=== PATIENT | male | born 1980 | race Two or more races ===

== ENCOUNTER → 2020-08-18 10:33 | Outpatient (BNVA) | payer MEDICARE, MEDICAID, SELFPAY | PROVIDERS: PCP Family Medicine; Visit Provider Internal Medicine Gastroenterology | DX: K58.0 Irritable bowel syndrome with diarrhea (principal); Z85.038 Personal history of other malignant neoplasm of large intestine | CPT/HCPCS: 99215 ==

== ENCOUNTER → 2020-09-29 09:00 | Outpatient (BNVA) | payer MEDICARE, MEDICAID, SELFPAY | PROVIDERS: Visit Provider Urology | DX: N31.9 Neuromuscular dysfunction of bladder, unspecified (principal); R97.20 Elevated prostate specific antigen [PSA] | CPT/HCPCS: 81002; 99212 ==

== ENCOUNTER 2020-10-04 11:28 | Outpatient (REF) | payer MEDICARE, MEDICAID, SELFPAY ==
[2020-10-04 11:56] LABS: MANUAL DIFF FLAG NO
[2020-10-04 12:03] LABS: Basophils Percent Auto 0.5 % (0-2); Eosinophils Absolute Auto 0.2 X10*3/uL (0.0-0.4); Eosinophils Percent Auto 2.8 % (0-4); Hematocrit 40.5 % (42-52); Hemoglobin 13.6 g/dl (14.0-18.0); Imm Gran Abs Auto 0.03 X10*3/uL (0.00-0.03); Imm Gran Pct Auto 0.5 % (0.0-0.4); Lymphocytes Percent Auto 15.5 % (20-40); Mean Corpuscular HGB Conc 33.6 g/dl (31.0-36.0); Mean Corpuscular Hemoglobin 31.8 pg (27.0-33.0); Mean Corpuscular Volume 94.6 fL (80-98); Mean Platelet Volume 10.4 fL (9.4-12.4); Monocytes Percent Auto 15.3 % (2-11); Neutrophils Absolute Auto 4.1 X10*3/uL (2.0-8.3); Neutrophils Percent Auto 65.4 % (45-73); Platelet Count 191 X10*3/uL (160-400); Red Blood Count 4.28 X10*6/uL (4.60-5.80); Red Cell Distribution Width 12.9 % (11.0-16.0); White Blood Count 6.3 X10*3/uL (4.8-10.8)
[2020-10-04 12:28] LABS: Alanine Aminotransferase 9 U/L (0-40); Albumin Level 4.4 g/dL (3.5-5.0); Alkaline Phosphatase 87 U/L (39-117); Anion Gap 11 (12-20); Aspartate Amino Transferase 18 U/L (5-37); Bilirubin Total 0.7 mg/dL (0.0-1.0); Blood Urea Nitrogen 10 mg/dL (9-16); C Reactive Protein 0.36 mg/dL (< or = 0.50); Calcium 10.3 mg/dL (8.4-10.2); Carbon Dioxide 29 mmol/L (22-29); Chloride 101 mmol/L (96-108); Estimated Glomerular Filt Rate > 60; Glucose Random 78 mg/dL (60-115); Sodium 137 mmol/L (135-145); Total Protein 7.6 g/dL (6.5-8.0)
== END 2020-10-04 11:29 | disposition home or self-care (01) ==
LOC: HO.LAB 11:28
PROVIDERS: PCP Family Medicine; Visit Provider Internal Medicine Gastroenterology
DX: R19.7 Diarrhea, unspecified (principal)
CPT/HCPCS: 36415; 80053; 85025; 86140

== ENCOUNTER 2020-10-05 11:13 | Outpatient (REF) | payer MEDICARE, MEDICAID, SELFPAY ==
[2020-10-05 13:10] LABS: Leukocytes Stool Qualitative NEGATIVE (NEGATIVE)
== END 2020-10-05 11:14 | disposition home or self-care (01) ==
LOC: HO.LNP 11:13
PROVIDERS: Visit Provider Internal Medicine Gastroenterology
DX: R19.7 Diarrhea, unspecified (principal)
CPT/HCPCS: 87338; 89055

== ENCOUNTER → 2020-10-26 13:53 | Outpatient (BNVA) | payer MEDICARE, MEDICAID, SELFPAY | PROVIDERS: PCP Family Medicine; Visit Provider Surgery Vascular Surgery | DX: I83.11 Varicose veins of right lower extremity with inflammation (principal) | CPT/HCPCS: 99202 ==

== ENCOUNTER 2020-10-28 13:31 | Outpatient (REF) | payer MEDICARE, MEDICAID, SELFPAY ==
--- NOTE | 2020-10-28 | US_ITS ---
EXAMINATION: ULTRASOUND EXTREMITY NONVASCULAR CLINICAL INFORMATION: Localized enlarged lymph nodes right inguinal region. COMPARISON: None TECHNIQUE: Routine reid-scale imaging through the right groin was performed. FINDINGS: There are 3 lymph nodes seen in the right groin. They measure as follows. 1. Normal echogenic medulla with lymph node measuring 2.0 x 0.8 x 1.6 cm. 2. Normal echogenic medulla with lymph node measuring 2.1 x 0.9 x 2.6 cm. 3. Normal echogenic medulla with lymph node measuring 2.0 x 0.7 x 1.6 cm. US/US extremity nonvascular IMPRESSION: At least 3 lymph nodes seen on ultrasound with normal echotexture.
== END 2020-10-28 13:32 | disposition home or self-care (01) ==
LOC: HO.US 13:31
PROVIDERS: PCP Family Medicine; Visit Provider Family Medicine
DX: R59.0 Localized enlarged lymph nodes (principal)
CPT/HCPCS: 76882

== ENCOUNTER 2020-11-09 10:20 | Outpatient (REF) | payer MEDICARE, MEDICAID, SELFPAY ==
--- NOTE | 2020-11-09 10:24 | US_ITS ---
EXAMINATION: US LOWER EXTREMITY VENOUS ULTRASOUND (REFLUX EXAM), BILATERAL CLINICAL INDICATION: Varicose veins right lower extremity with inflammation. COMPARISON: 07/09/2020 TECHNIQUE: Color flow triplex imaging and compression Doppler was performed to evaluate both the deep and the superficial systems bilaterally. To evaluate the superficial system, the examination was performed in the upright position. Color-flow Doppler ultrasound and compression ultrasound were utilized. In addition, maneuvers were utilized to demonstrate reflux. FINDINGS: 1. DEEP VENOUS ULTRASOUND OF THE RIGHT LOWER EXTREMITY: Respiratory variation, normal compression and augmented flow are noted in the right common femoral vein as well as the right popliteal vein, and there is no evidence of deep venous thrombosis at these locations. There is no evidence of reflux in the deep system in either the common femoral vein or the popliteal vein. There is no evidence of a Myers's cyst. 2. SUPERFICIAL ULTRASOUND WITH DOPPLER OF RIGHT LOWER EXTREMITY: The right great saphenous vein at the saphenofemoral junction measures 7 mm, at the mid thigh 11 mm, iwuux-jhq-ptjs 7 mm, qxewp-fsb-afbw 11 mm, at mid calf 4 mm, and at the ankle measures 4 mm. Reflux is noted in the mid thigh up to 1.8 seconds, pojpc-jyj-rxaq at 1.2 seconds, at the knee at 1.6 seconds, and flqaw-ojw-pyus at 1.1 seconds. There is no reflux at the saphenofemoral junction or proximal thigh. The right small saphenous vein measures 5 mm and shows no reflux. There is a 2 mm billing checker seen within the proximal calf without reflux. 3. DEEP VENOUS ULTRASOUND OF THE LEFT LOWER EXTREMITY: Respiratory variation, normal compression and augmented flow are noted in the left common femoral vein as well as the left popliteal vein, and there is no evidence of deep venous thrombosis at these locations. There is no evidence of reflux in the deep system in either the common femoral vein or the popliteal vein. There is no evidence of a Myers's cyst. 4. SUPERFICIAL ULTRASOUND WITH DOPPLER OF LEFT LOWER EXTREMITY: Left great saphenous vein at the saphenofemoral junction measures 11 mm, at the mid thigh 4 mm, aeuxk-gxj-pasw 4 mm, poubk-agd-reif 3 mm, at mid calf 3 mm, and at the ankle measures 3 mm. The only reflux identified is at the knee at approximately 2 seconds. No reflux is seen at the saphenofemoral junction. The left small saphenous vein measures 3 mm and shows no reflux. Varicosities with reflux are seen about the gaolt-zxx-qyfh and calf region. US/US venous duplex LE BI IMPRESSION: 1. No evidence of reflux or thrombus in the common femoral veins or popliteal veins bilaterally. 2. No reflux identified within the greater saphenous system at the saphenofemoral junctions bilaterally. There is reflux seen within the right greater saphenous vein from mid thigh through the whipj-jzs-voab region and in the left greater saphenous vein at the knee level.
== END 2020-11-09 10:21 | disposition home or self-care (01) ==
LOC: HO.US 10:20
PROVIDERS: Visit Provider Surgery Vascular Surgery
DX: I83.893 Varicose veins of bilateral lower extremities with other complications (principal)
CPT/HCPCS: 93970

== ENCOUNTER → 2020-11-23 08:41 | Outpatient (BNVA) | payer MEDICARE, MEDICAID, SELFPAY | PROVIDERS: PCP Family Medicine; Visit Provider Surgery Vascular Surgery | DX: I83.11 Varicose veins of right lower extremity with inflammation (principal) | CPT/HCPCS: 99212 ==

== ENCOUNTER 2020-11-24 12:43 | Outpatient (REF) | payer MEDICARE, MEDICAID, SELFPAY | END 2020-11-24 12:44 | disposition home or self-care (01) | LOC: HO.LAB 12:43 | PROVIDERS: PCP Family Medicine; Visit Provider Internal Medicine | DX: Z20.822 Contact with and (suspected) exposure to COVID-19 (principal) | CPT/HCPCS: 36415; C9803; U0003 ==

== ENCOUNTER → 2020-12-03 07:40 | Outpatient (BNVA) | payer MEDICARE, MEDICAID, SELFPAY | PROVIDERS: PCP Family Medicine; Visit Provider Surgery Vascular Surgery | DX: I83.11 Varicose veins of right lower extremity with inflammation (principal); Z98.890 Other specified postprocedural states | CPT/HCPCS: 36482 ==

== ENCOUNTER 2020-12-06 14:18 | Outpatient (REF) | payer MEDICARE, MEDICAID, SELFPAY ==
--- NOTE | ~2020-12-06 | US_ITS ---
EXAMINATION: US VENOUS ULTRASOUND WITH DOPPLER LOWER EXTREMITY, RIGHT CLINICAL INFORMATION: Post venous seal procedure. COMPARISON: Previous preoperative exam 11/09/2020 TECHNIQUE: Ultrasound of the deep veins is performed from the hip to the calf with compression sonography and color and pulse Doppler assessment. Spectral analysis with color-flow imaging is performed. FINDINGS: There is normal venous compression and respiratory variation and augmented flow. The visualized common femoral vein, superficial femoral vein, profunda femoral vein, popliteal vein, and the trifurcation region shows no evidence of deep venous thrombosis. There is echogenic material in the right greater saphenous vein 4.2 cm from the saphenofemoral junction post venaseal procedure. There is focal dilatation of the right greater saphenous vein at the superior aspect of the echogenic material likely representing venaseal thrombus. There also appears to be a prominent valve leaflet seen in this region as well. This measures 2.2 cm in diameter and is increased in size from 1.2 cm on preoperative exam 11/09/2020. This area measures 3.8 cm in length. There is no significant popliteal fossa cyst. US/US venous duplex LE RT IMPRESSION: No DVT demonstrated in the right lower extremity. Echogenic material in the right greater saphenous vein 4.2 cm from the saphenofemoral junction post vena seal procedure. There is a focal area of marked dilatation of the right greater saphenous vein in the proximal thigh with echogenic material and probable valve leaflet at the superior end of the vena seal thrombosis. This measures 2.2 cm in diameter and is increased in size from 1.2 cm on preprocedure exam 11/09/2020. This measures 3.8 cm in length.
== END 2020-12-06 14:19 | disposition home or self-care (01) ==
LOC: HO.US 14:18
PROVIDERS: Visit Provider Surgery Vascular Surgery
DX: M79.604 Pain in right leg (principal); Z98.890 Other specified postprocedural states
CPT/HCPCS: 93971

== ENCOUNTER → 2020-12-16 09:05 | Outpatient (BNVA) | payer MEDICARE, MEDICAID, SELFPAY | PROVIDERS: PCP Family Medicine; Visit Provider Surgery Vascular Surgery | DX: I83.11 Varicose veins of right lower extremity with inflammation (principal) | CPT/HCPCS: 99212 ==

== ENCOUNTER 2021-02-07 10:07 | Outpatient (REF) | payer MEDICARE, MEDICAID, SELFPAY ==
[2021-02-07 12:16] LABS: MANUAL DIFF FLAG NO
[2021-02-07 12:20] LABS: Basophils Percent Auto 0.5 % (0-2); Eosinophils Absolute Auto 0.1 X10*3/uL (0.0-0.4); Hematocrit 40.2 % (42-52); Hemoglobin 13.1 g/dl (14.0-18.0); Imm Gran Abs Auto 0.02 X10*3/uL (0.00-0.03); Imm Gran Pct Auto 0.3 % (0.0-0.4); Lymphocytes Percent Auto 16.1 % (20-40); Mean Corpuscular HGB Conc 32.6 g/dl (31.0-36.0); Mean Corpuscular Hemoglobin 30.8 pg (27.0-33.0); Mean Corpuscular Volume 94.6 fL (80-98); Monocytes Absolute Auto 0.7 X10*3/uL (0.1-1.2); Neutrophils Absolute Auto 4.2 X10*3/uL (2.0-8.3); Neutrophils Percent Auto 69.1 % (45-73); Platelet Count 190 X10*3/uL (160-400); Red Blood Count 4.25 X10*6/uL (4.60-5.80); White Blood Count 6.1 X10*3/uL (4.8-10.8)
[2021-02-07 13:10] LABS: Alanine Aminotransferase 10 U/L (0-40); Albumin Level 4.4 g/dL (3.5-5.0); Alkaline Phosphatase 83 U/L (39-117); Anion Gap 11 (12-20); Aspartate Amino Transferase 17 U/L (5-37); Bilirubin Total 0.6 mg/dL (0.0-1.0); Blood Urea Nitrogen 14 mg/dL (9-16); C Reactive Protein 0.11 mg/dL (< or = 0.50); Calcium 10.3 mg/dL (8.4-10.2); Carbon Dioxide 29 mmol/L (22-29); Chloride 102 mmol/L (96-108); Estimated Glomerular Filt Rate > 60; Gamma Glutamyl Transpeptidase 19 U/L (11-51); Glucose Random 83 mg/dL (60-115); Sodium 138 mmol/L (135-145); Total Protein 7.4 g/dL (6.5-8.0)
[2021-02-07 13:22] LABS: Ferritin 61 ng/mL (20-250); TSH reflex Free T4 1.75 uIU/mL (0.32-4.0); Vitamin D 25-OH Total 19.2 ng/mL (>30)
== END 2021-02-07 10:08 | disposition home or self-care (01) ==
LOC: HO.LAB 10:07
PROVIDERS: PCP Family Medicine; Visit Provider Internal Medicine Gastroenterology
DX: R19.7 Diarrhea, unspecified (principal); K29.50 Unspecified chronic gastritis without bleeding; B96.81 Helicobacter pylori [H. pylori] as the cause of diseases classified elsewhere; F81.9 Developmental disorder of scholastic skills, unspecified
CPT/HCPCS: 36415; 80053; 82306; 82728; 82977; 84443; 85025; 86140; 99212

== ENCOUNTER 2021-02-09 13:27 | Outpatient (REF) | payer MEDICARE, MEDICAID, SELFPAY ==
[2021-02-09 14:20] LABS: Leukocytes Stool Qualitative NEGATIVE (NEGATIVE)
[2021-02-16 22:57] LABS: Chymotrypsin, Stool 5.1 U/g (2.3-51.4)
== END 2021-02-09 13:28 | disposition home or self-care (01) ==
LOC: HO.LNP 13:27
PROVIDERS: Visit Provider Internal Medicine Gastroenterology
DX: R19.7 Diarrhea, unspecified (principal); Z85.038 Personal history of other malignant neoplasm of large intestine
CPT/HCPCS: 87324; 87449; 89055

== ENCOUNTER 2021-02-18 10:46 | Outpatient (REF) | payer MEDICARE, MEDICAID, SELFPAY ==
[2021-02-18 13:12] LABS: Prostate Specific Antigen 2.49 ng/mL (<0.05-4.0)
== END 2021-02-18 10:47 | disposition home or self-care (01) ==
LOC: HO.LAB 10:46
PROVIDERS: PCP Family Medicine; Visit Provider Urology
DX: R97.20 Elevated prostate specific antigen [PSA] (principal); Z12.5 Encounter for screening for malignant neoplasm of prostate
CPT/HCPCS: 36415; 84153

== ENCOUNTER 2021-03-23 11:26 | Outpatient (REF) | payer MEDICARE, MEDICAID, SELFPAY ==
[2021-03-23 12:21] LABS: CDIFF Ag Negative (Negative); CDIFF Internal ctrl Dots and bkg OK (V); CDiff Toxin Negative (Negative)
== END 2021-03-23 11:27 | disposition home or self-care (01) ==
LOC: HO.LNP 11:26
PROVIDERS: Visit Provider Internal Medicine Gastroenterology
DX: R19.7 Diarrhea, unspecified (principal)
CPT/HCPCS: 87324; 87449

== ENCOUNTER 2021-03-29 08:18 | Outpatient (REF) | payer MEDICARE, MEDICAID, SELFPAY ==
--- NOTE | ~2021-03-29 | CT_ITS ---
EXAMINATION: CT ABDOMEN AND PELVIS WITH CONTRAST CLINICAL INFORMATION: Chronic diarrhea. COMPARISON: None TECHNIQUE: Multidetector volumetric images were obtained from the superior aspect of the liver through the pubic symphysis following administration 85 mL of Omnipaque 350 intravenous contrast. Sagittal and coronal reformatted images were obtained on the technologist's workstation. Oral contrast: No This CT examination was performed using dose optimization techniques as appropriate, variously including the following: *Automated exposure control *Adjustment of mA and/or kV according to patient size (this includes techniques or standardized protocols for targeted exams where dose is matched to indication/reason for exam; i.e. extremities or head) *Use of iterative reconstruction technique DLP: 576 mGy-cm FINDINGS: LUNG BASES: The heart size is normal. The lung bases are clear. LIVER, GALLBLADDER, AND BILIARY TREE: The liver is normal in size, shape, and attenuation. No focal hepatic lesion or biliary ductal dilatation is present. The gallbladder is unremarkable with no evidence of radiopaque gallstones, gallbladder wall thickening, or obvious pericholecystic inflammatory changes. PANCREAS: Unremarkable. SPLEEN: There is a punctate hypodensity inferior to splenic hilum likely suspicious for a small cyst. ADRENAL GLANDS: Unremarkable. KIDNEYS AND URETERS: The kidneys are normal in size, shape, and attenuation. No hydronephrosis, hydroureter, or calculi seen. No perinephric stranding. There are bilateral nonenhancing renal cysts largest in midpole right kidney measuring 1.3 cm and midpole left kidney measuring 7 mm. BLADDER: Unremarkable. GASTROINTESTINAL TRACT: There is a large amount of stool and oral contrast seen throughout the colon without significant distention. The small bowel loops are normal caliber. The appendix is normal caliber. No free air or inflammatory process seen. ABDOMINAL WALL: No significant hernia is appreciated. LYMPH NODES: Small shotty lymph nodes are seen in the left para-aortic space. VASCULAR: Unremarkable. PELVIC VISCERA: There is no free air or free fluid. OSSEOUS STRUCTURES: There is right L4-L5 facet joint arthropathy. No lytic or sclerotic process seen. CT/CT abdomen pelvis w con IMPRESSION: Mild constipation. No obstruction. No radiopaque urolith or hydroureteronephrosis. Bilateral small renal cysts are seen. No acute intra-abdominal process seen.
[2021-03-29] MEDS: Barium Sulfate Oral (Vanilla) 450 ML ORAL.SUSP 900 ML PO (11:13)
[2021-03-29] MEDS: iohexoL 350 MG/ML 100 ML INFUS..BTL IV (11:13)
== END 2021-03-29 08:19 | disposition home or self-care (01) ==
LOC: HO.CT 08:18
PROVIDERS: Visit Provider Internal Medicine Gastroenterology
DX: R10.9 Unspecified abdominal pain (principal)
CPT/HCPCS: 74177; Q9967

== ENCOUNTER → 2021-03-31 09:13 | Outpatient (BNVA) | payer MEDICARE, MEDICAID, SELFPAY | PROVIDERS: PCP Family Medicine; Visit Provider Urology | DX: N31.9 Neuromuscular dysfunction of bladder, unspecified (principal); R97.20 Elevated prostate specific antigen [PSA] | CPT/HCPCS: 99212 ==

== ENCOUNTER 2021-04-22 09:08 | Day surgery (SDC) | payer MEDICARE, MEDICAID, SELFPAY ==
[2021-04-18 09:06] VITALS: BMI 24.1
--- NOTE | 2021-04-22 09:54 | P.CONAN_ITS ---
[facility] Active Problems Active Problems: All Active Problems (Updated 02/07/21 @ 10:36 by Taylor Retana MD) Chronic Helicobacter pylori gastritis (Acute) Varicose veins of right lower extremity with inflammation (Acute) Neurogenic urinary bladder disorder (Acute) Elevated PSA (Acute) Cognitive developmental delay (Acute) Personal history of colon cancer (Acute) IBS (irritable colon syndrome) (Acute) Diarrhea (Acute) Past Medical History Medical History Asthma Chronic Helicobacter pylori gastritis Cognitive developmental delay Diarrhea IBS (irritable colon syndrome) Personal history of colon cancer Family History Family History Father No problems noted. Mother Family history of cancer of vagina Colon polyps Maternal Grandmother Family history of cancer of vagina Cancer Paternal Uncle Bone cancer Paternal Aunt Cancer Maternal Uncle Stomach cancer Brother No problems noted. Surgical History Surgical History History of esophagogastroduodenoscopy (EGD) (07/01/15) History of incision and drainage (01/29/14) Hx of colonoscopy (02/10/15) Hx of laparoscopy (03/11/15) Social History Social History Household Members Other:: Patient with cognitive, verbal and behavioral challenges lives w/ mother Alcohol intake: current Alcohol intake frequency: does not drink Advance Directives: No Advance Directives Information Provided: No Meds Allergies Allergy/AdvReac Type Severity Reaction Status Date / Time No Known Allergies Allergy Verified 03/31/21 09:17 [No Known Allergies*] Home Medications Medication Instructions Recorded Confirmed Last Taken Type clonidine HCl 0.3 mg tablet 0.3 mg PO BEDTIME 08/18/20 04/18/21 Unknown History omeprazole 20 mg capsule,delayed 20 mg PO BID 08/18/20 04/18/21 Unknown History release quetiapine 200 mg tablet 200 mg PO BEDTIME 08/18/20 04/18/21 Unknown History quetiapine 300 mg tablet 300 mg PO DAILY 08/18/20 04/18/21 Unknown History loperamide 2 mg capsule 2 mg PO QID PRN 08/21/20 04/18/21 Unknown History cholecalciferol (vitamin D3) 50 50 mcg PO DAILY 12/29/20 06/21/21 Unknown History mcg (2,000 unit) tablet clonidine HCl 0.1 mg tablet 0.1 mg PO BID 10/26/20 04/18/21 Unknown History flu vacc [id number] 6mos up(PF) ml IM 10/26/20 02/07/21 Unknown History fluticasone propionate 50 2 spray INTRANASAL Q OTHER DAY 10/26/20 04/18/21 Unknown History mcg/actuation nasal spray,suspension lithium carbonate 150 mg capsule 150 mg PO BID 10/26/20 04/18/21 Unknown History lithium carbonate 300 mg capsule 600 mg PO BID 10/26/20 04/18/21 Unknown History lorazepam 0.5 mg tablet 0.5 mg PO TID PRN 10/26/20 04/18/21 Unknown History olanzapine 10 mg tablet 10 mg PO BEDTIME 10/26/20 04/18/21 Unknown History olanzapine 5 mg tablet 5 mg PO QAM 10/26/20 04/18/21 Unknown History oxcarbazepine 150 mg tablet 150 mg PO BID 10/26/20 04/18/21 Unknown History oxcarbazepine 300 mg tablet 300 mg PO BID 10/26/20 04/18/21 Unknown History sertraline 50 mg tablet 50 mg PO DAILY 10/26/20 04/18/21 Unknown History sulfamethoxazole 800 1 tab PO Q12H 10/26/20 02/07/21 Unknown History mg-trimethoprim 160 mg tablet trazodone 100 mg tablet 100 mg PO BEDTIME 10/26/20 04/18/21 Unknown History zolpidem 10 mg tablet 10 mg PO BEDTIME 10/26/20 04/18/21 Unknown History zolpidem 5 mg tablet 5 mg PO BEDTIME 10/26/20 02/07/21 Unknown History quetiapine 100 mg tablet 100 mg PO QAM 03/31/21 04/18/21 Unknown History Exam Exam Date and Time: April 22, 2021 0954 Height,Weight and Vital Signs: Height 6 ft 1 in Weight 83.007 kg Airway Mallampati Class: III TM Dist: >3cm Neck ROM: Full
[2021-04-22 10:07] VITALS: BP 111/75; PULSE 69; RESP 18; TEMP 37.1; O2SAT 98
[2021-04-22] MEDS: Lactated Ringers 1,000 ML 100 ML IVCONT (10:21)
--- NOTE | 2021-04-22 10:26 | W.PM.OPN ---
Operative Note Operative Note Date of Service: 04/22/21 Narrative: Pre-op diagnosis: Postprandial diarrhea, persistent Helicobacter pylori infection Post-op diagnosis: other (Gastritis, colon polyp, hemorrhoids) Procedure: FLEXIBLE TRANSORAL UPPER GASTROINTESTINAL ENDOSCOPY WITH BIOPSIES AND COLONOSCOPY TILL CECUM WITH BIOPSIES, SNARE POLYPECTOMY AND SUBMUCOSAL INJECTION UPPER ENDOSCOPY Consent: Indications for the procedure and potential complications of bleeding, perforation, reaction to medications and missed diagnosis were discussed with the patient's Mom (HCP) with the help of a insurance sales representative and informed consent was obtained. Instrument: Olympus GIF H 190 mid size upper endoscope Monitoring: Vital signs and clinical assessment, continuous EKG monitoring, Pulse oximetry, Carbon Dioxide monitoring and blood pressure monitoring were done throughout the procedure. Procedure: The patient was placed in the left lateral decubitis position and pre-procedure medications were administered and a bite block was placed. The endoscope was inserted into the mouth and advanced under direct vision to the third part of duodenum. A careful inspection was made as the upper endoscope was withdrawn including a retroflexed examination of the proximal stomach; Findings and interventions are described below. Findings: Larynx: Normal Esophagus: GE junction at 40 cms. No esophagitis or Morin's. Stomach: Moderate diffuse gastric erythema with submucosal hemorrhages in the gastric body. Biopsies were obtained from the antrum body of the stomach. Antral biopsies were sent to an outside lab for culture and sensitivities for Helicobacter pylori. Grade 2 flap valve on retroflexed examination of the cardia. Duodenum: Normal bulb and descending duodenum. Biopsies were obtained from 3rd part of the duodenum to check for celiac sprue Intervention: Biopsies as noted above COLONOSCOPY PROCEDURE NOTE Consent: Indications for the procedure and potential complications of bleeding, perforation, reaction to medications and missed diagnosis were discussed with the patient and informed consent was obtained. Instrument: Olympus PCF H 190 L variable stiffness pediatric colonoscope Monitoring: Vital signs and clinical assessment, intermittent blood pressure monitoring, continuous EKG monitoring, Pulse oximetry and Carbon Dioxide monitoring were done throughout the procedure. Colon withdrawl time was 24 minutes. Procedure: The patient was placed in the left lateral decubitis position and pre-procedure medications were administered. After a digital rectal examination of the ano-rectum, the video colonoscope was inserted into the rectum and advanced through the colon to the cecum. The colonoscope was slowly withdrawn in a retrograde panoramic fashion and the colon mucosa was carefully examined including a retroflexed view of the rectum. Findings and interventions are described below. Procedure Difficulty: : Without difficulty Findings: Terminal Ileum: Not evaluated Cecum: A 2 cm flat polyp raised with 3 cc of Orise solution and removed with a hot snare Ascending Colon: Normal Transverse Colon: Normal Descending Colon: Normal Sigmoid Colon: Normal Rectum: Normal Ano-rectum: Moderate internal hemorrhoids Colon preparation: Fair despite copious irrigation Impression and Post Procedure Diagnosis: Endoscopy Findings: STOMACH: Moderate diffuse gastric erythema with submucosal hemorrhages in the gastric body. Biopsies were obtained from the antrum body of the stomach. Antral biopsies were sent to an outside lab for culture and sensitivities for Helicobacter pylori. DUODENUM: Normal - biopsied to check for celiac sprue due to symptoms of postprandial diarrhea. Colonoscopy Findings: One large sized polyp removed Random biopsies were obtained from the colon to check for microscopic colitis. Normal appearing end-to-end anastomosis at 20 cm Moderate hemorrhoids on retroflexed exam. Plan: Await pathology results Patient has an appointment on []in the GI Clinic with [NAKITA Smith] [Janette Yoon NP] [Juju Solorzano, [facility]] [Leonor Salgado M.D.]. Repeat Colonoscopy interval based on path results - in 1 year if polyps are adenomatous and due to fair prep. Above findings were reviewed with the patient and colon polyps and Helicobacter pylori handouts were given in the discharge area Surgeon: Leonor Salgado MD Anesthesia: MAC (Talya Vazquez CRNA & Dr Arboleda) Was an Slurry Tank Operator used for this Procedure?: Yes Slurry Tank Operator: Mariah Jones Estimated blood loss (mL): 0 Pathology: other (A. CULTURE SEND OUT SENT TO MICROBIOLOGY B. GASTRIC ANTRUM BX'S R/O H. PYLORI C. DUODENAL BX'S R/O CELIACS DX D. GASTRIC BODY BX'S E. CECAL POLYP ORISE USED ON THIS SPECIMEN ) Condition: stable Disposition: PACU
--- NOTE | 2021-04-22 10:27 | MHC.SHP ---
Pre-Procedural Eval Section A Date of Service: 04/22/21 The patient is an INPATIENT: No The History & Physical has been completed within 30 days and I have reviewed it.: No Section B Chief Complaint: chronic gastritis without bleed Details of Present Illness: Chronic diarrhea, follow-up of H.pylori infection Relevant Family History (Specify if Yes): Yes Relevant Social History: None Present Medications: see Short Stay Collaborative assessment Medical History: Significant History (Asthma Chronic Helicobacter pylori gastritis Cognitive developmental delay Diarrhea IBS (irritable colon syndrome) Personal history of colon cancer) History of Previous Operations: Relevant previous surgery/procedure and date(s) (History of esophagogastroduodenoscopy (EGD) (07/01/15) History of incision and drainage (01/29/14) Hx of colonoscopy (02/10/15) Hx of laparoscopy (03/11/15)) Allergies: Allergies Allergy/AdvReac Type Severity Reaction Status Date / Time No Known Allergies Allergy Verified 04/22/21 10:21 [No Known Allergies*] Review of Systems Sugical H&P ROS: Negative: Constitution and Cardiovascular and Yes, Specify: Respiratory (asthma) and Gastrointestinal (Chronic diarrhea) Exam Surgical H&P Exam: Normal: Heart and Normal: Abdomen and Significant Findings: Lungs (bilateral wheezing) Plan Diagnosis/Plan: Change (Colonoscopy for evaluation of chronic diarrhea) I have reviewed the history and physical and performed a pertinent physical examination on my patient. No changes have occurred unless specified.
[2021-04-22 11:36] VITALS: BP 114/71; PULSE 62; RESP 15; TEMP 36.2; O2SAT 95
[2021-04-22 12:04] VITALS: BP 113/77; PULSE 62; RESP 18; TEMP 36.2; O2SAT 98
== END 2021-04-22 12:50 | disposition home or self-care (01) ==
PROVIDERS: PCP Family Medicine; Visit Provider Internal Medicine Gastroenterology
PROC: (CPT 45385; principal; 2021-04-22 11:10)
DX: Z12.11 Encounter for screening for malignant neoplasm of colon (principal); Z85.038 Personal history of other malignant neoplasm of large intestine; D12.0 Benign neoplasm of cecum; K64.8 Other hemorrhoids; K58.0 Irritable bowel syndrome with diarrhea; K29.51 Unspecified chronic gastritis with bleeding; B96.81 Helicobacter pylori [H. pylori] as the cause of diseases classified elsewhere; J45.909 Unspecified asthma, uncomplicated; F81.9 Developmental disorder of scholastic skills, unspecified; Z90.49 Acquired absence of other specified parts of digestive tract; Z79.51 Long term (current) use of inhaled steroids; Z79.899 Other long term (current) drug therapy
CPT/HCPCS: 45385; 45380; 45381; 43239; 36415; 88305; 88342; J3010

== ENCOUNTER 2021-04-24 11:54 | Observation (INO) | payer MEDICARE, MEDICAID, SELFPAY ==
--- NOTE | ~2021-04-24 | CT_ITS ---
EXAMINATION: CT ABDOMEN AND PELVIS WITH CONTRAST CLINICAL INFORMATION: Status post colonoscopy with bloody stools. COMPARISON: 03/29/2020 TECHNIQUE: Multidetector volumetric images were obtained from the superior aspect of the liver through the pubic symphysis following administration 85 mL of Omnipaque 350 intravenous contrast. Sagittal and coronal reformatted images were obtained on the technologist's workstation. Oral contrast: No This CT examination was performed using dose optimization techniques as appropriate, variously including the following: *Automated exposure control *Adjustment of mA and/or kV according to patient size (this includes techniques or standardized protocols for targeted exams where dose is matched to indication/reason for exam; i.e. extremities or head) *Use of iterative reconstruction technique DLP: 620 mGy-cm FINDINGS: LUNG BASES: Patchy opacities at left base LIVER, GALLBLADDER, AND BILIARY TREE: Findings suggest mild periportal edema significance The gallbladder is unremarkable with no evidence of radiopaque gallstones, gallbladder wall thickening, or obvious pericholecystic inflammatory changes. PANCREAS: Head of the pancreas but this is also felt to be the case previously. SPLEEN: Unremarkable. ADRENAL GLANDS: Unremarkable. KIDNEYS AND URETERS: The kidneys are normal in size, shape, and attenuation. No hydronephrosis, hydroureter, or calculi seen. No perinephric stranding. BLADDER: Unremarkable. GASTROINTESTINAL TRACT: The small and large bowel are unremarkable. The appendix is unremarkable. ABDOMINAL WALL: No significant hernia is appreciated. LYMPH NODES: Normal. VASCULAR: Unremarkable. PELVIC VISCERA: Prominent prostate OSSEOUS STRUCTURES: Unremarkable. CT/CT abdomen pelvis w con IMPRESSION: The bowel pattern is within normal limits. There is no free fluid. There is no free air. Mild periportal edema in the liver of uncertain etiology. Prominent prostate. Mild patchy left basilar opacities new from previous
--- NOTE | ~2021-04-24 | XR_ITS ---
EXAMINATION: XR CHEST CLINICAL INFORMATION: Left basilar opacity on CAT scan. COMPARISON: CT chest 04/24/2021 TECHNIQUE: Frontal view of the chest was obtained. FINDINGS: The lungs are fairly well-expanded with patchy atelectasis left lung base. Rest lungs are clear. The heart size and pulmonary vascularity is normal. There is moderate spondylosis dorsal spine. No lytic process. XR/XR chest 1V IMPRESSION: Patchy atelectasis left lung base.
[2021-04-24 12:04] VITALS: BP 113/65; PULSE 75; RESP 18; TEMP 36.7; O2SAT 97; BMI 25.4
[2021-04-24] MEDS: 0.9 % Sodium Chloride 1,000 ML 999 ML IVCONT (14:01)
[2021-04-24 14:07] LABS: MANUAL DIFF FLAG NO
[2021-04-24 14:08] LABS: Basophils Percent Auto 0.4 % (0-2); Eosinophils Absolute Auto 0.2 X10*3/uL (0.0-0.4); Eosinophils Percent Auto 2.8 % (0-4); Hematocrit 32.9 % (42-52); Hemoglobin 10.9 g/dl (14.0-18.0); Imm Gran Abs Auto 0.01 X10*3/uL (0.00-0.03); Imm Gran Pct Auto 0.2 % (0.0-0.4); Lymphocytes Percent Auto 17.9 % (20-40); Mean Corpuscular HGB Conc 33.1 g/dl (31.0-36.0); Mean Corpuscular Hemoglobin 30.7 pg (27.0-33.0); Mean Corpuscular Volume 92.7 fL (80-98); Mean Platelet Volume 10.3 fL (9.4-12.4); Monocytes Absolute Auto 0.7 X10*3/uL (0.1-1.2); Monocytes Percent Auto 13.8 % (2-11); Neutrophils Absolute Auto 3.5 X10*3/uL (2.0-8.3); Neutrophils Percent Auto 64.9 % (45-73); Platelet Count 153 X10*3/uL (160-400); Red Blood Count 3.55 X10*6/uL (4.60-5.80); Red Cell Distribution Width 12.8 % (11.0-16.0); White Blood Count 5.4 X10*3/uL (4.8-10.8)
[2021-04-24 14:13] LABS: INTERNATIONAL NORM RATIO 1.1 (0.9-1.1); Prothrombin Time 13.4 SEC (10.8-13.0)
[2021-04-24 14:27] LABS: COVID-19 Test Negative (Negative)
--- NOTE | 2021-04-24 14:40 | ED.GIBLEED ---
HPI - GI Bleed General Chief complaint: General Medical Stated complaint: Blood in stool Time Seen by Provider: 04/24/21 13:02 Source: family ( mother and sister at bedside) Mode of arrival: ambulatory Limitations: other (Patient is nonverbal and cognitive developmental delay) History of Present Illness HPI Narrative: 40-year-old male who is Nonverbal and Cognitive developmental delay, prior colon cancer, IBS, chronic H pylori, neurogenic urinary bladder disorder, asthma, varicose vein of right lower extremity with inflammation who recently had a colonoscopy on 04/22/2021 where they found a polyp by Dr. Salgado presenting with his mother and sister at bedside with complaints of black colored stools that started since last night last episode was this morning no clots noted. They report that the patient appears to be in pain. Patient has not had any fevers. They deny any other symptoms complaints or concerns at this time. MD complaint: melena Onset (ago): day(s) ( Since last night) Pain Consistency: constant Severity: moderate Relieving factors: none Exacerbating factors: bowel movement Context: other ( recent colonoscopy on 04/22/2021) Treatments Prior to Arrival: none Related Data Home Medications Medication Instructions Recorded Confirmed clonidine HCl 0.3 mg tablet 0.3 mg PO BEDTIME 08/18/20 04/24/21 omeprazole 20 mg capsule,delayed 20 mg PO BID 08/18/20 04/24/21 release quetiapine 200 mg tablet 200 mg PO BEDTIME 08/18/20 04/24/21 quetiapine 300 mg tablet 300 mg PO DAILY 08/18/20 04/24/21 loperamide 2 mg capsule 2 mg PO QID PRN 08/21/20 04/24/21 cholecalciferol (vitamin D3) 50 50 mcg PO DAILY 10/26/20 04/24/21 mcg (2,000 unit) tablet clonidine HCl 0.1 mg tablet 0.1 mg PO BID 10/26/20 04/24/21 flu vacc [id number] 6mos up(PF) 1 ml IM NEEDED 10/26/20 04/24/21 fluticasone propionate 50 2 spray INTRANASAL Q OTHER DAY 10/26/20 04/24/21 mcg/actuation nasal spray,suspension lithium carbonate 150 mg capsule 150 mg PO BID 10/26/20 04/24/21 lithium carbonate 300 mg capsule 600 mg PO BID 10/26/20 04/24/21 lorazepam 0.5 mg tablet 0.5 mg PO TID PRN 10/26/20 04/24/21 olanzapine 10 mg tablet 10 mg PO BEDTIME 10/26/20 04/24/21 olanzapine 5 mg tablet 5 mg PO QAM 10/26/20 04/24/21 oxcarbazepine 150 mg tablet 150 mg PO BID 10/26/20 04/24/21 oxcarbazepine 300 mg tablet 300 mg PO BID 10/26/20 04/24/21 sertraline 50 mg tablet 50 mg PO DAILY 10/26/20 04/24/21 sulfamethoxazole 800 1 tab PO Q12H 10/26/20 04/24/21 mg-trimethoprim 160 mg tablet trazodone 100 mg tablet 100 mg PO BEDTIME 10/26/20 04/24/21 zolpidem 10 mg tablet 10 mg PO BEDTIME 10/26/20 04/24/21 zolpidem 5 mg tablet 5 mg PO BEDTIME 10/26/20 04/24/21 quetiapine 100 mg tablet 100 mg PO QAM 03/31/21 04/24/21 Previous Rx's Medication Instructions Recorded mirabegron 50 mg tablet,extended 50 mg PO DAILY 90 Days #90 tab 09/29/20 release 24 hr [id number]-[id number] 1 cap PO TID 30 Days #90 cap 03/29/21 10,000-32,000-42,000 unit capsule,delayed rel Allergies Allergy/AdvReac Type Severity Reaction Status Date / Time No Known Allergies Allergy Verified 04/22/21 10:21 [No Known Allergies*] Review of Systems Review of Systems: Constitutional : No Weight loss, No Fever, No Chills, No Night Sweats, No Fatigue, No Malaise ENT/Mouth: No Difficulty swallowing Cardiovascular : No Chest Pain, No SOB, No Dyspnea on Exertion, No Orthopnea, No Edema, No Palpitations Respiratory : No Cough, No Sputum, No Wheezing, No Dyspnea Gastrointestinal : Positive Melena, No Nausea, No Vomiting, No Diarrhea, No blood streaked emesis, No coffee-ground emesis, No gross hematemesis, No blood streak stool, No gross hematochezia Genitourinary : No irregular bleeding, No Dysuria, No Urinary Frequency, No Hematuria,No Urinary Incontinence, No Urgency, No Flank Pain Musculoskeletal : No Joint Swelling Skin : No Skin Lesions, No rash Neuro : No Weakness Yes Other ( limited due to medical condition) [facility] Past Medical History Attestation statement: The following information was validated with the patient. Medical History Asthma Chronic Helicobacter pylori gastritis Cognitive developmental delay Diarrhea IBS (irritable colon syndrome) Personal history of colon cancer Surgical History History of esophagogastroduodenoscopy (EGD) (07/01/15) History of incision and drainage (01/29/14) Hx of colonoscopy (02/10/15) Hx of laparoscopy (03/11/15) Family History Family History Father No problems noted. Mother Family history of cancer of vagina Colon polyps Maternal Grandmother Family history of cancer of vagina Cancer Paternal Uncle Bone cancer Paternal Aunt Cancer Maternal Uncle Stomach cancer Brother No problems noted. Social History Social History Household Members Other:: Patient with cognitive, verbal and behavioral challenges lives w/ mother Alcohol intake: current Alcohol intake frequency: does not drink Advance Directives: No Advance Directives Information Provided: Yes Physical Exam Vital Signs: Vital Signs: Last Vital Signs Temp 97.6 F 04/24/21 16:12 Pulse 58 04/24/21 16:12 Resp 20 04/24/21 16:12 BP 126/76 04/24/21 16:12 Pulse Ox 98 04/24/21 16:12 Body Mass Index 25.4 vital signs have been reviewed as normal and appeared to be correct. Blood pressure normal. Heart rate normal. Respiration rate normal. Temperature normal. Oxygen saturation normal. Appearance: Alert. No acute distress. Head: Normal external exam. Normocephalic. Eyes: PERRLA. EOMI. Conjunctiva and sclera normal. Eyelids normal. ENT: Pharynx normal. Uvula midline. Moist mucous membranes. Neck: Normal inspection. Neck supple. FROM. No adenopathy. No meningeal signs. CVS: Normal heart rate and rhythm. Heart sound normal. No murmurs noted. Pulses normal throughout. Respiratory: No respiratory distress. Painless inspiration. Breath sounds normal. No wheezes/rales/rhonchi noted. Chest nontender. No accessory muscle usage noted or decreased air movement noted. Abdomen: Soft and nontender. Nondistended. No guarding. No rigidity. Bowel sounds normal in all 4 quadrants. No distention noted. No organomegaly noted. No visible injury noted. No rebound tenderness. Negative Rovsing sign. Negative obturator's sign. Negative psoas sign. Negative Karimi sign. Rectal: Chaperoned by ARSENIO Clayton. no external/ internal hemorrhoids noted. Patient has a normal sphincter tone. Patient has maroon-colored stool. Positive stool occult. Back: No CVA tenderness. Full range of motion noted. Skin: Skin warm and dry. Normal skin color. Normal skin turgor. No rashes/lesions/lacerations noted. Extremities: Extremities exhibit normal range of motion. Neuro: Alert at baseline. Course Course Course Narrative: 13:05pm - 40-year-old male who is Nonverbal and Cognitive developmental delay, prior colon cancer, IBS, chronic H pylori, neurogenic urinary bladder disorder, asthma, varicose vein of right lower extremity with inflammation who recently had a colonoscopy on 04/22/2021 where they found a polyp by Dr. Salgado presenting with his mother and sister at bedside with complaints of black colored stools that started since last night last episode was this morning no clots noted. They report that the patient appears to be in pain. Plan: Labs, stool occult,. Provide a L of IV fluids, CT scan abdomen pelvis with IV contrast then re-evaluate. Reevaluation(s) Reevaluation #1: - Labs return patient with increased anemia with an H&H of 10.9/32.9 today on 02/07/2021 patient had an H&H of 13.1/40.2 and that is his baseline. - Patient's platelet count was 153 today which is decreased when compared to prior. - All other labs are within normal limits. - Stool occult positive. - CT scan of abd/pelvis c IV contrast Revealed mild periportal edema in the liver of unknown etiology and mild patchy left bibasilar opacities new from previous otherwise patient has a prominent prostate in the bowel pattern is within normal limits and there is no free fluid or free air noted. - will obtain chest x-ray. - Will consult with Dr. Salgado At this time. Time: 16:35 Reevaluation #2: - I consulted with Dr. Winters and he reported that the patient could be admitted and due to the patient being stable that no further imaging is indicated at this time Although that patient will need possibly a repeat endoscope/colonoscopy or bleeding study therefore consulted with Dr. Appiah the hospitalist to admit at this time. Family updated at this time and they understand agree with this plan. Time: 17:32 MDM - GI Bleed Medical Records Attestation: I reviewed the patient's medical records. Lab Data Attestation: I reviewed the patient's lab results. Result diagrams: 04/24/21 13:57 04/24/21 13:57 Labs: Lab Results 04/24/21 04/24/21 04/24/21 Range/Units 13:57 13:57 13:57 WBC 5.4 (4.8-10.8) X10*3/uL RBC 3.55 L (4.60-5.80) X10*6/uL Hgb 10.9 L (14.0-18.0) g/dl Hct 32.9 L (42-52) % MCV 92.7 (80-98) fL MCH 30.7 (27.0-33.0) pg MCHC 33.1 (31.0-36.0) g/dl RDW 12.8 (11.0-16.0) % Plt Count 153 L (160-400) X10*3/uL MPV 10.3 (9.4-12.4) fL Immature Gran % (Auto) 0.2 (0.0-0.4) % Neut % (Auto) 64.9 (45-73) % Lymph % (Auto) 17.9 L (20-40) % [place] % (Auto) 13.8 H (2-11) % Eos % (Auto) 2.8 (0-4) % Baso % (Auto) 0.4 (0-2) % Lymph # (Auto) 1.0 L (1.2-4.9) X10*3/uL [place] # (Auto) 0.7 (0.1-1.2) X10*3/uL Eos # (Auto) 0.2 (0.0-0.4) X10*3/uL Baso # (Auto) 0.0 (0.0-0.2) X10*3/uL Abs Immat Gran (auto) 0.01 (0.00-0.03) X10*3/uL Absolute Neuts (auto) 3.5 (2.0-8.3) X10*3/uL Absolute Nucleated RBC 0.000 (0.0-0.012) X10*3/uL Nucleated RBC % (auto) 0.0 (0.0-0.2) /100WBC Hold Purple Top SEE NOTE PT 13.4 H (10.8-13.0) SEC INR 1.1 (0.9-1.1) Sodium (135-145) mmol/L Potassium (3.3-5.1) mmol/L Chloride (96-108) mmol/L Carbon Dioxide (22-29) mmol/L Anion Gap (12-20) BUN (9-16) mg/dL Creatinine (0.5-1.4) mg/dL Estim Creat Clear Calc Estimated GFR Random Glucose (60-115) mg/dL Calcium (8.4-10.2) mg/dL Magnesium (1.6-2.6) mg/dL Total Bilirubin (0.0-1.0) mg/dL AST (5-37) U/L ALT (0-40) U/L Alkaline Phosphatase (39-117) U/L Total Protein (6.5-8.0) g/dL Albumin (3.5-5.0) g/dL Stool Occult Blood (NEGATIVE) COVID-19 (SANDRA) (Negative) COVID-19 Clin Com Blood Type Antibody Screen 04/24/21 04/24/21 04/24/21 Range/Units 13:57 13:57 15:37 WBC (4.8-10.8) X10*3/uL RBC (4.60-5.80) X10*6/uL Hgb (14.0-18.0) g/dl Hct (42-52) % MCV (80-98) fL MCH (27.0-33.0) pg MCHC (31.0-36.0) g/dl RDW (11.0-16.0) % Plt Count (160-400) X10*3/uL MPV (9.4-12.4) fL Immature Gran % (Auto) (0.0-0.4) % Neut % (Auto) (45-73) % Lymph % (Auto) (20-40) % [place] % (Auto) (2-11) % Eos % (Auto) (0-4) % Baso % (Auto) (0-2) % Lymph # (Auto) (1.2-4.9) X10*3/uL [place] # (Auto) (0.1-1.2) X10*3/uL Eos # (Auto) (0.0-0.4) X10*3/uL Baso # (Auto) (0.0-0.2) X10*3/uL Abs Immat Gran (auto) (0.00-0.03) X10*3/uL Absolute Neuts (auto) (2.0-8.3) X10*3/uL Absolute Nucleated RBC (0.0-0.012) X10*3/uL Nucleated RBC % (auto) (0.0-0.2) /100WBC Hold Purple Top PT (10.8-13.0) SEC INR (0.9-1.1) Sodium 140 (135-145) mmol/L Potassium 4.0 (3.3-5.1) mmol/L Chloride 106 (96-108) mmol/L Carbon Dioxide 29 (22-29) mmol/L Anion Gap 9 L (12-20) BUN 13 (9-16) mg/dL Creatinine 0.63 (0.5-1.4) mg/dL Estim Creat Clear Calc 164.3 Estimated GFR > 60 Random Glucose 93 (60-115) mg/dL Calcium 9.5 D (8.4-10.2) mg/dL Magnesium 1.9 (1.6-2.6) mg/dL Total Bilirubin 0.3 (0.0-1.0) mg/dL AST 19 (5-37) U/L ALT 6 (0-40) U/L Alkaline Phosphatase 76 (39-117) U/L Total Protein 6.5 (6.5-8.0) g/dL Albumin 3.8 (3.5-5.0) g/dL Stool Occult Blood POSITIVE (NEGATIVE) COVID-19 (SANDRA) Negative (Negative) COVID-19 Clin Com See Note Blood Type Antibody Screen 04/24/21 Range/Units 16:10 WBC (4.8-10.8) X10*3/uL RBC (4.60-5.80) X10*6/uL Hgb (14.0-18.0) g/dl Hct (42-52) % MCV (80-98) fL MCH (27.0-33.0) pg MCHC (31.0-36.0) g/dl RDW (11.0-16.0) % Plt Count (160-400) X10*3/uL MPV (9.4-12.4) fL Immature Gran % (Auto) (0.0-0.4) % Neut % (Auto) (45-73) % Lymph % (Auto) (20-40) % [place] % (Auto) (2-11) % Eos % (Auto) (0-4) % Baso % (Auto) (0-2) % Lymph # (Auto) (1.2-4.9) X10*3/uL [place] # (Auto) (0.1-1.2) X10*3/uL Eos # (Auto) (0.0-0.4) X10*3/uL Baso # (Auto) (0.0-0.2) X10*3/uL Abs Immat Gran (auto) (0.00-0.03) X10*3/uL Absolute Neuts (auto) (2.0-8.3) X10*3/uL Absolute Nucleated RBC (0.0-0.012) X10*3/uL Nucleated RBC % (auto) (0.0-0.2) /100WBC Hold Purple Top PT (10.8-13.0) SEC INR (0.9-1.1) Sodium (135-145) mmol/L Potassium (3.3-5.1) mmol/L Chloride (96-108) mmol/L Carbon Dioxide (22-29) mmol/L Anion Gap (12-20) BUN (9-16) mg/dL Creatinine (0.5-1.4) mg/dL Estim Creat Clear Calc Estimated GFR Random Glucose (60-115) mg/dL Calcium (8.4-10.2) mg/dL Magnesium (1.6-2.6) mg/dL Total Bilirubin (0.0-1.0) mg/dL AST (5-37) U/L ALT (0-40) U/L Alkaline Phosphatase (39-117) U/L Total Protein (6.5-8.0) g/dL Albumin (3.5-5.0) g/dL Stool Occult Blood (NEGATIVE) COVID-19 (SANDRA) (Negative) COVID-19 Clin Com Blood Type A Positive Antibody Screen NEGATIVE Imaging Data CT scan abdomen pelvis with IV contrast: Attestation: I personally reviewed and interpreted this imaging study as follows: Radiologist's impression: FINDINGS: LUNG BASES: Patchy opacities at left base LIVER, GALLBLADDER, AND BILIARY TREE: Findings suggest mild periportal edema significance The gallbladder is unremarkable with no evidence of radiopaque gallstones, gallbladder wall thickening, or obvious pericholecystic inflammatory changes. PANCREAS: Head of the pancreas but this is also felt to be the case previously. SPLEEN: Unremarkable. ADRENAL GLANDS: Unremarkable. KIDNEYS AND URETERS: The kidneys are normal in size, shape, and attenuation. No hydronephrosis, hydroureter, or calculi seen. No perinephric stranding. BLADDER: Unremarkable. GASTROINTESTINAL TRACT: The small and large bowel are unremarkable. The appendix is unremarkable. ABDOMINAL WALL: No significant hernia is appreciated. LYMPH NODES: Normal. VASCULAR: Unremarkable. PELVIC VISCERA: Prominent prostate OSSEOUS STRUCTURES: Unremarkable. CT/CT abdomen pelvis w con IMPRESSION: The bowel pattern is within normal limits. There is no free fluid. There is no free air. Mild periportal edema in the liver of uncertain etiology. Prominent prostate. Mild patchy left basilar opacities new from previous Critical Care Time Critical Care Time Critical Care Time: Yes Total Critical Care Time: 60 Attestation: I personally attest to this time spent taking care of the patient Discharge Plan Discharge Clinical Impression: Fecal occult blood test positive, Anemia with low platelet count, Post-polypectomy bleeding Patient Disposition: Admitted As Inpatient
[2021-04-24 14:43] LABS: Alanine Aminotransferase 6 U/L (0-40); Albumin Level 3.8 g/dL (3.5-5.0); Alkaline Phosphatase 76 U/L (39-117); Anion Gap 9 (12-20); Aspartate Amino Transferase 19 U/L (5-37); Bilirubin Total 0.3 mg/dL (0.0-1.0); Blood Urea Nitrogen 13 mg/dL (9-16); Calcium 9.5 mg/dL (8.4-10.2); Carbon Dioxide 29 mmol/L (22-29); Chloride 106 mmol/L (96-108); Creatinine Clr Calc Pharmacy 164.3; Estimated Glomerular Filt Rate > 60; Glucose Random 93 mg/dL (60-115); Magnesium 1.9 mg/dL (1.6-2.6); Sodium 140 mmol/L (135-145); Total Protein 6.5 g/dL (6.5-8.0)
[2021-04-24] MEDS: iohexoL 350 MG/ML 100 ML INFUS..BTL IV (15:23)
[2021-04-24 15:50] LABS: OBS Int Ctl Valid YES; OBS1 POSITIVE (NEGATIVE)
[2021-04-24 16:12] VITALS: BP 126/76; PULSE 58; RESP 20; TEMP 36.4; O2SAT 98
--- NOTE | 2021-04-24 18:16 | PM.IMHP ---
History of Present Illness Date of Service: 04/24/21 Chief Complaint: blood in stool 40M presented with blood in stool. patient had EGD and colonoscopy done 2 days ptp. it showed inflamed gastric mucosa, and polyp that was excised. next day family noted patient had some dark stools that then turned into bright red blood per rectum. patient has developmental delays and cannot give history himself. in ED noted have anemia of 10.4. positive occult stool. Review of Systems Review of Systems: Constitutional: Denies fever, denies Chills Eyes: denies blurry vision ENT: denies sore throat CVS: denies chest pain Respiratory: Denies dyspnea GI: no abdominal pain : denies dysuria MSK: denies neck pain Skin: denies rash Neuro: denies specific motor weakness Psych: denies suicidal ideation Endocrine: denies heat/cold intoleratnce Hematologic: denies easy bleeding Allergy: denies hives [facility] Medical History Asthma Chronic Helicobacter pylori gastritis Cognitive developmental delay Diarrhea IBS (irritable colon syndrome) Personal history of colon cancer Family History Father No problems noted. Mother Family history of cancer of vagina Colon polyps Maternal Grandmother Family history of cancer of vagina Cancer Paternal Uncle Bone cancer Paternal Aunt Cancer Maternal Uncle Stomach cancer Brother No problems noted. Surgical History History of esophagogastroduodenoscopy (EGD) (07/01/15) History of incision and drainage (01/29/14) Hx of colonoscopy (02/10/15) Hx of laparoscopy (03/11/15) Social History Household Members Other:: Patient with cognitive, verbal and behavioral challenges lives w/ mother Alcohol intake: current Alcohol intake frequency: does not drink Advance Directives: No Advance Directives Information Provided: Yes Meds Allergies Allergy/AdvReac Type Severity Reaction Status Date / Time No Known Allergies Allergy Verified 04/22/21 10:21 [No Known Allergies*] Home Medications Medication Instructions Recorded Confirmed Last Taken Type clonidine HCl 0.3 mg tablet 0.3 mg PO BEDTIME 08/18/20 04/24/21 Unknown History omeprazole 20 mg capsule,delayed 20 mg PO BID 08/18/20 04/24/21 Unknown History release quetiapine 300 mg tablet 600 mg PO BEDTIME 08/18/20 04/24/21 Unknown History loperamide 2 mg capsule 2 mg PO QID PRN 08/21/20 04/24/21 Unknown History cholecalciferol (vitamin D3) 50 50 mcg PO DAILY 10/26/20 04/24/21 Unknown History mcg (2,000 unit) tablet clonidine HCl 0.1 mg tablet 0.1 mg PO BID@0800,1600 10/26/20 04/24/21 04/22/21 07:00 History fluticasone propionate 50 2 spray INTRANASAL Q OTHER DAY 10/26/20 04/24/21 Unknown History mcg/actuation nasal spray,suspension lithium carbonate 150 mg capsule 150 mg PO BID 10/26/20 04/24/21 Unknown History lithium carbonate 300 mg capsule 600 mg PO BID 10/26/20 04/24/21 Unknown History lorazepam 0.5 mg tablet 0.5 mg PO TID PRN 10/26/20 04/24/21 Unknown History olanzapine 10 mg tablet 10 mg PO BEDTIME 10/26/20 04/24/21 Unknown History oxcarbazepine 150 mg tablet 150 mg PO BID@0800,1600 10/26/20 04/24/21 Unknown History oxcarbazepine 300 mg tablet 300 mg PO BID@0800,1600 10/26/20 04/24/21 04/22/21 07:00 History sertraline 50 mg tablet 50 mg PO DAILY 10/26/20 04/24/21 04/22/21 07:00 History trazodone 100 mg tablet 200 mg PO BEDTIME 10/26/20 04/24/21 Unknown History zolpidem 10 mg tablet 10 mg PO BEDTIME 10/26/20 04/24/21 Unknown History quetiapine 100 mg tablet 100 mg PO QAM 03/31/21 04/24/21 Unknown History Physical Exam Vital Signs and Narrative: Vital Signs: Last Vital Signs Temp 97.6 F 04/24/21 16:12 Pulse 58 04/24/21 16:12 Resp 20 04/24/21 16:12 BP 126/76 04/24/21 16:12 Pulse Ox 98 04/24/21 16:12 Body Mass Index 25.4 General: no acute distress HEENT: atraumatic Neck: normal to visual inspection CVS: S1, S2, RRR Resp: CTA bilateral Chest: non tender GI: soft, non tender, non distended : no CVA tenderness Skin: no rashes Extremities: no edema Neuro: grossly intact Psych: cooperative Results Labs CBC and Chem 7: 04/24/21 13:57 04/24/21 13:57 Labs: Laboratory Results - last 24 hr 04/24/21 04/24/21 04/24/21 13:57 13:57 13:57 MCV 92.7 MCH 30.7 MCHC 33.1 RDW 12.8 Plt Count 153 L MPV 10.3 Immature Gran % (Auto) 0.2 Neut % (Auto) 64.9 Lymph % (Auto) 17.9 L [place] % (Auto) 13.8 H Eos % (Auto) 2.8 Baso % (Auto) 0.4 Lymph # (Auto) 1.0 L [place] # (Auto) 0.7 Eos # (Auto) 0.2 Baso # (Auto) 0.0 Abs Immat Gran (auto) 0.01 Absolute Neuts (auto) 3.5 Absolute Nucleated RBC 0.000 Nucleated RBC % (auto) 0.0 Hold Purple Top SEE NOTE PT 13.4 H INR 1.1 Anion Gap Estim Creat Clear Calc Estimated GFR Random Glucose Calcium Magnesium Total Bilirubin AST ALT Alkaline Phosphatase Total Protein Albumin Stool Occult Blood COVID-19 (SANDRA) COVID-19 Clin [facility] Blood Type Antibody Screen 04/24/21 04/24/21 04/24/21 13:57 13:57 15:37 MCV MCH MCHC RDW Plt Count MPV Immature Gran % (Auto) Neut % (Auto) Lymph % (Auto) [place] % (Auto) Eos % (Auto) Baso % (Auto) Lymph # (Auto) [place] # (Auto) Eos # (Auto) Baso # (Auto) Abs Immat Gran (auto) Absolute Neuts (auto) Absolute Nucleated RBC Nucleated RBC % (auto) Hold Purple Top PT INR Anion Gap 9 L Estim Creat Clear Calc 164.3 Estimated GFR > 60 Random Glucose 93 Calcium 9.5 D Magnesium 1.9 Total Bilirubin 0.3 AST 19 ALT 6 Alkaline Phosphatase 76 Total Protein 6.5 Albumin 3.8 Stool Occult Blood POSITIVE COVID-19 (SANDRA) Negative COVID-19 Clin Com See Note Blood Type Antibody Screen 04/24/21 16:10 MCV MCH MCHC RDW Plt Count MPV Immature Gran % (Auto) Neut % (Auto) Lymph % (Auto) [place] % (Auto) Eos % (Auto) Baso % (Auto) Lymph # (Auto) [place] # (Auto) Eos # (Auto) Baso # (Auto) Abs Immat Gran (auto) Absolute Neuts (auto) Absolute Nucleated RBC Nucleated RBC % (auto) Hold Purple Top PT INR Anion Gap Estim Creat Clear Calc Estimated GFR Random Glucose Calcium Magnesium Total Bilirubin AST ALT Alkaline Phosphatase Total Protein Albumin Stool Occult Blood COVID-19 (SANDRA) COVID-19 Clin Com Blood Type A Positive Antibody Screen NEGATIVE Imaging Radiologist's Impressions: Impressions Abdomen/Pelvis CT 04/24/21 13:07 IMPRESSION: The bowel pattern is within normal limits. There is no free fluid. There is no free air. Mild periportal edema in the liver of uncertain etiology. Prominent prostate. Mild patchy left basilar opacities new from previous Chest X-Ray 04/24/21 16:37 IMPRESSION: Patchy atelectasis left lung base. Assessment and Plan (1) Fecal occult blood test positive: Status: Acute 40M presented with BRBPR acute blood loss anemia due to lower gi bleed likely post polypectomy monitor cbc GI eval intellectual delay with behaviour issues continue mood stabilizers Quality Stroke Does the patient have a stroke diagnosis?: No VTE Prior VTE?: No VTE Risk Level:: Medical - moderate - high VTE Device Contraindication: Treatment Not Tolerated VTE Drug Contraindication: Treatment Not Tolerated
--- NOTE | 2021-04-24 18:22 | PC.NURSE ---
HOSPITALIST REQUESTING THIS RN COMPLETE MED REC FOR PT FOR ADMISSION, REFUSING TO PLACE ADMISSION ORDERS UNTIL COMPLETED. MEDICATION LIST OBTAINED PER PT FAMILY MEMBER AT BEDSIDE WHO IS TELEPHONE DIAPHRAGM ASSEMBLER. PT HAS MEDICINE LIST FROM [place] PAPERWORK FROM THIS FACILITY FROM 2 DAYS AGO. MEDICATIONS UPDATED PER LIST, PT FAMILY MEMBER EXPLICITLY STS ALL MEDICINES ON LIST PT HAS BEEN TAKING. HOSPITALIST CALLING THIS RN, QUESTIONING ACCURACY OF MED LIST. HOSPITALIST EXPLAINED THAT PT FAMILY MEMBER WHO CARES FOR PT HAD GIVEN THIS RN PT MED LIST WITH INSTRUCTION THAT IT WAS ACCURATE, CONSIDERING IT WAS INSTRUCTION TO CONTINUE MEDICATIONS FROM [place] 2 DAYS AGO FROM THIS FACILITY. MEDICATION LIST REASSESSED D/T PHYSICIAN REQUEST, WAS COMPLETED PER LIST THAT WAS GIVEN TO THIS RN.
[2021-04-24 21:29] VITALS: BP 120/68; PULSE 60; RESP 20; TEMP 36.7; O2SAT 96
[2021-04-25] VITALS: BP 136/66; PULSE 53; RESP 18; TEMP 36.3; O2SAT 99
[2021-04-25] MEDS: cloNIDine HCL 0.1 MG TABLET 0.3 MG PO (01:11)
[2021-04-25] MEDS: QUEtiapine Fumarate 300 MG TABLET 600 MG PO (01:11)
[2021-04-25] MEDS: traZODone HCL 100 MG TABLET 200 MG PO (01:12)
[2021-04-25] MEDS: Omeprazole 20 MG CAPSULE.DR PO ×2 (01:12→08:51)
[2021-04-25] MEDS: OLANZapine 10 MG TABLET PO (01:13)
--- NOTE | 2021-04-25 01:23 | PC.NURSE ---
medication verified with patients mother/caregiver. RN verified medications with rx bottles that were brought in, and edited in patient home medication list. will pass medication list to oncoming rn in am
[2021-04-25 04:00] VITALS: BP 117/64; PULSE 57; RESP 18; TEMP 36.2; O2SAT 95
[2021-04-25 04:46] LABS: Hematocrit 32.8 % (42-52); Mean Corpuscular HGB Conc 33.5 g/dl (31.0-36.0); Mean Corpuscular Volume 92.4 fL (80-98); Mean Platelet Volume 10.5 fL (9.4-12.4); Platelet Count 164 X10*3/uL (160-400); Red Blood Count 3.55 X10*6/uL (4.60-5.80); Red Cell Distribution Width 12.5 % (11.0-16.0)
[2021-04-25 05:10] LABS: Anion Gap 7 (12-20); Blood Urea Nitrogen 10 mg/dL (9-16); Calcium 9.6 mg/dL (8.4-10.2); Carbon Dioxide 30 mmol/L (22-29); Chloride 106 mmol/L (96-108); Creatinine Clr Calc Pharmacy 166.9; Estimated Glomerular Filt Rate > 60; Glucose Fasting 93 mg/dL (60-99); Potassium 3.7 mmol/L (3.3-5.1); Sodium 139 mmol/L (135-145)
--- NOTE | 2021-04-25 07:23 | P.CNGI_ITS ---
History of Present Illness Data of Consult Service Date: 04/25/21 Requesting physician: Eber Appiah Primary Care Provider: Rachelle Gaytan MD HPI Reason for consult: Black stools 40 YM [place] [facility] [place] with abdominal pain and rectal bleeding: HPI Narrative: 40-year-old male who is Nonverbal and Cognitive developmental delay, prior colon cancer, IBS, chronic H pylori, neurogenic urinary bladder disorder, asthma, varicose vein of right lower extremity with inflammation who recently had a colonoscopy on 04/22/2021 where they found a polyp by Dr. Salgado presenting with his mother and sister at bedside with complaints of black colored stools that started since last night last episode was this morning no clots noted. They report that the patient appears to be in pain. Patient has not had any fevers. They deny any other symptoms complaints or concerns at this time. Labs showed increased anemia with an H&H of 10.9/32.9 (02/07/2021 patient had an H&H of 13.1/40.2 and that is his baseline). - Patient's platelet count was 153 (decreased when compared to prior). Unable to obtain hx from the patient due to Developmental delay. Patient denies symptoms of heartburn, dysphagia, nausea, vomiting, change in appetite or weight. Denies recent change in bowel habits, constipation, diarrhea, black stools or rectal bleeding. Patient denies major cardiac or pulmonary problems, loud snoring or sleep apnea Denies problems with anesthesia in the past. Denies being on chronic anticoagulation. Patient denies known family history of colon polyps, colon cancer or other GI m alignancies. IMAGING STUDIES: 04/24/[address] SCAN SHOWED: The bowel pattern is within normal limits. There is no free fluid. There is no free air. Mild periportal edema in the liver of uncertain etiology. Prominent prostate. Mild patchy left basilar opacities new from previous ENDOSCOPIC STUDIES: 04/22/21 PATIENT HAD AN UPPER ENDOSCOPY AND COLONOSCOPY: Endoscopy Findings: STOMACH: Moderate diffuse gastric erythema with submucosal hemorrhages in the gastric body. Biopsies were obtained from the antrum body of the stomach. Antral biopsies were sent to an outside lab for culture and sensitivities for Helicobacter pylori. DUODENUM: Normal - biopsied to check for celiac sprue due to symptoms of postprandial diarrhea. Colonoscopy Findings: One large sized polyp removed Random biopsies were obtained from the colon to check for microscopic colitis. Normal appearing end-to-end anastomosis at 20 cm Moderate hemorrhoids on retroflexed exam. Plan: Patient has an appointment on []in the GI Clinic with [NAKITA Smith] [Janette Yoon NP] [Juju Solorzano, [facility]] [Leonor Salgado M.D.]. Repeat Colonoscopy interval based on path results - in 1 year if polyps are adenomatous and due to fair prep. Above findings were reviewed with the patient and colon polyps and Helicobacter pylori handouts were given in the discharge area Review of Systems Review of Systems: Unable to obtain from the patient due to Developmental delay. Constitutional: Constitutional: Denies difficulty sleeping PMFSH Past Medical History Medical History Asthma Chronic Helicobacter pylori gastritis Cognitive developmental delay Diarrhea IBS (irritable colon syndrome) Personal history of colon cancer UTI (urinary tract infection) Family History Family History Father No problems noted. Mother Family history of cancer of vagina Colon polyps Maternal Grandmother Family history of cancer of vagina Cancer Paternal Uncle Bone cancer Paternal Aunt Cancer Maternal Uncle Stomach cancer Brother No problems noted. Surgical History Surgical History History of esophagogastroduodenoscopy (EGD) (07/01/15) History of incision and drainage (01/29/14) Hx of colonoscopy (02/10/15) Hx of laparoscopy (03/11/15) Social History Social History Household Members: Family Household Members Other:: mother Both parents involved: No Housing: House Do you presently have visiting nurse or other home services: Yes (sister is interactive digital media specialist) Unable to assess alcohol history related to: Unable to respond Alcohol intake: current Alcohol intake frequency: does not drink Patient Tobacco Use Status: Never used Tobacco service: No Current occupational status: disabled Meds Allergies Allergy/AdvReac Type Severity Reaction Status Date / Time No Known Allergies Allergy Verified 09/14/21 14:21 [No Known Allergies*] Active Medications: Current Medications Generic Name Dose Route Start Last Admin Trade Name Freq PRN Reason Stop Dose Admin Clonidine HCl 0.1 mg 04/25/21 08:00 Clonidine Hcl 0.1 Mg Tablet PO BID@0800,1600 [facility] Protocol Clonidine HCl 0.3 mg 04/24/21 23:35 04/25/21 01:11 Clonidine Hcl 0.1 Mg Tablet PO 0.3 mg BEDTIME PARAS Administration Protocol Fluticasone Propionate 2 spray 04/25/21 09:00 Fluticasone Propionate Nasal 16 Gm [place] NOSTRIL-B Q48H [facility] [place] Carbonate 600 mg 04/24/21 23:35 04/25/21 01:18 [place] Carbonate 300 Mg Capsule PO Not Given BID PARAS Loperamide HCl 2 mg 04/24/21 23:35 Loperamide Hcl 2 Mg Capsule PO QID PRN Diarrhea Lorazepam 0.5 mg 04/24/21 23:35 Lorazepam 0.5 Mg Tablet PO TID PRN Anxiety Non-Formulary Medication 150 mg 04/24/21 23:35 [place] Carbonate PO BID PARAS Non-Formulary Medication 1 cap 04/24/21 23:35 Obouzl-Dabbljte-Nbdmqae [Zenpep] PO TID PARAS Olanzapine 10 mg 04/24/21 23:35 04/25/21 01:13 Olanzapine 10 Mg Tablet PO 10 mg BEDTIME PARAS Administration Omeprazole 20 mg 04/24/21 23:35 04/25/21 01:12 Omeprazole 20 Mg Capsule.Dr PO 20 mg BID PARAS Administration Oxcarbazepine 300 mg 04/25/21 08:00 Oxcarbazepine 300 Mg Tablet PO BID@0800,1600 [facility] Oxcarbazepine 150 mg 04/25/21 08:00 Oxcarbazepine 150 Mg Tablet PO BID@0800,1600 [facility] Quetiapine Fumarate 600 mg 04/24/21 23:35 04/25/21 01:11 Quetiapine Fumarate 300 Mg Tablet PO 300 mg BEDTIME PARAS Administration Sertraline HCl 50 mg 04/25/21 09:00 Sertraline Hcl 50 Mg Tablet PO DAILY [facility] Trazodone HCl 200 mg 04/24/21 23:35 04/25/21 01:12 Trazodone Hcl 100 Mg Tablet PO 200 mg BEDTIME PARAS Administration Vitamin D 50 mcg 04/25/21 09:00 Cholecalciferol (Vitamin D3) 25 Mcg Tablet PO DAILY [facility] Zolpidem Tartrate 5 mg 04/24/21 23:35 04/25/21 01:38 Zolpidem Tartrate 5 Mg Tablet PO Not Given BEDTIME PARAS Home Medications Medication Instructions Recorded Confirmed Last Taken Type clonidine HCl 0.3 mg tablet 0.3 mg PO BEDTIME 08/18/20 07/07/21 Unknown History quetiapine 300 mg tablet (Seroquel) 300 mg PO BEDTIME 08/18/20 07/07/21 Unknown History loperamide 2 mg capsule (Imodium 2 mg PO QID PRN 08/21/20 07/07/21 Unknown History A-D) cholecalciferol (vitamin D3) 50 50 mcg PO DAILY 10/26/20 07/07/21 Unknown History mcg (2,000 unit) tablet clonidine HCl 0.1 mg tablet 0.1 mg PO BID@0800,1600 10/26/20 07/07/21 04/22/21 07:00 History fluticasone propionate 50 2 spray INTRANASAL Q OTHER DAY 10/26/20 07/07/21 Unknown History mcg/actuation nasal spray,suspension lithium carbonate 150 mg capsule 150 mg PO BID 10/26/20 07/07/21 Unknown History lithium carbonate 300 mg capsule 300 mg PO BID 10/26/20 07/07/21 Unknown History lorazepam 0.5 mg tablet 0.5 mg PO TID PRN 10/26/20 07/07/21 Unknown History olanzapine 10 mg tablet 10 mg PO BEDTIME 10/26/20 07/07/21 Unknown History oxcarbazepine 150 mg tablet 150 mg PO BID@0800,1600 10/26/20 07/07/21 Unknown History oxcarbazepine 300 mg tablet 300 mg PO BID@0800,1600 10/26/20 07/07/21 04/22/21 07:00 History sertraline 50 mg tablet 50 mg PO DAILY 10/26/20 07/07/21 04/22/21 07:00 History trazodone 100 mg tablet 200 mg PO BEDTIME 10/26/20 07/07/21 Unknown History zolpidem 10 mg tablet 10 mg PO BEDTIME 10/26/20 07/07/21 Unknown History quetiapine 100 mg tablet 100 mg PO QAM 03/31/21 07/07/21 Unknown History cyclobenzaprine 5 mg tablet 5 mg PO TID PRN 08/17/21 Unknown History ferrous gluconate 324 mg (38 mg 324 mg PO Q OTHER DAY 08/17/21 Unknown History iron) tablet ipratropium bromide 42 mcg (0.06 INTRANASAL 08/17/21 Unknown History %) nasal spray olanzapine 15 mg tablet 15 mg PO BEDTIME 08/17/21 Unknown History olanzapine 20 mg tablet 20 mg PO BEDTIME 08/17/21 Unknown History olanzapine 5 mg tablet 5 mg PO QAM 08/17/21 Unknown History Physical Exam Vital Signs: Vital Signs: Last Vital Signs Temp 97.2 F 04/25/21 04:00 Pulse 57 04/25/21 04:00 Resp 18 04/25/21 04:00 BP 117/64 04/25/21 04:00 Pulse Ox 95 04/25/21 04:00 Body Mass Index 25.4 Const: General: healthy appearing and no acute distress Nutritional Appearance: average body habitus Orientation/consciousness: patient oriented x3 Limitations: other limitations (non verbal due to developmental delay) HENMT: Head: Yes normal to inspection Ears: hearing grossly normal bilaterally Mouth: Normal oral and palatal mucosa present Eyes: Sclerae: sclerae normal Pupils: Equal, round and reactive pupils present Neck: Neck: Yes normal visual inspection Chest: Chest palpation & inspection: normal inspection of the chest Resp: Effort & Inspection: normal respiratory effort Auscultation: clear to auscultation bilaterally Cardio: Palpation: normal PMI Rate: regular rate Rhythm: regular rhythm Heart sounds: S1 normal heart sound present, S2 normal heart sound present and no murmurs GI: Palpation (GI): Soft to palpation, nontender and No hepatosplenomegaly present Auscultation: normal bowel sounds Rectal Exam - Male: Yes deferred Skin: General skin exam: no rashes or lesions noted Neuro: General: patient oriented x3, gait normal and moves all extremities Cranial nerves: Yes Equal, round and reactive pupils present Psych: Appearance: grossly normal Mental Status: mental status grossly normal Results Labs CBC & Chem 7: 04/25/21 12:26 04/25/21 04:20 Labs: Short CBC 04/24/21 04/25/21 Range/Units 13:57 04:20 WBC 5.4 5.0 (4.8-10.8) X10*3/uL Hgb 10.9 L 11.0 L (14.0-18.0) g/dl Hct 32.9 L 32.8 L (42-52) % Plt Count 153 L 164 (160-400) X10*3/uL BMP 04/24/21 04/25/21 13:57 04:20 Sodium 140 139 Potassium 4.0 3.7 Chloride 106 106 Carbon Dioxide 29 30 H BUN 13 10 Creatinine 0.63 0.62 Calcium 9.5 D 9.6 Liver Function 04/24/21 Range/Units 13:57 Total Bilirubin 0.3 (0.0-1.0) mg/dL AST 19 (5-37) U/L ALT 6 (0-40) U/L Alkaline Phosphatase 76 (39-117) U/L Albumin 3.8 (3.5-5.0) g/dL Assessment and Plan (1) GERD (gastroesophageal reflux disease): Status: Acute (2) Personal history of colon cancer: Status: Acute (3) IBS (irritable colon syndrome): Status: Acute (4) History of colon polyps: Status: Acute 40 YM non-verbal due to developmental delay 04/22/21 EGD showed gastritis due to H Pylori. Same day colonoscopy showed normal appearing end to end anastomosis at 20 cms. A large adenomatous polyp was removed Random biopsies were obtained from the colon to check for microscopic colitis which were normal. Repeat Colonoscopy advised in 1 year due to fair prep. Episode of bleeding is likely from polypectomy site and appears to have subsided RECOMMENDATIONS: Monitor H & H and if it remains stable without further bleeding, pt can be discharged home later today. Procedures Date of Service Date of Service: 04/25/21
[2021-04-25 07:28] VITALS: BP 126/57; PULSE 60; RESP 20; TEMP 36.3; O2SAT 95
--- NOTE | 2021-04-25 08:49 | MHC.CM.PN ---
Patient has a diagnosis of Cognitive Developmental Delay and is unable to respond appropriately to questions; CM spoke with Sister/Guardian/Oumou @ [phone]. Patient lives with his 2 Legal Guardians- Mother/Deena and Sister/Oumou, in a house and he is functionally independent. 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 MANUELITO has initiated and will follow for dc planning. MANNY addressed with Oumou and the original will be mailed to Patient's Mother at Oumou's request and a copy has been placed on the chart.
[2021-04-25] MEDS: Sertraline HCL 50 MG TABLET PO (08:51)
[2021-04-25] MEDS: OXcarbazepine 150 MG TABLET PO (08:52)
[2021-04-25] MEDS: OXcarbazepine 300 MG TABLET PO (08:52)
[2021-04-25] MEDS: cloNIDine HCL 0.1 MG TABLET PO (08:52)
[2021-04-25] MEDS: Lithium Carbonate 300 MG CAPSULE 600 MG PO (08:52)
[2021-04-25] MEDS: Cholecalciferol (Vitamin D3) 25 MCG TABLET 50 MCG PO (08:52)
[2021-04-25] MEDS: Lithium Carbonate 300 MG TABLET 150 MG PO (10:45)
[2021-04-25 11:31] VITALS: BP 107/57; PULSE 71; RESP 20; TEMP 36.3; O2SAT 99
--- NOTE | 2021-04-25 12:21 | PM.DS ---
DS: Providers Provider Date of Service: 04/25/21 Date of admission: 04/24/21 18:11 Primary care physician: Rachelle Gaytan MD Consults: 04/24/21 23:35 Consult to Gastroenterology Routine Consulting Provider: Leonor Salgado Reason for consultation: blood per rectum DS: Diagnosis Discharge Diagnosis (1) Fecal occult blood test positive: Status: Acute (2) Post-polypectomy bleeding: Status: Acute DS: Medications Discharge Medications Home Medications: Home Medications Medication Instructions Recorded Confirmed clonidine HCl 0.3 mg tablet 0.3 mg PO BEDTIME 08/18/20 04/24/21 omeprazole 20 mg capsule,delayed 20 mg PO BID 08/18/20 04/24/21 release quetiapine 300 mg tablet 300 mg PO BEDTIME 08/18/20 04/25/21 loperamide 2 mg capsule 2 mg PO QID PRN 08/21/20 04/24/21 cholecalciferol (vitamin D3) 50 50 mcg PO DAILY 10/26/20 04/24/21 mcg (2,000 unit) tablet clonidine HCl 0.1 mg tablet 0.1 mg PO BID@0800,1600 10/26/20 04/24/21 fluticasone propionate 50 2 spray INTRANASAL Q OTHER DAY 10/26/20 04/24/21 mcg/actuation nasal spray,suspension lithium carbonate 150 mg capsule 150 mg PO BID 10/26/20 04/24/21 lithium carbonate 300 mg capsule 300 mg PO BID 10/26/20 04/25/21 lorazepam 0.5 mg tablet 0.5 mg PO TID PRN 10/26/20 04/24/21 olanzapine 10 mg tablet 10 mg PO BEDTIME 10/26/20 04/24/21 oxcarbazepine 150 mg tablet 150 mg PO BID@0800,1600 10/26/20 04/24/21 oxcarbazepine 300 mg tablet 300 mg PO BID@0800,1600 10/26/20 04/24/21 sertraline 50 mg tablet 50 mg PO DAILY 10/26/20 04/24/21 trazodone 100 mg tablet 200 mg PO BEDTIME 10/26/20 04/24/21 zolpidem 10 mg tablet 10 mg PO BEDTIME 10/26/20 04/24/21 quetiapine 100 mg tablet 100 mg PO QAM 03/31/21 04/24/21 Previous Rx's Medication Instructions Recorded fkvudk-phapjglp-membhfl 1 cap PO TID 30 Days #90 cap 03/29/21 10,000-32,000-42,000 unit capsule,delayed rel DS: Summary Hospital Course Hospital Course: Patient was observed for acute blood loss anemia secondary to post polypectomy bleeding. His hemoglobin was monitored and remained stable. He had no further episodes of bleeding. he did not require blood transfusion. He will be discharged home and will follow up with Gastroenterology as outpatient. Time Spent with Patient Time attestation: Total time spent providing and/or coordinating discharge services: Discharge coordination time: Greater than 30 minutes Quality: Stroke Does the patient have a stroke diagnosis?: No Physical Exam Vital Signs: Vital Signs: Last Vital Signs Temp 97.3 F 04/25/21 11:31 Pulse 71 04/25/21 11:31 Resp 20 04/25/21 11:31 BP 107/57 L 04/25/21 11:31 Pulse Ox 99 04/25/21 11:31 Body Mass Index 25.4 General: no acute distress Resp: CTA bilateral CVS: S1,S2,RRR GI: soft, non tender, non distended Neuro: motor grossly intact Psych: impaired insight DS: Data Data Completed and Pending Labs on day of discharge: Laboratory Results - last 24 hr 04/24/21 04/24/21 04/24/21 13:57 13:57 13:57 WBC 5.4 RBC 3.55 L Hgb 10.9 L Hct 32.9 L MCV 92.7 MCH 30.7 MCHC 33.1 RDW 12.8 Plt Count 153 L MPV 10.3 Immature Gran % (Auto) 0.2 Neut % (Auto) 64.9 Lymph % (Auto) 17.9 L [place] % (Auto) 13.8 H Eos % (Auto) 2.8 Baso % (Auto) 0.4 Lymph # (Auto) 1.0 L [place] # (Auto) 0.7 Eos # (Auto) 0.2 Baso # (Auto) 0.0 Abs Immat Gran (auto) 0.01 Absolute Neuts (auto) 3.5 Absolute Nucleated RBC 0.000 Nucleated RBC % (auto) 0.0 Hold Purple Top SEE NOTE PT 13.4 H INR 1.1 Sodium Potassium Chloride Carbon Dioxide Anion Gap BUN Creatinine Estim Creat Clear Calc Estimated GFR Random Glucose Fasting Glucose Calcium Magnesium Total Bilirubin AST ALT Alkaline Phosphatase Total Protein Albumin Stool Occult Blood COVID-19 (SANDRA) COVID-EasySize Com Blood Type Antibody Screen 04/24/21 04/24/21 04/24/21 13:57 13:57 15:37 WBC RBC Hgb Hct MCV MCH MCHC RDW Plt Count MPV Immature Gran % (Auto) Neut % (Auto) Lymph % (Auto) [place] % (Auto) Eos % (Auto) Baso % (Auto) Lymph # (Auto) [place] # (Auto) Eos # (Auto) Baso # (Auto) Abs Immat Gran (auto) Absolute Neuts (auto) Absolute Nucleated RBC Nucleated RBC % (auto) Hold Purple Top PT INR Sodium 140 Potassium 4.0 Chloride 106 Carbon Dioxide 29 Anion Gap 9 L BUN 13 Creatinine 0.63 Estim Creat Clear Calc 164.3 Estimated GFR > 60 Random Glucose 93 Fasting Glucose Calcium 9.5 D Magnesium 1.9 Total Bilirubin 0.3 AST 19 ALT 6 Alkaline Phosphatase 76 Total Protein 6.5 Albumin 3.8 Stool Occult Blood POSITIVE COVID-19 (SANDRA) Negative COVID-EasySize Com See Note Blood Type Antibody Screen 04/24/21 04/25/21 04/25/21 16:10 04:20 04:20 WBC 5.0 RBC 3.55 L Hgb 11.0 L Hct 32.8 L MCV 92.4 MCH 31.0 MCHC 33.5 RDW 12.5 Plt Count 164 MPV 10.5 Immature Gran % (Auto) Neut % (Auto) Lymph % (Auto) [place] % (Auto) Eos % (Auto) Baso % (Auto) Lymph # (Auto) [place] # (Auto) Eos # (Auto) Baso # (Auto) Abs Immat Gran (auto) Absolute Neuts (auto) Absolute Nucleated RBC 0.000 Nucleated RBC % (auto) 0.0 Hold Purple Top PT INR Sodium 139 Potassium 3.7 Chloride 106 Carbon Dioxide 30 H Anion Gap 7 L BUN 10 Creatinine 0.62 Estim Creat Clear Calc 166.9 Estimated GFR > 60 Random Glucose Fasting Glucose 93 Calcium 9.6 Magnesium Total Bilirubin AST ALT Alkaline Phosphatase Total Protein Albumin Stool Occult Blood COVID-19 (SANDRA) COVID-EasySize Com Blood Type A Positive Antibody Screen NEGATIVE Discharge Plan Discharge Patient Disposition: Home, Self-Care Discharge Diagnosis: brbpr Referrals: Rachelle Gaytan MD [Primary Care Provider] - 1 Week Discharge Medications: Continued Zenpep 10,000-32,000 -42,000 unit capsule,delayed release(DR/EC) 1 cap PO TID 30 Days Qty: 90 RF: 1 zolpidem 10 mg tablet 10 mg PO BEDTIME RF: 0 lithium carbonate 300 mg capsule 300 mg PO BID RF: 0 clonidine HCl 0.1 mg tablet 0.1 mg PO BID@0800,1600 RF: 0 cholecalciferol (vitamin D3) 50 mcg (2,000 unit) tablet 50 mcg PO DAILY RF: 0 lithium carbonate 150 mg capsule 150 mg PO BID RF: 0 fluticasone propionate 50 mcg/actuation spray,suspension 2 spray intranasal Q OTHER DAY RF: 0 lorazepam 0.5 mg tablet 0.5 mg PO TID PRN (Reason: Anxiety) RF: 0 sertraline 50 mg tablet 50 mg PO DAILY RF: 0 trazodone 100 mg tablet 200 mg PO BEDTIME RF: 0 oxcarbazepine 300 mg tablet 300 mg PO BID@0800,1600 RF: 0 olanzapine 10 mg tablet 10 mg PO BEDTIME RF: 0 oxcarbazepine 150 mg tablet 150 mg PO BID@0800,1600 RF: 0 omeprazole 20 mg capsule,delayed release(DR/EC) 20 mg PO BID RF: 0 clonidine HCl 0.3 mg tablet 0.3 mg PO BEDTIME RF: 0 quetiapine [Seroquel] 300 mg tablet 300 mg PO BEDTIME RF: 0 loperamide [Imodium A-D] 2 mg capsule 2 mg PO QID PRN (Reason: Diarrhea) RF: 0 Diet: advance to usual diet Activity on Discharge: As tolerated Stand Alone Forms: Patient Portal Discharge page Care Plan Goals: recovery Health Concerns: gi bleed Plan of Treatment: follow up with gi Assessment: see above
[2021-04-25 12:33] LABS: Hematocrit 34.9 % (42-52); Hemoglobin 11.7 g/dl (14.0-18.0)
--- NOTE | 2021-04-25 13:12 | MHC.CM.PN ---
Male 40Is discharged today to home with family assistance and transportation. Prabhakar to resume services @ [place].
== END 2021-04-25 14:45 | disposition home or self-care (01) ==
LOC: HO.ED 17:36 → HO.EDOVER 18:16 → HO.IMC 23:01
PROVIDERS: Physician Assistant Medical; Admitting Provider Internal Medicine; Emergency Provider Emergency Medicine; PCP Family Medicine; Visit Provider Internal Medicine
DX: R19.5 Other fecal abnormalities (principal); K91.840 Postprocedural hemorrhage of a digestive system organ or structure following a digestive system procedure; K58.0 Irritable bowel syndrome with diarrhea; D69.6 Thrombocytopenia, unspecified; D63.8 Anemia in other chronic diseases classified elsewhere; R62.59 Other lack of expected normal physiological development in childhood; Z20.822 Contact with and (suspected) exposure to COVID-19; Z85.038 Personal history of other malignant neoplasm of large intestine; Z79.899 Other long term (current) drug therapy
CPT/HCPCS: 36415; 71045; 74177; 80048; 80053; 82272; 83735; 85014; 85018; 85025; 85027; 85610; 86850; 86900; 86901; 87635; 96360; 99219; 99285; Q9967

== ENCOUNTER → 2021-05-05 08:51 | Outpatient (BNVA) | payer MEDICARE, MEDICAID, SELFPAY | PROVIDERS: PCP Family Medicine; Referring Provider Family Medicine; Visit Provider Internal Medicine Gastroenterology | DX: K29.50 Unspecified chronic gastritis without bleeding (principal); B96.81 Helicobacter pylori [H. pylori] as the cause of diseases classified elsewhere; R19.7 Diarrhea, unspecified; Z86.010 Personal history of colon polyps | CPT/HCPCS: 99212 ==

== ENCOUNTER 2021-06-28 14:12 | Outpatient (REF) | payer MEDICARE, MEDICAID, SELFPAY ==
[2021-06-28 14:52] LABS: MANUAL DIFF FLAG NO
[2021-06-28 15:05] LABS: Basophils Percent Auto 0.4 % (0-2); Eosinophils Absolute Auto 0.1 X10*3/uL (0.0-0.4); Eosinophils Percent Auto 1.8 % (0-4); Hematocrit 38.2 % (42-52); Hemoglobin 12.5 g/dl (14.0-18.0); Imm Gran Abs Auto 0.01 X10*3/uL (0.00-0.03); Imm Gran Pct Auto 0.2 % (0.0-0.4); Lymphocytes Absolute Auto 1.1 X10*3/uL (1.2-4.9); Lymphocytes Percent Auto 25.2 % (20-40); Mean Corpuscular HGB Conc 32.7 g/dl (31.0-36.0); Mean Corpuscular Hemoglobin 30.3 pg (27.0-33.0); Mean Corpuscular Volume 92.5 fL (80-98); Mean Platelet Volume 10.8 fL (9.4-12.4); Monocytes Absolute Auto 0.6 X10*3/uL (0.1-1.2); Monocytes Percent Auto 12.5 % (2-11); Neutrophils Absolute Auto 2.7 X10*3/uL (2.0-8.3); Neutrophils Percent Auto 59.9 % (45-73); Platelet Count 184 X10*3/uL (160-400); Red Blood Count 4.13 X10*6/uL (4.60-5.80); Red Cell Distribution Width 13.2 % (11.0-16.0); White Blood Count 4.5 X10*3/uL (4.8-10.8)
[2021-06-28 15:17] LABS: Iron 57 mcg/dL (45-160); Percent Iron Saturation 19 % (15-50); Total Iron Binding Capacity 294 mcg/dL (228-428); Unsaturated Iron Binding 237 ug/dL
[2021-06-28 15:39] LABS: Ferritin 29 ng/mL (20-250)
== END 2021-06-28 14:13 | disposition home or self-care (01) ==
LOC: HO.LAB 14:12
PROVIDERS: PCP Family Medicine; Visit Provider Family Medicine
DX: D64.9 Anemia, unspecified (principal)
CPT/HCPCS: 36415; 82728; 83540; 85025

== ENCOUNTER → 2021-07-07 08:45 | Outpatient (BNVA) | payer MEDICARE, MEDICAID, SELFPAY | PROVIDERS: PCP Family Medicine; Referring Provider Family Medicine; Visit Provider Internal Medicine Gastroenterology | DX: D69.6 Thrombocytopenia, unspecified (principal); K29.50 Unspecified chronic gastritis without bleeding; B96.81 Helicobacter pylori [H. pylori] as the cause of diseases classified elsewhere; K58.9 Irritable bowel syndrome, unspecified; R19.7 Diarrhea, unspecified; F81.9 Developmental disorder of scholastic skills, unspecified; Z85.038 Personal history of other malignant neoplasm of large intestine | CPT/HCPCS: 99212 ==

== ENCOUNTER 2021-07-08 12:53 | Outpatient (REF) | payer MEDICARE, MEDICAID, SELFPAY ==
[2021-07-13 08:27] LABS: Fecal Fat Qualitative Normal (Normal)
[2021-07-13 20:42] LABS: Pancreatic Elastase-1 >500 mcg/g
== END 2021-07-08 12:54 | disposition home or self-care (01) ==
LOC: HO.LNP 12:53
PROVIDERS: Visit Provider Internal Medicine Gastroenterology
DX: R19.7 Diarrhea, unspecified (principal); K29.50 Unspecified chronic gastritis without bleeding; B96.81 Helicobacter pylori [H. pylori] as the cause of diseases classified elsewhere
CPT/HCPCS: 82656; 82705; 87338

== ENCOUNTER 2021-08-02 12:39 | Outpatient (REF) | payer MEDICARE, MEDICAID, SELFPAY ==
[2021-08-02 14:42] LABS: PSA,Total (Free>4and<10) 2.82 ng/mL (0.00-4.00)
== END 2021-08-02 12:40 | disposition home or self-care (01) ==
LOC: HO.LAB 12:39
PROVIDERS: PCP Family Medicine; Visit Provider Urology
DX: Z12.5 Encounter for screening for malignant neoplasm of prostate (principal); R97.20 Elevated prostate specific antigen [PSA]
CPT/HCPCS: 36415; 84153

== ENCOUNTER 2021-08-04 09:45 | Emergency (ER) | payer MEDICARE, MEDICAID, SELFPAY ==
[2021-08-04 09:59] VITALS: BP 97/68; PULSE 77; RESP 18; TEMP 36.9; O2SAT 97; BMI 22.9
[2021-08-04 11:23] LABS: Appearance Urine CLOUDY; Color Urine YELLOW; Glucose Urine UA NEG (NEG); Leukocyte Esterase Urine 3+ (NEG); Nitrite Urine POS (NEG); PH 6.5 (5.0-8.0); UACC Culture Trigger YES; Urine Blood 3+ (NEG); Urine Ketones NEG (NEG); Urine Protein 1+ MG/DL (NEG-TRACE)
[2021-08-04 11:34] LABS: Bacteria Urine 2+ /LPF; WBC Urine TNTC /HPF (0-4)
[2021-08-04 11:35] LABS: Mucus Urine TRACE /LPF; Renal Epithelial Cells Urine TRACE /LPF; Squamous Epithelial Cell Urine TRACE /LPF
--- NOTE | 2021-08-04 11:58 | ED.MALEGU ---
HPI - Male Genitourinary General Chief complaint: Urogenital-Male Stated complaint: BLEEDING FROM [facility] Time Seen by Provider: 08/04/21 11:58 Source: family Mode of arrival: ambulatory Limitations: no limitations and altered mental status History of Present Illness HPI Narrative: 40-year-old male with past medical history of GERD, colon polyps, colon CA, elevated PSA, GERD, H pylori, neurogenic urinary bladder disorder, cognitive developmental delay is here today for blood in his urine. Patient's mom and sister accompanied him as patient has severe cognitive developmental delay. He has been followed by Urology for elevated PSA and enlarged prostate. Family denies any fever or chills. Patient denies any pain. Onset (ago): day(s) Related Data Home Medications Medication Instructions Recorded Confirmed clonidine HCl 0.3 mg tablet 0.3 mg PO BEDTIME 08/18/20 07/07/21 quetiapine 300 mg tablet (Seroquel) 300 mg PO BEDTIME 08/18/20 07/07/21 loperamide 2 mg capsule (Imodium 2 mg PO QID PRN 08/21/20 07/07/21 A-D) cholecalciferol (vitamin D3) 50 50 mcg PO DAILY 10/26/20 07/07/21 mcg (2,000 unit) tablet clonidine HCl 0.1 mg tablet 0.1 mg PO BID@0800,1600 10/26/20 07/07/21 fluticasone propionate 50 2 spray INTRANASAL Q OTHER DAY 10/26/20 07/07/21 mcg/actuation nasal spray,suspension lithium carbonate 150 mg capsule 150 mg PO BID 10/26/20 07/07/21 lithium carbonate 300 mg capsule 300 mg PO BID 10/26/20 07/07/21 lorazepam 0.5 mg tablet 0.5 mg PO TID PRN 10/26/20 07/07/21 olanzapine 10 mg tablet 10 mg PO BEDTIME 10/26/20 07/07/21 oxcarbazepine 150 mg tablet 150 mg PO BID@0800,1600 10/26/20 07/07/21 oxcarbazepine 300 mg tablet 300 mg PO BID@0800,1600 10/26/20 07/07/21 sertraline 50 mg tablet 50 mg PO DAILY 10/26/20 07/07/21 trazodone 100 mg tablet 200 mg PO BEDTIME 10/26/20 07/07/21 zolpidem 10 mg tablet 10 mg PO BEDTIME 10/26/20 07/07/21 quetiapine 100 mg tablet 100 mg PO QAM 03/31/21 07/07/21 Previous Rx's Medication Instructions Recorded bismuth subcit K 140 3 cap PO QID 14 Days #168 cap 05/05/21 mg-metronidazole 125 mg-tetracycline 125 mg cap (Pylera) [id number] 1 cap PO TID 30 Days #90 cap 06/14/21 10,000-32,000-42,000 unit capsule,delayed rel (Zenpep) omeprazole 20 mg capsule,delayed 20 mg PO DAILY 60 Days #60 cap 07/07/21 release levofloxacin 500 mg tablet 500 mg PO DAILY #10 tab 08/04/21 Allergies Allergy/AdvReac Type Severity Reaction Status Date / Time No Known Allergies Allergy Verified 08/04/21 09:59 [No Known Allergies*] Review of Systems Review of Systems: Constitutional : No Weight loss, No Fever, No Chills, No Night Sweats, No Fatigue, No Malaise ENT/Mouth : No Hearing loss, No Ear Pain, No Nasal Congestion, No Sinus Pain, No Hoarseness, No sore throat, No Rhinorrhea, No Swallowing Difficulty Eyes: No Eye Pain, No Swelling, No Redness, No Foreign Body, No Discharge, No Vision Changes Cardiovascular : No Chest Pain, No SOB, No Dyspnea on Exertion, No Orthopnea, No Edema, No Palpitations Respiratory : No Cough, No Sputum, No Wheezing, No Smoke Exposure, No Dyspnea Gastrointestinal : No Nausea, No Vomiting, No Diarrhea, No Constipation, No abdominal Pain, No Hematochezia, No Melena Genitourinary : no irregular bleeding, No Dysuria, No Urinary Frequency, Hematuria, No Urinary Incontinence, No Urgency, Flank Pain, No Urinary Flow Changes, No Hesitancy Musculoskeletal : No joint pain, No Myalgias, No Joint Swelling Skin : No Skin Lesions, No rash Neuro : No Weakness, No Numbness, No Paresthesias, No Loss of Consciousness, No Dizziness, No Headache Yes all other systems are reviewed and are negative PMFSH Past Medical History Medical History Asthma Chronic Helicobacter pylori gastritis Cognitive developmental delay Diarrhea IBS (irritable colon syndrome) Personal history of colon cancer Surgical History History of esophagogastroduodenoscopy (EGD) (07/01/15) History of incision and drainage (01/29/14) Hx of colonoscopy (02/10/15) Hx of laparoscopy (03/11/15) Family History Family History Father No problems noted. Mother Family history of cancer of vagina Colon polyps Maternal Grandmother Family history of cancer of vagina Cancer Paternal Uncle Bone cancer Paternal Aunt Cancer Maternal Uncle Stomach cancer Brother No problems noted. Social History Social History Household Members: Family Household Members Other:: mother Housing: House Do you presently have visiting nurse or other home services: Yes (sister is flexible shaft winder) Unable to assess alcohol history related to: Unable to respond Alcohol intake: current Alcohol intake frequency: does not drink Patient Tobacco Use Status: Never used Tobacco Advance Directives: Yes Advance Directives Information Provided: Yes Advance Directives on File: No service: No Current occupational status: disabled Physical Exam Vital Signs: Vital Signs: Last Vital Signs Temp 97.7 F 08/04/21 12:33 Pulse 80 08/04/21 12:33 Resp 18 08/04/21 12:33 BP 131/68 08/04/21 12:33 Pulse Ox 95 08/04/21 12:33 Body Mass Index 22.9 Const: General: healthy appearing, no acute distress and well developed Nutritional Appearance: well nourished Orientation/consciousness: patient oriented x3 HENMT: Head: Yes normal to inspection and Yes atraumatic Neck: Neck: Yes normal visual inspection, Yes full ROM and Yes trachea midline Thyroid: Thyroid normal Resp: Auscultation: clear to auscultation bilaterally Cardio: Rate: regular rate Rhythm: regular rhythm GI: Inspection: Yes normal to inspection and No distended Palpation (GI): No hepatosplenomegaly present Auscultation: normal bowel sounds : General: Yes Bimanual renal exam normal bilaterally and Yes no CVA tenderness Male General Exam: Yes normal external exam Penis: normal penis Scrotum: scrotum normal Back/Spine/Pelvis: Back: no CVA tenderness Skin: General skin exam: elasticity normal, turgor normal and dry skin Neuro: General: patient oriented x3 Course Course Course Narrative: 40-year-old male with past medical history of GERD, H pylori gastritis, asthma, cognitive developmental delay, colorectal cancer, IBS, is here today for hematuria. Patient had blood in his urine for the past couple days. Family denies patient having any fever or chills. Patient denies any pain. No CVA tenderness. Exam shows no trauma. Will send urine for testing. Patient usually see Dr. Cochran. If positive will treat for UTI. Patient has no symptoms of prostatitis Reevaluation(s) Reevaluation #1: Patient has UTI. Positive for nitrate, 3+ urine blood, leukocyte 3+, WBC. Patient will be sent home on antibiotics. First dose will be given here. Message to patient's urologist, updated about his treatment. Patient will be sent home on levofloxacin for for 10 days. MDM - Male Genitourinary Lab Data Labs: Lab Results 08/04/21 Range/Units 11:13 Urine Color YELLOW Urine Appearance CLOUDY Urine pH 6.5 (5.0-8.0) Ur Specific [place] 1.020 (1.005-1.025) Urine Protein 1+ H (NEG-TRACE) MG/DL Urine Glucose (UA) NEG (NEG) MG/DL Urine Ketones NEG (NEG) MG/DL Urine Blood 3+ H (NEG) Urine Nitrite POS H (NEG) Ur Leukocyte Esterase 3+ H (NEG) Urine RBC 76-150 H (0) /HPF Urine WBC TNTC H (0-4) /HPF Ur Squamous Epith Cells TRACE /LPF Ur Renal Epithelial Cell TRACE /LPF Urine Bacteria 2+ /LPF Urine Mucus TRACE /LPF Discharge Plan Discharge Clinical Impression: Urinary tract infection Qualifiers: Urinary tract infection type: site unspecified Hematuria presence: with hematuria Qualified Code(s): N39.0 - Urinary tract infection, site not specified Patient Disposition: Home, Self-Care Instructions: Urinary Tract Infection in Men (ED) Additional Instructions: You were seen here today for blood in your urine. You do have a urinary tract infection. Please make sure you finish all your antibiotics. You will be referred to your urologist. Please follow-up with your primary care provider as well. You may return to emergency department if your symptoms will get worse or if you will experience any other concerning symptoms. Make sure that you watch for fever or chills Prescriptions: New levofloxacin 500 mg tablet 500 mg PO DAILY Qty: 10 RF: 0 No Action Zenpep 10,000-32,000 -42,000 unit capsule,delayed release(DR/EC) 1 cap PO TID 30 Days Qty: 90 RF: 3 zolpidem 10 mg tablet 10 mg PO BEDTIME RF: 0 lithium carbonate 300 mg capsule 300 mg PO BID RF: 0 clonidine HCl 0.1 mg tablet 0.1 mg PO BID@0800,1600 RF: 0 cholecalciferol (vitamin D3) 50 mcg (2,000 unit) tablet 50 mcg PO DAILY RF: 0 lithium carbonate 150 mg capsule 150 mg PO BID RF: 0 fluticasone propionate 50 mcg/actuation spray,suspension 2 spray intranasal Q OTHER DAY RF: 0 lorazepam 0.5 mg tablet 0.5 mg PO TID PRN (Reason: Anxiety) RF: 0 sertraline 50 mg tablet 50 mg PO DAILY RF: 0 trazodone 100 mg tablet 200 mg PO BEDTIME RF: 0 oxcarbazepine 300 mg tablet 300 mg PO BID@0800,1600 RF: 0 olanzapine 10 mg tablet 10 mg PO BEDTIME RF: 0 oxcarbazepine 150 mg tablet 150 mg PO BID@0800,1600 RF: 0 clonidine HCl 0.3 mg tablet 0.3 mg PO BEDTIME RF: 0 quetiapine [Seroquel] 300 mg tablet 300 mg PO BEDTIME RF: 0 loperamide [Imodium A-D] 2 mg capsule 2 mg PO QID PRN (Reason: Diarrhea) RF: 0 quetiapine 100 mg tablet 100 mg PO QAM RF: 0 Pylera 140-125-125 mg capsule 3 cap PO QID 14 Days Qty: 168 RF: 0 omeprazole 20 mg capsule,delayed release(DR/EC) 20 mg PO DAILY 60 Days Qty: 60 RF: 3 Referrals: Mario Cochran MD [Physician] - 2 days (UTI) Rachelle Gaytan MD [Primary Care Provider] - 2 days Interventions: ED Discharge Assessment Last Done: 08/04/21 12:34 Discharge Date/Time: 08/04/21 12:35
[2021-08-04] MEDS: levoFLOXacin 500 MG TABLET PO (12:23)
[2021-08-04 12:33] VITALS: BP 131/68; PULSE 80; RESP 18; TEMP 36.5; O2SAT 95
== END 2021-08-04 12:35 | disposition home or self-care (01) ==
PROVIDERS: Emergency Provider Emergency Medicine; PCP Family Medicine
DX: N39.0 Urinary tract infection, site not specified (principal); N40.0 Benign prostatic hyperplasia without lower urinary tract symptoms; R62.50 Unspecified lack of expected normal physiological development in childhood; J45.909 Unspecified asthma, uncomplicated
CPT/HCPCS: 81001; 87086; 87088; 87186; 99283

== ENCOUNTER → 2021-08-17 08:10 | Outpatient (BNVA) | payer MEDICARE, MEDICAID, SELFPAY | PROVIDERS: PCP Family Medicine | DX: Z13.89 Encounter for screening for other disorder (principal) | CPT/HCPCS: 51798; 99212 ==

== ENCOUNTER 2021-08-17 09:02 | Outpatient (REF) | payer MEDICARE, MEDICAID, SELFPAY ==
[2021-08-17 09:24] LABS: MANUAL DIFF FLAG NO
[2021-08-17 10:09] LABS: Basophils Percent Auto 0.5 % (0-2); Eosinophils Absolute Auto 0.2 X10*3/uL (0.0-0.4); Hematocrit 39.1 % (42-52); Hemoglobin 12.8 g/dl (14.0-18.0); Imm Gran Abs Auto 0.19 X10*3/uL (0.00-0.03); Imm Gran Pct Auto 2.4 % (0.0-0.4); Lymphocytes Absolute Auto 1.2 X10*3/uL (1.2-4.9); Lymphocytes Percent Auto 15.2 % (20-40); Mean Corpuscular HGB Conc 32.7 g/dl (31.0-36.0); Mean Corpuscular Hemoglobin 29.9 pg (27.0-33.0); Mean Corpuscular Volume 91.4 fL (80-98); Mean Platelet Volume 9.9 fL (9.4-12.4); Monocytes Absolute Auto 0.7 X10*3/uL (0.1-1.2); Monocytes Percent Auto 8.3 % (2-11); Neutrophils Absolute Auto 5.6 X10*3/uL (2.0-8.3); Neutrophils Percent Auto 71.6 % (45-73); Platelet Count 339 X10*3/uL (160-400); Red Blood Count 4.28 X10*6/uL (4.60-5.80); Red Cell Distribution Width 13.5 % (11.0-16.0); White Blood Count 7.9 X10*3/uL (4.8-10.8)
[2021-08-17 10:44] LABS: Estimated Average Glucose 103 mg/dL; Hemoglobin A1c % 5.2 %
[2021-08-17 10:45] LABS: Creatinine Urine 75.49 mg/dL; Microalbum/Creatinine Ratio Ur 9.2 ug/mg cr
[2021-08-17 10:49] LABS: Alanine Aminotransferase 23 U/L (0-40); Albumin Level 4.2 g/dL (3.5-5.0); Alkaline Phosphatase 73 U/L (39-117); Anion Gap 12 (12-20); Aspartate Amino Transferase 26 U/L (5-37); Bilirubin Total 0.3 mg/dL (0.0-1.0); Blood Urea Nitrogen 9 mg/dL (9-16); Carbon Dioxide 28 mmol/L (22-29); Chloride 104 mmol/L (96-108); Cholesterol 160 mg/dL; Estimated Glomerular Filt Rate > 60; Glucose Random 94 mg/dL (60-115); HDL Cholesterol 38 mg/dL; LDL Cholesterol Calculated 98 mg/dl; Potassium 4.6 mmol/L (3.3-5.1); Sodium 139 mmol/L (135-145); Total Protein 7.2 g/dL (6.5-8.0); Triglycerides 123 mg/dL
[2021-08-17 11:03] LABS: Calcium 10.5 mg/dL (8.4-10.2)
[2021-08-17 11:08] LABS: Thyroid Stimulating Hormone 1.19 uIU/mL (0.32-4.0); Vitamin D 25-OH Total 25.3 ng/mL (>30)
[2021-08-17 11:09] LABS: T4 Thyroxine 4.4 ug/dL (4.5-12.0)
[2021-08-19 02:36] LABS: Triiodothyronine T3 Total 73 ng/dL (76-181)
== END 2021-08-17 09:03 | disposition home or self-care (01) ==
LOC: HO.LAB 09:02
PROVIDERS: PCP Family Medicine; Visit Provider Family Medicine
DX: N39.0 Urinary tract infection, site not specified (principal); Z68.25 Body mass index [BMI] 25.0-25.9, adult
CPT/HCPCS: 36415; 51798; 80053; 80061; 82043; 82306; 83036; 84436; 84443; 84480; 85025; 99212

== ENCOUNTER → 2021-09-14 14:15 | Outpatient (BNVA) | payer MEDICARE, MEDICAID, SELFPAY | PROVIDERS: PCP Family Medicine; Visit Provider Urology | DX: N31.9 Neuromuscular dysfunction of bladder, unspecified (principal); R97.20 Elevated prostate specific antigen [PSA]; N32.0 Bladder-neck obstruction | CPT/HCPCS: 99212 ==

== ENCOUNTER → 2021-11-24 09:41 | Outpatient (BNVA) | payer MEDICARE, MEDICAID, SELFPAY | PROVIDERS: PCP Family Medicine; Referring Provider Family Medicine; Visit Provider Internal Medicine Gastroenterology | DX: K21.9 Gastro-esophageal reflux disease without esophagitis (principal); K58.9 Irritable bowel syndrome, unspecified; K29.50 Unspecified chronic gastritis without bleeding; B96.81 Helicobacter pylori [H. pylori] as the cause of diseases classified elsewhere; R19.7 Diarrhea, unspecified; D69.6 Thrombocytopenia, unspecified; Z86.010 Personal history of colon polyps | CPT/HCPCS: 99212 ==

== ENCOUNTER 2022-01-27 07:17 | Outpatient (REF) | payer MEDICARE, MEDICAID, SELFPAY ==
[2022-01-27 08:31] LABS: MANUAL DIFF FLAG NO
[2022-01-27 09:16] LABS: Basophils Percent Auto 0.4 % (0-2); Eosinophils Absolute Auto 0.1 X10*3/uL (0.0-0.4); Eosinophils Percent Auto 1.5 % (0-4); Hematocrit 39.5 % (42.0-52.0); Hemoglobin 13.3 g/dl (14.0-18.0); Imm Gran Abs Auto 0.02 X10*3/uL (0.00-0.03); Imm Gran Pct Auto 0.4 % (0.0-0.4); Lymphocytes Absolute Auto 0.9 X10*3/uL (1.2-4.9); Lymphocytes Percent Auto 17.1 % (20-40); Mean Corpuscular HGB Conc 33.7 g/dl (31.0-36.0); Mean Corpuscular Volume 95.2 fL (80.0-98.0); Mean Platelet Volume 10.7 fL (9.4-12.4); Monocytes Absolute Auto 0.8 X10*3/uL (0.1-1.2); Monocytes Percent Auto 13.6 % (2-11); Neutrophils Absolute Auto 3.7 x10*3/uL (2.0-8.3); Platelet Count 172 X10*3/uL (160-400); Red Blood Count 4.15 X10*6/uL (4.60-5.80); Red Cell Distribution Width 13.5 % (11.0-16.0); White Blood Count 5.5 X10*3/uL (4.8-10.8)
[2022-01-27 09:27] LABS: Lithium 0.36 mmol/L (0.60-1.20)
[2022-01-27 09:47] LABS: Anion Gap 11 (12-20); Blood Urea Nitrogen 10 mg/dL (9-16); C Reactive Protein 0.12 mg/dL (< or = 0.50); Calcium 10.6 mg/dL (8.4-10.2); Carbon Dioxide 30 mmol/L (22-29); Chloride 103 mmol/L (96-108); Estimated Glomerular Filt Rate > 60; Glucose Random 91 mg/dL (60-115); Potassium 4.1 mmol/L (3.3-5.1); Sodium 140 mmol/L (135-145)
[2022-01-27 10:02] LABS: Prostate Specific Antigen 7.67 ng/mL (<0.05-4.0)
== END 2022-01-27 07:18 | disposition home or self-care (01) ==
LOC: HO.LAB 07:17
PROVIDERS: Urology; PCP Internal Medicine; Visit Provider Internal Medicine Gastroenterology
DX: Z12.5 Encounter for screening for malignant neoplasm of prostate (principal); R97.20 Elevated prostate specific antigen [PSA]; K21.9 Gastro-esophageal reflux disease without esophagitis; D69.6 Thrombocytopenia, unspecified; K29.50 Unspecified chronic gastritis without bleeding; B96.81 Helicobacter pylori [H. pylori] as the cause of diseases classified elsewhere; K58.9 Irritable bowel syndrome, unspecified; R19.7 Diarrhea, unspecified; Z85.038 Personal history of other malignant neoplasm of large intestine; Z86.010 Personal history of colon polyps
CPT/HCPCS: 36415; 80048; 80178; 84153; 85025; 86140; 99212

== ENCOUNTER 2022-01-31 15:35 | Outpatient (REF) | payer MEDICARE, MEDICAID, SELFPAY ==
[2022-01-31 16:40] LABS: CDiff Gene PCR NEGATIVE (Negative)
[2022-02-04 18:32] LABS: Calprotectin, Fecal 91 mcg/g
== END 2022-01-31 15:36 | disposition home or self-care (01) ==
LOC: HO.LNP 15:35
PROVIDERS: Visit Provider Internal Medicine Gastroenterology
DX: R19.7 Diarrhea, unspecified (principal)
CPT/HCPCS: 83993; 87493

== ENCOUNTER → 2022-03-14 08:47 | Outpatient (BNVA) | payer MEDICARE, MEDICAID, SELFPAY | PROVIDERS: PCP Internal Medicine; Visit Provider Urology | DX: N39.0 Urinary tract infection, site not specified (principal); R63.1 Polydipsia; F54 Psychological and behavioral factors associated with disorders or diseases classified elsewhere | CPT/HCPCS: 52000; 99212 ==

== ENCOUNTER 2022-05-26 10:14 | Day surgery (SDC) | payer MEDICARE, MEDICAID, SELFPAY ==
[2022-05-22 10:38] VITALS: BMI 25.3
--- NOTE | 2022-05-25 10:04 | P.CONAN_ITS ---
Documented by User: Amparo Villa NP 05/25/22 10:05 HPI - Anesthesia Eval Consult details Narrative: 41yo M for Colonoscopy s/p EGD and [employer] 03/2021 with TIVA Cognitive delay, mother is guardian PMFSH Active Problems Active Problems: All Active Problems (Updated 05/22/22 @ 10:29 by Radha Campos, ARSENIO) Elevated PSA (Acute) Neurogenic urinary bladder disorder (Acute) Varicose veins of right lower extremity with inflammation (Acute) Fecal occult blood test positive (Acute) Anemia with low platelet count (Acute) Post-polypectomy bleeding (Acute) History of colon polyps (Acute) GERD (gastroesophageal reflux disease) (Acute) Bladder outlet obstruction (Acute) Psychogenic polydipsia (Acute) UTI (urinary tract infection) (Acute) Asthma (Acute) Chronic Helicobacter pylori gastritis (Acute) Cognitive developmental delay (Acute) Personal history of colon cancer (Acute) IBS (irritable colon syndrome) (Acute) Diarrhea (Acute) Past Medical History Medical History Asthma Chronic Helicobacter pylori gastritis Cognitive developmental delay Diarrhea IBS (irritable colon syndrome) Personal history of colon cancer UTI (urinary tract infection) Family History Family History Father No problems noted. Mother Family history of cancer of vagina Colon polyps Maternal Grandmother Family history of cancer of vagina Cancer Paternal Uncle Bone cancer Paternal Aunt Cancer Maternal Uncle Stomach cancer Brother No problems noted. Surgical History Surgical History History of esophagogastroduodenoscopy (EGD) (07/01/15) History of incision and drainage (01/29/14) Hx of colonoscopy (02/10/15) Hx of excision of mass Hx of laparoscopy (03/11/15) Social History Social History Household Members: Family Household Members Other:: mother Housing: House Do you presently have visiting nurse or other home services: Yes (sister is residential aide) Unable to assess alcohol history related to: Unable to respond Alcohol intake: current Alcohol intake frequency: does not drink Patient Tobacco Use Status: Never used Tobacco Are you DNR?: No Advance Directives: No Advance Directives Information Provided: Yes Recently lost weight without trying: No Nutrition Risks: No Nutritional Risk service: No Current occupational status: disabled Meds Allergies Allergy/AdvReac Type Severity Reaction Status Date / Time No Known Allergies Allergy Verified 03/14/22 08:56 [No Known Allergies*] Home Medications Medication Instructions Recorded Confirmed Last Taken Type clonidine HCl 0.3 mg tablet 0.3 mg PO BEDTIME 08/18/20 05/22/22 Unknown History quetiapine 300 mg tablet (Seroquel) 300 mg PO BEDTIME 08/18/20 03/14/22 Unknown History loperamide 2 mg capsule (Imodium 2 mg PO QID PRN Diarrhea 08/21/20 03/14/22 Unknown History A-D) cholecalciferol (vitamin D3) 50 50 mcg PO DAILY 10/26/20 05/22/22 Unknown History mcg (2,000 unit) tablet clonidine HCl 0.1 mg tablet 0.1 mg PO BID@0800,1600 10/26/20 05/26/22 05/26/22 07:30 History 0.1 mg fluticasone propionate 50 2 spray intranasal Q OTHER DAY 10/26/20 05/22/22 Unknown History mcg/actuation nasal spray,suspension lithium carbonate 150 mg capsule 150 mg PO BID 10/26/20 05/22/22 Unknown History lithium carbonate 300 mg capsule 300 mg PO BID 10/26/20 05/22/22 Unknown History lorazepam 0.5 mg tablet 0.5 mg PO TID PRN Anxiety 10/26/20 03/14/22 05/26/22 History 0.5 mg olanzapine 10 mg tablet 10 mg PO BEDTIME 10/26/20 03/14/22 Unknown History oxcarbazepine 150 mg tablet 150 mg PO BID@0800,1600 10/26/20 05/22/22 05/26/22 07:30 History 150 mg oxcarbazepine 300 mg tablet 300 mg PO BID@0800,1600 10/26/20 05/22/22 05/26/22 07:30 History 300 mg sertraline 50 mg tablet 50 mg PO DAILY 10/26/20 03/14/22 04/22/21 07:00 History trazodone 100 mg tablet 200 mg PO BEDTIME 10/26/20 03/14/22 Unknown History zolpidem 10 mg tablet 10 mg PO BEDTIME 10/26/20 03/14/22 Unknown History quetiapine 100 mg tablet 100 mg PO QAM 03/31/21 05/22/22 Unknown History cyclobenzaprine 5 mg tablet 5 mg PO TID PRN low back pain 08/17/21 05/22/22 Unknown History ferrous gluconate 324 mg (38 mg 324 mg PO Q OTHER DAY 08/17/21 05/22/22 Unknown History iron) tablet ipratropium bromide 42 mcg (0.06 intranasal 08/17/21 03/14/22 Unknown History %) nasal spray olanzapine 15 mg tablet 15 mg PO BEDTIME 08/17/21 03/14/22 Unknown History olanzapine 20 mg tablet 20 mg PO BEDTIME 08/17/21 03/14/22 Unknown History olanzapine 5 mg tablet 5 mg PO QAM 08/17/21 03/14/22 Unknown History loperamide 2 mg capsule (Imodium 2 mg PO Q6H PRN 01/27/22 03/14/22 Unknown History A-D) albuterol sulfate 90 mcg/actuation 0 mcg inhalation 03/14/22 03/14/22 Unknown History aerosol inhaler budesonide 0.5 mg/2 mL suspension 0.5 mg inhalation DAILY 03/14/22 03/14/22 Unknown History for nebulization difluprednate 0.05 % eye drops 0 drp ophthalmic (eye) 03/14/22 03/14/22 Unknown History haloperidol 1 mg tablet 1 mg PO BEDTIME 03/14/22 03/14/22 Unknown History haloperidol 2 mg tablet 2 mg PO BEDTIME 03/14/22 03/14/22 Unknown History lorazepam 1 mg tablet 1 mg PO BEDTIME 03/14/22 05/22/22 Unknown History moxifloxacin 0.5 % eye drops 0 drp ophthalmic (eye) 03/14/22 03/14/22 Unknown History risperidone 1 mg tablet 0 mg PO 03/14/22 03/14/22 Unknown History risperidone 2 mg tablet 0 mg PO 03/14/22 03/14/22 Unknown History Exam Exam Date and Time: May 25, 2022 1004 Height,Weight and Vital Signs: Height 6 ft Weight 84.822 kg Pertinent Lab Results Pertinent Lab Results: Laboratory Tests 01/27/22 01/27/22 08:30 08:30 WBC 5.5 Hgb 13.3 L Hct 39.5 L Plt Count 172 Sodium 140 Potassium 4.1 Chloride 103 Carbon Dioxide 30 H BUN 10 Creatinine 0.76 Assessment and Plan Assessment Anesthesia Assessment: Chart Reviewed Documented by User: Makayla Caal MD 05/26/22 11:55 [facility] Past Medical History Medical History Asthma Chronic Helicobacter pylori gastritis Cognitive developmental delay Diarrhea IBS (irritable colon syndrome) Personal history of colon cancer UTI (urinary tract infection) Family History Family History Father No problems noted. Mother Family history of cancer of vagina Colon polyps Maternal Grandmother Family history of cancer of vagina Cancer Paternal Uncle Bone cancer Paternal Aunt Cancer Maternal Uncle Stomach cancer Brother No problems noted. Surgical History Surgical History History of esophagogastroduodenoscopy (EGD) (07/01/15) History of incision and drainage (01/29/14) Hx of colonoscopy (02/10/15) Hx of excision of mass Hx of laparoscopy (03/11/15) History of Problems with Anesthesia: No Social History Social History Household Members: Family Household Members Other:: mother Housing: House Do you presently have visiting nurse or other home services: Yes (sister is residential aide) Unable to assess alcohol history related to: Unable to respond Alcohol intake: current Alcohol intake frequency: does not drink Patient Tobacco Use Status: Never used Tobacco Are you DNR?: No Advance Directives: No Advance Directives Information Provided: Yes Recently lost weight without trying: No Nutrition Risks: No Nutritional Risk service: No Current occupational status: disabled Meds Allergies Allergy/AdvReac Type Severity Reaction Status Date / Time No Known Allergies Allergy Verified 03/14/22 08:56 [No Known Allergies*] Home Medications Medication Instructions Recorded Confirmed Last Taken Type clonidine HCl 0.3 mg tablet 0.3 mg PO BEDTIME 08/18/20 05/22/22 Unknown History quetiapine 300 mg tablet (Seroquel) 300 mg PO BEDTIME 08/18/20 03/14/22 Unknown History loperamide 2 mg capsule (Imodium 2 mg PO QID PRN Diarrhea 08/21/20 03/14/22 Unknown History A-D) cholecalciferol (vitamin D3) 50 50 mcg PO DAILY 10/26/20 05/22/22 Unknown History mcg (2,000 unit) tablet clonidine HCl 0.1 mg tablet 0.1 mg PO BID@0800,1600 10/26/20 05/26/22 05/26/22 07:30 History 0.1 mg fluticasone propionate 50 2 spray intranasal Q OTHER DAY 10/26/20 05/22/22 Unknown History mcg/actuation nasal spray,suspension lithium carbonate 150 mg capsule 150 mg PO BID 10/26/20 05/22/22 Unknown History lithium carbonate 300 mg capsule 300 mg PO BID 10/26/20 05/22/22 Unknown History lorazepam 0.5 mg tablet 0.5 mg PO TID PRN Anxiety 10/26/20 03/14/22 05/26/22 History 0.5 mg olanzapine 10 mg tablet 10 mg PO BEDTIME 10/26/20 03/14/22 Unknown History oxcarbazepine 150 mg tablet 150 mg PO BID@0800,1600 10/26/20 05/22/22 05/26/22 07:30 History 150 mg oxcarbazepine 300 mg tablet 300 mg PO BID@0800,1600 10/26/20 05/22/22 05/26/22 07:30 History 300 mg sertraline 50 mg tablet 50 mg PO DAILY 10/26/20 03/14/22 04/22/21 07:00 History trazodone 100 mg tablet 200 mg PO BEDTIME 10/26/20 03/14/22 Unknown History zolpidem 10 mg tablet 10 mg PO BEDTIME 10/26/20 03/14/22 Unknown History quetiapine 100 mg tablet 100 mg PO QAM 03/31/21 05/22/22 Unknown History cyclobenzaprine 5 mg tablet 5 mg PO TID PRN low back pain 08/17/21 05/22/22 Unknown History ferrous gluconate 324 mg (38 mg 324 mg PO Q OTHER DAY 08/17/21 05/22/22 Unknown History iron) tablet ipratropium bromide 42 mcg (0.06 intranasal 08/17/21 03/14/22 Unknown History %) nasal spray olanzapine 15 mg tablet 15 mg PO BEDTIME 08/17/21 03/14/22 Unknown History olanzapine 20 mg tablet 20 mg PO BEDTIME 08/17/21 03/14/22 Unknown History olanzapine 5 mg tablet 5 mg PO QAM 08/17/21 03/14/22 Unknown History loperamide 2 mg capsule (Imodium 2 mg PO Q6H PRN 01/27/22 03/14/22 Unknown History A-D) albuterol sulfate 90 mcg/actuation 0 mcg inhalation 03/14/22 03/14/22 Unknown History aerosol inhaler budesonide 0.5 mg/2 mL suspension 0.5 mg inhalation DAILY 03/14/22 03/14/22 Unknown History for nebulization difluprednate 0.05 % eye drops 0 drp ophthalmic (eye) 03/14/22 03/14/22 Unknown History haloperidol 1 mg tablet 1 mg PO BEDTIME 03/14/22 03/14/22 Unknown History haloperidol 2 mg tablet 2 mg PO BEDTIME 03/14/22 03/14/22 Unknown History lorazepam 1 mg tablet 1 mg PO BEDTIME 03/14/22 05/22/22 Unknown History moxifloxacin 0.5 % eye drops 0 drp ophthalmic (eye) 03/14/22 03/14/22 Unknown History risperidone 1 mg tablet 0 mg PO 03/14/22 03/14/22 Unknown History risperidone 2 mg tablet 0 mg PO 03/14/22 03/14/22 Unknown History Exam Airway Mallampati Class: III (Globally poor dentition) TM Dist: >3cm Neck ROM: Limited Loose/Missing/Broken Teeth: Yes and Upper Heart: RRR Lungs: CTA Assessment and Plan Assessment Anesthesia Assessment: Anesthesia Plan Discussed Final Anesthetic Review History of Problems with Anesthesia: No NPO: Yes ASA Class: III Final Preanesthetic Review: Meds/Allgs Chart Reviewed, Consent Obtained/Reviewed and Anes Risks/Benef Reviewed Patient Risk: Intermediate Procedure Risk: Low Anesthetic Plan Anesthetic Plan: MAC: Disposition: Standard PACU
[2022-05-26 10:37] VITALS: BMI 24.3
[2022-05-26 11:03] VITALS: BP 123/78; PULSE 61; RESP 18; TEMP 37.3; O2SAT 98
[2022-05-26] MEDS: Lactated Ringers 1,000 ML 100 ML IVCONT (11:06)
--- NOTE | 2022-05-26 11:37 | MHC.SHP ---
Pre-Procedural Eval Section A Date of Service: 05/26/22 The patient is an INPATIENT: No The History & Physical has been completed within 30 days and I have reviewed it.: No Section B Chief Complaint: Personal history of colonic polyps Details of Present Illness: Colon cancer screening, history of colon polyps Relevant Family History (Specify if Yes): Yes Relevant Social History: None Present Medications: see Short Stay Collaborative assessment Medical History: Significant History (Asthma Chronic Helicobacter pylori gastritis Cognitive developmental delay Diarrhea IBS (irritable colon syndrome) Personal history of colon cancer UTI (urinary tract infection)) History of Previous Operations: Relevant previous surgery/procedure and date(s) (History of esophagogastroduodenoscopy (EGD) (07/01/15) History of incision and drainage (01/29/14) Hx of colonoscopy (02/10/15) Hx of laparoscopy (03/11/15)) Allergies: Allergies Allergy/AdvReac Type Severity Reaction Status Date / Time No Known Allergies Allergy Verified 03/14/22 08:56 [No Known Allergies*] Review of Systems Sugical H&P ROS: Negative: Constitution, Cardiovascular and Respiratory and Yes, Specify: Gastrointestinal (Chronic diarrhea) Exam Surgical H&P Exam: Normal: Heart, Normal: Lungs, Normal: Extremities and Normal: Abdomen Plan Diagnosis/Plan: Unchanged I have reviewed the history and physical and performed a pertinent physical examination on my patient. No changes have occurred unless specified.
--- NOTE | 2022-05-26 11:50 | P.OP_ITS ---
Operative Note Operative Note Date of Service: 05/26/22 Narrative: Pre-op diagnosis: Colon cancer screening, history of colon polyps, chronic diarrhea Post-op diagnosis:?other (Colon polyps, diverticulosis, hemorrhoids) Procedure: COLONOSCOPY TILL CECUM WITH BIOPSIES, SNARE POLYPECTOMY AND SUBMUCOSAL INJECTION Consent: Indications for the procedure and potential complications of bleeding, perforation, reaction to medications and missed diagnosis were discussed with the patient's Mom and HCP and informed consent was obtained. Instrument: Olympus PCF H 190 L variable stiffness pediatric colonoscope Monitoring: Vital signs and clinical assessment, intermittent blood pressure monitoring, continuous EKG monitoring, Pulse oximetry and Carbon Dioxide monitoring were done throughout the procedure. Colon withdrawl time was 31 minutes. Procedure: The patient was placed in the left lateral decubitis position and pre-procedure medications were administered. After a digital rectal examination of the ano-rectum, the video colonoscope was inserted into the rectum and advanced through the colon to the cecum. The colonoscope was slowly withdrawn in a retrograde panoramic fashion and the colon mucosa was carefully examined including a retroflexed view of the rectum. Findings and interventions are described below. Procedure Difficulty: Without difficulty Findings: Terminal Ileum: Distal 5 cms was examined and appeared normal Cecum:? A 9-10 mm sessile polyp at site of previous polypectomy - raised with 4 cc of Orise solution and unable to snare the polyp.? Polyp was removed with a cold biopsy and remaining polyp was ablated with cautery using the snare tip. Ascending Colon:? Normal Transverse Colon:? Normal Descending Colon:? Moderate diverticulosis Sigmoid Colon:? Normal anastomosis noted at 20 cms. Moderate diverticulosis Rectum:? Normal Ano-rectum:? Moderate internal hemorrhoids Colon preparation:? Good after copious irrigation Impression and Post Procedure Diagnosis: Colonoscopy Findings: One medium sized polyp removed. Random biopsies were obtained from the right and left colon to check for microscopic colitis Moderate diverticulosis seen in the left colon Moderate hemorrhoids on retroflexed exam. Plan: Await pathology results Patient has an appointment on 06/15/22 in the GI Clinic with Leonor Salgado M.D.. Repeat Colonoscopy interval based on path results - in 3 years if polyps are adenomatous and 10 years if polyps are hyperplastic. Colon polyps handout was given in the discharge area Surgeon: Leonor Salgado MD Anesthesia:?MAC Was an [employer] Supervisor used for this Procedure?:?Yes [employer] Farming Supervisor:?Kayla Singh Estimated blood loss (mL):?0 Pathology:?other (A. cecal polyp at previous polypectomy site with Orise? B. random right colon bxs, R/O microscopic colitis? C. random left colon bxs, R/O microscopic colitis) Condition:?stable Disposition:?PACU
[2022-05-26 12:48] VITALS: BP 86/48; PULSE 57; RESP 12; TEMP 36.2; O2SAT 96
[2022-05-26 13:03] VITALS: BP 96/57; PULSE 45; RESP 14; TEMP 36.1; O2SAT 96
[2022-05-26 13:18] VITALS: BP 112/66; PULSE 63; RESP 16; TEMP 36.1; O2SAT 98
[2022-05-26 13:33] VITALS: BP 112/49; PULSE 50; RESP 16; TEMP 36.2; O2SAT 98
== END 2022-05-26 13:52 | disposition home or self-care (01) ==
PROVIDERS: PCP Internal Medicine; Visit Provider Internal Medicine Gastroenterology
PROC: 0DJD8ZZ Inspection of Lower Intestinal Tract, Via Natural or Artificial Opening Endoscopic (ICD-10-PCS; CPT 45378; principal; 2022-05-26 11:50)
DX: Z12.11 Encounter for screening for malignant neoplasm of colon (principal); Z85.038 Personal history of other malignant neoplasm of large intestine; Z86.010 Personal history of colon polyps; D12.0 Benign neoplasm of cecum; K57.30 Diverticulosis of large intestine without perforation or abscess without bleeding; K64.8 Other hemorrhoids; K52.9 Noninfective gastroenteritis and colitis, unspecified; Z98.0 Intestinal bypass and anastomosis status; K21.9 Gastro-esophageal reflux disease without esophagitis; K29.50 Unspecified chronic gastritis without bleeding; B96.81 Helicobacter pylori [H. pylori] as the cause of diseases classified elsewhere; K58.9 Irritable bowel syndrome, unspecified; D69.6 Thrombocytopenia, unspecified; R62.59 Other lack of expected normal physiological development in childhood; Z79.899 Other long term (current) drug therapy
CPT/HCPCS: 45385; 45380; 45381; 88305; J2250

== ENCOUNTER → 2022-06-15 10:10 | Outpatient (BNVA) | payer MEDICARE, MEDICAID, SELFPAY | PROVIDERS: PCP Internal Medicine; Referring Provider Family Medicine; Visit Provider Internal Medicine Gastroenterology | DX: K21.9 Gastro-esophageal reflux disease without esophagitis (principal); D64.9 Anemia, unspecified; D69.6 Thrombocytopenia, unspecified; K29.50 Unspecified chronic gastritis without bleeding; B96.81 Helicobacter pylori [H. pylori] as the cause of diseases classified elsewhere; K58.0 Irritable bowel syndrome with diarrhea; Z85.038 Personal history of other malignant neoplasm of large intestine; Z86.010 Personal history of colon polyps | CPT/HCPCS: 99212 ==

== ENCOUNTER → 2022-07-27 13:04 | Outpatient (BNVA) | payer MEDICARE, MEDICAID, SELFPAY | PROVIDERS: PCP Internal Medicine; Visit Provider Urology | DX: R97.20 Elevated prostate specific antigen [PSA] (principal); N31.9 Neuromuscular dysfunction of bladder, unspecified | CPT/HCPCS: Q3014 ==

== ENCOUNTER 2022-07-28 08:12 | Outpatient (REF) | payer MEDICARE, MEDICAID, SELFPAY ==
[2022-07-28 08:28] LABS: MANUAL DIFF FLAG NO
[2022-07-28 09:14] LABS: Basophils Percent Auto 0.5 % (0-2); Eosinophils Absolute Auto 0.1 X10*3/uL (0.0-0.4); Eosinophils Percent Auto 1.3 % (0-4); Hematocrit 39.8 % (42.0-52.0); Hemoglobin 13.4 g/dl (14.0-18.0); Imm Gran Abs Auto 0.02 X10*3/uL (0.00-0.03); Imm Gran Pct Auto 0.4 % (0.0-0.4); Lymphocytes Percent Auto 18.2 % (20-40); Mean Corpuscular HGB Conc 33.7 g/dl (31.0-36.0); Mean Corpuscular Hemoglobin 30.7 pg (27.0-33.0); Mean Corpuscular Volume 91.1 fL (80.0-98.0); Mean Platelet Volume 10.8 fL (9.4-12.4); Monocytes Absolute Auto 0.8 X10*3/uL (0.1-1.2); Monocytes Percent Auto 14.6 % (2-11); Neutrophils Absolute Auto 3.6 x10*3/uL (2.0-8.3); Platelet Count 205 X10*3/uL (160-400); Red Blood Count 4.37 X10*6/uL (4.60-5.80); White Blood Count 5.5 X10*3/uL (4.8-10.8)
[2022-07-28 09:29] LABS: INTERNATIONAL NORM RATIO 1.1 (0.9-1.1); Prothrombin Time 12.2 SEC (10.0-13.1)
[2022-07-28 09:37] LABS: Alanine Aminotransferase 20 U/L (0-40); Albumin Level 4.6 g/dL (3.5-5.0); Alkaline Phosphatase 81 U/L (39-117); Anion Gap 14 (12-20); Aspartate Amino Transferase 22 U/L (5-37); Bilirubin Total 0.6 mg/dL (0.0-1.0); Blood Urea Nitrogen 13 mg/dL (9-16); C Reactive Protein 0.07 mg/dL (< or = 0.50); Calcium 10.4 mg/dL (8.4-10.2); Carbon Dioxide 27 mmol/L (22-29); Chloride 102 mmol/L (96-108); Estimated Glomerular Filt Rate > 60; Glucose Random 88 mg/dL (60-115); Lipase 80 U/L (8-78); Potassium 4.1 mmol/L (3.3-5.1); Sodium 139 mmol/L (135-145); Total Protein 7.7 g/dL (6.5-8.0)
[2022-07-28 09:47] LABS: Ferritin 47 ng/mL (20-250); Vitamin D 25-OH Total 31.3 ng/mL (>30)
== END 2022-07-28 08:13 | disposition home or self-care (01) ==
LOC: HO.LAB 08:12
PROVIDERS: PCP Family Medicine; Visit Provider Internal Medicine Gastroenterology
DX: K52.9 Noninfective gastroenteritis and colitis, unspecified (principal); D69.6 Thrombocytopenia, unspecified; K21.9 Gastro-esophageal reflux disease without esophagitis; R10.84 Generalized abdominal pain; Z85.038 Personal history of other malignant neoplasm of large intestine; Z86.010 Personal history of colon polyps
CPT/HCPCS: 36415; 80053; 82306; 82728; 83690; 85025; 85610; 86140; 99212

== ENCOUNTER → 2022-08-24 13:16 | Outpatient (BNVA) | payer MEDICARE, MEDICAID, SELFPAY | PROVIDERS: PCP Family Medicine; Visit Provider Internal Medicine Gastroenterology | DX: K58.0 Irritable bowel syndrome with diarrhea (principal); K52.9 Noninfective gastroenteritis and colitis, unspecified; R10.84 Generalized abdominal pain; K21.9 Gastro-esophageal reflux disease without esophagitis; K29.50 Unspecified chronic gastritis without bleeding; B96.81 Helicobacter pylori [H. pylori] as the cause of diseases classified elsewhere; Z85.038 Personal history of other malignant neoplasm of large intestine; Z86.010 Personal history of colon polyps | CPT/HCPCS: 99212 ==

== ENCOUNTER 2022-08-28 12:02 | Outpatient (REF) | payer MEDICARE, MEDICAID, SELFPAY | END 2022-08-28 12:03 | disposition home or self-care (01) | LOC: HO.LNP 12:02 | PROVIDERS: Visit Provider Internal Medicine Gastroenterology | DX: K52.9 Noninfective gastroenteritis and colitis, unspecified (principal) | CPT/HCPCS: 87177; 87209 ==

== ENCOUNTER 2022-08-30 13:48 | Outpatient (REF) | payer MEDICARE, MEDICAID, SELFPAY | END 2022-08-30 13:49 | disposition home or self-care (01) | LOC: HO.LNP 13:48 | PROVIDERS: Visit Provider Internal Medicine Gastroenterology | DX: K52.9 Noninfective gastroenteritis and colitis, unspecified (principal) | CPT/HCPCS: 87177; 87209; 87507 ==

== ENCOUNTER 2022-09-12 08:05 | Outpatient (REF) | payer MEDICARE, MEDICAID, SELFPAY ==
--- NOTE | ~2022-09-12 | US_ITS ---
EXAMINATION: US ABDOMEN COMPLETE CLINICAL INFORMATION: Postprandial abdominal pain. Rule out gallstones. COMPARISON: CT abdomen and pelvis 04/24/2021. Ultrasound kidneys and bladder 09/21/2015. TECHNIQUE: Real-time imaging of the abdominal viscera. FINDINGS: PANCREAS: Punctate echogenic foci within the pancreas could potentially reflect pancreatic calcifications which could be seen in the setting of chronic pancreatitis and could be confirmed with a CT of abdomen if warranted. ABDOMINAL AORTA: The proximal, mid, and distal segments are normal in caliber. INFERIOR VENA CAVA: Visualized portions are normal. LIVER: The liver is normal in size. The liver contour is normal. Parenchymal echogenicity is normal. No focal hepatic lesion. There is no intrahepatic biliary duct dilatation seen. GALLBLADDER: Normal. The gallbladder is physiologically distended without evidence of stones, sludge, polyps, wall thickening or pericholecystic fluid. COMMON BILE DUCT: Normal in caliber measuring 0.3 cm in diameter. RIGHT KIDNEY: Benign-appearing 1.4 cm renal cyst, no imaging follow-up recommended. No hydronephrosis or renal calculi. The kidney measures 11.7 cm in maximum dimension. LEFT KIDNEY: Benign-appearing renal cysts measuring up to 1.8 cm, no imaging follow-up recommended. No hydronephrosis or renal calculi. The kidney measures 12.7 cm in maximum dimension. SPLEEN: Normal. The spleen measures 10.6 cm in maximum dimension. FREE FLUID: None. US/US abdomen complete IMPRESSION: 1. No cholelithiasis or evidence of acute cholecystitis. 2. Punctate echogenic foci within the pancreas could potentially reflect pancreatic calcifications which could be seen in the setting of chronic pancreatitis and could be confirmed with a CT abdomen if warranted.
== END 2022-09-12 08:06 | disposition home or self-care (01) ==
LOC: HO.US 08:05
PROVIDERS: Visit Provider Internal Medicine Gastroenterology
DX: R10.84 Generalized abdominal pain (principal)
CPT/HCPCS: 76700

== ENCOUNTER → 2022-10-05 09:04 | Outpatient (BNVA) | payer MEDICARE, MEDICAID, SELFPAY | PROVIDERS: PCP Family Medicine; Visit Provider Internal Medicine Gastroenterology | DX: K58.0 Irritable bowel syndrome with diarrhea (principal); K86.1 Other chronic pancreatitis; K21.9 Gastro-esophageal reflux disease without esophagitis; K29.50 Unspecified chronic gastritis without bleeding; B96.81 Helicobacter pylori [H. pylori] as the cause of diseases classified elsewhere; E55.9 Vitamin D deficiency, unspecified; Z86.010 Personal history of colon polyps | CPT/HCPCS: 99212 ==

== ENCOUNTER 2022-11-01 07:59 | Outpatient (REF) | payer MEDICARE, MEDICAID, SELFPAY ==
--- NOTE | ~2022-11-01 | CT_ITS ---
EXAMINATION: CT ABDOMEN WITHOUT AND WITH CONTRAST CLINICAL INFORMATION: Chronic pancreatitis. COMPARISON: Ultrasound abdomen 09/12/2022 TECHNIQUE: Contiguous axial thin section helical images of the abdomen were performed before and after the administration of oral contrast and 85 mL of Omnipaque 350 intravenous contrast. The data set was reformatted in the coronal and sagittal planes and reviewed on an independent workstation. This CT examination was performed using dose optimization techniques as appropriate, variously including the following: *Automated exposure control *Adjustment of mA and/or kV according to patient size (this includes techniques or standardized protocols for targeted exams where dose is matched to indication/reason for exam; i.e. extremities or head) *Use of iterative reconstruction technique DLP: 653 mGy-cm FINDINGS: LUNG BASES: The heart size is normal. The lung bases are clear. LIVER, GALLBLADDER, AND BILIARY TREE: The liver is normal size, contour with mild hypoattenuation. No focal enhancing lesion or intrahepatic ductal dilatation seen. The gallbladder is nondistended and appears unremarkable. PANCREAS: The pancreas is homogeneous in density with peripancreatic fat borders preserved. No focal calcifications are seen. SPLEEN: There are at least 2 hypodense lesions in the spleen, the largest measuring 1.0 cm around the hilum. The spleen is normal size. There are prominent perisplenic and peripancreatic collateral vessels questioning portal hypertension. There is mild hypodensity seen at the confluence of portal, splenic and inferior mesenteric vein. Unopacified blood versus thrombus. ADRENAL GLANDS AND KIDNEYS: The adrenal glands are symmetric and normal. Both kidney nephrograms are symmetrical and normal size. No perinephric stranding is seen. No radiopaque renal calculi or hydronephrosis. There are bilateral nonenhancing renal cysts with the largest midpole renal cyst measuring 2.0 cm. BOWEL LOOPS: There is scattered stool and gas seen throughout the colon without any significant distention. The small bowel loops are normal caliber. The appendix is not in the yvpth-sy-icxh. LYMPH NODES: Small shotty lymph nodes seen in the retroperitoneum. VASCULAR: Abdomen is normal caliber. BONES: No aggressive lytic or sclerotic process seen. CT/CT abdomen wo/w IV con IMPRESSION: 1. No acute intra-abdominal process seen. 2. Bilateral renal cysts. No radiopaque renal calculi or hydronephrosis. 3. Mild hepatic steatosis without focal lesion. 4. Prominent perisplenic and peripancreatic collateral vessels suggestive of portal hypertension. Fleischner guidelines were followed.
[2022-11-01 09:25] LABS: Prostate Specific Antigen 2.81 ng/mL (<0.05-4.0)
[2022-11-01] MEDS: iohexoL 350 MG/ML 100 ML INFUS..BTL IV (10:20)
[2022-11-01 12:43] LABS: Creatinine POC 0.7 mg/dL (0.5-1.4); GFR POC > 60
== END 2022-11-01 08:00 | disposition home or self-care (01) ==
LOC: HO.CT 07:59
PROVIDERS: Absent Provider Urology; PCP Family Medicine; Visit Provider Internal Medicine Gastroenterology
DX: N40.1 Benign prostatic hyperplasia with lower urinary tract symptoms (principal); N13.8 Other obstructive and reflux uropathy; R97.20 Elevated prostate specific antigen [PSA]; K52.9 Noninfective gastroenteritis and colitis, unspecified; K86.1 Other chronic pancreatitis; Z12.5 Encounter for screening for malignant neoplasm of prostate
CPT/HCPCS: 36415; 74170; 82565; 84153; Q9967

== ENCOUNTER 2022-11-09 12:17 | Outpatient (REF) | payer MEDICARE, MEDICAID, SELFPAY ==
[2022-11-09 14:30] LABS: Campylobacter Not Detected (Not Detect.); Plesiomonas shigelloides Not Detected (Not Detect.)
[2022-11-09 14:31] LABS: Adenovirus F 40/41 Not Detected (Not Detect.); Astrovirus Not Detected (Not Detect.); Cryptosporidium Not Detected (Not Detect.); Cyclospora cayetanensis Not Detected (Not Detect.); E. coli EAEC Not Detected (Not Detect.); E. coli EPEC Not Detected (Not Detect.); E. coli ETEC Not Detected (Not Detect.); E. coli STEC Not Detected (Not Detect.); Entamoeba histolytica Not Detected (Not Detect.); Giardia lamblia Not Detected (Not Detect.); Norovirus GI/GII Not Detected (Not Detect.); Rotavirus A Not Detected (Not Detect.); Salmonella Not Detected (Not Detect.); Sapovirus Not Detected (Not Detect.); Shigella sp./EIEC Not Detected (Not Detect.); Vibrio Not Detected (Not Detect.); Vibrio Cholerae Not Detected (Not Detect.); Yersinia enterocolitica Not Detected (Not Detect.)
== END 2022-11-09 12:18 | disposition home or self-care (01) ==
LOC: HO.LNP 12:17
PROVIDERS: Visit Provider Internal Medicine Gastroenterology
DX: K52.9 Noninfective gastroenteritis and colitis, unspecified (principal)
CPT/HCPCS: 87507

== ENCOUNTER 2022-11-20 09:23 | Outpatient (REF) | payer MEDICARE, MEDICAID, SELFPAY ==
[2022-11-20 16:49] LABS: Urine Cytology See Pathology rpt
== END 2022-11-20 09:24 | disposition home or self-care (01) ==
LOC: HO.LAB 09:23
PROVIDERS: PCP Family Medicine; Visit Provider Nurse Practitioner Family
DX: N40.1 Benign prostatic hyperplasia with lower urinary tract symptoms (principal); N13.8 Other obstructive and reflux uropathy; N31.9 Neuromuscular dysfunction of bladder, unspecified; R31.29 Other microscopic hematuria; R97.20 Elevated prostate specific antigen [PSA]; Z79.899 Other long term (current) drug therapy
CPT/HCPCS: 88112; 99212

== ENCOUNTER 2022-12-15 07:55 | Outpatient (REF) | payer MEDICARE, MEDICAID, SELFPAY | END 2022-12-15 07:56 | disposition home or self-care (01) | LOC: HO.LAB 07:55 | PROVIDERS: PCP Family Medicine; Referring Provider Family Medicine; Visit Provider Internal Medicine Gastroenterology | DX: K52.9 Noninfective gastroenteritis and colitis, unspecified (principal); E55.9 Vitamin D deficiency, unspecified; R10.84 Generalized abdominal pain | CPT/HCPCS: 99212 ==

== ENCOUNTER 2023-01-04 08:51 | Outpatient (REF) | payer MEDICARE, MEDICAID, SELFPAY ==
--- NOTE | ~2023-01-04 | US_ITS ---
EXAMINATION: US ABDOMEN LIMITED WITH LIVER ELASTOGRAPHY CLINICAL INFORMATION: Portal hypertension. COMPARISON: None. TECHNIQUE: Real-time imaging of the abdominal viscera. Noninvasive ultrasound liver fibrosis assessment is performed using Ashlyn ElastPQ point quantification shear wave elastography (2D-SWE) with a C5-2 MHz transducer. Multiple elastography samples are obtained. FINDINGS: PANCREAS: Unremarkable. The visualized pancreatic head and body are normal in appearance. The remainder of the pancreas is obscured from visualization by the overlying bowel gas. LIVER: The liver demonstrates normal size, contour and echogenicity. No focal lesion or intrahepatic biliary duct dilatation. The right lobe measures 21.3 cm in length. The left lobe measures 14.3 cm in length. Portal flow is towards the liver (hepatopetal). Shear wave liver elastography median stiffness is 2.09 m/s (reference: normal median stiffness is 1.3 m/s or less). IQR/median stiffness to assess sampling precision is 0.05 (reference: good quality data set is IQR/median stiffness of 0.15 or less). GALLBLADDER: Normal. The gallbladder is physiologically distended without evidence of stones, sludge, polyps, wall thickening or pericholecystic fluid. COMMON BILE DUCT: Normal in caliber measuring 0.4 cm in diameter. RIGHT KIDNEY: At the upper pole, a 1.7 cm anechoic, simple cyst is seen. No hydronephrosis. No renal calculi or focal parenchymal lesions. The kidney measures 12.3 cm in maximum dimension. FREE FLUID: None. US/US abdomen smith w elastography IMPRESSION: 1. There is hepatomegaly. 2. Liver elastography: Measurements are suggestive of compensated advanced chronic liver disease but need further test for confirmation. 3. A 1.7 cm benign, simple right renal cyst is seen, for which no imaging follow-up is recommended. REFERENCE: Society of Radiologists in Ultrasound Liver Stiffness Thresholds (2020): LIVER STIFFNESS THRESHOLDS: *Liver Stiffness equal or less than 1.3 m/s: High probability of being normal. *Liver Stiffness less than 1.7 m/s: In the absence of other known clinical signs, rules out compensated advanced chronic liver disease. *Liver Stiffness 1.7-2.1 m/s: Suggestive of compensated advanced chronic liver disease but need further test for confirmation. *Liver Stiffness over 2.1 m/s: Rules in compensated advanced chronic liver disease. *Liver Stiffness over 2.4 m/s: Suggestive of clinically significant portal hypertension. QUALITY OF DATA SET: *IQR/Median value equal or less than 0.15 implies a quality data set. *IQR/Median value over 0.15 implies a poor quality data set. SIGNIFICANT CHANGE FROM PRIOR EXAM: Significant change if liver stiffness measurement is 10% or greater from prior exam. OTHER CONSIDERATIONS: The stage of liver fibrosis may be overestimated in the setting of acute hepatitis, liver inflammation, elevated liver function tests, hepatic vascular congestion, obstructive cholestasis, non-fasting state, and infiltrative diseases such as amyloidosis and lymphoma. In some patients with NAFLD, the liver stiffness thresholds for compensated advanced chronic liver disease may be lower. In causes other than viral hepatitis and NAFLD, liver stiffness thresholds are not well established.
== END 2023-01-04 08:52 | disposition home or self-care (01) ==
LOC: HO.US 08:51
PROVIDERS: Visit Provider Internal Medicine Gastroenterology
DX: K76.6 Portal hypertension (principal)
CPT/HCPCS: 76705; 76981

== ENCOUNTER 2023-02-19 09:23 | Outpatient (REF) | payer MEDICARE, MEDICAID, SELFPAY ==
[2023-02-19 17:00] LABS: Urine Cytology See Pathology rpt
== END 2023-02-19 09:24 | disposition home or self-care (01) ==
LOC: HO.LNP 09:23
PROVIDERS: PCP Family Medicine; Visit Provider Nurse Practitioner Family
DX: R31.29 Other microscopic hematuria (principal); N31.9 Neuromuscular dysfunction of bladder, unspecified; N32.0 Bladder-neck obstruction
CPT/HCPCS: 51798; 88112; 99212

== ENCOUNTER 2023-04-19 08:14 | Outpatient (AMB) | payer MEDICARE, MEDICAID, SELFPAY ==
--- NOTE | 2023-04-19 08:21 | MHC.OFFVIS ---
Intake Vital Signs 04/19/23 08:35 Height 5 ft 11 in Weight 197 lb BMI 27.5 BP 94/60 Blood Pressure Location Lt brachial Position Sitting Pulse 73 Intake Visit Reasons: 3 month fu Intake Note: Patient lab and US results. Patient denies any GI issues. Incoming Inspector Required: No Accompanied by: Family/Other Allergies No Known Allergies [No Known Allergies*] Allergy (Verified 08/22/23 18:04) Medication List - Last Reconciled 04/19/23 by Leonor Salgado MD albuterol sulfate 90 mcg/actuation 0 mcg inhalation benztropine 0.5 mg PO BID budesonide 0.5 mg inhalation DAILY cholecalciferol (vitamin D3) 50 mcg PO DAILY clonidine HCl 0.3 mg PO BEDTIME clonidine HCl 0.1 mg PO BID@0800,1600 cyclobenzaprine 5 mg PO TID PRN difluprednate 0.05% 0 drps ophthalmic (eye) ferrous gluconate 324 mg PO Q OTHER DAY fesoterodine ER 8 mg PO DAILY 30 days finasteride 5 mg PO DAILY 90 days fluticasone propionate 50 mcg/actuation 2 sprays intranasal Q OTHER DAY haloperidol 2 mg PO BEDTIME haloperidol 1 mg PO BEDTIME ipratropium bromide intranasal tpnorc-lrxqfmvc-rrzzqrg 10,000-32,000 -42,000 unit (Zenpep) 1 cap PO TID 30 days lithium carbonate 150 mg PO BID lithium carbonate 300 mg PO BID loperamide (Imodium A-D) 2 mg PO Q8H PRN 3 weeks lorazepam 0.5 mg PO TID PRN lorazepam 1 mg PO BEDTIME mesalamine (Lialda) 2.4 grams (2 x 1.2 gram) PO DAILY 4 weeks moxifloxacin 0.5% 0 drps ophthalmic (eye) olanzapine 20 mg PO BEDTIME olanzapine 5 mg PO QAM omeprazole 20 mg PO DAILY oxcarbazepine 300 mg PO BID@0800,1600 oxcarbazepine 150 mg PO BID@0800,1600 quetiapine 100 mg PO QAM quetiapine (Seroquel) 300 mg PO BEDTIME risperidone 0 mg PO risperidone 0 mg PO risperidone 3 mg PO BEDTIME sertraline 50 mg PO DAILY trazodone 200 mg PO BEDTIME zolpidem 5 mg PO BEDTIME HPI 3 month fu HPI Details GI clinic visit for this 42-year-old male with developmental delay seen for worsening diarrhea. Pt had a colonoscopy in 05/2021 which was complicated by self limited postpolypectomy bleeding. IMAGING STUDIES:?01/04/23 ABD US WITH ELASTOGRAPHY SHOWED: 1. There is hepatomegaly. ? 2. Liver elastography:? Measurements are suggestive of compensated advanced chronic liver disease but need further test for confirmation. ? 3. A 1.7 cm benign, simple right renal cyst is seen, for which no imaging follow-up is recommended. 11/01/[address] SCAN SHOWED: 1.? No acute intra-abdominal process seen. 2.? Bilateral renal cysts. No radiopaque renal calculi or hydronephrosis. 3.? Mild hepatic steatosis without focal lesion. 4.? Prominent perisplenic and peripancreatic collateral vessels suggestive of portal hypertension. 04/24/[address] SCAN SHOWED: The bowel pattern is within normal limits. There is no free fluid.? There is no free air. Mild periportal edema in the liver of uncertain etiology. Prominent prostate. Mild patchy left basilar opacities new from previous ENDOSCOPIC STUDIES: 05/26/22 COLONOSCOPY SHOWED: One medium sized polyp removed. Random biopsies were obtained from the right and left colon to check for microscopic colitis Moderate diverticulosis seen in the left colon Moderate hemorrhoids on retroflexed exam. Plan:? Repeat Colonoscopy interval based on path results - in 3 years if polyps are adenomatous and 5 years if polyps are hyperplastic. BIOPSIES SHOWED: A.? Cecum, previous polypectomy site, polypectomy:? Colonic mucosa with focal low-grade adenomatous dysplasia; no high-grade dysplasia or carcinoma identified. B.? Colon, random right, biopsy:? Focally active colitis; negative for microscopic colitis. C.? Colon, random left, biopsy:? Colonic mucosa within normal limits; negative for microscopic colitis. 04/22/21 ? PATIENT HAD AN UPPER ENDOSCOPY AND COLONOSCOPY: Endoscopy Findings: STOMACH: Moderate diffuse gastric erythema with submucosal hemorrhages in the gastric body. Biopsies were obtained from the antrum body of the stomach. Antral biopsies were sent to an outside lab for culture and sensitivities for Helicobacter pylori. DUODENUM:? Normal - biopsied to check for celiac sprue due to symptoms of postprandial diarrhea. Colonoscopy Findings:? One large sized polyp removed Random biopsies were obtained from the colon to check for microscopic colitis. Normal appearing end-to-end anastomosis at 20 cm Moderate hemorrhoids on retroflexed exam. Plan: Repeat Colonoscopy interval based on path results - in 1 year if polyps are adenomatous and due to fair prep. Above findings were reviewed with the patient and colon polyps and Helicobacter pylori handouts were given in the discharge area BIOPSY SHOWED: A.? Stomach, antrum, biopsy: - Antral-type mucosa with severe chronic, focally active, inflammation. - Positive for H pylori. B.? Duodenum, biopsy:? Small intestinal mucosa within normal limits. C.? Stomach, body, biopsy: - Oxyntic mucosa with moderate chronic, focally active, inflammation. ? - Positive for H pylori. D.? Cecum, polypectomy:? Tubular adenoma; no high grade dysplasia or carcinoma seen. E.? Colon, random, biopsy:? Colonic mucosa within normal limits. COMMENT: Diagnostic features of celiac disease or microscopic colitis are not seen. TODAY'S VISIT: Pt is accompanied by his Mom and sister. Sister interpreted for the patient. Can have a BM daily or every other day without diarrhea. Abd US results reviewed. PAST VISIT: Pt is acompanied by his Mom and brother in law (who interpreted for the patient) Diarrhea has improved - BMs vary between 1-2 times a day with solid stools CT scan results reviewed. Pt is accompanied by his Mom and sister (sister interpreted for his Mom) Diarrhea is better - having 3-4 BMs a day. When he finishes eating - 1st BM is solid. 2nd and 3rd BMs can be loose. Has diarrhea 3 days a week - every 1-2 days. Mom is giving the imodium every day. Gives more imodium on the days that he has diarrhea. Last week he had 2 episodes of diarrhea that lasted all day. Has diarrhea one day and gets imodium and then no BM the following day. Does not want to eat when he has diarrhea. Diet is limited - no baked or greasy food. Using Lactaid milk. Diarrhea is a little better Expresses abdominal pain after he has breakfast. Has to run to the bathroom after eating No nausea or vomiting. He and his family had COVID 2 weeks ago with fever and cough - now resolved. Colonoscopy results reviewed with pt's Mom and advised FU in 6 months. No change in diarrhea. Pt has lactaid milk with oatmeal - runs to the bathroom as soon as he finishes eating. No problems with liquids. Has diarrhea after he takes solids. Has 4-5 BMs during the day. Noted diarrhea for the past week 5-6 loose BMs a day without blood or mucous. No recent antibiotics. ? Mild fever and sweating. No nausea or vomiting - able to eat and drink. Imodium 1/2 tablet as needed for diarrhea - once a day. Notes diarrhea 15 min after eating. Denies nocturnal diarrhea. Gets up to pee a lot. Not having diarrhea any more - only sometimes related to diet. Notes persistent heartburn Passing gas. Has 3 meals a day - eats a lot of rice. Finished antibiotics and taking Lactaid milk Intermittent loss of appetite. Sometimes he touches his abdomen after eating indicating that he has pain. Has home cooked food - no oily or geasy food. Has been taking wheat bread. Does not take OJ due to GERD. Continues to have diarrhea with 3-4 watery to soft stools in a day. Mom gives imodium when he has a 2nd BM. Had some minor bleeding (maroon) after he went home and denies further bleeding. Continues to have post prandial diarrhea - advised to try Lactaid milk. Denies nocturnal?diarrhea [facility] Medical History Anemia GERD (gastroesophageal reflux disease) Vitamin D deficiency UTI (urinary tract infection) Chronic Helicobacter pylori gastritis Cognitive developmental delay Asthma Personal history of colon cancer IBS (irritable colon syndrome) Diarrhea Surgical History (Updated 08/31/23 @ 11:50 by Nika Linn) Hx of excision of mass History of esophagogastroduodenoscopy (EGD) (07/01/15) Hx of laparoscopy (03/11/15) Hx of colonoscopy (02/10/15) History of incision and drainage (01/29/14) Family History Father No problems noted. Mother Family history of cancer of vagina Colon polyps Maternal Grandmother Family history of cancer of vagina Cancer Paternal Uncle Bone cancer Paternal Aunt Cancer Maternal Uncle Stomach cancer Brother No problems noted. Social History Household Members: Family Household Members Other:: mother Housing: House Do you presently have visiting nurse or other home services: Yes (sister is dialysis chief equipment technician) Unable to assess alcohol history related to: Unable to respond Alcohol intake: current Alcohol intake frequency: does not drink Patient Tobacco Use Status: Never used Tobacco Are you DNR?: No Advance Directives: No Advance Directives Information Provided: Yes Nutrition Risks: No Nutritional Risk service: No Current occupational status: disabled Review of Systems Const All systems reviewed & are unremarkable except as noted in HPI and below Physical Exam Vital Signs: Last Vital Signs Pulse 73 04/19/23 08:35 BP 94/60 04/19/23 08:35 BMI result Body Mass Index 27.5 Const General: no acute distress Nutritional Appearance: overweight Limitations: language barrier and other limitations (developmental delay) HEENT Head: Yes normal to inspection Ears: hearing grossly normal bilaterally Eyes Sclerae: sclerae normal Pupils: Equal, round and reactive pupils present Neck Neck: Yes normal visual inspection Chest Chest palpation & inspection: normal inspection of the chest Resp Effort & Inspection: normal respiratory effort Auscultation: clear to auscultation bilaterally Cardio Palpation: normal PMI Rate: regular rate Rhythm: regular rhythm Heart sounds: S1 normal heart sound present, S2 normal heart sound present and no murmurs GI Palpation (GI): Soft to palpation, nontender and No hepatosplenomegaly present Auscultation: normal bowel sounds Rectal Exam - Male: Yes deferred Skin General skin exam: no rashes or lesions noted Neuro General: gait normal and moves all extremities Cranial nerves: Yes Equal, round and reactive pupils present Psych Appearance: grossly normal Mental Status: mental status grossly normal Assessment & Plan Assessment & Plan (1) Portal hypertension: Code(s): K76.6 - Portal hypertension (2) Chronic pancreatitis: Code(s): K86.1 - Other chronic pancreatitis (3) Chronic diarrhea: Code(s): K52.9 - Noninfective gastroenteritis and colitis, unspecified (4) Generalized postprandial abdominal pain: Code(s): R10.84 - Generalized abdominal pain (5) Colitis: Code(s): K52.9 - Noninfective gastroenteritis and colitis, unspecified (6) History of colon polyps: Code(s): Z86.010 - Personal history of colonic polyps (7) GERD (gastroesophageal reflux disease): Code(s): K21.9 - Gastro-esophageal reflux disease without esophagitis (8) Chronic Helicobacter pylori gastritis: Code(s): K29.50 - Unspecified chronic gastritis without bleeding; B96.81 - Helicobacter pylori [H. pylori] as the cause of diseases classified elsewhere Plan 42 YM non-verbal due to developmental delay with GERD and hx of colon cancer status post resection with chronic diarrhea. Stool studies were negative. 04/22/21 EGD showed gastritis due to H Pylori.? Same day colonoscopy showed normal appearing end to end anastomosis at 20 cms.? A large adenomatous polyp was removed Random biopsies were obtained from the colon to check for microscopic colitis which were normal. Repeat Colonoscopy advised in 1 year due to fair prep. Pt was hospitalized with self limited post polypectomy bleeding? His hemoglobin was monitored and remained stable.? He had no further episodes of bleeding and did not require blood transfusion. 04/2022 FU colonoscopy was performed and findings as noted above Labs and stool studies were ordered. [place] level was checked and (since elevated lithium level can be associated with diarrhea) and was not elevated. To take imodium 2 mg PO Q8H prn for diarrhea 06/15/22 Pt was started on Mesalamine 2.4 grams daily and pt's Mom reports partial improvement in diarrhea. 10/05/22 Dose of mesalamine was increased to 3.6 grams daily Mom was advised to stop giving iron for 2 weeks to see if abdominal pain and diarrhea gets better. 12/15/[address] scan showed portal hypertension - Hepatitis serologies and for chronic liver disease initiated 04/19/23 Pt will be scheduled for repeat colonoscopy with hybrid APC. Follow-up in 4 months - FU of colon polyps and cirrhosis. Coding Level of Care Code Est Pt Level 4 (11754) Diagnoses Portal hypertension K76.6 Chronic pancreatitis K86.1 Chronic diarrhea K52.9 Generalized postprandial abdominal pain R10.84 Colitis K52.9 History of colon polyps Z86.010 GERD (gastroesophageal reflux disease) K21.9 Chronic Helicobacter pylori gastritis K29.50; B96.81 Time Spent (min) 25
[2023-04-19 08:35] VITALS: BP 94/60; PULSE 73; BMI 27.5
== END 2023-04-19 09:14 | disposition home or self-care (01) ==
PROVIDERS: PCP Family Medicine; Visit Provider Internal Medicine Gastroenterology
DX: K76.6 Portal hypertension (principal); K86.1 Other chronic pancreatitis; K52.9 Noninfective gastroenteritis and colitis, unspecified; R10.84 Generalized abdominal pain; Z86.010 Personal history of colon polyps; K21.9 Gastro-esophageal reflux disease without esophagitis; K29.50 Unspecified chronic gastritis without bleeding; B96.81 Helicobacter pylori [H. pylori] as the cause of diseases classified elsewhere
CPT/HCPCS: 99214

== ENCOUNTER → 2023-04-19 08:14 | Outpatient (BNVA) | payer MEDICARE, MEDICAID, SELFPAY | PROVIDERS: PCP Family Medicine; Visit Provider Internal Medicine Gastroenterology | DX: K29.50 Unspecified chronic gastritis without bleeding (principal); B96.81 Helicobacter pylori [H. pylori] as the cause of diseases classified elsewhere; K52.9 Noninfective gastroenteritis and colitis, unspecified; K21.9 Gastro-esophageal reflux disease without esophagitis; K86.1 Other chronic pancreatitis; K76.6 Portal hypertension; R10.84 Generalized abdominal pain; Z86.010 Personal history of colon polyps | CPT/HCPCS: 99212 ==

== ENCOUNTER 2023-04-20 08:37 | Outpatient (REF) | payer MEDICARE, MEDICAID, SELFPAY ==
[2023-04-20 08:59] LABS: MANUAL DIFF FLAG NO
[2023-04-20 10:01] LABS: Basophils Percent Auto 0.7 % (0-2); Eosinophils Absolute Auto 0.1 X10*3/uL (0.0-0.4); Eosinophils Percent Auto 2.3 % (0-4); Hematocrit 38.3 % (42.0-52.0); Hemoglobin 13.1 g/dl (14.0-18.0); Imm Gran Abs Auto 0.02 X10*3/uL (0.00-0.03); Imm Gran Pct Auto 0.5 % (0.0-0.4); Lymphocytes Absolute Auto 0.9 X10*3/uL (1.2-4.9); Lymphocytes Percent Auto 21.2 % (20-40); Mean Corpuscular HGB Conc 34.2 g/dl (31.0-36.0); Mean Corpuscular Volume 90.8 fL (80.0-98.0); Monocytes Absolute Auto 0.6 X10*3/uL (0.1-1.2); Neutrophils Absolute Auto 2.7 x10*3/uL (2.0-8.3); Neutrophils Percent Auto 62.3 % (45-73); Platelet Count 170 X10*3/uL (160-400); Red Blood Count 4.22 X10*6/uL (4.60-5.80); Red Cell Distribution Width 12.8 % (11.0-16.0); White Blood Count 4.3 X10*3/uL (4.8-10.8)
[2023-04-20 10:17] LABS: Prothrombin Time 11.3 SEC (10.0-13.1)
[2023-04-20 11:03] LABS: Alanine Aminotransferase 13 U/L (0-40); Alkaline Phosphatase 78 U/L (39-117); Anion Gap 9 (12-20); Aspartate Amino Transferase 23 U/L (5-37); Bilirubin Total 0.6 mg/dL (0.0-1.0); Blood Urea Nitrogen 12 mg/dL (9-16); C Reactive Protein 0.13 mg/dL (< or = 0.50); Calcium 10.3 mg/dL (8.4-10.2); Carbon Dioxide 31 mmol/L (22-29); Chloride 104 mmol/L (96-108); Cholesterol 203 mg/dL; Estimated Glomerular Filt Rate > 60; Glucose Fasting 94 mg/dL (60-99); HDL Cholesterol 44 mg/dL; Iron 85 mcg/dL (45-160); LDL Cholesterol Calculated 129 mg/dl; Percent Iron Saturation 33 % (15-50); Sodium 140 mmol/L (135-145); Total Iron Binding Capacity 259 mcg/dL (228-428); Total Protein 7.4 g/dL (6.5-8.0); Triglycerides 154 mg/dL; Unsaturated Iron Binding 174 ug/dL
[2023-04-20 11:15] LABS: Hepatitis A Antibody IgG REACTIVE (Nonreactive); ~Hepatitis A Antibody IgG 2.15 S/CO (0.00-0.99)
[2023-04-20 11:16] LABS: HBS Num1 36.76 mIU/mL (0-7.99); HBc Num1 0.08 S/CO (0.00-0.79); HBsAGNum1 0.46 S/CO (0.00-0.99); Hepatitis A Antibody IgM 0.23 Index (0-0.79); Hepatitis B Core Antibody Nonreactive (Nonreactive); Hepatitis B Surface Antigen Negative (Negative); ~HepC Num1 0.09 S/CO (0.00-0.79); ~Hepatitis A Antibody IgM Nonreactive (Nonreactive); ~Hepatitis B Surface Antibody REACTIVE (Nonreactive); ~Hepatitis C Antibody Nonreactive (Nonreactive)
[2023-04-20 11:27] LABS: Ferritin 60 ng/mL (20-250)
[2023-04-20 13:15] LABS: Reflex LDLD? No
[2023-04-23 15:32] LABS: Ceruloplasmin 27 mg/dL (18-36)
[2023-04-23 17:44] LABS: Anti Nuclear Antibody Screen NEGATIVE (NEGATIVE)
[2023-04-26 14:28] LABS: FIB-ALT 15 U/L (9-46); FIB-Alpha-2-Macroglobulin 131 mg/dL (106-279); FIB-Apolipoprotein A1 157 mg/dL (94-176); FIB-GGT 15 U/L (3-95); FIB-Haptoglobin 58 mg/dL (43-212); FIB-Total Bilirubin 0.5 mg/dL (0.2-1.2); Liver Fibrosis Stage F0; Nec Inflam Act Grade A0; Nec Inflam Act Score 0.04
== END 2023-04-20 08:38 | disposition home or self-care (01) ==
LOC: HO.LAB 08:37
PROVIDERS: PCP Family Medicine; Visit Provider Internal Medicine Gastroenterology
DX: K76.6 Portal hypertension (principal)
CPT/HCPCS: 36415; 80053; 80061; 81596; 82390; 82728; 83540; 85025; 85610; 86038; 86140; 86704; 86706; 86708; 86709; 86803; 87340

== ENCOUNTER 2023-04-23 11:31 | Outpatient (REF) | payer MEDICARE, MEDICAID, SELFPAY ==
[2023-05-02 11:18] LABS: A1A Clinical Indication NG; A1A Referring Physician NG
== END 2023-04-23 11:32 | disposition home or self-care (01) ==
LOC: HO.LAB 11:31
PROVIDERS: PCP Family Medicine; Visit Provider Internal Medicine Gastroenterology
DX: K76.6 Portal hypertension (principal)
CPT/HCPCS: 36415; 82104

== ENCOUNTER 2023-07-31 09:44 | Outpatient (REF) | payer MEDICARE, MEDICAID, SELFPAY | END 2023-07-31 09:45 | disposition home or self-care (01) | LOC: HO.US 09:44 | PROVIDERS: PCP Family Medicine; Visit Provider Nurse Practitioner Family | DX: R31.29 Other microscopic hematuria (principal); R31.9 Hematuria, unspecified; N32.0 Bladder-neck obstruction | CPT/HCPCS: 76770 ==

== ENCOUNTER 2023-08-22 09:23 | Outpatient (AMB) | payer MEDICARE, MEDICAID, SELFPAY ==
--- NOTE | 2023-08-22 09:26 | MHC.OFFVIS ---
Intake Intake Visit Reasons: 6m/US(set) Intake Note: Patient is present for follow up ultrasound/microhematuria/neurogenic bladder (imaging 07/31/23) Urology Medications: toviaz, finasteride Blood Thinner: none PVR: 3ml's [employer] Required: Yes Accompanied by: Mother Allergies No Known Allergies [No Known Allergies*] Allergy (Verified 08/22/23 18:04) Medication List - Last Reconciled 08/22/23 by MONTY Dexter- albuterol sulfate 90 mcg/actuation 0 mcg inhalation benztropine 0.5 mg PO BID bisacodyl (Dulcolax (bisacodyl)) 10 mg (2 x 5 mg) PO ONCE 1 day budesonide 0.5 mg inhalation DAILY cholecalciferol (vitamin D3) 50 mcg PO DAILY clonidine HCl 0.3 mg PO BEDTIME clonidine HCl 0.1 mg PO BID@0800,1600 cyclobenzaprine 5 mg PO TID PRN difluprednate 0.05% 0 drps ophthalmic (eye) ferrous gluconate 324 mg PO Q OTHER DAY fesoterodine ER 8 mg PO DAILY 30 days finasteride 5 mg PO DAILY 90 days fluticasone propionate 50 mcg/actuation 2 sprays intranasal Q OTHER DAY haloperidol 2 mg PO BEDTIME haloperidol 1 mg PO BEDTIME ipratropium bromide intranasal prvxax-aweilczy-ywkdbpm 10,000-32,000 -42,000 unit (Zenpep) 1 cap PO TID lithium carbonate 150 mg PO BID lithium carbonate 300 mg PO BID loperamide (Imodium A-D) 2 mg PO Q8H PRN 3 weeks lorazepam 0.5 mg PO TID PRN lorazepam 1 mg PO BEDTIME mesalamine (Lialda) 2.4 grams (2 x 1.2 gram) PO DAILY 4 weeks moxifloxacin 0.5% 0 drps ophthalmic (eye) olanzapine 20 mg PO BEDTIME olanzapine 5 mg PO QAM omeprazole 20 mg PO DAILY oxcarbazepine 300 mg PO BID@0800,1600 oxcarbazepine 150 mg PO BID@0800,1600 polyethylene glycol 3350 (Miralax) 238 grams PO ONCE 1 day quetiapine 100 mg PO QAM quetiapine (Seroquel) 300 mg PO BEDTIME risperidone 3 mg PO BEDTIME sertraline 50 mg PO DAILY trazodone 200 mg PO BEDTIME zolpidem 5 mg PO BEDTIME HPI HPI Comments History of Present Illness Details Marck is a pleasant 42 year old male patient of Dr. Gaytan who is accompanied by his mom and [id number] at todays visit. He has a past medical history of chronic H pylori gastritis, cognitive delay, asthma, and IBS. He is being followed up on today for his history of elevated PSA, neurogenic bladder, bladder outlet obstruction, renal cysts and urinary tract infections. Given patient's developmental delay much of today's history is provided by the patient's mother Deena. Recent retroperitoneal ultrasound results reviewed with the patient and his family today. Bilateral kidneys with no calculi and or hydronephrosis. Right kidney with a benign 1.7 cm Bosniak class 1 renal cyst in the upper pole which no additional imaging or follow-up is recommended per radiology report. Left kidney with multiple benign Bosniak class I renal cysts are noted, the largest measuring 1.9 cm in the upper pole laterally which require no additional imaging or followup is recommended per radiology report. The bladder is partially distended. There is mildly enlarged prostate with a volume of 36 mL. Patient mom reports current voiding parameters to be within normal limits on testosterone being 8 mg daily she reports compliance with finasteride 5 mg daily as prescribed. Patient and family otherwise deny incontinence, nocturia, hematuria, dysuria, foul smelling urine, flank pain, fever, and or chills. In office urinalysis results reviewed with the patient and his family today. PVR 3 mLs. Patient has previously been on and trialled Myrbetriq, Detrol and oxybutynin for urinary symptoms with no improvement. Patient with a history of elevated PSA. PSA's are as follows. PSA 02/15? PSA 3.1, 08/17 2.5, 02/16 2.5, 08/18 2.8, 02/17 7.7, 11/20 2.8. Cystoscopy 03/19 small prostate open bladder neck and relatively empty bladder - good stream in office. [facility] Medical History UTI (urinary tract infection) Chronic Helicobacter pylori gastritis Cognitive developmental delay Asthma Personal history of colon cancer IBS (irritable colon syndrome) Diarrhea Surgical History Hx of excision of mass History of esophagogastroduodenoscopy (EGD) (07/01/15) Hx of laparoscopy (03/11/15) Hx of colonoscopy (02/10/15) History of incision and drainage (01/29/14) Family History Father No problems noted. Mother Family history of cancer of vagina Colon polyps Maternal Grandmother Family history of cancer of vagina Cancer Paternal Uncle Bone cancer Paternal Aunt Cancer Maternal Uncle Stomach cancer Brother No problems noted. Social History Household Members: Family Household Members Other:: mother Both parents involved: No Housing: House Do you presently have visiting nurse or other home services: Yes (sister is film flat inspector) Unable to assess alcohol history related to: Unable to respond Alcohol intake: current Alcohol intake frequency: does not drink Patient Tobacco Use Status: Never used Tobacco service: No Current occupational status: disabled Review of Systems Const Details: Patient is non-verbal. Patients family provides all of patients history today. All systems reviewed & are unremarkable except as noted in HPI and below and Unobtainable due to mental status Physical Exam Const General: cooperative, comfortable, no acute distress, well developed, alert and awake Orientation/consciousness: Other orientation findings (patient is non verbal ) Limitations: no limitations HEENT Head: Yes normal to inspection, Yes normocephalic and Yes atraumatic Neck Neck: Yes normal visual inspection and Yes trachea midline Chest Chest palpation & inspection: normal inspection of the chest Resp Effort & Inspection: normal respiratory effort and able to speak in complete sentences Cardio Rate: regular rate General: Yes no CVA tenderness Back/Spine/Pelvis Back: no CVA tenderness Psych Appearance: well kempt Speech and movement: Other speech and movement exam findings present (Psych) (non verbal ) Attitude: cooperative Insight: Limited insight present (Psych) Judgement: Limited judgement present (Psych) Office Procedures Post Void Residual Post Residual Void Post Void Residual (PVR): 3 [id number] Void Residual by ultrasound Results AMB Urinalysis, Automated UA Leukoctes 0 Maria M/uL Last Edit by Carolynn Cruz on 08/22/23 09:48 UA Nitrite Negative Last Edit by Carolynn Cruz on 08/22/23 09:48 UA Urobilinogen 0.2 mg/dL Last Edit by Carolynn Cruz on 08/22/23 09:48 UA Protein 0 mg/dL Last Edit by Carolynn Cruz on 08/22/23 09:48 UA pH 6.0 Last Edit by Carolynn Cruz on 08/22/23 09:48 UA Blood 10 Sheldon/uL Last Edit by Carolynn Cruz on 08/22/23 09:48 UA Specific [place] 1.020 Last Edit by Carolynn Cruz on 08/22/23 09:48 UA Ketone Negative Last Edit by Carolynn Cruz on 08/22/23 09:48 UA Bilirubin 0 mg/dL Last Edit by Carolynn Cruz on 08/22/23 09:48 UA Glucose 0 mg/dL Last Edit by Carolynn Cruz on 08/22/23 09:48 Results Reviewed Results Reviewed: Laboratory Last Values Urine pH (Auto) 6.0 08/22/23 09:33 Specific [place] (Auto) 1.020 08/22/23 09:33 Urine Protein (Auto) 0 mg/dL 08/22/23 09:33 Glucose (UA)(Auto) 0 mg/dL 08/22/23 09:33 Urine Ketones (Auto) Negative 08/22/23 09:33 Urine Blood (Auto) 10 Sheldon/uL 08/22/23 09:33 Urine Nitrite (Auto) Negative 08/22/23 09:33 Urine Bilirubin (Auto) 0 mg/dL 08/22/23 09:33 Urine Urobilinogen (Auto) 0.2 mg/dL 08/22/23 09:33 Leukocyte Esterase (Auto) 0 Maria M/uL 08/22/23 09:33 Date of Service: 07/31/23 EXAMINATION: US RETROPERITONEAL COMPLETE (RENAL) COMPARISON: Ultrasound abdomen limited 01/04/2023. CT abdomen 11/01/2022. Ultrasound abdomen complete 09/12/2022. TECHNIQUE: Real-time imaging of the kidneys and bladder. FINDINGS: RIGHT KIDNEY: 12.3 x 4.9 x 6.9 cm (SAG x AP x TRV). The kidney is normal in size, contour, and echogenicity. Renal cortical thickness is normal. No renal calculi or hydronephrosis. A benign 1.7 cm Bosniak class I renal cyst is noted in the upper pole laterally which requires no additional imaging or followup. No solid renal masses are seen. LEFT KIDNEY: 11.3 x 6.3 x 5.7 cm (SAG x AP x TRV). The kidney is normal in size, contour, and echogenicity. Renal cortical thickness is normal. No renal calculi or hydronephrosis. Multiple benign Bosniak class I renal cysts are noted, the largest measuring 1.9 cm in the upper pole laterally which require no additional imaging or followup. No solid renal masses are seen. BLADDER: Partially distended. Bilateral ureteral jets are not demonstrated. Prevoid bladder volume is 89.9 mL. Postvoid bladder volume is 6.6 mL. ADDITIONAL FINDINGS: There is a mildly enlarged prostate with volume of 36 mL. IMPRESSION: 1. Bilateral benign Bosniak class I renal cysts which require no additional imaging or followup. 2. Mildly enlarged prostate. Assessment & Plan Assessment & Plan (1) Microhematuria: Code(s): R31.29 - Other microscopic hematuria (2) Enlarged prostate: Code(s): N40.0 - Benign prostatic hyperplasia without lower urinary tract symptoms (3) Renal cyst: Code(s): N28.1 - Cyst of kidney, acquired (4) Neurogenic urinary bladder disorder: Code(s): N31.9 - Neuromuscular dysfunction of bladder, unspecified (5) Elevated PSA: Code(s): R97.20 - Elevated prostate specific antigen [PSA] (6) Bladder outlet obstruction: Code(s): N32.0 - Bladder-neck obstruction Plan In office urinalysis results reviewed with the patient and his family today; as noted above; no microscopic hematuria noted PVR 3 mL. Recent retroperitoneal ultrasound results reviewed; as noted above Patient's family report Toviaz 8mg to be working well; will continue Continue Finasteride as discussed and prescribed Refills provided as requested. Follow up in one year with imaging and labs to be completed prior; or sooner with any issues, concerns, or questions. Orders: Orders AMB Urinalysis Automated Today Z13.9 - Encounter for screening, unspecified AMB Post Void Residual by ultrasound Today N31.9 - Neuromuscular dysfunction of bladder, unspecified US renal BI 364 Days N28.1 - Cyst of kidney, acquired, N40.0 - Benign prostatic hyperplasia without lower urinary tract symptoms, R31.29 - Other microscopic hematuria PSA,Total (Free>4and<10) Today N40.0 - Benign prostatic hyperplasia without lower urinary tract symptoms, R97.20 - Elevated prostate specific antigen [PSA] Medications: Refilled fesoterodine ER 8 mg PO DAILY 30 days 30 tabs 3RF N31.9 - Neuromuscular dysfunction of bladder, unspecified, N40.0 - Benign prostatic hyperplasia without lower urinary tract symptoms finasteride 5 mg PO DAILY 90 days 90 tabs 3RF N13.8 - Other obstructive and reflux uropathy, N32.0 - Bladder-neck obstruction, N40.1 - Benign prostatic hyperplasia with lower urinary tract symptoms, R33.9 - Retention of urine, unspecified Patient Instructions: The patient had an opportunity to ask questions regarding the treatment plan. All questions were answered. Physical exam, labs, and imaging were discussed and reviewed in detail. As well as risks, benefits, and discussion of treatment choices. No major barriers to understanding were identified. The patient expressed understanding and agreement with the above treatment plan. The patient was made aware they should contact our office by phone for worsening of their current condition, the appearance of new symptoms, or with any questions or concerns. Compliance is encouraged with any medications and follow up testing that is ordered. It is a privilege to be allowed the opportunity to participate in? your urological care.? Again, if you have any questions or concerns If you have any questions or concerns please do not hesitate to contact me. The office is [phone]. This note is constructed using voice recognition software. While every effort has been made to ensure accuracy graining operator errors may have been included. Yours sincerely, HARINDER Dexter Coding Level of Care Code Est Pt Level 3 (72737) Diagnoses Microhematuria R31.29 Enlarged prostate N40.0 Renal cyst N28.1 Neurogenic urinary bladder disorder N31.9 Elevated PSA R97.20 Bladder outlet obstruction N32.0 CPT Codes Post Residual Void - PVR CPT Code: 51746-[id number] Void Residual by ultrasound ([id number])
== END 2023-08-22 10:25 | disposition home or self-care (01) ==
PROVIDERS: Visit Provider Nurse Practitioner Family
DX: R31.29 Other microscopic hematuria (principal); N40.0 Benign prostatic hyperplasia without lower urinary tract symptoms; N28.1 Cyst of kidney, acquired; N31.9 Neuromuscular dysfunction of bladder, unspecified; R97.20 Elevated prostate specific antigen [PSA]; N32.0 Bladder-neck obstruction; Z13.9 Encounter for screening, unspecified
CPT/HCPCS: 99213

== ENCOUNTER → 2023-08-22 09:23 | Outpatient (BNVA) | payer MEDICARE, MEDICAID, SELFPAY | PROVIDERS: Visit Provider Nurse Practitioner Family | DX: N40.0 Benign prostatic hyperplasia without lower urinary tract symptoms (principal); N28.1 Cyst of kidney, acquired; N31.9 Neuromuscular dysfunction of bladder, unspecified; N32.0 Bladder-neck obstruction; R31.29 Other microscopic hematuria; R97.20 Elevated prostate specific antigen [PSA] | CPT/HCPCS: 51798; 81003; 99212 ==

== ENCOUNTER 2023-08-27 09:28 | Day surgery (SDC) | payer MEDICARE, MEDICAID, SELFPAY ==
[2023-08-23 13:36] VITALS: BMI 27.5
--- NOTE | 2023-08-27 11:22 | MHC.SHP ---
Pre-Procedural Eval Section A Date of Service: 08/27/23 The patient is an INPATIENT: No The History & Physical has been completed within 30 days and I have reviewed it.: No Section B Chief Complaint: surveillance of colon polyps Relevant Family History (Specify if Yes): Yes Relevant Social History: None Present Medications: see Short Stay Collaborative assessment Medical History: Significant History (Asthma Chronic Helicobacter pylori gastritis Cognitive developmental delay Diarrhea IBS (irritable colon syndrome) Personal history of colon cancer UTI (urinary tract infection)) History of Previous Operations: Relevant previous surgery/procedure and date(s) (History of esophagogastroduodenoscopy (EGD) (07/01/15) History of incision and drainage (01/29/14) Hx of colonoscopy (02/10/15) Hx of excision of mass Hx of laparoscopy (03/11/15)) Allergies: Allergies Allergy/AdvReac Type Severity Reaction Status Date / Time No Known Allergies Allergy Verified 08/22/23 18:04 [No Known Allergies*] Review of Systems Sugical H&P ROS: Negative: Cardiovascular, Respiratory and Gastrointestinal and Yes, Specify: Constitution (developmental delay) Exam Surgical H&P Exam: Normal: Heart, Normal: Lungs, Normal: Extremities and Normal: Abdomen Plan Diagnosis/Plan: Unchanged I have reviewed the history and physical and performed a pertinent physical examination on my patient. No changes have occurred unless specified. Time Spent With Patient Time: Total time managing care of this patient today ____ minutes.
[2023-08-27 11:49] VITALS: BP 124/74; PULSE 70; RESP 18; TEMP 36.8; O2SAT 95
[2023-08-27] MEDS: Lactated Ringers 1,000 ML 100 ML IVCONT (11:56)
--- NOTE | 2023-08-27 12:28 | P.CONAN_ITS ---
[facility] Active Problems Active Problems: All Active Problems (Updated 08/24/23 @ 07:32 by Adrienne Hodges RN) Renal cyst (Acute) Enlarged prostate (Acute) Microhematuria (Acute) Portal hypertension (Acute) Chronic pancreatitis (Acute) Chronic diarrhea (Acute) Vitamin D deficiency (Acute) Generalized postprandial abdominal pain (Acute) Colitis (Acute) Psychogenic polydipsia (Acute) Bladder outlet obstruction (Acute) GERD (gastroesophageal reflux disease) (Acute) History of colon polyps (Acute) Post-polypectomy bleeding (Acute) Anemia with low platelet count (Acute) Fecal occult blood test positive (Acute) Varicose veins of right lower extremity with inflammation (Acute) Neurogenic urinary bladder disorder (Acute) Elevated PSA (Acute) UTI (urinary tract infection) (Acute) Asthma (Acute) Chronic Helicobacter pylori gastritis (Acute) Cognitive developmental delay (Acute) Personal history of colon cancer (Acute) IBS (irritable colon syndrome) (Acute) Diarrhea (Acute) Past Medical History Medical History Anemia GERD (gastroesophageal reflux disease) Vitamin D deficiency UTI (urinary tract infection) Chronic Helicobacter pylori gastritis Cognitive developmental delay Asthma Personal history of colon cancer IBS (irritable colon syndrome) Diarrhea Family History Family History Father No problems noted. Mother Family history of cancer of vagina Colon polyps Maternal Grandmother Family history of cancer of vagina Cancer Paternal Uncle Bone cancer Paternal Aunt Cancer Maternal Uncle Stomach cancer Brother No problems noted. Family history of problems with anesthesia: No Surgical History Surgical History Hx of excision of mass History of esophagogastroduodenoscopy (EGD) (07/01/15) Hx of laparoscopy (03/11/15) Hx of colonoscopy (02/10/15) History of incision and drainage (01/29/14) History of Problems with Anesthesia: No Social History Social History Household Members: Family Household Members Other:: mother Housing: House Do you presently have visiting nurse or other home services: Yes (sister is customer facilities supervisor) Unable to assess alcohol history related to: Unable to respond Alcohol intake: current Alcohol intake frequency: does not drink Patient Tobacco Use Status: Never used Tobacco Are you DNR?: No Advance Directives: No Advance Directives Information Provided: Yes Nutrition Risks: No Nutritional Risk service: No Current occupational status: disabled Meds Allergies Allergy/AdvReac Type Severity Reaction Status Date / Time No Known Allergies Allergy Verified 08/22/23 18:04 [No Known Allergies*] Active Medications: Current Medications Lactated Ringer's (Lr) 1,000 mls @ 100 mls/hr IVCONT .Q10H PARAS Last Admin: 08/27/23 11:56 Dose: 100 mls/hr Home Medications Medication Instructions Recorded Confirmed Last Taken Type clonidine HCl 0.3 mg tablet 0.3 mg PO BEDTIME 08/18/20 08/23/23 Unknown History quetiapine 300 mg tablet (Seroquel) 300 mg PO BEDTIME 08/18/20 08/23/23 Unknown History cholecalciferol (vitamin D3) 50 50 mcg PO DAILY 10/26/20 08/23/23 Unknown History mcg (2,000 unit) tablet clonidine HCl 0.1 mg tablet 0.1 mg PO BID@0800,1600 10/26/20 08/23/23 05/26/22 07:30 History 0.1 mg fluticasone propionate 50 2 spray intranasal Q OTHER DAY 10/26/20 08/23/23 Unknown History mcg/actuation nasal spray,suspension lithium carbonate 150 mg capsule 150 mg PO BID 10/26/20 04/19/23 Unknown History lithium carbonate 300 mg capsule 300 mg PO BID 10/26/20 08/23/23 Unknown History lorazepam 0.5 mg tablet 0.5 mg PO TID PRN Anxiety 10/26/20 08/23/23 05/26/22 History 0.5 mg oxcarbazepine 150 mg tablet 150 mg PO BID@0800,1600 10/26/20 08/23/23 05/26/22 07:30 History 150 mg oxcarbazepine 300 mg tablet 300 mg PO BID@0800,1600 10/26/20 08/23/23 05/26/22 07:30 History 300 mg sertraline 50 mg tablet 50 mg PO DAILY 10/26/20 08/23/23 04/22/21 07:00 History trazodone 100 mg tablet 200 mg PO BEDTIME 10/26/20 08/23/23 Unknown History quetiapine 100 mg tablet 100 mg PO QAM 03/31/21 08/23/23 Unknown History cyclobenzaprine 5 mg tablet 5 mg PO TID PRN low back pain 08/17/21 08/23/23 Unknown History ferrous gluconate 324 mg (38 mg 324 mg PO Q OTHER DAY 08/17/21 08/23/23 Unknown History iron) tablet ipratropium bromide 42 mcg (0.06 1 spray intranasal DAILY 08/17/21 08/23/23 Unknown History %) nasal spray olanzapine 20 mg tablet 20 mg PO BEDTIME 08/17/21 08/23/23 Unknown History olanzapine 5 mg tablet 5 mg PO QAM 08/17/21 08/23/23 Unknown History albuterol sulfate 90 mcg/actuation 1 inh inhalation Q4H PRN Wheezing 03/14/22 08/23/23 Unknown History aerosol inhaler budesonide 0.5 mg/2 mL suspension 0.5 mg inhalation DAILY 03/14/22 08/23/23 Unknown History for nebulization difluprednate 0.05 % eye drops 1 drp ophthalmic (eye) DAILY 03/14/22 08/23/23 Unknown History haloperidol 1 mg tablet 1 mg PO BEDTIME 03/14/22 08/23/23 Unknown History haloperidol 2 mg tablet 2 mg PO BEDTIME 03/14/22 08/23/23 Unknown History lorazepam 1 mg tablet 1 mg PO BEDTIME 03/14/22 08/23/23 Unknown History moxifloxacin 0.5 % eye drops 1 drp ophthalmic (eye) DAILY 03/14/22 08/23/23 Unknown History zolpidem 5 mg tablet 5 mg PO BEDTIME 11/20/22 08/23/23 Unknown History benztropine 0.5 mg tablet 0.5 mg PO BID 02/19/23 08/23/23 Unknown History risperidone 3 mg tablet 3 mg PO BEDTIME 02/19/23 08/23/23 Unknown History Exam Exam Date and Time: August 27, 2023 1228 Height,Weight and Vital Signs: Height 5 ft 11 in Weight 89.358 kg Last Vital Signs Temp 98.3 F 08/27/23 11:49 Pulse 70 08/27/23 11:49 Resp 18 08/27/23 11:49 BP 124/74 08/27/23 11:49 Pulse Ox 95 08/27/23 11:49 O2 Del Method Room Air 08/27/23 11:49 Airway Mallampati Class: III (missing multiple teeth, narrow palate) TM Dist: >3cm Neck ROM: Full Heart: rrr Lungs: cta Assessment and Plan Assessment Anesthesia Assessment: Anesthesia Plan Discussed and Chart Reviewed Final Anesthetic Review Family History of Problems with Anesthesia: No History of Problems with Anesthesia: No NPO: Yes ASA Class: III Final Preanesthetic Review: No Changes in Pt Med Stat, Meds/Allgs Chart Reviewed and Consent Obtained/Reviewed Patient Risk: Intermediate Procedure Risk: Intermediate Anesthetic Plan Anesthetic Plan: MAC: Disposition: Standard PACU
--- NOTE | 2023-08-27 12:59 | W.PM.OPN ---
Operative Note Operative Note Date of Service: 08/27/23 Narrative: COLONOSCOPY TILL CECUM WITH BIOPSIES AND HYBRID APC OF CECAL POLYP Pre-op diagnosis: surveillance for colon polyps Post-op diagnosis:?colon polyp, diverticulosis, hemorrhoids Endoscopist:? Leonor Salgado MD Anesthesia:?MAC Consent: Indications for the procedure and potential complications of bleeding, perforation, reaction to medications and missed diagnosis were discussed with the patient and informed consent was obtained. Instrument: Olympus PCF H 190 L variable stiffness pediatric colonoscope Monitoring: Vital signs and clinical assessment, intermittent blood pressure monitoring, continuous EKG monitoring, Pulse oximetry and Carbon Dioxide monitoring were done throughout the procedure. Please see anesthesia flowsheet. Colon withdrawl time was 20 minutes. Procedure: The patient was placed in the left lateral decubitis position and pre-procedure medications were administered. After a digital rectal examination of the ano-rectum, the video colonoscope was inserted into the rectum and advanced through the colon to the cecum. The colonoscope was slowly withdrawn in a retrograde panoramic fashion and the colon mucosa was carefully examined including a retroflexed view of the rectum. Findings and interventions are described below. Procedure Difficulty: Without difficulty Findings: Terminal Ileum: Not evaluated Cecum: A 9-10 mm sessile polyp at site of previous polypectomy - biopsies were obtained. Polyp was ablated using hybrid APC at a setting of 30 alatorre. Ascending Colon:? Normal Transverse Colon:? Normal Descending Colon:? Moderate diverticulosis Sigmoid Colon:? Normal anastomosis noted at 20 cms. Moderate diverticulosis Rectum:? Normal Ano-rectum:? Moderate internal hemorrhoids Colon preparation:? Good after some irrigation Impression and Post Procedure Diagnosis: Colonoscopy Findings: Recurrent cecal polyp ablated with hybrid APC treatment Moderate diverticulosis seen in the left colon Moderate hemorrhoids on retroflexed exam. Plan: Await pathology results Patient has an appointment on 09/13/23 in the GI Clinic with Leonor Salgado M.D. Repeat Colonoscopy interval based on path results - in 12 months if polyps are adenomatous. Above findings were reviewed with the patient
[2023-08-27 13:54] VITALS: BP 108/69; PULSE 50; RESP 16; TEMP 36.3; O2SAT 98
[2023-08-27 14:09] VITALS: BP 125/68; PULSE 54; RESP 16; TEMP 36.3; O2SAT 98
== END 2023-08-27 14:34 | disposition home or self-care (01) ==
PROVIDERS: PCP Family Medicine; Visit Provider Internal Medicine Gastroenterology
PROC: (CPT 45388; principal; 2023-08-27 11:50)
DX: Z12.11 Encounter for screening for malignant neoplasm of colon (principal); Z85.038 Personal history of other malignant neoplasm of large intestine; Z86.010 Personal history of colon polyps; Z98.0 Intestinal bypass and anastomosis status; K63.5 Polyp of colon; K57.30 Diverticulosis of large intestine without perforation or abscess without bleeding; K64.8 Other hemorrhoids; K21.9 Gastro-esophageal reflux disease without esophagitis; K76.6 Portal hypertension; K86.1 Other chronic pancreatitis; K52.9 Noninfective gastroenteritis and colitis, unspecified; K29.50 Unspecified chronic gastritis without bleeding; B96.81 Helicobacter pylori [H. pylori] as the cause of diseases classified elsewhere; R62.59 Other lack of expected normal physiological development in childhood; J45.909 Unspecified asthma, uncomplicated; Z79.899 Other long term (current) drug therapy
CPT/HCPCS: 45388; 88305; C2618; J2250; Q9968

== ENCOUNTER 2023-09-13 08:27 | Outpatient (REF) | payer MEDICARE, MEDICAID, SELFPAY ==
[2023-09-13 10:31] LABS: Hematocrit 36.7 % (42.0-52.0); Hemoglobin 12.4 g/dl (14.0-18.0); Mean Corpuscular HGB Conc 33.8 g/dl (31.0-36.0); Mean Corpuscular Hemoglobin 30.9 pg (27.0-33.0); Mean Corpuscular Volume 91.5 fL (80.0-98.0); Mean Platelet Volume 11.1 fL (9.4-12.4); Platelet Count 196 X10*3/uL (160-400); Red Blood Count 4.01 X10*6/uL (4.60-5.80); Red Cell Distribution Width 12.5 % (11.0-16.0); White Blood Count 4.8 X10*3/uL (4.8-10.8)
[2023-09-13 11:01] LABS: Alanine Aminotransferase 10 U/L (0-40); Albumin Level 4.2 g/dL (3.5-5.0); Alkaline Phosphatase 81 U/L (39-117); Anion Gap 8 (12-20); Aspartate Amino Transferase 15 U/L (5-37); Bilirubin Total 0.4 mg/dL (0.0-1.0); Blood Urea Nitrogen 11 mg/dL (9-16); C Reactive Protein 1.92 mg/dL (< or = 0.50); Calcium 10.6 mg/dL (8.4-10.2); Carbon Dioxide 35 mmol/L (22-29); Chloride 102 mmol/L (96-108); Estimated Glomerular Filt Rate > 60; Glucose Random 95 mg/dL (60-115); Potassium 3.9 mmol/L (3.3-5.1); Sodium 141 mmol/L (135-145)
== END 2023-09-13 08:28 | disposition home or self-care (01) ==
LOC: HO.LAB 08:27
PROVIDERS: PCP Family Medicine; Visit Provider Internal Medicine Gastroenterology
DX: K52.9 Noninfective gastroenteritis and colitis, unspecified (principal); R14.0 Abdominal distension (gaseous); K21.9 Gastro-esophageal reflux disease without esophagitis; K76.6 Portal hypertension; K86.1 Other chronic pancreatitis; E55.9 Vitamin D deficiency, unspecified; Z85.038 Personal history of other malignant neoplasm of large intestine; Z86.010 Personal history of colon polyps
CPT/HCPCS: 36415; 80053; 85027; 86140; 99212

== ENCOUNTER 2023-09-13 08:27 | Outpatient (AMB) | payer MEDICARE, MEDICAID, SELFPAY ==
--- NOTE | 2023-09-13 08:31 | A.OFFVIS_ITS ---
Intake Vital Signs 09/13/23 08:43 Height 5 ft 11 in BP 143/74 H Blood Pressure Location Lt brachial Position Sitting Pulse 66 Intake Visit Reasons: S/P Carriere; Damian Recio Intake Note: Patient follow up for Colonoscopy results. Patient denies any GI issues. He is with depression and crying at the visit. Family is with him in case that he get aggressive. 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: No Accompanied by: Family/Other Allergies No Known Allergies [No Known Allergies*] Allergy (Verified 09/13/23 08:31) Medication List - Last Reconciled 09/13/23 by Leonor Salgado MD albuterol sulfate 90 mcg/actuation 1 inh inhalation Q4H PRN benztropine 0.5 mg PO BID budesonide 0.5 mg inhalation DAILY cholecalciferol (vitamin D3) 50 mcg PO DAILY clonidine HCl 0.3 mg PO BEDTIME clonidine HCl 0.1 mg PO BID@0800,1600 cyclobenzaprine 5 mg PO TID PRN difluprednate 0.05% 1 drp ophthalmic (eye) DAILY ferrous gluconate 324 mg PO Q OTHER DAY fesoterodine ER 8 mg PO DAILY 30 days finasteride 5 mg PO DAILY 90 days fluticasone propionate 50 mcg/actuation 2 sprays intranasal Q OTHER DAY haloperidol 2 mg PO BEDTIME haloperidol 1 mg PO BEDTIME ipratropium bromide 1 spray intranasal DAILY [id number]-[id number]-[id number] 10,000-32,000 -42,000 unit (Zenpep) 1 cap PO TID lithium carbonate 150 mg PO BID lithium carbonate 300 mg PO BID loperamide (Imodium A-D) 2 mg PO Q8H PRN 3 weeks lorazepam 0.5 mg PO TID PRN lorazepam 1 mg PO BEDTIME mesalamine (Lialda) 2.4 grams (2 x 1.2 gram) PO DAILY 4 weeks moxifloxacin 0.5% 1 drp ophthalmic (eye) DAILY olanzapine 20 mg PO BEDTIME olanzapine 5 mg PO QAM omeprazole 20 mg PO DAILY oxcarbazepine 300 mg PO BID@0800,1600 oxcarbazepine 150 mg PO BID@0800,1600 quetiapine 100 mg PO QAM quetiapine (Seroquel) 300 mg PO BEDTIME risperidone 3 mg PO BEDTIME sertraline 50 mg PO DAILY trazodone 200 mg PO BEDTIME zolpidem 5 mg PO BEDTIME HPI S/P Carriere; Damian Recio HPI Details GI clinic visit for this 42-year-old male with developmental delay seen for worsening diarrhea. Pt had a colonoscopy in 05/2021 which was complicated by self limited postpolypectomy bleeding. IMAGING STUDIES:?01/04/23 ABD US WITH ELASTOGRAPHY SHOWED: 1. There is hepatomegaly.? 2. Liver elastography:? Measurements are suggestive of compensated advanced chronic liver disease but need further test for confirmation. ?3. A 1.7 cm benign, simple right renal cyst is seen, for which no imaging follow-up is recommended. 11/01/[address] SCAN SHOWED: 1.? No acute intra-abdominal process see n. 2.? Bilateral renal cysts. No radiopaque renal calculi orhydronephrosis. 3.? Mild hepatic steatosis without focal lesion. 4.? Prominent perisplenic and peripancre atic collateral vesselssuggestive of portal hypertension. 04/24/[address] SCAN SHOWED:The bowel pat tern is within normal limits. There is no free fluid.? There is no free air. Mild periportal edema in the liver of uncertain etiology. Prominent prostate. Mild patchy left basilar opacities new from previous ENDOSCOPIC STUDIES: 08/27/23 COLONOSCOPY SHOWED: Recurrent cecal polyp ablated with hybrid APC treatment Moderate diverticulosis seen in the left colon Moderate hemorrhoids on retroflexed exam. Plan: Repeat Colonoscopy interval based on path results - in 12 months if polyps are adenomatous. BIOPSIES SHOWED: Cecum, polypectomy: Colonic mucosa with mild surface hyperplastic changes and small lymphoid aggregate; multiple additional levels examined 05/26/22 COLONOSCOPY SHOWED: One medium sized polyp removed. Random biopsies were obtained from the right and left colon to check for microscopic colitis Moderate diverticulosis seen in the left colon Moderate hemorrhoids on retroflexed exam. Plan:? Repeat Colonoscopy interval based on path results - in 3 years if polyps are adenomatous and 5 years if polyps are hyperplastic. BIOPSIES SHOWED: A.? Cecum, previous polypectomy site, polypectomy:? Colonic mucosa with focal low-grade adenomatous dysplasia; no high-grade dysplasia or carcinoma identified. B.? Colon, random right, biopsy:? Focally active colitis; negative for microscopic colitis. C.? Colon, random left, biopsy:? Colonic mucosa within normal limits; negative for microscopic colitis. 04/22/21 ? PATIENT HAD AN UPPER ENDOSCOPY AND COLONOSCOPY: Endoscopy Findings: STOMACH: Moderate diffuse gastric erythema with submucosal hemorrhages in the gastric body. Biopsies were obtained from the antrum body of the stomach. Antral biopsies were sent to an outside lab for culture and sensitivities for Helicobacter pylori. DUODENUM:? Normal - biopsied to check for celiac sprue due to symptoms of postprandial diarrhea. Colonoscopy Findings:? One large sized polyp removed Random biopsies were obtained from the colon to check for microscopic colitis. Normal appearing end-to-end anastomosis at 20 cm Moderate hemorrhoids on retroflexed exam. Plan: Repeat Colonoscopy interval based on path results - in 1 year if polyps are adenomatous and due to fair prep. Above findings were reviewed with the patient and colon polyps and Helicobacter pylori handouts were given in the discharge area BIOPSY SHOWED: A.? Stomach, antrum, biopsy: - Antral-type mucosa with severe chronic , focally active, inflammation. - Positive for H pylori.B.? Duodenum, bi opsy:? Small intestinal mucosa within normal limits. C.? Stomach, body, biopsy: - Oxyntic mucosa with moderate chronic, focally active, inflammation.? - Positive for H pylori. D.? Cecum, polypectomy:? Tubular adenoma; no high grade dysplasia or carcinoma seen. E.? Colon, random, biopsy:? Colonic mucosa within normal limits. COMMENT: Diagnostic features of celiac disease or microscopic colitis are not seen. TODAY'S VISIT: Pt is accompanied by his Mom, sister and brother in law. Sister and brother in law interpreted for the patient. Colonoscopy results reviewed Can have a BM daily or every other day without diarrhea. Appetite is good PAST VISIT: Abd US results reviewed. Pt is acompanied by his Mom and brother in law (who interpreted for the patient) Diarrhea has improved - BMs vary between 1-2 times a day with solid stools CT scan results reviewed. Pt is accompanied by his Mom and sister (sister interpreted for his Mom) Diarrhea is better - having 3-4 BMs a day. When he finishes eating - 1st BM is solid. 2nd and 3rd BMs can be loose.Has diarrhe a 3 days a week - every 1-2 days. Mom is giving the imodium every day. Gives more imodium on the days that he has diarrhea. Last week he had 2 episodes of diarrhea that lasted all day. Has diarrhea one day and gets imodium and then no BM the following day. Does not want to eat when he has diarrhea. Diet is limited - no baked or greasy food. Using Lactaid milk. Diarrhea is a little better Expresses abdominal pain after he has breakfast. Has to run to the bathroom after eating No nausea or vomiting. He and his family had COVID 2 weeks ago with fever and cough - now resolved. Colonoscopy results reviewed with pt's Mom and advised FU in 6 months. No change in diarrhea. Pt has lactaid milk with oatmeal - runs to the bathroom as soon as he finishes eating. No problems with liquids. Has diarrhea after he takes solids. Has 4-5 BMs during the day. Noted diarrhea for the past week 5-6 loose BMs a day without blood or muc ous.No recent antibiotics. ? Mild fever and sweating. No nausea or vomiting - able to eat and drink. Imodium 1/2 tablet as needed for diarrhea - once a day. Notes diarrhea 15 min after eating. Denies nocturnal diarrhea. Gets up to pee a lot. Not having diarrhea any more - only sometimes related to diet. Notes persistent heartburn Passing gas. Has 3 meals a day - eats a lot of rice. Finished antibiotics and taking Lactaid milk Intermittent loss of appetite. Sometimes he touches his abdomen after eating indicating that he has pain. Has home cooked food - no oily or geasy food. Has been taking wheat bread. Does not take OJ due to GERD. Continues to have diarrhea with 3-4 watery to soft stools in a day. Mom gives imodium when he has a 2nd BM. Had some minor bleeding (maroon) after he went home and denies further bleeding. Continues to have post prandial diarrhea - advised to try Lactaid milk. Denies nocturnal?diarrhea [facility] Medical History (Updated 09/13/23 @ 08:42 by Leonor Salgado MD) Post-polypectomy bleeding Anemia GERD (gastroesophageal reflux disease) Vitamin D deficiency UTI (urinary tract infection) Chronic Helicobacter pylori gastritis Cognitive developmental delay Asthma Personal history of colon cancer IBS (irritable colon syndrome) Diarrhea Surgical History Hx of excision of mass History of esophagogastroduodenoscopy (EGD) (07/01/15) Hx of laparoscopy (03/11/15) Hx of colonoscopy (02/10/15) History of incision and drainage (01/29/14) Family History Father No problems noted. Mother Family history of cancer of vagina Colon polyps Maternal Grandmother Family history of cancer of vagina Cancer Paternal Uncle Bone cancer Paternal Aunt Cancer Maternal Uncle Stomach cancer Brother No problems noted. Social History Household Members: Family Household Members Other:: mother Housing: House Do you presently have visiting nurse or other home services: Yes (sister is contact lens curve grinder) Unable to assess alcohol history related to: Unable to respond Alcohol intake: current Alcohol intake frequency: does not drink Comment: HURT LEFT KNEE SUNDAY Patient Tobacco Use Status: Never used Tobacco service: No Current occupational status: disabled Review of Systems Const All systems reviewed & are unremarkable except as noted in HPI and below Physical Exam Vital Signs: Last Vital Signs Pulse 66 09/13/23 08:43 BP 143/74 H 09/13/23 08:43 Const General: no acute distress Nutritional Appearance: obese Limitations: other limitations (Developmental delay) HEENT Head: Yes normal to inspection Ears: hearing grossly normal bilaterally Eyes Sclerae: sclerae normal Pupils: Equal, round and reactive pupils present Neck Neck: Yes normal visual inspection Chest Chest palpation & inspection: normal inspection of the chest Resp Effort & Inspection: normal respiratory effort Auscultation: clear to auscultation bilaterally Cardio Palpation: normal PMI Rate: regular rate Rhythm: regular rhythm Heart sounds: S1 normal heart sound present, S2 normal heart sound present and no murmurs GI Palpation (GI): Soft to palpation, nontender and No hepatosplenomegaly present Auscultation: normal bowel sounds Rectal Exam - Male: Yes deferred Skin General skin exam: no rashes or lesions noted Neuro General: gait normal and moves all extremities Cranial nerves: Yes Equal, round and reactive pupils present Psych Appearance: grossly normal Mental Status: other (Developmental delay) Assessment & Plan Assessment & Plan (1) Portal hypertension: Code(s): K76.6 - Portal hypertension (2) Chronic pancreatitis: Code(s): K86.1 - Other chronic pancreatitis (3) Chronic diarrhea: Code(s): K52.9 - Noninfective gastroenteritis and colitis, unspecified (4) Vitamin D deficiency: Code(s): E55.9 - Vitamin D deficiency, unspecified (5) Colitis: Code(s): K52.9 - Noninfective gastroenteritis and colitis, unspecified (6) GERD (gastroesophageal reflux disease): Code(s): K21.9 - Gastro-esophageal reflux disease without esophagitis (7) History of colon polyps: Code(s): Z86.010 - Personal history of colonic polyps (8) IBS (irritable colon syndrome): Code(s): K58.9 - Irritable bowel syndrome without diarrhea (9) Personal history of colon cancer: Code(s): Z85.038 - Personal history of other malignant neoplasm of large intestine (10) Chronic Helicobacter pylori gastritis: Code(s): K29.50 - Unspecified chronic gastritis without bleeding; B96.81 - Helicobacter pylori [H. pylori] as the cause of diseases classified elsewhere Plan 42 YM non-verbal due to developmental delay with GERD and hx of colon cancer status post resection with chronic diarrhea. Stool studies were negative. 04/22/21 EGD showed gastritis due to H Pylori.? Same day colonoscopy showed normal appearing end to end anastomosis at 20 cms.? A large adenomatous polyp was removed Random biopsies were obtained from the colon to check for microscopic colitis which were normal. Repeat Colonoscopy advised in 1 year due to fair prep. Pt was hospitalized with self limited post polypectomy bleeding? His hemoglobin was monitored and remained stable.? He had no further episodes of bleeding and did not require blood transfusion. 04/2022 FU colonoscopy was performed and findings as noted above Labs and stool studies were ordered. [place] level was checked and (since elevated lithium level can be associated with diarrhea) and was not elevated. To take imodium 2 mg PO Q8H prn for diarrhea 06/15/22 Pt was started on Mesalamine 2.4 grams daily and pt's Mom reports partial improvement in diarrhea. 10/05/22 Dose of mesalamine was increased to 3.6 grams daily Mom was advised to stop giving iron for 2 weeks to see if abdominal pain and diarrhea gets better. 12/15/[address] scan showed portal hypertension - Hepatitis serologies and for chronic liver disease initiated 08/20 Colonoscopy showed recurrent cecal polyp which was ablated with hybrid APC treatmen. Follow-up colonoscopy was advised in 18 months 09/13/23 Can have a BM daily or every other day without diarrhea. Appetite is good Follow-up in 5 months - FU of colon polyps and cirrhosis. Orders: Orders C Reactive Protein 09/13/23 K52.9 - Noninfective gastroenteritis and colitis, unspecified Complete Blood Count no Diff 09/13/23 K52.9 - Noninfective gastroenteritis and colitis, unspecified Comprehensive Met. Panel 09/13/23 K52.9 - Noninfective gastroenteritis and c olitis, unspecified Coding Level of Care Code Est Pt Level 4 (56607) Diagnoses Portal hypertension K76.6 Chronic pancreatitis K86.1 Chronic diarrhea K52.9 Vitamin D deficiency E55.9 Colitis K52.9 GERD (gastroesophageal reflux disease) K21.9 History of colon polyps Z86.010 IBS (irritable colon syndrome) K58.9 Personal history of colon cancer Z85.038 Chronic Helicobacter pylori gastritis K29.50; B96.81 Time Spent (min) 20
[2023-09-13 08:43] VITALS: BP 143/74; PULSE 66
== END 2023-09-13 09:05 | disposition home or self-care (01) ==
PROVIDERS: PCP Family Medicine; Visit Provider Internal Medicine Gastroenterology
DX: K76.6 Portal hypertension (principal); K86.1 Other chronic pancreatitis; K52.9 Noninfective gastroenteritis and colitis, unspecified; E55.9 Vitamin D deficiency, unspecified; K21.9 Gastro-esophageal reflux disease without esophagitis; Z86.010 Personal history of colon polyps; K58.9 Irritable bowel syndrome, unspecified; Z85.038 Personal history of other malignant neoplasm of large intestine; K29.50 Unspecified chronic gastritis without bleeding; B96.81 Helicobacter pylori [H. pylori] as the cause of diseases classified elsewhere
CPT/HCPCS: 99214

== ENCOUNTER 2023-10-26 10:02 | Outpatient (REF) | payer MEDICARE, MEDICAID, SELFPAY ==
[2023-10-26 14:29] LABS: MANUAL DIFF FLAG NO
[2023-10-26 14:34] LABS: Basophils Percent Auto 0.5 % (0-2); Eosinophils Absolute Auto 0.1 X10*3/uL (0.0-0.4); Eosinophils Percent Auto 1.4 % (0-4); Hematocrit 38.5 % (42.0-52.0); Imm Gran Abs Auto 0.01 X10*3/uL (0.00-0.03); Imm Gran Pct Auto 0.2 % (0.0-0.4); Lymphocytes Absolute Auto 0.9 X10*3/uL (1.2-4.9); Lymphocytes Percent Auto 20.9 % (20-40); Mean Corpuscular HGB Conc 33.8 g/dl (31.0-36.0); Mean Corpuscular Hemoglobin 31.3 pg (27.0-33.0); Mean Corpuscular Volume 92.8 fL (80.0-98.0); Mean Platelet Volume 11.6 fL (9.4-12.4); Monocytes Absolute Auto 0.6 X10*3/uL (0.1-1.2); Monocytes Percent Auto 13.5 % (2-11); Neutrophils Absolute Auto 2.7 x10*3/uL (2.0-8.3); Neutrophils Percent Auto 63.5 % (45-73); Platelet Count 178 X10*3/uL (160-400); Red Blood Count 4.15 X10*6/uL (4.60-5.80); White Blood Count 4.2 X10*3/uL (4.8-10.8)
[2023-10-26 14:57] LABS: Alanine Aminotransferase 12 U/L (0-40); Albumin Level 4.3 g/dL (3.5-5.0); Alkaline Phosphatase 86 U/L (39-117); Anion Gap 13 (12-20); Aspartate Amino Transferase 21 U/L (5-37); Bilirubin Total 0.5 mg/dL (0.0-1.0); Blood Urea Nitrogen 17 mg/dL (9-16); Calcium 10.3 mg/dL (8.4-10.2); Carbon Dioxide 27 mmol/L (22-29); Chloride 103 mmol/L (96-108); Cholesterol 201 mg/dL (<200); Estimated Glomerular Filt Rate > 60; Glucose Random 86 mg/dL (60-115); HDL Cholesterol 48 mg/dL (>40); Iron 76 mcg/dL (45-160); LDL Cholesterol Calculated 132 mg/dL (<100); Percent Iron Saturation 30 % (15-50); Potassium 3.9 mmol/L (3.3-5.1); Sodium 139 mmol/L (135-145); Total Iron Binding Capacity 257 mcg/dL (228-428); Total Protein 7.7 g/dL (6.5-8.0); Triglycerides 109 mg/dL (<150); Unsaturated Iron Binding 181 ug/dL
[2023-10-26 15:15] LABS: Ferritin 50 ng/mL (20-250); Vitamin D 25-OH Total 44.4 ng/mL (>30)
== END 2023-10-26 10:03 | disposition home or self-care (01) ==
LOC: HO.CHCLDS 10:02
PROVIDERS: Visit Provider Family Medicine
DX: D64.9 Anemia, unspecified (principal); E78.5 Hyperlipidemia, unspecified; E55.9 Vitamin D deficiency, unspecified; Z51.81 Encounter for therapeutic drug level monitoring
CPT/HCPCS: 36415; 80053; 80061; 82306; 82728; 83540; 85025

== ENCOUNTER 2024-01-31 08:54 | Outpatient (AMB) | payer MEDICARE, MEDICAID, SELFPAY ==
--- NOTE | 2024-01-31 08:55 | A.OFFVIS_ITS ---
Intake Vital Signs 01/31/24 09:02 Height 5 ft 11 in Weight 203 lb BMI 28.3 BP 112/58 L Blood Pressure Location Lt brachial Position Sitting Pulse 66 Intake Visit Reasons: 5 month follow up Intake Note: Patient follow up for diarrhea. Patient cc: Gassy, abdominal pain and constipation. Denies any other GI issues. Patient Registration Manager Required: No Accompanied by: Family/Other Allergies No Known Allergies [No Known Allergies*] Allergy (Verified 01/31/24 09:04) HPI 5 month follow up HPI Details GI clinic visit for this 42-year-old male with developmental delay seen for worsening diarrhea. Pt had a colonoscopy in 05/2021 which was complicated by self limited postpolypectomy bleeding. IMAGING STUDIES:?01/04/23 ABD US WITH ELASTOGRAPHY SHOWED: 1. There is hepatomegaly.? 2. Liver elastography:? Measurements are suggestive of compensated advanced chronic liver disease but need further test for confirmation.?3. A 1.7 cm benign, simple right renal cyst is seen, for which no imaging follow-up is recommended. 11/01/[address] SCAN SHOWED: 1.? No acute intra-abdominal process see n. 2.? Bilateral renal cysts. No radiopaque renal calculi orhydronephrosis. 3.? Mild hepatic steatosis without focal lesion. 4.? Prominent perisplenic and peripancre atic collateral vesselssuggestive of portal hypertension. 04/24/[address] SCAN SHOWED:The bowel pat tern is within normal limits. There is no free fluid.? There is no free air.Mild periportal edema in the liver of uncertain etiology. Prominent prostate. Mild patchy left basilar opacities new from previous ENDOSCOPIC STUDIES: 08/27/23 COLONOSCOPY SHOWED: Recurrent cecal polyp ablated with hybrid APC treatment Moderate diverticulosis seen in the left colon Moderate hemorrhoids on retroflexed exam. Plan: Repeat Colonoscopy interval based on path results - in 12 months if polyps are adenomatous. BIOPSIES SHOWED: Cecum, polypectomy: Colonic mucosa with mild surface hyperplastic changes and small lymphoid aggregate; multiple additional levels examined 05/26/22 COLONOSCOPY SHOWED:One medium si zed polyp removed. Random biopsies were obtained from the right and left colon to check for microscopic colitis Moderate diverticulosis seen in the left colon Moderate hemorrhoids on retroflexed exam. Plan:? Repeat Colonoscopy interval based on path results - in 3 years if polyps are adenomatous and 5 years if polyps are hyperplastic. BIOPSIES SHOWED: A.? Cecum, previous polypectomy site, polypectomy:? Colonic mucosa with focal low-grade adenomatous dysplasia; no high-grade dysplasia or carcinoma identified. B.? Colon, random right, biopsy:? Focally active colitis; negative for microscopic colitis. C.? Colon, random left, biopsy:? Colonic mucosa within normal limits; negative for microscopic colitis. 04/22/21 ? PATIENT HAD AN UPPER ENDOSCOPY AND COLONOSCOPY:Endoscopy Findings: STOMACH: Moderate diffuse gastric erythema with submucosal hemorrhages in the gastric body. Biopsies were obtained from the antrum body of the stomach. Antral biopsies were sent to an outside lab for culture and sensitivities for Helicobacter pylori. DUODENUM:? Normal - biopsied to check for celiac sprue due to symptoms of postprandial diarrhea. Colonoscopy Findings:? One large sized polyp removed Random biopsies were obtained from the colon to check for microscopic colitis. Normal appearing end-to-end anastomosis at 20 cm Moderate hemorrhoids on retroflexed exam. Plan: Repeat Colonoscopy interval based on path results - in 1 year if polyps are adenomatous and due to fair prep. Above findings were reviewed with the patient and colon polyps and Helicobacter pylori handouts were given in the discharge area BIOPSY SHOWED: A.? Stomach, antrum, biopsy: - Antral-type mucosa with severe chronic , focally active, inflammation. - Positive for H pylori.B.? Duodenum, bi opsy:? Small intestinal mucosa within normal limits.C.? Stomach, body, biopsy: - Oxyntic mucosa with moderate chronic, focally active, inflammation.? - Positive for H pylori.D.? Cecum, polypectomy:? Tubular adenoma; no high grade dysplasia or carcinoma seen. E.? Colon, random, biopsy:? Colonic mucosa within normal limits. COMMENT: Diagnostic features of celiac disease or microscopic colitis are not seen. TODAY'S VISIT: Patient cc: Gassy, abdominal pain and constipation. Denies any other GI issues. Pt is accompanied by his Mom, sister, brother in law and niece. Sister and brother in law interpreted for the patient. Pt has been eating. Mom notes constipation - has a small BM every 2-3 days with straining and pushing Loperamide has been held PAST VISIT: Colonoscopy results reviewed Can have a BM daily or every other day without diarrhea. Appetite is good Abd US results reviewed. Pt is acompanied by his Mom and brother in law (who interpreted for the patient) Diarrhea has improved - BMs vary between 1-2 times a day with solid stools CT scan results reviewed. Pt is accompanied by his Mom and sister (sister interpreted for his Mom) Diarrhea is better - having 3-4 BMs a day. When he finishes eating - 1st BM is solid. 2nd and 3rd BMs can be loose.Has diarrhe a 3 days a week - every 1-2 days.Mom is giving the imodium every day. Gives more imodium on the days that he has diarrhea. Last week he had 2 episodes of diarrhea that lasted all day. Has diarrhea one day and gets imodium and then no BM the following day. Does not want to eat when he has diarrhea. Diet is limited - no baked or greasy food. Using Lactaid milk. Diarrhea is a little better Expresses abdominal pain after he has breakfast. Has to run to the bathroom after eating No nausea or vomiting. He and his family had COVID 2 weeks ago with fever and cough - now resolved. Colonoscopy results reviewed with pt's Mom and advised FU in 6 months. No change in diarrhea. Pt has lactaid milk with oatmeal - runs to the bathroom as soon as he finishes eating. No problems with liquids. Has diarrhea after he takes solids. Has 4-5 BMs during the day. Noted diarrhea for the past week 5-6 loose BMs a day without blood or muc ous.No recent antibiotics.? Mild fever and sweating. No nausea or vomiting - able to eat and drink. Imodium 1/2 tablet as needed for diarrhea - once a day. Notes diarrhea 15 min after eating. Denies nocturnal diarrhea. Gets up to pee a lot. Not having diarrhea any more - only sometimes related to diet. Notes persistent heartburn Passing gas. Has 3 meals a day - eats a lot of rice. Finished antibiotics and taking Lactaid milk Intermittent loss of appetite. Sometimes he touches his abdomen after eating indicating that he has pain. Has home cooked food - no oily or geasy food. Has been taking wheat bread. Does not take OJ due to GERD. Continues to have diarrhea with 3-4 watery to soft stools in a day. Mom gives imodium when he has a 2nd BM. Had some minor bleeding (maroon) after he went home and denies further bleeding. Continues to have post prandial diarrhea - advised to try Lactaid milk. Denies nocturnal?diarrhea [facility] Medical History (Updated 01/31/24 @ 09:26 by Leonor Salgado MD) Post-polypectomy bleeding Anemia GERD (gastroesophageal reflux disease) Vitamin D deficiency UTI (urinary tract infection) Chronic Helicobacter pylori gastritis Cognitive developmental delay Asthma Personal history of colon cancer IBS (irritable colon syndrome) Diarrhea Surgical History Hx of excision of mass History of esophagogastroduodenoscopy (EGD) (07/01/15) Hx of laparoscopy (03/11/15) Hx of colonoscopy (02/10/15) History of incision and drainage (01/29/14) Family History Father No problems noted. Mother Family history of cancer of vagina Colon polyps Maternal Grandmother Family history of cancer of vagina Cancer Paternal Uncle Bone cancer Paternal Aunt Cancer Maternal Uncle Stomach cancer Brother No problems noted. Social History Household Members: Family Household Members Other:: mother Both parents involved: No Housing: House Do you presently have visiting nurse or other home services: Yes (sister is transactional attorney) Unable to assess alcohol history related to: Unable to respond Alcohol intake: current Alcohol intake frequency: does not drink Comment: HURT LEFT KNEE SUNDAY Patient Tobacco Use Status: Never used Tobacco service: No Current occupational status: disabled Review of Systems Const All systems reviewed & are unremarkable except as noted in HPI and below Physical Exam Vital Signs: Last Vital Signs Pulse 66 01/31/24 09:02 BP 112/58 L 01/31/24 09:02 BMI result Body Mass Index 28.3 Const General: no acute distress Nutritional Appearance: obese Limitations: other limitations (Developmental delay) HEENT Head: Yes normal to inspection Ears: hearing grossly normal bilaterally Eyes Sclerae: sclerae normal Pupils: Equal, round and reactive pupils present Neck Neck: Yes normal visual inspection Chest Chest palpation & inspection: normal inspection of the chest Resp Effort & Inspection: normal respiratory effort Auscultation: clear to auscultation bilaterally Cardio Palpation: normal PMI Rate: regular rate Rhythm: regular rhythm Heart sounds: S1 normal heart sound present, S2 normal heart sound present and no murmurs GI Palpation (GI): Soft to palpation, nontender and No hepatosplenomegaly present Auscultation: normal bowel sounds Rectal Exam - Male: Yes deferred Skin General skin exam: no rashes or lesions noted Neuro General: gait normal and moves all extremities Cranial nerves: Yes Equal, round and reactive pupils present Psych Appearance: grossly normal Mental Status: other (Developmental delay) Assessment & Plan Assessment & Plan (1) Diarrhea: Code(s): R19.7 - Diarrhea, unspecified (2) Personal history of colon cancer: Code(s): Z85.038 - Personal history of other malignant neoplasm of large intestine (3) History of colon polyps: Code(s): Z86.010 - Personal history of colonic polyps (4) GERD (gastroesophageal reflux disease): Code(s): K21.9 - Gastro-esophageal reflux disease without esophagitis (5) Colitis: Code(s): K52.9 - Noninfective gastroenteritis and colitis, unspecified (6) Vitamin D deficiency: Code(s): E55.9 - Vitamin D deficiency, unspecified (7) Chronic diarrhea: Code(s): K52.9 - Noninfective gastroenteritis and colitis, unspecified (8) Chronic pancreatitis: Code(s): K86.1 - Other chronic pancreatitis (9) Portal hypertension: Code(s): K76.6 - Portal hypertension (10) Cirrhosis of liver without ascites: Code(s): K74.60 - Unspecified cirrhosis of liver (11) Chronic constipation: Code(s): K59.09 - Other constipation Plan 43 YM non-verbal due to developmental delay with GERD and hx of colon cancer status post resection with chronic diarrhea. Stool studies were negative. 04/22/21 EGD showed gastritis due to H Pylori.? Same day colonoscopy showed normal appearing end to end anastomosis at 20 cms.? A large adenomatous polyp was removed Random biopsies were obtained from the colon to check for microscopic colitis which were normal. Repeat Colonoscopy advised in 1 year due to fair prep. Pt was hospitalized with self limited post polypectomy bleeding? His hemoglobin was monitored and remained stable.? He had no further episodes of bleeding and did not require blood transfusion. 04/2022 FU colonoscopy was performed and findings as noted above Labs and stool studies were ordered. [place] level was checked and (since elevated lithium level can be associated with diarrhea) and was not elevated. To take imodium 2 mg PO Q8H prn for diarrhea 06/15/22 Pt was started on Mesalamine 2.4 grams daily and pt's Mom reports partial improvement in diarrhea. 10/05/22 Dose of mesalamine was increased to 3.6 grams daily Mom was advised to stop giving iron for 2 weeks to see if abdominal pain and diarrhea gets better. 12/15/[address] scan showed portal hypertension - Hepatitis serologies and for chronic liver disease initiated 08/20 Colonoscopy showed recurrent cecal polyp which was ablated with hybrid APC treatmen. Follow-up colonoscopy was advised in 18 months 09/13/23 Can have a BM daily or every other day without diarrhea. Appetite is good 01/31/24 Pt has been eating. Mom notes constipation - has a small BM every 2-3 days with straining and pushing Pt's Mom was advised to: 1. Discontinue Zenpep 2. Decrease Mesalamine (Lialda) to 2 pills every day instead of 3 3. Senna 2 capsules at bedtime for constipation Follow-up in 4 weeks - FU of constipation Orders: Orders US abdomen limited Today K74.60 - Unspecified cirrhosis of liver Medications: New sennosides-docusate sodium 8.6-50 mg (Senna with Docusate Sodium) Please take every other day at bedtime 2 tab-caps (2 x 8.6-50 mg) PO BEDTIME 120 tabs 2RF 60 days K59.09 - Other constipation Patient Instructions: 1. Please stop taking Zenpep 2. Decrease Mesalamine (Lialda) to 2 pills every day. 3. You can give Senna 2 capsules at bedtime for constipation Coding Level of Care Code Est Pt Level 4 (72197) Diagnoses Diarrhea R19.7 Personal history of colon cancer Z85.038 History of colon polyps Z86.010 GERD (gastroesophageal reflux disease) K21.9 Colitis K52.9 Vitamin D deficiency E55.9 Chronic diarrhea K52.9 Chronic pancreatitis K86.1 Portal hypertension K76.6 Cirrhosis of liver without ascites K74.60 Chronic constipation K59.09 Time Spent (min) 21
[2024-01-31 09:02] VITALS: BP 112/58; PULSE 66; BMI 28.3
== END 2024-01-31 09:41 | disposition home or self-care (01) ==
PROVIDERS: PCP Family Medicine; Visit Provider Internal Medicine Gastroenterology
DX: K52.9 Noninfective gastroenteritis and colitis, unspecified (principal); Z85.038 Personal history of other malignant neoplasm of large intestine; Z86.010 Personal history of colon polyps; K21.9 Gastro-esophageal reflux disease without esophagitis; E55.9 Vitamin D deficiency, unspecified; K86.1 Other chronic pancreatitis; K76.6 Portal hypertension; K74.60 Unspecified cirrhosis of liver; K59.09 Other constipation
CPT/HCPCS: 99214

== ENCOUNTER → 2024-01-31 08:54 | Outpatient (BNVA) | payer MEDICARE, MEDICAID, SELFPAY | PROVIDERS: PCP Family Medicine; Visit Provider Internal Medicine Gastroenterology | DX: K74.60 Unspecified cirrhosis of liver (principal); R19.7 Diarrhea, unspecified; K59.09 Other constipation; K21.9 Gastro-esophageal reflux disease without esophagitis; K86.1 Other chronic pancreatitis; K76.6 Portal hypertension; E55.9 Vitamin D deficiency, unspecified; Z85.038 Personal history of other malignant neoplasm of large intestine; Z86.010 Personal history of colon polyps | CPT/HCPCS: 99212 ==

== ENCOUNTER 2024-02-18 09:13 | Outpatient (REF) | payer MEDICARE, MEDICAID, SELFPAY ==
--- NOTE | ~2024-02-18 | US_ITS ---
EXAMINATION: US ABDOMEN LIMITED CLINICAL INFORMATION: Unspecified cirrhosis of liver. Screen for HCC. COMPARISON: Ultrasound kidneys and bladder 07/31/2023. Ultrasound abdomen limited 01/04/2023. CT abdomen without and with contrast 11/01/2022. TECHNIQUE: Real-time imaging of the right upper quadrant abdominal viscera. FINDINGS: PANCREAS: Normal. LIVER: There is borderline hepatomegaly, with a longitudinal span of 18.0 cm. The liver contour is normal. Parenchymal echogenicity is normal. No focal hepatic lesion. There is no intrahepatic biliary duct dilatation seen. GALLBLADDER: Normal. The gallbladder is physiologically distended without evidence of stones, sludge, polyps, wall thickening or pericholecystic fluid. COMMON BILE DUCT: Normal in caliber measuring 0.4 cm in diameter. RIGHT KIDNEY: Normal. No hydronephrosis. No renal calculi or focal parenchymal lesions. The kidney measures 11.5 cm in maximum dimension. FREE FLUID: None. US/US abdomen limited IMPRESSION: There is borderline hepatomegaly. The examination is otherwise unremarkable. No alteration in hepatic echotexture is seen. There is no focal hepatic mass or biliary ductal dilatation.
== END 2024-02-18 09:14 | disposition home or self-care (01) ==
LOC: HO.US 09:13
PROVIDERS: PCP Family Medicine; Visit Provider Internal Medicine Gastroenterology
DX: K74.60 Unspecified cirrhosis of liver (principal); R31.29 Other microscopic hematuria; N40.0 Benign prostatic hyperplasia without lower urinary tract symptoms; N28.1 Cyst of kidney, acquired
CPT/HCPCS: 76705

== ENCOUNTER 2024-03-06 09:51 | Outpatient (AMB) | payer MEDICARE, MEDICAID, SELFPAY ==
--- NOTE | 2024-03-06 10:00 | MHC.OFFVIS ---
Vital Signs 03/06/24 10:05 Height 5 ft 11 in Weight 200 lb BMI 27.9 BP 95/60 Blood Pressure Location Lt brachial Position Sitting Pulse 56 Intake Visit Reasons: Constipation Intake Note: Patient follow up for Constipation and US results Patient cc: gassy, constipation on and off, denies any other GI issues. Air Traffic Control Operator Required: No Accompanied by: Family/Other Allergies No Known Allergies [No Known Allergies*] Allergy (Verified 03/06/24 09:58) Medication List - Last Reconciled 03/06/24 by Leonor Salgado MD albuterol sulfate 90 mcg/actuation 1 inh inhalation Q4H PRN benztropine 0.5 mg PO BID budesonide 0.5 mg inhalation DAILY cholecalciferol (vitamin D3) 50 mcg PO DAILY clonidine HCl 0.3 mg PO BEDTIME clonidine HCl 0.1 mg PO BID@0800,1600 cyclobenzaprine 5 mg PO TID PRN difluprednate 0.05% 1 drp ophthalmic (eye) DAILY ferrous gluconate 324 mg PO Q OTHER DAY fesoterodine ER 8 mg PO DAILY 30 days finasteride 5 mg PO DAILY 90 days fluticasone propionate 50 mcg/actuation 2 sprays intranasal Q OTHER DAY haloperidol 2 mg PO BEDTIME haloperidol 1 mg PO BEDTIME ipratropium bromide 1 spray intranasal DAILY lithium carbonate 150 mg PO BID lithium carbonate 300 mg PO BID loperamide (Imodium A-D) 2 mg PO Q8H PRN 3 weeks lorazepam 0.5 mg PO TID PRN lorazepam 1 mg PO BEDTIME mesalamine (Lialda) 2.4 grams (2 x 1.2 gram) PO DAILY 4 weeks moxifloxacin 0.5% 1 drp ophthalmic (eye) DAILY olanzapine 20 mg PO BEDTIME olanzapine 5 mg PO QAM omeprazole 20 mg PO DAILY oxcarbazepine 300 mg PO BID@0800,1600 oxcarbazepine 150 mg PO BID@0800,1600 quetiapine 100 mg PO QAM quetiapine (Seroquel) 300 mg PO BEDTIME risperidone 3 mg PO BEDTIME sennosides-docusate sodium 8.6-50 mg (Senna with Docusate Sodium) 2 tab-caps (2 x 8.6-50 mg) PO BEDTIME 60 days sertraline 50 mg PO DAILY trazodone 200 mg PO BEDTIME zolpidem 5 mg PO BEDTIME HPI HPI Constipation: Details: GI clinic visit for this 43-year-old male with developmental delay seen for worsening diarrhea. Pt had a colonoscopy in 05/2021 which was complicated by self limited postpolypectomy bleeding. IMAGING STUDIES:?01/04/23 ABD US WITH ELASTOGRAPHY SHOWED: 1. There is hepatomegaly.? 2. Liver elastography:? Measurements are suggestive of compensated advanced chronic liver disease but need further test for confirmation.?3. A 1.7 cm benign, simple right renal cyst is seen, for which no imaging follow-up is recommended. 11/01/[address] SCAN SHOWED: 1.? No acute intra-abdominal process seen. 2.? Bilateral renal cysts. No radiopaque renal calculi orhydronephrosis. 3.? Mild hepatic steatosis without focal lesion. 4.? Prominent perisplenic and peripancreatic collateral vesselssuggestive of portal hypertension. 04/24/[address] SCAN SHOWED:The bowel pattern is within normal limits. There is no free fluid.? There is no free air.Mild periportal edema in the liver of uncertain etiology.Prominent prostate. Mild patchy left basilar opacities new from previous ENDOSCOPIC STUDIES: 08/27/23 COLONOSCOPY SHOWED: Recurrent cecal polyp ablated with hybrid APC treatment Moderate diverticulosis seen in the left colon Moderate hemorrhoids on retroflexed exam. Plan: Repeat Colonoscopy interval based on path results - in 12 months if polyps are adenomatous. BIOPSIES SHOWED: Cecum, polypectomy: Colonic mucosa with mild surface hyperplastic changes and small lymphoid aggregate; multiple additional levels examined 05/26/22 COLONOSCOPY SHOWED:One medium sized polyp removed.Random biopsies were obtained from the right and left colon to check for microscopic colitis Moderate diverticulosis seen in the left colon Moderate hemorrhoids on retroflexed exam. Plan:? Repeat Colonoscopy interval based on path results - in 3 years if polyps are adenomatous and 5 years if polyps are hyperplastic. BIOPSIES SHOWED: A.? Cecum, previous polypectomy site, polypectomy:? Colonic mucosa with focal low-grade adenomatous dysplasia; no high-grade dysplasia or carcinoma identified. B.? Colon, random right, biopsy:? Focally active colitis; negative for microscopic colitis. C.? Colon, random left, biopsy:? Colonic mucosa within normal limits; negative for microscopic colitis. 04/22/21 ? PATIENT HAD AN UPPER ENDOSCOPY AND COLONOSCOPY:Endoscopy Findings:STOMACH: Moderate diffuse gastric erythema with submucosal hemorrhages in the gastric body. Biopsies were obtained from the antrum body of the stomach. Antral biopsies were sent to an outside lab for culture and sensitivities for Helicobacter pylori. DUODENUM:? Normal - biopsied to check for celiac sprue due to symptoms of postprandial diarrhea. Colonoscopy Findings:? One large sized polyp removed Random biopsies were obtained from the colon to check for microscopic colitis. Normal appearing end-to-end anastomosis at 20 cm Moderate hemorrhoids on retroflexed exam. Plan: Repeat Colonoscopy interval based on path results - in 1 year if polyps are adenomatous and due to fair prep. Above findings were reviewed with the patient and colon polyps and Helicobacter pylori handouts were given in the discharge area BIOPSY SHOWED: A.? Stomach, antrum, biopsy: - Antral-type mucosa with severe chronic, focally active, inflammation. - Positive for H pylori.B.? Duodenum, biopsy:? Small intestinal mucosa within normal limits.C.? Stomach, body, biopsy: - Oxyntic mucosa with moderate chronic, focally active, inflammation.? - Positive for H pylori.D.? Cecum, polypectomy:? Tubular adenoma; no high grade dysplasia or carcinoma seen.E.? Colon, random, biopsy:? Colonic mucosa within normal limits. COMMENT: Diagnostic features of celiac disease or microscopic colitis are not seen. TODAY'S VISIT: Patient cc: gassy, constipation on and off, denies any other GI issues. Pt is accompanied by his Mom, and niece. Niece interpreted for the patient. Abd US results were reviewed Had an episode of diarrhea lasting all day last Sunday Senna does not seem to work. PAST VISITS: Pt has been eating. Mom notes constipation - has a small BM every 2-3 days with straining and pushing Loperamide has been held Colonoscopy results reviewed Can have a BM daily or every other day without diarrhea. Appetite is good Abd US results reviewed. Pt is acompanied by his Mom and brother in law (who interpreted for the patient) Diarrhea has improved - BMs vary between 1-2 times a day with solid stools CT scan results reviewed. Pt is accompanied by his Mom and sister (sister interpreted for his Mom) Diarrhea is better - having 3-4 BMs a day. When he finishes eating - 1st BM is solid. 2nd and 3rd BMs can be loose.Has diarrhea 3 days a week - every 1-2 days.Mom is giving the imodium every day.Gives more imodium on the days that he has diarrhea. Last week he had 2 episodes of diarrhea that lasted all day. Has diarrhea one day and gets imodium and then no BM the following day. Does not want to eat when he has diarrhea. Diet is limited - no baked or greasy food. Using Lactaid milk. Diarrhea is a little better Expresses abdominal pain after he has breakfast. Has to run to the bathroom after eating No nausea or vomiting. He and his family had COVID 2 weeks ago with fever and cough - now resolved. Colonoscopy results reviewed with pt's Mom and advised FU in 6 months. No change in diarrhea. Pt has lactaid milk with oatmeal - runs to the bathroom as soon as he finishes eating. No problems with liquids. Has diarrhea after he takes solids. Has 4-5 BMs during the day. Noted diarrhea for the past week 5-6 loose BMs a day without blood or mucous.No recent antibiotics.? Mild fever and sweating.No nausea or vomiting - able to eat and drink. Imodium 1/2 tablet as needed for diarrhea - once a day. Notes diarrhea 15 min after eating. Denies nocturnal diarrhea. Gets up to pee a lot. Not having diarrhea any more - only sometimes related to diet. Notes persistent heartburn Passing gas. Has 3 meals a day - eats a lot of rice. Finished antibiotics and taking Lactaid milk Intermittent loss of appetite. Sometimes he touches his abdomen after eating indicating that he has pain. Has home cooked food - no oily or geasy food. Has been taking wheat bread. Does not take OJ due to GERD. Continues to have diarrhea with 3-4 watery to soft stools in a day. Mom gives imodium when he has a 2nd BM. Had some minor bleeding (maroon) after he went home and denies further bleeding. Continues to have post prandial diarrhea - advised to try Lactaid milk. Denies nocturnal?diarrhea [facility] Medical History (Updated 01/31/24 @ 09:26 by Leonor Salgado MD) Post-polypectomy bleeding Anemia GERD (gastroesophageal reflux disease) Vitamin D deficiency UTI (urinary tract infection) Chronic Helicobacter pylori gastritis Cognitive developmental delay Asthma Personal history of colon cancer IBS (irritable colon syndrome) Diarrhea Surgical History Hx of excision of mass History of esophagogastroduodenoscopy (EGD) (07/01/15) Hx of laparoscopy (03/11/15) Hx of colonoscopy (02/10/15) History of incision and drainage (01/29/14) Family History Father No problems noted. Mother Family history of cancer of vagina Colon polyps Maternal Grandmother Family history of cancer of vagina Cancer Paternal Uncle Bone cancer Paternal Aunt Cancer Maternal Uncle Stomach cancer Brother No problems noted. Social History Household Members: Family Household Members Other:: mother Both parents involved: No Housing: House Do you presently have visiting nurse or other home services: Yes (sister is infantry operations specialist) Unable to assess alcohol history related to: Unable to respond Alcohol intake: current Alcohol intake frequency: does not drink Comment: HURT LEFT KNEE SUNDAY Patient Tobacco Use Status: Never used Tobacco service: No Current occupational status: disabled Review of Systems Const All systems reviewed & are unremarkable except as noted in HPI and below Physical Exam Vital Signs: Last Vital Signs Pulse 56 03/06/24 10:05 BP 95/60 03/06/24 10:05 BMI result Body Mass Index 27.9 Const General: no acute distress Nutritional Appearance: obese Limitations: other limitations (Developmental delay) HEENT Head: Yes normal to inspection Ears: hearing grossly normal bilaterally Eyes Sclerae: sclerae normal Pupils: Equal, round and reactive pupils present Neck Neck: Yes normal visual inspection Chest Chest palpation & inspection: normal inspection of the chest Resp Effort & Inspection: normal respiratory effort Auscultation: clear to auscultation bilaterally Cardio Palpation: normal PMI Rate: regular rate Rhythm: regular rhythm Heart sounds: S1 normal heart sound present, S2 normal heart sound present and no murmurs GI Palpation (GI): Soft to palpation, nontender and No hepatosplenomegaly present Auscultation: normal bowel sounds Rectal Exam - Male: Yes deferred Skin General skin exam: no rashes or lesions noted Neuro General: gait normal and moves all extremities Cranial nerves: Yes Equal, round and reactive pupils present Psych Appearance: grossly normal Mental Status: other (Developmental delay) Assessment & Plan Assessment & Plan (1) IBS (irritable colon syndrome): Code(s): K58.9 - Irritable bowel syndrome without diarrhea Category: Medical (2) Personal history of colon cancer: Code(s): Z85.038 - Personal history of other malignant neoplasm of large intestine Category: Medical (3) Chronic Helicobacter pylori gastritis: Code(s): K29.50 - Unspecified chronic gastritis without bleeding; B96.81 - Helicobacter pylori [H. pylori] as the cause of diseases classified elsewhere Category: Medical (4) History of colon polyps: Code(s): Z86.010 - Personal history of colonic polyps Category: Medical (5) GERD (gastroesophageal reflux disease): Code(s): K21.9 - Gastro-esophageal reflux disease without esophagitis Category: Medical (6) Colitis: Code(s): K52.9 - Noninfective gastroenteritis and colitis, unspecified Category: Medical (7) Chronic diarrhea: Code(s): K52.9 - Noninfective gastroenteritis and colitis, unspecified Category: Medical (8) Chronic pancreatitis: Code(s): K86.1 - Other chronic pancreatitis Category: Medical (9) Portal hypertension: Code(s): K76.6 - Portal hypertension Category: Medical (10) Cirrhosis of liver without ascites: Code(s): K74.60 - Unspecified cirrhosis of liver Category: Medical (11) Chronic constipation: Code(s): K59.09 - Other constipation Category: Medical Plan 43 YM non-verbal due to developmental delay with GERD and hx of colon cancer status post resection with chronic diarrhea. Stool studies were negative. 04/22/21 EGD showed gastritis due to H Pylori.? Same day colonoscopy showed normal appearing end to end anastomosis at 20 cms.? A large adenomatous polyp was removed Random biopsies were obtained from the colon to check for microscopic colitis which were normal. Repeat Colonoscopy advised in 1 year due to fair prep. Pt was hospitalized with self limited post polypectomy bleeding? His hemoglobin was monitored and remained stable.? He had no further episodes of bleeding and did not require blood transfusion. 04/2022 FU colonoscopy was performed and findings as noted above Labs and stool studies were ordered. [place] level was checked and (since elevated lithium level can be associated with diarrhea) and was not elevated. To take imodium 2 mg PO Q8H prn for diarrhea 06/15/22 Pt was started on Mesalamine 2.4 grams daily and pt's Mom reports partial improvement in diarrhea. 10/05/22 Dose of mesalamine was increased to 3.6 grams daily Mom was advised to stop giving iron for 2 weeks to see if abdominal pain and diarrhea gets better. 12/15/[address] scan showed portal hypertension - Hepatitis serologies and for chronic liver disease initiated 08/20 Colonoscopy showed recurrent cecal polyp which was ablated with hybrid APC treatmen. Follow-up colonoscopy was advised in 18 months 09/13/23 Can have a BM daily or every other day without diarrhea. Appetite is good 01/31/24 Pt has been eating. Mom notes constipation - has a small BM every 2-3 days with straining and pushing Pt's Mom was advised to: 1. Discontinue Zenpep 2. Decrease Mesalamine (Lialda) to 2 pills every day instead of 3 3. Senna 2 capsules at bedtime for constipation 03/06/24 Had an episode of diarrhea lasting all day last Sunday Senna does not seem to work. Pt's Mom was advised to start Miralax once a day (decrease to every other day if he has diarrhea) Follow-up in 4 months - FU of constipation Medications: New polyethylene glycol 3350 (Miralax) 17 grams PO DAILY 60 days 1,020 grams 3RF K59.09 - Other constipation Changed From mesalamine (Lialda) 2.4 grams (2 x 1.2 gram) PO DAILY 4 weeks 56 tabs 2RF K52.9 - Noninfective gastroenteritis and colitis, unspecified To mesalamine (Lialda) 2.4 grams (2 x 1.2 gram) PO DAILY 8 weeks 112 tabs 3RF K52.9 - Noninfective gastroenteritis and colitis, unspecified Coding Level of Care Code Est Pt Level 4 (74903) Diagnoses IBS (irritable colon syndrome) K58.9 Personal history of colon cancer Z85.038 Chronic Helicobacter pylori gastritis K29.50; B96.81 History of colon polyps Z86.010 GERD (gastroesophageal reflux disease) K21.9 Colitis K52.9 Chronic diarrhea K52.9 Chronic pancreatitis K86.1 Portal hypertension K76.6 Cirrhosis of liver without ascites K74.60 Chronic constipation K59.09 Time Spent (min) 23
[2024-03-06 10:05] VITALS: BP 95/60; PULSE 56; BMI 27.9
== END 2024-03-06 11:16 | disposition home or self-care (01) ==
PROVIDERS: PCP Family Medicine; Visit Provider Internal Medicine Gastroenterology
DX: K58.2 Mixed irritable bowel syndrome (principal); Z85.038 Personal history of other malignant neoplasm of large intestine; K29.50 Unspecified chronic gastritis without bleeding; B96.81 Helicobacter pylori [H. pylori] as the cause of diseases classified elsewhere; Z86.010 Personal history of colon polyps; K21.9 Gastro-esophageal reflux disease without esophagitis; K86.1 Other chronic pancreatitis; K76.6 Portal hypertension; K74.60 Unspecified cirrhosis of liver
CPT/HCPCS: 99214

== ENCOUNTER → 2024-03-06 09:51 | Outpatient (BNVA) | payer MEDICARE, MEDICAID, SELFPAY | PROVIDERS: PCP Family Medicine; Visit Provider Internal Medicine Gastroenterology | DX: K59.09 Other constipation (principal); K74.60 Unspecified cirrhosis of liver; K76.6 Portal hypertension; K86.1 Other chronic pancreatitis; K52.9 Noninfective gastroenteritis and colitis, unspecified; K21.9 Gastro-esophageal reflux disease without esophagitis; K29.50 Unspecified chronic gastritis without bleeding; B96.81 Helicobacter pylori [H. pylori] as the cause of diseases classified elsewhere; Z86.010 Personal history of colon polyps; Z85.038 Personal history of other malignant neoplasm of large intestine | CPT/HCPCS: 99212 ==

== ENCOUNTER 2024-06-19 16:25 | Outpatient (REF) | payer MEDICARE, MEDICAID, SELFPAY ==
[2024-06-19 19:26] LABS: Influenza A PCR NEGATIVE (Negative); Influenza B PCR NEGATIVE (Negative); Resp Syncy Virus RNA Qual PCR NEGATIVE (Negative); SARS COV2 PCR INHOUSE NEGATIVE (Negative)
== END 2024-06-19 16:26 | disposition home or self-care (01) ==
LOC: HO.CHCLNP 16:25
PROVIDERS: Visit Provider Family Medicine
DX: J06.9 Acute upper respiratory infection, unspecified (principal)
CPT/HCPCS: 0241U

== ENCOUNTER 2024-07-17 10:09 | Outpatient (AMB) | payer MEDICARE, MEDICAID, SELFPAY ==
--- NOTE | 2024-07-17 10:11 | A.OFFVIS_ITS ---
Vital Signs 07/17/24 10:13 Height 5 ft 11 in Weight 207 lb BMI 28.9 BP 101/57 L Blood Pressure Location Lt brachial Position Sitting Pulse 62 Intake Visit Reasons: 4 month follow up Intake Note: Patient follow up for chronic helicobacter pylori gastritis Patient denies any GI issues. 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 Required: No Accompanied by: Family/Other Allergies No Known Allergies [No Known Allergies*] Allergy (Verified 07/17/24 10:11) Medication List - Last Reconciled 07/17/24 by Leonor Salgado MD albuterol sulfate 90 mcg/actuation 1 inh inhalation Q4H PRN benztropine 0.5 mg PO BID budesonide 0.5 mg inhalation DAILY cholecalciferol (vitamin D3) 50 mcg PO DAILY clonidine HCl 0.3 mg PO BEDTIME clonidine HCl 0.1 mg PO BID@0800,1600 cyclobenzaprine 5 mg PO TID PRN difluprednate 0.05% 1 drp ophthalmic (eye) DAILY ferrous gluconate 324 mg PO Q OTHER DAY fesoterodine ER 8 mg PO DAILY 30 days finasteride 5 mg PO DAILY 90 days fluticasone propionate 50 mcg/actuation 2 sprays intranasal Q OTHER DAY haloperidol 2 mg PO BEDTIME haloperidol 1 mg PO BEDTIME ipratropium bromide 1 spray intranasal DAILY lithium carbonate 150 mg PO BID lithium carbonate 300 mg PO BID loperamide (Imodium A-D) 2 mg PO Q8H PRN 3 weeks lorazepam 0.5 mg PO TID PRN lorazepam 1 mg PO BEDTIME mesalamine (Lialda) 2.4 grams (2 x 1.2 gram) PO DAILY 8 weeks moxifloxacin 0.5% 1 drp ophthalmic (eye) DAILY olanzapine 20 mg PO BEDTIME olanzapine 5 mg PO QAM omeprazole 20 mg PO DAILY oxcarbazepine 300 mg PO BID@0800,1600 oxcarbazepine 150 mg PO BID@0800,1600 polyethylene glycol 3350 (Miralax) 17 grams PO DAILY 60 days quetiapine 100 mg PO QAM quetiapine (Seroquel) 300 mg PO BEDTIME risperidone 3 mg PO BEDTIME sennosides-docusate sodium 8.6-50 mg (Senna with Docusate Sodium) 2 tab-caps (2 x 8.6-50 mg) PO BEDTIME 60 days sertraline 50 mg PO DAILY trazodone 200 mg PO BEDTIME zolpidem 5 mg PO BEDTIME HPI HPI 4 month follow up: Details: GI clinic visit for this 43-year-old male with developmental delay seen for worsening diarrhea. Pt had a colonoscopy in 05/2021 which was complicated by self limited postpolypectomy bleeding. TODAY'S VISIT: Pt is accompanied by his Mom, and niece. Niece interpreted for the patient. Has been eating well Having normal BMs daily, Sometimes he can have 3 BMs in a day without diarrhea Can have the urge to go and pass some gas. Has 3 meals a day - eats a lot of rice. Taking Lactaid milk PAST VISITS: Abd US results were reviewed Had an episode of diarrhea lasting all day last Sunday Senna does not seem to work. Patient cc: gassy, constipation on and off, denies any other GI issues. Pt has been eating. Mom notes constipation - has a small BM every 2-3 days with straining and pushing Loperamide has been held Colonoscopy results reviewed Can have a BM daily or every other day without diarrhea. Appetite is good Abd US results reviewed. Pt is acompanied by his Mom and brother in law (who interpreted for the patient) Diarrhea has improved - BMs vary between 1-2 times a day with solid stools CT scan results reviewed. Pt is accompanied by his Mom and sister (sister interpreted for his Mom) Diarrhea is better - having 3-4 BMs a day. When he finishes eating - 1st BM is solid. 2nd and 3rd BMs can be loose.Has diarrhea 3 days a week - every 1-2 days.Mom is giving the imodium every day.Gives more imodium on the days that he has diarrhea. Last week he had 2 episodes of diarrhea that lasted all day. Has diarrhea one day and gets imodium and then no BM the following day. Does not want to eat when he has diarrhea. Diet is limited - no baked or greasy food. Using Lactaid milk. Diarrhea is a little better Expresses abdominal pain after he has breakfast. Has to run to the bathroom after eating No nausea or vomiting. IMAGING STUDIES:?01/04/23 ABD US WITH ELASTOGRAPHY SHOWED: 1. There is hepatomegaly.? 2. Liver elastography:? Measurements are suggestive of compensated advanced ch ronic liver disease but need further test for confirmation.?3. A 1.7 cm benign, simple right renal cyst is seen, for which no imaging follow-up is recommended. 11/01/[address] SCAN SHOWED: 1.? No acute intra-abdominal process seen. 2.? Bilateral renal cysts. No radiopaque renal calculi orhydronephrosis. 3.? Mild hepatic steatosis without focal lesion. 4.? Prominent perisplenic and peripancreatic collateral vesselssuggestive of portal hypertension. 04/24/[address] SCAN SHOWED:The bowel pattern is within normal limits. There is no free fluid.? There is no free air.Mild periportal edema in the liver of uncertain etiology.Prominent prostate. Mild patchy left basilar opacities new from previous ENDOSCOPIC STUDIES: 08/27/23 COLONOSCOPY SHOWED: Recurrent cecal polyp ablated with hybrid APC treatment Moderate diverticulosis seen in the left colon Moderate hemorrhoids on retroflexed exam. Plan: Repeat Colonoscopy interval based on path results - in 12 months if polyps are adenomatous. BIOPSIES SHOWED: Cecum, polypectomy: Colonic mucosa with mild surface hyperplastic changes and small lymphoid aggregate; multiple additional levels examined 05/26/22 COLONOSCOPY SHOWED:One medium sized polyp removed.Random biopsies were obtained from the right and left colon to check for microscopic colitis Moderate diverticulosis seen in the left colon Moderate hemorrhoids on retroflexed exam. Plan:? Repeat Colonoscopy interval based on path results - in 3 years if polyps are adenomatous and 5 years if polyps are hyperplastic. BIOPSIES SHOWED: A.? Cecum, previous polypectomy site, polypectomy:? Colonic mucosa with focal low-grade adenomatous dysplasia; no high-grade dysplasia or carcinoma identified. B.? Colon, random right, biopsy:? Focally active colitis; negative for microscopic colitis. C.? Colon, random left, biopsy:? Colonic mucosa within normal limits; negative for microscopic colitis. 04/22/21 ? PATIENT HAD AN UPPER ENDOSCOPY AND COLONOSCOPY:Endoscopy Findings:STOMACH: Moderate diffuse gastric erythema with submucosal hemorrhages in the gastric body. Biopsies were obtained from the antrum body of the stomach. Antral biopsies were sent to an outside lab for culture and sensitivities for Helicobacter pylori. DUODENUM:? Normal - biopsied to check for celiac sprue due to symptoms of postprandial diarrhea. Colonoscopy Findings:? One large sized polyp removed Random biopsies were obtained from the colon to check for microscopic colitis. Normal appearing end-to-end anastomosis at 20 cm Moderate hemorrhoids on retroflexed exam. Plan: Repeat Colonoscopy interval based on path results - in 1 year if polyps are adenomatous and due to fair prep. Above findings were reviewed with the patient and colon polyps and Helicobacter pylori handouts were given in the discharge area BIOPSY SHOWED: A.? Stomach, antrum, biopsy: - Antral-type mucosa with severe chronic, focally active, inflammation. - Positive for H pylori.B.? Duodenum, biopsy:? Small intestinal mucosa within normal limits.C.? Stomach, body, biopsy: - Oxyntic mucosa with moderate chronic, focally active, inflammation.? - Positive for H pylori.D.? Cecum, polypectomy:? Tubular adenoma; no high grade dysplasia or carcinoma seen.E.? Colon, random, biopsy:? Colonic mucosa within normal limits. COMMENT: Diagnostic features of celiac disease or microscopic colitis are not seen. [facility] Medical History (Updated 01/31/24 @ 09:26 by Leonor Salgado MD) Post-polypectomy bleeding Anemia GERD (gastroesophageal reflux disease) Vitamin D deficiency UTI (urinary tract infection) Chronic Helicobacter pylori gastritis Cognitive developmental delay Asthma Personal history of colon cancer IBS (irritable colon syndrome) Diarrhea Surgical History Hx of excision of mass History of esophagogastroduodenoscopy (EGD) (07/01/15) Hx of laparoscopy (03/11/15) Hx of colonoscopy (02/10/15) History of incision and drainage (01/29/14) Family History Father No problems noted. Mother Family history of cancer of vagina Colon polyps Maternal Grandmother Family history of cancer of vagina Cancer Paternal Uncle Bone cancer Paternal Aunt Cancer Maternal Uncle Stomach cancer Brother No problems noted. Social History Household Members: Family Household Members Other:: mother Both parents involved: No Housing: House Do you presently have visiting nurse or other home services: Yes (sister is technical specialist) Unable to assess alcohol history related to: Unable to respond Alcohol intake: current Alcohol intake frequency: does not drink Comment: HURT LEFT KNEE SUNDAY Patient Tobacco Use Status: Never used Tobacco service: No Current occupational status: disabled Review of Systems Const All systems reviewed & are unremarkable except as noted in HPI and below Physical Exam Vital Signs: Last Vital Signs Pulse 62 07/17/24 10:13 BP 101/57 L 07/17/24 10:13 BMI result Body Mass Index 28.9 Const General: no acute distress Nutritional Appearance: obese Limitations: other limitations (Developmental delay) HEENT Head: Yes normal to inspection Ears: hearing grossly normal bilaterally Eyes Sclerae: sclerae normal Pupils: Equal, round and reactive pupils present Neck Neck: Yes normal visual inspection Chest Chest palpation & inspection: normal inspection of the chest Resp Effort & Inspection: normal respiratory effort Auscultation: clear to auscultation bilaterally Cardio Palpation: normal PMI Rate: regular rate Rhythm: regular rhythm Heart sounds: S1 normal heart sound present, S2 normal heart sound present and no murmurs GI Palpation (GI): Soft to palpation, nontender and No hepatosplenomegaly present Auscultation: normal bowel sounds Rectal Exam - Male: Yes deferred Skin General skin exam: no rashes or lesions noted Neuro General: gait normal and moves all extremities Cranial nerves: Yes Equal, round and reactive pupils present Psych Appearance: grossly normal Mental Status: other (Developmental delay) Assessment & Plan Assessment & Plan (1) Personal history of colon cancer: Code(s): Z85.038 - Personal history of other malignant neoplasm of large intestine Category: Medical (2) Chronic Helicobacter pylori gastritis: Code(s): K29.50 - Unspecified chronic gastritis without bleeding; B96.81 - Helicobacter pylori [H. pylori] as the cause of diseases classified elsewhere Category: Medical (3) Anemia with low platelet count: Code(s): D69.6 - Thrombocytopenia, unspecified Category: Medical (4) History of colon polyps: Code(s): Z86.010 - Personal history of colonic polyps Category: Medical (5) GERD (gastroesophageal reflux disease): Code(s): K21.9 - Gastro-esophageal reflux disease without esophagitis Category: Medical (6) Colitis: Code(s): K52.9 - Noninfective gastroenteritis and colitis, unspecified Category: Medical (7) Vitamin D deficiency: Code(s): E55.9 - Vitamin D deficiency, unspecified Category: Medical (8) Chronic diarrhea: Code(s): K52.9 - Noninfective gastroenteritis and colitis, unspecified Category: Medical (9) Chronic pancreatitis: Code(s): K86.1 - Other chronic pancreatitis Category: Medical (10) Portal hypertension: Code(s): K76.6 - Portal hypertension Category: Medical (11) Cirrhosis of liver without ascites: Code(s): K74.60 - Unspecified cirrhosis of liver Category: Medical (12) Chronic constipation: Code(s): K59.09 - Other constipation Category: Medical Plan 43 YM non-verbal due to developmental delay with GERD and hx of colon cancer status post resection with chronic diarrhea. Stool studies were negative. 04/22/21 EGD showed gastritis due to H Pylori.? Same day colonoscopy showed normal appearing end to end anastomosis at 20 cms.? A large adenomatous polyp was removed Random biopsies were obtained from the colon to check for microscopic colitis which were normal. Repeat Colonoscopy advised in 1 year due to fair prep. Pt was hospitalized with self limited post polypectomy bleeding? His hemoglobin was monitored and remained stable.? He had no further episodes of bleeding and did not require blood transfusion. 04/2022 FU colonoscopy was performed and findings as noted above Labs and stool studies were ordered. Kountze level was checked and (since elevated lithium level can be associated with diarrhea) and was not elevated. To take imodium 2 mg PO Q8H prn for diarrhea 06/15/22 Pt was started on Mesalamine 2.4 grams daily and pt's Mom reports partial improvement in diarrhea. 10/05/22 Dose of mesalamine was increased to 3.6 grams daily Mom was advised to stop giving iron for 2 weeks to see if abdominal pain and diarrhea gets better. 12/15/[address] scan showed portal hypertension - Hepatitis serologies and for chronic liver disease initiated 08/20 Colonoscopy showed recurrent cecal polyp which was ablated with hybrid APC treatmen. Follow-up colonoscopy was advised in 18 months 09/13/23 Can have a BM daily or every other day without diarrhea. Appetite is good 01/31/24 Pt has been eating. Mom notes constipation - has a small BM every 2-3 days with straining and pushing Pt's Mom was advised to: 1. Discontinue Zenpep 2. Decrease Mesalamine (Lialda) to 2 pills every day instead of 3 3. Senna 2 capsules at bedtime for constipation 03/06/24 Had an episode of diarrhea lasting all day last Sunday Senna does not seem to work. Pt's Mom was advised to start Miralax once a day (decrease to every other day if he has diarrhea) 07/17/24 Has been eating well Having normal BMs daily, Sometimes he can have 3 BMs in a day without diarrhea Can have the urge to go and pass some gas - prescribed simethicone for gas Has 3 meals a day - eats a lot of rice. Taking Lactaid milk Follow-up in 4 months - FU of gas and bloating Of note: pt is due for an EGD and Colon in summer Medications: New simethicone (Gas Relief (simethicone)) 125 mg PO BID-QID 60 days PRN 120 tabs 2RF abdominal distention Coding Level of Care Code Est Pt Level 4 (48455) Diagnoses Personal history of colon cancer Z85.038 Chronic Helicobacter pylori gastritis K29.50; B96.81 Anemia with low platelet count D69.6 History of colon polyps Z86.010 GERD (gastroesophageal reflux disease) K21.9 Colitis K52.9 Vitamin D deficiency E55.9 Chronic diarrhea K52.9 Chronic pancreatitis K86.1 Portal hypertension K76.6 Cirrhosis of liver without ascites K74.60 Chronic constipation K59.09 Time Spent (min) 21
[2024-07-17 10:13] VITALS: BP 101/57; PULSE 62; BMI 28.9
== END 2024-07-17 11:16 | disposition home or self-care (01) ==
PROVIDERS: PCP Family Medicine; Visit Provider Internal Medicine Gastroenterology
DX: Z85.038 Personal history of other malignant neoplasm of large intestine (principal); K29.50 Unspecified chronic gastritis without bleeding; B96.81 Helicobacter pylori [H. pylori] as the cause of diseases classified elsewhere; D69.6 Thrombocytopenia, unspecified; Z86.010 Personal history of colon polyps; K21.9 Gastro-esophageal reflux disease without esophagitis; K52.9 Noninfective gastroenteritis and colitis, unspecified; E55.9 Vitamin D deficiency, unspecified; K86.1 Other chronic pancreatitis; K76.6 Portal hypertension; K74.60 Unspecified cirrhosis of liver; K59.09 Other constipation
CPT/HCPCS: 99214

== ENCOUNTER → 2024-07-17 10:09 | Outpatient (BNVA) | payer MEDICARE, MEDICAID, SELFPAY | PROVIDERS: PCP Family Medicine; Visit Provider Internal Medicine Gastroenterology | DX: K29.50 Unspecified chronic gastritis without bleeding (principal); K52.9 Noninfective gastroenteritis and colitis, unspecified; K59.09 Other constipation; K21.9 Gastro-esophageal reflux disease without esophagitis; K86.1 Other chronic pancreatitis; K76.6 Portal hypertension; K74.60 Unspecified cirrhosis of liver; B96.81 Helicobacter pylori [H. pylori] as the cause of diseases classified elsewhere; D69.6 Thrombocytopenia, unspecified; E55.9 Vitamin D deficiency, unspecified; Z85.038 Personal history of other malignant neoplasm of large intestine; Z86.010 Personal history of colon polyps | CPT/HCPCS: 99212 ==

== ENCOUNTER 2024-08-12 10:20 | Outpatient (REF) | payer MEDICARE, MEDICAID, SELFPAY ==
--- NOTE | ~2024-08-12 | US_ITS ---
EXAMINATION: US RETROPERITONEAL LIMITED (RENAL ONLY) CLINICAL INFORMATION: Other microscopic hematuria. COMPARISON: Ultrasound abdomen limited 02/18/2024. Ultrasound kidneys and bladder 07/31/2023. CT abdomen without and with contrast 11/01/2022. TECHNIQUE: Real-time imaging of the kidneys. FINDINGS: RIGHT KIDNEY: 11.6 x 5.4 x 6.7 cm (SAG x AP x TRV). The kidney is normal in size, contour, and echogenicity. Renal cortical thickness is normal. No renal calculi or hydronephrosis. A benign upper pole 1.3 cm Bosniak class I renal cyst is noted which requires no additional imaging or follow up. No solid renal masses are seen. LEFT KIDNEY: 12.6 x 5.8 x 6.4 cm (SAG x AP x TRV). The kidney is normal in size, contour, and echogenicity. Renal cortical thickness is normal. No renal calculi or hydronephrosis. 2 benign Bosniak class I renal cysts are noted in the mid kidney, the largest measuring 2.4 cm, which require no additional imaging or follow-up. No solid renal masses are seen. ADDITIONAL FINDINGS: A 1.5 cm splenic cyst is present. Hypoattenuating lesions could be seen in the spleen at the time of the prior CT. US/US renal BI IMPRESSION: 1. A cause for the patient's hematuria has not been found. 2. Incidental note made of benign Bosniak class I renal cysts which need no additional imaging or follow up. 3. Incidental note made of a 1.5 cm splenic cyst. Electronically signed by: Yazan Mayer MD 09/16/2024 06:44 PM EST
== END 2024-08-12 10:21 | disposition home or self-care (01) ==
LOC: HO.US 10:20
PROVIDERS: PCP Family Medicine; Visit Provider Nurse Practitioner Family
DX: R31.29 Other microscopic hematuria (principal); N40.0 Benign prostatic hyperplasia without lower urinary tract symptoms; N28.1 Cyst of kidney, acquired
CPT/HCPCS: 76775

== ENCOUNTER 2024-09-02 12:33 | Outpatient (REF) | payer MEDICARE, MEDICAID, SELFPAY ==
[2024-09-02 14:58] LABS: PSA,Total (Free>4and<10) 2.13 ng/mL (0.00-4.00)
== END 2024-09-02 12:34 | disposition home or self-care (01) ==
LOC: HO.LAB 12:33
PROVIDERS: PCP Family Medicine; Visit Provider Nurse Practitioner Family
DX: N40.0 Benign prostatic hyperplasia without lower urinary tract symptoms (principal); R97.20 Elevated prostate specific antigen [PSA]; Z12.5 Encounter for screening for malignant neoplasm of prostate
CPT/HCPCS: 36415; 84153

== ENCOUNTER 2024-09-03 14:33 | Outpatient (AMB) | payer MEDICARE, MEDICAID, SELFPAY ==
--- NOTE | 2024-09-03 14:38 | A.OFFVIS_ITS ---
Intake Visit Reasons: 1yr follow up/US/labs Intake Note: Patient presents today for follow up on: neurogenic bladder, microscopic hematuria, ultrasound and lab results Imaging Completed: 08/12/24 PSA: 2.13 Urology Medications: toviaz, finasteride Blood Thinner: none PVR: 0ml's Box Office Clerk Required: Yes Accompanied by: Mother Allergies No Known Allergies [No Known Allergies*] Allergy (Verified 09/03/24 15:36) Medication List - Last Reconciled 09/03/24 by HARINDER Dexter albuterol sulfate 90 mcg/actuation 1 inh inhalation Q4H PRN benztropine 0.5 mg PO BID budesonide 0.5 mg inhalation DAILY cholecalciferol (vitamin D3) 50 mcg PO DAILY clonidine HCl 0.3 mg PO BEDTIME clonidine HCl 0.1 mg PO BID@0800,1600 cyclobenzaprine 5 mg PO TID PRN difluprednate 0.05% 1 drp ophthalmic (eye) DAILY ferrous gluconate 324 mg PO Q OTHER DAY fesoterodine ER 8 mg PO DAILY 30 days finasteride 5 mg PO DAILY 90 days fluticasone propionate 50 mcg/actuation 2 sprays intranasal Q OTHER DAY haloperidol 2 mg PO BEDTIME haloperidol 1 mg PO BEDTIME ipratropium bromide 1 spray intranasal DAILY lithium carbonate 150 mg PO BID lithium carbonate 300 mg PO BID loperamide (Imodium A-D) 2 mg PO Q8H PRN 3 weeks lorazepam 0.5 mg PO TID PRN lorazepam 1 mg PO BEDTIME mesalamine (Lialda) 2.4 grams (2 x 1.2 gram) PO DAILY 8 weeks moxifloxacin 0.5% 1 drp ophthalmic (eye) DAILY olanzapine 20 mg PO BEDTIME olanzapine 5 mg PO QAM omeprazole 20 mg PO DAILY oxcarbazepine 300 mg PO BID@0800,1600 oxcarbazepine 150 mg PO BID@0800,1600 polyethylene glycol 3350 (Miralax) 17 grams PO DAILY 60 days quetiapine 100 mg PO QAM quetiapine (Seroquel) 300 mg PO BEDTIME risperidone 3 mg PO BEDTIME sennosides-docusate sodium 8.6-50 mg (Senna with Docusate Sodium) 2 tab-caps (2 x 8.6-50 mg) PO BEDTIME 60 days sertraline 50 mg PO DAILY simethicone (Gas Relief (simethicone)) 125 mg PO BID-QID PRN 60 days trazodone 200 mg PO BEDTIME zolpidem 5 mg PO BEDTIME HPI Comments Details: Marck is a pleasant 43 year old male patient of Dr. Gaytan who is accompanied by his mom and sister at todays visit. He has a past medical history of chronic H pylori gastritis, cognitive delay, asthma, and IBS. He is being followed up on today for his history of elevated PSA, neurogenic bladder, bladder outlet obstruction, renal cysts and urinary tract infections. Given patient's developmental delay much of today's history is provided by the patient's mother Deena. Recent renal imaging results reviewed with the patient and his family today. Bilateral kidneys are normal in size, contour, and echogenicity. Bilateral kidneys with no calculi or hydronephrosis. Bilateral kidneys with benign Bosniak class 2 renal cyst that require no additional follow-up imaging per radiology report. Patient mom reports current voiding parameters to be within normal limits on fesoterodine 8 mg daily and she reports patient is compliant with finasteride 5 mg daily as prescribed. Patient and family otherwise deny incontinence, nocturia, hematuria, dysuria, foul smelling urine, flank pain, fever, and or chills. In office urinalysis results reviewed with the patient and his family today. PVR 0 mLs. Patient has previously been on and trialled Myrbetriq, Detrol and oxybutynin for urinary symptoms with no improvement. Patient with a history of elevated PSA. PSA's are as follows. PSA 02/15? PSA 3.1, 08/17 2.5, 02/16 2.5, 08/18 2.8, 02/17 7.7, 11/20 2.8, 09/21 2.0 Cystoscopy 03/19 small prostate open bladder neck and relatively empty bladder - good stream in office. [facility] Medical History Post-polypectomy bleeding Anemia GERD (gastroesophageal reflux disease) Vitamin D deficiency UTI (urinary tract infection) Chronic Helicobacter pylori gastritis Cognitive developmental delay Asthma Personal history of colon cancer IBS (irritable colon syndrome) Diarrhea Surgical History Hx of excision of mass History of esophagogastroduodenoscopy (EGD) (07/01/15) Hx of laparoscopy (03/11/15) Hx of colonoscopy (02/10/15) History of incision and drainage (01/29/14) Family History Father No problems noted. Mother Family history of cancer of vagina Colon polyps Maternal Grandmother Family history of cancer of vagina Cancer Paternal Uncle Bone cancer Paternal Aunt Cancer Maternal Uncle Stomach cancer Brother No problems noted. Social History Household Members: Family Household Members Other:: mother Housing: House Do you presently have visiting nurse or other home services: Yes (sister is small wind energy installer) Unable to assess alcohol history related to: Unable to respond Alcohol intake: current Alcohol intake frequency: does not drink Comment: HURT LEFT KNEE SUNDAY Patient Tobacco Use Status: Never used Tobacco service: No Current occupational status: disabled Review of Systems Const Details: Patient is non-verbal. Patients family provides all of patients history today. All systems reviewed & are unremarkable except as noted in HPI and below and Unobtainable due to mental status Physical Exam Const General: cooperative, comfortable, no acute distress, well developed, alert and awake Orientation/consciousness: Other orientation findings (patient is non verbal ) Limitations: no limitations HEENT Head: Yes normal to inspection, Yes normocephalic and Yes atraumatic Neck Neck: Yes normal visual inspection and Yes trachea midline Chest Chest palpation & inspection: normal inspection of the chest Resp Effort & Inspection: normal respiratory effort and able to speak in complete sentences Cardio Rate: regular rate General: Yes no CVA tenderness Back/Spine/Pelvis Back: no CVA tenderness Psych Appearance: well kempt Speech and movement: Other speech and movement exam findings present (Psych) (non verbal ) Attitude: cooperative Insight: Limited insight present (Psych) Judgement: Limited judgement present (Psych) Office Procedures Post Void Residual Post Residual Void Post Void Residual (PVR): 0 [id number] Void Residual by ultrasound Results AMB Urinalysis, Automated UA Leukoctes 0 Maria M/uL Last Edit by Carolynn Cruz on 09/03/24 15:44 UA Nitrite Last Edit by Cluster HQjohnathan Cruz on 09/03/24 15:44 UA Urobilinogen 0.2 mg/dL Last Edit by Perpetual Technologiesstephen MARIPOSA BIOTECHN[employer]dhiraj on 09/03/24 15:44 UA Protein 15 mg/dL Last Edit by Exteritydhiraj on 09/03/24 15:44 UA pH 6.5 Last Edit by Exteritydhiraj on 09/03/24 15:44 UA Blood 0 Sheldon/uL Last Edit by Perpetual Technologiesstephen MARIPOSA [employer]OTECHN[employer]Ydhiraj on 09/03/24 15:44 UA Specific [place] 1.015 Last Edit by Exteritydhiraj on 09/03/24 15:44 UA Ketone Last Edit by Exteritydhiraj on 09/03/24 15:44 UA Bilirubin 0 mg/dL Last Edit by Exteritydhiraj on 09/03/24 15:44 UA Glucose 0 mg/dL Last Edit by [employer] on 09/03/24 15:44 Results Reviewed Results Reviewed: Laboratory Last Values Urine pH (Auto) 6.5 09/03/24 15:20 Specific [place] (Auto) 1.015 09/03/24 15:20 Urine Protein (Auto) 15 mg/dL 09/03/24 15:20 Glucose (UA)(Auto) 0 mg/dL 09/03/24 15:20 Urine Blood (Auto) 0 Sheldno/uL 09/03/24 15:20 Urine Bilirubin (Auto) 0 mg/dL 09/03/24 15:20 Urine Urobilinogen (Auto) 0.2 mg/dL 09/03/24 15:20 Leukocyte Esterase (Auto) 0 Maria M/uL 09/03/24 15:20 Date of Service: 08/12/24 EXAMINATION: US RETROPERITONEAL LIMITED (RENAL ONLY) FINDINGS: RIGHT KIDNEY: 11.6 x 5.4 x 6.7 cm (SAG x AP x TRV). The kidney is normal in size, contour, and echogenicity. Renal cortical thickness is normal. No renal calculi or hydronephrosis. A benign upper pole 1.3 cm Bosniak class I renal cyst is noted which requires no additional imaging or follow up. No solid renal masses are seen. LEFT KIDNEY: 12.6 x 5.8 x 6.4 cm (SAG x AP x TRV). The kidney is normal in size, contour, and echogenicity. Renal cortical thickness is normal. No renal calculi or hydronephrosis. 2 benign Bosniak class I renal cysts are noted in the mid kidney, the largest measuring 2.4 cm, which require no additional imaging or follow-up. No solid renal masses are seen. ADDITIONAL FINDINGS: A 1.5 cm splenic cyst is present. Hypoattenuating lesions could be seen in the spleen at the time of the prior CT. IMPRESSION: 1. A cause for the patient's hematuria has not been found. 2. Incidental note made of benign Bosniak class I renal cysts which need no additional imaging or follow up. 3. Incidental note made of a 1.5 cm splenic cyst. Assessment & Plan Assessment & Plan (1) Microhematuria: Code(s): R31.29 - Other microscopic hematuria Category: Medical (2) Enlarged prostate: Code(s): N40.0 - Benign prostatic hyperplasia without lower urinary tract symptoms Category: Medical (3) Renal cyst: Code(s): N28.1 - Cyst of kidney, acquired Category: Medical (4) Neurogenic urinary bladder disorder: Code(s): N31.9 - Neuromuscular dysfunction of bladder, unspecified Category: Medical (5) Elevated PSA: Code(s): R97.20 - Elevated prostate specific antigen [PSA] Category: Medical (6) Bladder outlet obstruction: Code(s): N32.0 - Bladder-neck obstruction Category: Medical Plan In office urinalysis results reviewed with the patient and his family today; as noted above; no microscopic hematuria noted PVR 0 mL Recent PSA results reviewed with the patient and his family today. Recent renal ultrasound results reviewed; as noted above Patient's family report Toviaz 8mg to be working well; will continue Continue Finasteride as discussed and prescribed Refills provided as requested. Follow up in one year with imaging and labs to be completed prior; or sooner with any issues, concerns, or questions. Orders: Orders PSA,Total (Free>4and<10) 09/02/24 N40.0 - Benign prostatic hyperplasia without lower urinary tract symptoms, R97.20 - Elevated prostate specific antigen [PSA] AMB Urinalysis Automated 09/03/24 Z13.9 - Encounter for screening, unspecified AMB Post Void Residual by ultrasound 09/03/24 N32.0 - Bladder-neck obstruction US renal BI 1 Year N20.0 - Calculus of kidney Prostate Specific Antigen 09/10/24 N28.1 - Cyst of kidney, acquired, N40.0 - Benign prostatic hyperplasia without lower urinary tract symptoms, R31.29 - Other microscopic hematuria, N32.0 - Bladder-neck obstruction Medications: Refilled fesoterodine ER 8 mg PO DAILY 30 tabs 3RF 30 days N31.9 - Neuromuscular dysfunction of bladder, unspecified, N40.0 - Benign prostatic hyperplasia without lower urinary tract symptoms finasteride 5 mg PO DAILY 90 tabs 3RF 90 days N32.0 - Bladder-neck obstruction, N40.1 - Benign prostatic hyperplasia with lower urinary tract symptoms, N13.8 - Other obstructive and reflux uropathy, R33.9 - Retention of urine, unspecified Patient Instructions: The patient had an opportunity to ask questions regarding the treatment plan. All questions were answered. Physical exam, labs, and imaging were discussed and reviewed in detail. As well as risks, benefits, and discussion of treatment choices. No major barriers to understanding were identified. The patient expressed understanding and agreement with the above treatment plan. The patient was made aware they should contact our office by phone for worsening of their current condition, the appearance of new symptoms, or with any questions or concerns. Compliance is encouraged with any medications and follow up testing that is ordered. It is a privilege to be allowed the opportunity to participate in? your urological care.? Again, if you have any questions or concerns If you have any questions or concerns please do not hesitate to contact me. The office is [phone]. This note is constructed using voice recognition software. While every effort has been made to ensure accuracy residential sales errors may have been included. Yours sincerely, DEJUAN Dexter Coding Level of Care Code Est Pt Level 3 (45881) Complex EM visit Add On G2211 Diagnoses Microhematuria R31.29 Enlarged prostate N40.0 Renal cyst N28.1 Neurogenic urinary bladder disorder N31.9 Elevated PSA R97.20 Bladder outlet obstruction N32.0 CPT Codes Post Residual Void - PVR CPT Code: 46127-Rxgu Void Residual by ultrasound ([id number])
== END 2024-09-03 15:13 | disposition home or self-care (01) ==
LOC: HO.HUSH 14:34
PROVIDERS: PCP Family Medicine; Visit Provider Nurse Practitioner Family
DX: R31.29 Other microscopic hematuria (principal); N40.0 Benign prostatic hyperplasia without lower urinary tract symptoms; N28.1 Cyst of kidney, acquired; N31.9 Neuromuscular dysfunction of bladder, unspecified; R97.20 Elevated prostate specific antigen [PSA]; N32.0 Bladder-neck obstruction
CPT/HCPCS: 99213; G2211

== ENCOUNTER → 2024-09-03 14:33 | Outpatient (BNVA) | payer MEDICARE, MEDICAID, SELFPAY | PROVIDERS: PCP Family Medicine; Visit Provider Nurse Practitioner Family | DX: N40.1 Benign prostatic hyperplasia with lower urinary tract symptoms (principal); N31.9 Neuromuscular dysfunction of bladder, unspecified; N28.1 Cyst of kidney, acquired; R31.29 Other microscopic hematuria; N32.0 Bladder-neck obstruction; N13.8 Other obstructive and reflux uropathy; R33.8 Other retention of urine; R97.20 Elevated prostate specific antigen [PSA] | CPT/HCPCS: 51798; 81003; 99212 ==

== ENCOUNTER 2024-09-10 11:15 | Outpatient (REF) | payer MEDICARE, MEDICAID, SELFPAY ==
[2024-09-10 14:24] LABS: MANUAL DIFF FLAG NO
[2024-09-10 14:29] LABS: Basophils Percent Auto 0.6 % (0-2); Eosinophils Absolute Auto 0.1 X10*3/uL (0.0-0.4); Eosinophils Percent Auto 1.7 % (0-4); Hematocrit 39.4 % (42.0-52.0); Hemoglobin 13.7 g/dl (14.0-18.0); Imm Gran Abs Auto 0.02 X10*3/uL (0.00-0.03); Imm Gran Pct Auto 0.4 % (0.0-0.4); Lymphocytes Percent Auto 20.2 % (20-40); Mean Corpuscular HGB Conc 34.8 g/dl (31.0-36.0); Mean Corpuscular Hemoglobin 31.4 pg (27.0-33.0); Mean Corpuscular Volume 90.2 fL (80.0-98.0); Mean Platelet Volume 11.2 fL (9.4-12.4); Monocytes Absolute Auto 0.7 X10*3/uL (0.1-1.2); Monocytes Percent Auto 13.4 % (2-11); Neutrophils Absolute Auto 3.1 x10*3/uL (2.0-8.3); Neutrophils Percent Auto 63.7 % (45-73); Platelet Count 172 X10*3/uL (160-400); Red Blood Count 4.37 X10*6/uL (4.60-5.80); Red Cell Distribution Width 12.6 % (11.0-16.0); White Blood Count 4.8 X10*3/uL (4.8-10.8)
[2024-09-10 14:52] LABS: Alanine Aminotransferase 15 U/L (0-40); Albumin Level 4.4 g/dL (3.5-5.0); Alkaline Phosphatase 87 U/L (39-117); Anion Gap 12 (12-20); Aspartate Amino Transferase 26 U/L (5-37); Bilirubin Total 0.6 mg/dL (0.0-1.0); Blood Urea Nitrogen 14 mg/dL (9-16); Calcium 10.5 mg/dL (8.4-10.2); Carbon Dioxide 27 mmol/L (22-29); Chloride 104 mmol/L (96-108); Cholesterol 213 mg/dL (<200); Estimated Glomerular Filt Rate > 60; Glucose Random 92 mg/dL (60-115); HDL Cholesterol 46 mg/dL (>40); LDL Cholesterol Calculated 141 mg/dL (<100); Potassium 3.8 mmol/L (3.3-5.1); Sodium 139 mmol/L (135-145); Total Protein 7.9 g/dL (6.5-8.0); Triglycerides 133 mg/dL (<150)
[2024-09-10 15:06] LABS: Prostate Specific Antigen 2.31 ng/mL (<0.05-4.0)
== END 2024-09-10 11:16 | disposition home or self-care (01) ==
LOC: HO.CHCLDS 11:15
PROVIDERS: PCP Family Medicine; Referring Provider Nurse Practitioner Family; Visit Provider Family Medicine
DX: E78.5 Hyperlipidemia, unspecified (principal); N28.1 Cyst of kidney, acquired; N40.0 Benign prostatic hyperplasia without lower urinary tract symptoms; R31.29 Other microscopic hematuria; N32.0 Bladder-neck obstruction; Z12.5 Encounter for screening for malignant neoplasm of prostate
CPT/HCPCS: 36415; 80053; 80061; 84153; 85025

== ENCOUNTER 2024-11-20 11:18 | Outpatient (AMB) | payer MEDICARE, MEDICAID, SELFPAY ==
--- NOTE | 2024-11-20 11:27 | A.OFFVIS_ITS ---
Vital Signs 11/20/24 11:31 Height 5 ft 11 in Weight 212 lb BMI 29.6 BP 107/57 L Blood Pressure Location Lt brachial Position Sitting Pulse 70 Intake Visit Reasons: 4 month follow up Intake Note: Patient 4 month follow up for Anemia with low platelet count. Patient cc: constipation and abdominal discomfort. Denies any other GI issues for today. Head Chef Required: No Accompanied by: Family/Other Allergies No Known Allergies [No Known Allergies*] Allergy (Verified 11/20/24 11:26) Medication List - Last Reconciled 11/20/24 by Leonor Salgado MD albuterol sulfate 90 mcg/actuation 1 inh inhalation Q4H PRN benztropine 0.5 mg PO BID budesonide 0.5 mg inhalation DAILY cholecalciferol (vitamin D3) 50 mcg PO DAILY clonidine HCl 0.3 mg PO BEDTIME clonidine HCl 0.1 mg PO BID@0800,1600 cyclobenzaprine 5 mg PO TID PRN difluprednate 0.05% 1 drp ophthalmic (eye) DAILY ferrous gluconate 324 mg PO Q OTHER DAY fesoterodine ER 8 mg PO DAILY 30 days finasteride 5 mg PO DAILY 90 days fluticasone propionate 50 mcg/actuation 2 sprays intranasal Q OTHER DAY haloperidol 2 mg PO BEDTIME haloperidol 1 mg PO BEDTIME ipratropium bromide 1 spray intranasal DAILY lithium carbonate 150 mg PO BID lithium carbonate 300 mg PO BID loperamide (Imodium A-D) 2 mg PO Q8H PRN 3 weeks lorazepam 0.5 mg PO TID PRN lorazepam 1 mg PO BEDTIME mesalamine (Lialda) 2.4 grams (2 x 1.2 gram) PO DAILY 8 weeks moxifloxacin 0.5% 1 drp ophthalmic (eye) DAILY olanzapine 20 mg PO BEDTIME olanzapine 5 mg PO QAM omeprazole 20 mg PO DAILY oxcarbazepine 300 mg PO BID@0800,1600 oxcarbazepine 150 mg PO BID@0800,1600 polyethylene glycol 3350 (Miralax) 17 grams PO DAILY 60 days quetiapine 100 mg PO QAM quetiapine (Seroquel) 300 mg PO BEDTIME risperidone 3 mg PO BEDTIME sennosides-docusate sodium 8.6-50 mg (Senna with Docusate Sodium) 2 tab-caps (2 x 8.6-50 mg) PO BEDTIME 60 days sertraline 50 mg PO DAILY simethicone (Gas Relief (simethicone)) 125 mg PO BID-QID PRN 60 days trazodone 200 mg PO BEDTIME zolpidem 5 mg PO BEDTIME HPI HPI 4 month follow up: Details: GI clinic visit for this 43-year-old male with developmental delay seen for worsening diarrhea. Pt had a colonoscopy in 05/2021 which was complicated by self limited post- polypectomy bleeding. TODAY'S VISIT: Patient cc: constipation and abdominal discomfort. Pt is accompanied by his Mom, and niece. Niece interpreted for the patient. Appetite is good and has gained weight Having constipation with 2 BMs in 3 days - stool are super hard with straining Mom notes some blood on the toilet paper. Has been eating well Having normal BMs daily, Sometimes he can have 3 BMs in a day without diarrhea Can have the urge to go and pass some gas. Has 3 meals a day - eats a lot of rice. Taking Lactaid milk PAST VISITS: Abd US results were reviewed Had an episode of diarrhea lasting all day last Sunday Senna does not seem to work. Patient cc: gassy, constipation on and off, denies any other GI issues. Pt has been eating. Mom notes constipation - has a small BM every 2-3 days with straining and pushing Loperamide has been held Colonoscopy results reviewed Can have a BM daily or every other day without diarrhea. Appetite is good Abd US results reviewed. Pt is acompanied by his Mom and brother in law (who interpreted for the patient) Diarrhea has improved - BMs vary between 1-2 times a day with solid stools CT scan results reviewed. Pt is accompanied by his Mom and sister (sister interpreted for his Mom) Diarrhea is better - having 3-4 BMs a day. When he finishes eating - 1st BM is solid. 2nd and 3rd BMs can be loose.Has diarrhea 3 days a week - every 1-2 days.Mom is giving the imodium every day.Gives more imodium on the days that he has diarrhea. Last week he had 2 episodes of diarrhea that lasted all day. Has diarrhea one day and gets imodium and then no BM the following day. Does not want to eat when he has diarrhea. Diet is limited - no baked or greasy food. Using Lactaid milk. Diarrhea is a little better Expresses abdominal pain after he has breakfast. Has to run to the bathroom after eating No nausea or vomiting. IMAGING STUDIES:?01/04/23 ABD US WITH ELASTOGRAPHY SHOWED: 1. There is hepatomegaly.? 2. Liver elastography:? Measurements are suggestive of compensated advanced chronic liver disease but need further test for confirmation.?3. A 1.7 cm benign, simple right renal cyst is seen, for which no imaging follow-up is recommended. 11/01/[address] SCAN SHOWED: 1.? No acute intra-abdominal process seen. 2.? Bilateral renal cysts. No radiopaque renal calculi orhydronephrosis. 3.? Mild hepatic steatosis without focal lesion. 4.? Prominent perisplenic and peripancreatic collateral vesselssuggestive of portal hypertension. 04/24/[address] SCAN SHOWED:The bowel pattern is within normal limits. There is no free fluid.? There is no free air.Mild periportal edema in the liver of uncertain etiology.Prominent prostate. Mild patchy left basilar opacities new from previous ENDOSCOPIC STUDIES: 08/27/23 COLONOSCOPY SHOWED: Recurrent cecal polyp ablated with hybrid APC treatment Moderate diverticulosis seen in the left colon Moderate hemorrhoids on retroflexed exam. Plan: Repeat Colonoscopy interval based on path results - in 12 months if polyps are adenomatous. BIOPSIES SHOWED: Cecum, polypectomy: Colonic mucosa with mild surface hyperplastic changes and small lymphoid aggregate; multiple additional levels examined 05/26/22 COLONOSCOPY SHOWED:One medium sized polyp removed.Random biopsies were obtained from the right and left colon to check for microscopic colitis Moderate diverticulosis seen in the left colon Moderate hemorrhoids on retroflexed exam. Plan:? Repeat Colonoscopy interval based on path results - in 3 years if polyps are adenomatous and 5 years if polyps are hyperplastic. BIOPSIES SHOWED: A.? Cecum, previous polypectomy site, polypectomy:? Colonic mucosa with focal low-grade adenomatous dysplasia; no high-grade dysplasia or carcinoma identified. B.? Colon, random right, biopsy:? Focally active colitis; negative for microscopic colitis. C.? Colon, random left, biopsy:? Colonic mucosa within normal limits; negative for microscopic colitis. 04/22/21 ? PATIENT HAD AN UPPER ENDOSCOPY AND COLONOSCOPY:Endoscopy Findings:STOMACH: Moderate diffuse gastric erythema with submucosal hemorrhages in the gastric body. Biopsies were obtained from the antrum body of the stomach. Antral biopsies were sent to an outside lab for culture and sensitivities for Helicobacter pylori. DUODENUM:? Normal - biopsied to check for celiac sprue due to symptoms of postprandial diarrhea. Colonoscopy Findings:? One large sized polyp removed Random biopsies were obtained from the colon to check for microscopic colitis. Normal appearing end-to-end anastomosis at 20 cm Moderate hemorrhoids on retroflexed exam. Plan: Repeat Colonoscopy interval based on path results - in 1 year if polyps are adenomatous and due to fair prep. Above findings were reviewed with the patient and colon polyps and Helicobacter pylori handouts were given in the discharge area BIOPSY SHOWED: A.? Stomach, antrum, biopsy: - Antral-type mucosa with severe chronic, focally active, inflammation. - Positive for H pylori.B.? Duodenum, biopsy:? Small intestinal mucosa within normal limits.C.? Stomach, body, biopsy: - Oxyntic mucosa with moderate chronic, focally active, inflammation.? - Positive for H pylori.D.? Cecum, polypectomy:? Tubular adenoma; no high grade dysplasia or carcinoma seen.E.? Colon, random, biopsy:? Colonic mucosa within normal limits. COMMENT: Diagnostic features of celiac disease or microscopic colitis are not seen [facility] Medical History Post-polypectomy bleeding Anemia GERD (gastroesophageal reflux disease) Vitamin D deficiency UTI (urinary tract infection) Chronic Helicobacter pylori gastritis Cognitive developmental delay Asthma Personal history of colon cancer IBS (irritable colon syndrome) Diarrhea Surgical History Hx of excision of mass History of esophagogastroduodenoscopy (EGD) (07/01/15) Hx of laparoscopy (03/11/15) Hx of colonoscopy (02/10/15) History of incision and drainage (01/29/14) Family History Father No problems noted. Mother Family history of cancer of vagina Colon polyps Maternal Grandmother Family history of cancer of vagina Cancer Paternal Uncle Bone cancer Paternal Aunt Cancer Maternal Uncle Stomach cancer Brother No problems noted. Social History Household Members: Family Household Members Other:: mother Both parents involved: No Housing: House Do you presently have visiting nurse or other home services: Yes (sister is telecommunications engineer) Unable to assess alcohol history related to: Unable to respond Alcohol intake: current Alcohol intake frequency: does not drink Comment: HURT LEFT KNEE SUNDAY Patient Tobacco Use Status: Never used Tobacco service: No Current occupational status: disabled Review of Systems Const All systems reviewed & are unremarkable except as noted in HPI and below Physical Exam Vital Signs: Last Vital Signs Pulse 70 11/20/24 11:31 BP 107/57 L 11/20/24 11:31 BMI result Body Mass Index 29.6 Const General: no acute distress Nutritional Appearance: overweight Orientation/consciousness: Other orientation findings (Developmental delay) Limitations: behavioral limitations and physical limitations HEENT Head: Yes normal to inspection Ears: hearing grossly normal bilaterally Eyes Sclerae: sclerae normal Pupils: Equal, round and reactive pupils present Neck Neck: Yes normal visual inspection Chest Chest palpation & inspection: normal inspection of the chest Resp Effort & Inspection: normal respiratory effort Auscultation: clear to auscultation bilaterally Cardio Palpation: normal PMI Rate: regular rate Rhythm: regular rhythm Heart sounds: S1 normal heart sound present, S2 normal heart sound present and no murmurs GI Palpation (GI): Soft to palpation, nontender and No hepatosplenomegaly present Auscultation: normal bowel sounds Rectal Exam - Male: Yes deferred Skin General skin exam: no rashes or lesions noted Neuro General: gait normal and moves all extremities Cranial nerves: Yes Equal, round and reactive pupils present Psych Appearance: grossly normal Mental Status: other (Developmental delay) Assessment & Plan Assessment & Plan (1) IBS (irritable colon syndrome): Code(s): K58.9 - Irritable bowel syndrome, unspecified Category: Medical (2) Personal history of colon cancer: Code(s): Z85.038 - Personal history of other malignant neoplasm of large intestine Category: Medical (3) Chronic Helicobacter pylori gastritis: Code(s): K29.50 - Unspecified chronic gastritis without bleeding; B96.81 - Helicobacter pylori [H. pylori] as the cause of diseases classified elsewhere Category: Medical (4) Anemia with low platelet count: Code(s): D69.6 - Thrombocytopenia, unspecified Category: Medical (5) History of colon polyps: Code(s): Z86.010 - Personal history of colon polyps Category: Medical (6) GERD (gastroesophageal reflux disease): Code(s): K21.9 - Gastro-esophageal reflux disease without esophagitis Category: Medical (7) Vitamin D deficiency: Code(s): E55.9 - Vitamin D deficiency, unspecified Category: Medical (8) Chronic pancreatitis: Code(s): K86.1 - Other chronic pancreatitis Category: Medical (9) Portal hypertension: Code(s): K76.6 - Portal hypertension Category: Medical (10) Cirrhosis of liver without ascites: Code(s): K74.60 - Unspecified cirrhosis of liver Category: Medical (11) Chronic constipation: Code(s): K59.09 - Other constipation Category: Medical Plan 43 YM non-verbal due to developmental delay with GERD and hx of colon cancer status post resection with chronic diarrhea. Stool studies were negative. 04/22/21 EGD showed gastritis due to H Pylori.? Same day colonoscopy showed normal appearing end to end anastomosis at 20 cms.? A large adenomatous polyp was removed Random biopsies were obtained from the colon to check for microscopic colitis which were normal. Repeat Colonoscopy advised in 1 year due to fair prep. Pt was hospitalized with self limited post polypectomy bleeding? His hemoglobin was monitored and remained stable.? He had no further episodes of bleeding and did not require blood transfusion. 04/2022 FU colonoscopy was performed and findings as noted above Labs and stool studies were ordered. [place] level was checked and (since elevated lithium level can be associated with diarrhea) and was not elevated. To take imodium 2 mg PO Q8H prn for diarrhea 06/15/22 Pt was started on Mesalamine 2.4 grams daily and pt's Mom reports partial improvement in diarrhea. 10/05/22 Dose of mesalamine was increased to 3.6 grams daily Mom was advised to stop giving iron for 2 weeks to see if abdominal pain and diarrhea gets better. 12/15/[address] scan showed portal hypertension - Hepatitis serologies and for chronic liver disease initiated 08/20 Colonoscopy showed recurrent cecal polyp which was ablated with hybrid APC treatmen. Follow-up colonoscopy was advised in 18 months 09/13/23 Can have a BM daily or every other day without diarrhea. Appetite is good 01/31/24 Pt has been eating. Mom notes constipation - has a small BM every 2-3 days with straining and pushing Pt's Mom was advised to: 1. Discontinue Zenpep 2. Decrease Mesalamine (Lialda) to 2 pills every day instead of 3 3. Senna 2 capsules at bedtime for constipation 03/06/24 Had an episode of diarrhea lasting all day last Sunday Senna does not seem to work. Pt's Mom was advised to start Miralax once a day (decrease to every other day if he has diarrhea) 07/17/24 Has been eating well Having normal BMs daily, Sometimes he can have 3 BMs in a day without diarrhea Can have the urge to go and pass some gas - prescribed simethicone for gas Has 3 meals a day - eats a lot of rice. Taking Lactaid milk 11/20/24 Having constipation with 2 BMs in 3 days - stool are super hard with straining Mom notes some blood on the toilet paper. Advised to schedule an EGD (FU of H Pylori) and Colon (FU of colon polyps and colon cancer) Advised to start linaclotide 145 mcg daily. To call back in a week if he continues to have constipation FU in 6 months - scheduled 05/21/25 Medications: New linaclotide (Linzess) 145 mcg PO QAM 30 days 30 caps 3RF K59.09 - Other constipation bisacodyl (Dulcolax (bisacodyl)) Take 2 tablets at 12 pm starting 3 days before colonoscopy 10 mg (2 x 5 mg) PO ONCE 3 days 6 tabs 0RF colon prep polyethylene glycol 3350 (Miralax) Mix Miralax with 64 oz(8 cups) of Crystal light. Take 2 tablets of Dulcolax qt 12 pm. Wait to have your 1st bowel movement, then begin drinking Miralax. Drink a glass of Miralax every 10-15 minutes until you are finished. You will drink at least another 4 cups of clear liquid of your choice over the next 2 hours. Please drink as many clear liquids as possible You may have clear liquids up to four hours before your procedure 17 grams PO DAILY 1 day 238 grams 0RF Discontinued polyethylene glycol 3350 (Miralax) Discontinued Reason: Ancillary Entered New Order 17 grams PO DAILY 60 days 1,020 grams 3RF K59.09 - Other constipation sennosides-docusate sodium 8.6-50 mg (Senna with Docusate Sodium) Please take every other day at bedtime Discontinued Reason: Ancillary Entered New Order 2 tab-caps (2 x 8.6-50 mg) PO BEDTIME 60 days 120 tabs 2RF K59.09 - Other constipation Coding Level of Care Code Est Pt Level 4 (54594) Diagnoses IBS (irritable colon syndrome) K58.9 Personal history of colon cancer Z85.038 Chronic Helicobacter pylori gastritis K29.50; B96.81 Anemia with low platelet count D69.6 History of colon polyps Z86.010 GERD (gastroesophageal reflux disease) K21.9 Vitamin D deficiency E55.9 Chronic pancreatitis K86.1 Portal hypertension K76.6 Cirrhosis of liver without ascites K74.60 Chronic constipation K59.09 Time Spent (min) 23
[2024-11-20 11:31] VITALS: BP 107/57; PULSE 70; BMI 29.6
== END 2024-11-20 11:59 | disposition home or self-care (01) ==
PROVIDERS: PCP Family Medicine; Visit Provider Internal Medicine Gastroenterology
DX: K58.9 Irritable bowel syndrome, unspecified (principal); Z85.038 Personal history of other malignant neoplasm of large intestine; K29.50 Unspecified chronic gastritis without bleeding; B96.81 Helicobacter pylori [H. pylori] as the cause of diseases classified elsewhere; D69.6 Thrombocytopenia, unspecified; Z86.0100 Personal history of colon polyps, unspecified; K21.9 Gastro-esophageal reflux disease without esophagitis; E55.9 Vitamin D deficiency, unspecified; K86.1 Other chronic pancreatitis; K76.6 Portal hypertension; K74.60 Unspecified cirrhosis of liver; K59.09 Other constipation
CPT/HCPCS: 99214

== ENCOUNTER → 2024-11-20 11:18 | Outpatient (BNVA) | payer MEDICARE, MEDICAID, SELFPAY | PROVIDERS: PCP Family Medicine; Visit Provider Internal Medicine Gastroenterology | DX: D69.6 Thrombocytopenia, unspecified (principal); K59.09 Other constipation; K58.9 Irritable bowel syndrome, unspecified; K29.50 Unspecified chronic gastritis without bleeding; B96.81 Helicobacter pylori [H. pylori] as the cause of diseases classified elsewhere; K21.9 Gastro-esophageal reflux disease without esophagitis; K86.1 Other chronic pancreatitis; K76.6 Portal hypertension; K74.60 Unspecified cirrhosis of liver; E55.9 Vitamin D deficiency, unspecified; Z85.038 Personal history of other malignant neoplasm of large intestine; Z86.0100 Personal history of colon polyps, unspecified | CPT/HCPCS: 99212 ==

== ENCOUNTER 2025-04-15 11:37 | Outpatient (REF) | payer MEDICARE, MEDICAID, SELFPAY ==
[2025-04-15 11:51] LABS: Appearance Urine Clear; Color Urine Yellow; Glucose Urine UA Negative (Negative); Leukocyte Esterase Urine Negative (Negative); Nitrite Urine Negative (Negative); UMIC TRIGGER UACC YES; Urine Blood Trace (Negative); Urine Ketones Negative (Negative); Urine Protein Negative (Neg-Trace)
[2025-04-15 11:55] LABS: Bacteria Urine None Seen (None Seen); Hyaline Casts Urine 0-2 /LPF (0-2); RBC Urine 0-2 /HPF (0-2); Squamous Epithelial Cell Urine 0-2 /HPF (0-2); WBC Urine 0-5 /HPF (0-5)
--- OUTSIDE RECORDS SUMMARY | 2025-04-15 13:38 | XMS_ITS | Clinical Summary ---
Author Organization [employer] Address [address] [place] [address] [address] [place] [address] Care Team Providers Care Automation Technician Name Role Phone Rachelle Gaytan MD Primary Care Provider [phone] Allergies No known active allergies Medications traZODone (Desyrel) 100 MG tablet take 1 tablet by oral route every bedtime Active finasteride (Proscar) 5 MG tablet Take 5 mg by mouth in the morning. 2 Active OLANZapine (ZyPREXA) 20 MG tablet Take 1 tablet by mouth at bedtime. 2 Active OXcarbazepine (Trileptal) 300 MG tablet Take 300 mg by mouth 2 times daily. Active pantoprazole (ProtoNix) 40 MG EC tablet Take 1 tablet (40 mg) by mouth before breakfast. 90 tablet 1 3 Active pancrelipase, Icm-Akrz-Zqyp, (Zenpep) 30573-41266 units capsule delayed-release particles capsule Take 1 capsule by mouth every 8 (eight) hours. 270 capsule 1 3 Active Multiple Vitamins-Minera ls (Centrum Adults) tablet Take 1 tablet by mouth in the morning. 90 tablet 1 3 Active loperamide (Imodium) 2 MG capsule Take 1 capsule (2 mg) by mouth if needed in the morning, at noon, in the evening, and at bedtime for diarrhea. 90 capsule 3 Active cholecalciferol (Vitamin D-3) 50 MCG (2000 UT) tablet Take 2,000 Units by mouth in the morning. 90 tablet 1 3 Active cetirizine (ZyrTEC) 10 MG chewable tablet Chew 1 tablet (10 mg) in the morning. 90 tablet 1 3 Active budesonide (Pulmicort) 0.5 MG/2ML nebulizer solution Take 2 mL (0.5 mg) by nebulization in the morning and at bedtime. 60 mL 11 3 Active difluprednate (Durezol) 0.05 % ophthalmic solution SHAKE WELL AND INSTILL 1 DROP INTO LEFT EYE TWICE DAILY DIRECTED 3 Active fesoterodine ER (Toviaz) 8 MG 24 hr tablet Take 8 mg by mouth in the morning. 3 Active risperiDONE (RisperDAL) 3 MG tablet TAKE 1 TABLET BY MOUTH TWICE DAILY AT NOON AND AT NIGHT 3 Active albuterol (2.5 MG/3ML) 0.083% nebulizer solutionIndicat ions:Upper respiratory tract infection, unspecified type Take 3 mL by nebulization every 6 (six) hours if needed for wheezing. 75 mL 11 4 Active albuterol 108 (90 Base) MCG/ACT inhaler Inhale 2 puffs every 4 (four) hours if needed for wheezing. 18 g 11 4 Active ibuprofen 600 MG tablet Take 1 tablet (600 mg) by mouth 3 times daily. 90 tablet 4 Active cloNIDine (Catapres) 0.1 MG tablet TAKE 1 TABLET BY MOUTH DAILY AT 4 PM 4 Active cloNIDine (Catapres) 0.2 MG tablet TAKE 1 TABLET BY MOUTH DAILY AT NOON 4 Active LORazepam (Ativan) 1 MG tablet TAKE 1 TABLET BY MOUTH TWICE DAILY IN THE AFTERNOON AND AT BEDTIME 4 Active OLANZapine (ZyPREXA) 10 MG tablet TAKE 1 TABLET BY MOUTH EVERY DAY AT 4PM 4 Active zolpidem (Ambien) 10 MG tablet Take 10 mg by mouth at bedtime. 4 Active sertraline (Zoloft) 50 MG tablet Take 50 mg by mouth in the morning. 4 Active hydrOXYzine HCl (Atarax) 50 MG tablet 4 Active benztropine (Cogentin) 1 MG tablet 4 Active Active Problems Problem Noted Date Diagnosed Date Autism spectrum disorder 09/05/2024 Upper respiratory tract infection 06/19/2024 Assessment & Plan (06/19/2024 6:51 PM EDT): Relevant orders: -Albuterol (2.5 MG/3ML) 0.083% nebulizer solution -Albuterol 108 (90 Base) MCG/ACT inhaler -Amoxicillin-clavulanate (Augmentin) 875-125 MG tablet -Guaifenesin-dextromethorphan (Robitussin DM) 100-10 MG/5ML syrup -Ibuprofen 600 MG tablet -Prednisone (Deltasone) 20 MG tablet Benign prostatic hyperplasia with urinary freque ncy 10/26/2023 Preop examination 10/26/2023 Assessment & Plan (10/26/2023 9:59 AM EST): Patient was seen for pre-operative evaluation for oral rehab under general anesthesia. 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 No latex allergy. No family hx of MH. No recent respiratory infections. There is no indication for antibiotic prophylaxis. Patient is not on any anticoagulant or antiplatelets. Family denies any reported history of antiresorptive or antiangiogenic treatments. This patient has no reported history of head/neck radiation therapy. Patient may proceed with intended procedure. Anemia 10/11/2023 Assessment & Plan (10/11/2023 3:15 PM EST): Patient will be sent for labs. Vitamin D deficiency 10/11/2023 Assessment & Plan (10/11/2023 3:16 PM EST): Labs: Vit. D Medication monitoring encounter 10/17/2022 Assessment & Plan (10/17/2022 5:03 PM EST): Reviewed labs and IZ pending. IZ pending, 4th dose of COVID, will send hep B level to assess if he is vaccinated. Reviewed diet and exercise with mother. Will send labs. Unable to do PHQ-9 as patient is not verbal follows with psych. Need for hepatitis B booster vaccination 022 Malignant tumor of colon 03/29/2015 Dyslipidemia 08/25/2013 Allergic rhinitis 07/09/2013 Asthma 07/09/2013 Intellectual disability 1979 Assessment & Plan (09/08/2024 7:31 PM EST): Presented for annual wellness visit. Care Gaps and Care Teams reviewed. Patient Care Team: Rachelle Gaytan MD as PCP - General (Family Medicine) Leonor Salgado MD (Gastroenterology) Latoya MILLAN- as Nurse Practitioner (Urology) [employer], [facility]. (Psychiatry) Reviewed diet and exercise with mother. Will send labs. Unable to do PHQ-9 as patient is not verbal follows with psych. Immunizations Immunization Administration Dates Next Due Hep A, Adult 08/10/2010,07/13/2010 Hep B, adult 11/17/2022,08/10/2010,07/13/2010 Influenza injectable quadriv alent IIV4 with preservative 07/14/2019,07/18/2018,09/10/2017,12/20 Influenza injectable quadriv alent preservative free 10/11/2023,07/07/2022,08/11/2021,08/11 Influenza, IIV3, injectable 07/13/2011 Influenza, Split (incl. nick fied surface antigen) 07/09/2013,07/29/2012 Influenza, seasonal, injecta ble, preservative free 09/05/2024 Moderna Covid-19 Vaccine 12+ 09/08/2021,02/11/20 21,01/13/2021 Pneumococcal Conjugate PCV 20 09/05/2024 Pneumococcal Polysaccharide PPSV23 07/13/2010 TD (adult), 2 Lf tetanus tox oid, preservative free, adsorbed 11/06/2003 Tdap 01/21/2020,08/10/2010 Family History Medical History Relation Name Comments Prediabetes Mother Depression Sister Obesity Sister Relation Name Status Comments Mother Sister Social History Tobacco Use Types Packs/Day Years Used Date Smoking Tobacco: Never Passive Smoke Exposure: Never Smokeless Tobacco: Never Tobacco Cessation:Counseling Given: Not Answered Alcohol Use Standard Drinks/Week Comments Never 0 (1 standard drink = 0.6 oz pur e alcohol) Alcohol Answer Date Recorded Frequency of Alcohol Consumption Not on file 09/05/2024 Average Number of Drinks Not on file 11/08/2 024 Frequency of Binge Drinking Not on file 05/2024 Score 0 09/05/2024 Sex and Gender Information Value Date Recorded Sex Assigned at Male 08/28/2022 10:16 AM EDT Legal Sex Male 10:16 AM EDT Gender Identity Male 08/28/2022 10:16 AM EDT Sexual Orientation Choose not to disclose 2021 10:16 AM EDT Last Filed Vital Signs Vital Sign Reading Time Taken Comments Blood Pressure 116/64 09/05/2024 9:29 AM EST Pulse 64 09/05/2024 9:29 AM EST Temperature 36.8 C (98.2 F) 09/05/2024 9:29 AM EST Respiratory Rate 20 09/05/2024 9:29 AM EST Oxygen Saturation 98% 09/05/2024 9:29 AM EST Inhaled Oxygen Concentration - - Weight 96.2 kg (212 lb) 09/05/2024 9:29 AM EST Height 180.3 cm (5' 11 ) 09/05/2024 9:29 AM EST Body Mass Index 29.57 09/05/2024 9:29 AM EST Plan of Treatment Health Maintenance Due Date Last Done Comments CT Colonography 1979 Colonoscopy 1979 Colorectal Cancer Screening 1979 FIT DNA/Cologuard 1979 FIT 1979 FOBT 1979 HIV Screening 1979 SDOH Screening 1979 Sigmoidoscopy 1979 Disability Screening 1979 Family Planning (PISQ) 1994 COVID-19 Vaccine ( season) 2024 10/25/2022, 09/08/2021, 02/10/2021, Additional history exists Tobacco Screening 06/19/2025 06/19/2024 Alcohol/Substance Use Screening 09/05/2025 09/05/2024 Depression Screening 09/05/2025 Postpon ed from 1979 (Other System Reasons) Lipid Panel 09/10/2029 09/10/2024, 09/29, 04/20/2023, Additional history exists Zoster Vaccines (1 of 2) 2029 DTaP/Tdap/Td Vaccines (3 - Td or Tdap) 01/20/2030 01/21/2020, 08/10/2010, 11/06/2003 RSV Patients and Patients Aged 60 years or older (1 - 1-dose 75+ series) 2054 Hepatitis A Vaccines Aged Out 08/10/2010, 07/13/20 10 No longer eligible based on patient's age to complete this topic Hepatitis B Vaccines Completed 11/17/2022, 08/10/2010, 07/13/2010 Hepatitis C Screening Completed 04/20/2023 Influenza Vaccine Completed 09/05/2024, , 07/07/2022, Additional history exists Pneumococcal Vaccine: Pediatrics (0 to 5 Years) and At-Risk Patients (6 to 49) Years Completed 09/05/2024, 07/13/2010 HIB Vaccines Aged Out No longer eligi ble based on patient's age to complete this topic HPV Vaccines Aged Out No longer eligi ble based on patient's age to complete this topic IPV Vaccines Aged Out No longer eligi ble based on patient's age to complete this topic Meningococcal B Vaccine Aged Out No l onger eligible based on patient's age to complete this topic Meningococcal Vaccine Aged Out No javier kasia eligible based on patient's age to complete this topic RSV under 20 months Aged Out No longe r eligible based on patient's age to complete this topic Rotavirus Vaccines Aged Out No longer eligible based on patient's age to complete this topic Procedures Procedure Name Priority Date/Time Associated Diagnosis Comments LIPID PANEL, STANDARD Routine 09/10/2024 11:17 AM EST Dyslipidemia HEPATITIS PANEL, GENERAL Routine 04/20/2023 8:57 AM EDT from Last 3 Months or Most Recently Relevant to Health Maintenance Results * (ABNORMAL) Lipid Panel, Standard (09/10/2024 11:17 AM EST) Triglycerides 133 <150 mg/dL [facility] Comment:Desirable Triglyceri de: less than 150 mg/dLBorderline High Triglyceride 150-199 mg/dLHigh Triglyceride: 200-499 mg/dLVery High Triglyceride: greater than or equal to 5OO mg/dL Cholesterol 213(H) <200 mg/dL [facility] Comment:Desirable Cholestero l: less than 200 mg/dLBorderline High Cholesterol: 200-239 mg/dLHigh Cholesterol: greater than 239 mg/dL LDL Cholesterol Calculated 141(H) <100 mg/dL [facility] Comment:Desirable LDL: less than 100 mg/dLNear Optimal/Above Optimal LDL: 110- 129 mg/dLBorderline High LDL: 130-159 mg/dLHigh LDL: 160-189 mg/dLVery High LDL: greater than or equal to 190 mg/dL HDL Cholesterol 46 >40 mg/dL [facility] Comment:Desirable HDL: great er than 40 mg/dL Note: This HDL assay may give artificially low results in patients with liver disease. Blood Venous blood specimen / Unknown 09/10/2024 11:17 AM EST 09/10/2024 2:19 PM EST Rachelle Gaytan MD LAB BLOOD ORDERABLES Final Re sult Performing Organization Address [facility] de Phone Number [facility] [address] [place] [phone] Hepatitis Panel, General (04/20/2023 8:57 AM EDT) Hepatitis A IgM Nonreactive Nonreactive [facility] Comment:IgM antibodies to [place] V not detected; does not exclude earlyacute or recovered HAV infection. ~Hepatitis B Surface Antibody REACTIVE Nonreactive [facility] Comment:REACTIVE: > 11.99 mI U/mL Hepatitis B Core Antibody Nonreactive Nonreactive [facility] Hepatitis C Antibody Nonreactive Nonreactive [facility] Comment:Antibodies to HCV no t detected; does not exclude early acuteHCV infection. Hepatitis B Surface Ag Negative Negative [facility] 04/20/2023 8:57 AM EDT 04/20/2023 8:57 AM EDT [facility] External Provider LAB BLO OD ORDERABLES Final Result Performing Organization Address [facility] Co de Phone Number [facility] [address] [place] [phone] from Last 3 Months or Most Recently Relevant to Health Maintenance Insurance STANDARD [place] [id number] Care Teams Automation Technician Relationship Specialty Start Date End Date Rachelle Gaytan MD [address] [place] [phone] PCP - General Family Medicine 06/18/20 Leonor Salgado MD Gastroenterology 09/05/24 Latoya MILLAN- Nurse Practitioner Urology 09/05/24 [facility], [facility]. [address] [place] [address] Psychiatry 09/05/24
== END 2025-04-15 11:38 | disposition home or self-care (01) ==
LOC: HO.LNP 11:37
PROVIDERS: Visit Provider Nurse Practitioner Family
DX: N39.0 Urinary tract infection, site not specified (principal)
CPT/HCPCS: 81001

== ENCOUNTER 2025-05-21 10:26 | Outpatient (AMB) | payer MEDICARE, MEDICAID, SELFPAY ==
--- NOTE | 2025-05-21 10:28 | MHC.OFFVIS ---
Vital Signs 05/21/25 10:34 Height 5 ft 11 in Weight 212 lb BMI 29.6 BP 104/62 Blood Pressure Location Lt brachial Position Sitting Pulse 80 Pulse Oximetry (%) 98 Oxygen Delivery Method Room Air Intake Visit Reasons: 6 f/u Intake Note: Patient new consult for GERD. Patient cc: constipation with bloody hemorrhoids, denies any other GI issues. Chaser Helper Required: Yes Accompanied by: Self / Same As Patient Allergies No Known Allergies (No Known Allergies*) Allergy (Verified 11/20/24 11:26) Medication List - Last Reconciled 05/21/25 by Leonor Salgado MD albuterol sulfate 90 mcg/actuation 1 inh inhalation Q4H PRN benztropine 0.5 mg PO BID bisacodyl (Dulcolax (bisacodyl)) 10 mg (2 x 5 mg) PO ONCE 3 days budesonide 0.5 mg inhalation DAILY cholecalciferol (vitamin D3) 50 mcg PO DAILY clonidine HCl 0.3 mg PO BEDTIME clonidine HCl 0.1 mg PO BID@0800,1600 cyclobenzaprine 5 mg PO TID PRN difluprednate 0.05% 1 drp ophthalmic (eye) DAILY ferrous gluconate 324 mg PO Q OTHER DAY finasteride 5 mg PO DAILY 90 days fluticasone propionate 50 mcg/actuation 2 sprays intranasal Q OTHER DAY haloperidol 2 mg PO BEDTIME haloperidol 1 mg PO BEDTIME ipratropium bromide 1 spray intranasal DAILY linaclotide (Linzess) 145 mcg PO QAM 30 days lithium carbonate 150 mg PO BID lithium carbonate 300 mg PO BID loperamide (Imodium A-D) 2 mg PO Q8H PRN 3 weeks lorazepam 0.5 mg PO TID PRN lorazepam 1 mg PO BEDTIME mesalamine (Lialda) 2.4 grams (2 x 1.2 gram) PO DAILY 8 weeks moxifloxacin 0.5% 1 drp ophthalmic (eye) DAILY olanzapine 20 mg PO BEDTIME olanzapine 5 mg PO QAM omeprazole 20 mg PO DAILY oxcarbazepine 300 mg PO BID@0800,1600 oxcarbazepine 150 mg PO BID@0800,1600 polyethylene glycol 3350 (Miralax) 17 grams PO DAILY 1 day quetiapine 100 mg PO QAM quetiapine (Seroquel) 300 mg PO BEDTIME risperidone 3 mg PO BEDTIME sertraline 50 mg PO DAILY simethicone (Gas Relief (simethicone)) 125 mg PO BID-QID PRN 60 days trazodone 200 mg PO BEDTIME vibegron (Gemtesa) 75 mg PO DAILY zolpidem 5 mg PO BEDTIME HPI HPI 6 f/u: Details: GI clinic visit for this 44-year-old male with developmental delay seen for worsening diarrhea. Pt had a colonoscopy in 05/2021 which was complicated by self limited post-polypectomy bleeding. TODAY'S VISIT: Patient cc: constipation with bloody hemorrhoids, denies any other GI Pt is accompanied by his Mom, and sister. Niece interpreted for the patient. Pt is given Lactaid milk and avoiding greasy food. Complains of constipation and has a BM every 2 days with intermittent hard stools associated with straining Appetite is good and has gained weight Having constipation with 2 BMs in 3 days - stool are super hard with straining Mom notes some blood on the toilet paper. Has been eating well Having normal BMs daily, Sometimes he can have 3 BMs in a day without diarrhea Can have the urge to go and pass some gas. Has 3 meals a day - eats a lot of rice. Taking Lactaid milk PAST VISITS: Abd US results were reviewed Had an episode of diarrhea lasting all day last Sunday Senna does not seem to work. Patient cc: gassy, constipation on and off, denies any other GI issues. Pt has been eating. Mom notes constipation - has a small BM every 2-3 days with straining and pushing Loperamide has been held Colonoscopy results reviewed Can have a BM daily or every other day without diarrhea. Appetite is good Abd US results reviewed. Pt is acompanied by his Mom and brother in law (who interpreted for the patient) Diarrhea has improved - BMs vary between 1-2 times a day with solid stools CT scan results reviewed. Pt is accompanied by his Mom and sister (sister interpreted for his Mom) Diarrhea is better - having 3-4 BMs a day. When he finishes eating - 1st BM is solid. 2nd and 3rd BMs can be loose.Has diarrhea 3 days a week - every 1-2 days.Mom is giving the imodium every day.Gives more imodium on the days that he has diarrhea. Last week he had 2 episodes of diarrhea that lasted all day. Has diarrhea one day and gets imodium and then no BM the following day. Does not want to eat when he has diarrhea. Diet is limited - no baked or greasy food. Using Lactaid milk. Diarrhea is a little better Expresses abdominal pain after he has breakfast. Has to run to the bathroom after eating No nausea or vomiting. IMAGING STUDIES:?01/04/23 ABD US WITH ELASTOGRAPHY SHOWED: 1. There is hepatomegaly.? 2. Liver elastography:? Measurements are suggestive of compensated advanced chronic liver disease but need further test for confirmation.?3. A 1.7 cm benign, simple right renal cyst is seen, for which no imaging follow-up is recommended. 11/01/[address] SCAN SHOWED: 1.? No acute intra-abdominal process seen. 2.? Bilateral renal cysts. No radiopaque renal calculi orhydronephrosis. 3.? Mild hepatic steatosis without focal lesion. 4.? Prominent perisplenic and peripancreatic collateral vesselssuggestive of portal hypertension. 04/24/[address] SCAN SHOWED:The bowel pattern is within normal limits. There is no free fluid.? There is no free air.Mild periportal edema in the liver of uncertain etiology.Prominent prostate. Mild patchy left basilar opacities new from previous ENDOSCOPIC STUDIES: 08/27/23 COLONOSCOPY SHOWED: Recurrent cecal polyp ablated with hybrid APC treatment Moderate diverticulosis seen in the left colon Moderate hemorrhoids on retroflexed exam. Plan: Repeat Colonoscopy interval based on path results - in 12 months if polyps are adenomatous. BIOPSIES SHOWED: Cecum, polypectomy: Colonic mucosa with mild surface hyperplastic changes and small lymphoid aggregate; multiple additional levels examined 05/26/22 COLONOSCOPY SHOWED:One medium sized polyp removed.Random biopsies were obtained from the right and left colon to check for microscopic colitis Moderate diverticulosis seen in the left colon Moderate hemorrhoids on retroflexed exam. Plan:? Repeat Colonoscopy interval based on path results - in 3 years if polyps are adenomatous and 5 years if polyps are hyperplastic. BIOPSIES SHOWED: A.? Cecum, previous polypectomy site, polypectomy:? Colonic mucosa with focal low-grade adenomatous dysplasia; no high-grade dysplasia or carcinoma identified. B.? Colon, random right, biopsy:? Focally active colitis; negative for microscopic colitis. C.? Colon, random left, biopsy:? Colonic mucosa within normal limits; negative for microscopic colitis. 04/22/21 ? PATIENT HAD AN UPPER ENDOSCOPY AND COLONOSCOPY:Endoscopy Findings:STOMACH: Moderate diffuse gastric erythema with submucosal hemorrhages in the gastric body. Biopsies were obtained from the antrum body of the stomach. Antral biopsies were sent to an outside lab for culture and sensitivities for Helicobacter pylori. DUODENUM:? Normal - biopsied to check for celiac sprue due to symptoms of postprandial diarrhea. Colonoscopy Findings:? One large sized polyp removed Random biopsies were obtained from the colon to check for microscopic colitis. Normal appearing end-to-end anastomosis at 20 cm Moderate hemorrhoids on retroflexed exam. Plan: Repeat Colonoscopy interval based on path results - in 1 year if polyps are adenomatous and due to fair prep. Above findings were reviewed with the patient and colon polyps and Helicobacter pylori handouts were given in the discharge area BIOPSY SHOWED: A.? Stomach, antrum, biopsy: - Antral-type mucosa with severe chronic, focally active, inflammation. - Positive for H pylori.B.? Duodenum, biopsy:? Small intestinal mucosa within normal limits.C.? Stomach, body, biopsy: - Oxyntic mucosa with moderate chronic, focally active, inflammation.? - Positive for H pylori.D.? Cecum, polypectomy:? Tubular adenoma; no high grade dysplasia or carcinoma seen.E.? Colon, random, biopsy:? Colonic mucosa within normal limits. COMMENT: Diagnostic features of celiac disease or microscopic colitis are not seen [facility] Medical History Post-polypectomy bleeding Anemia GERD (gastroesophageal reflux disease) Vitamin D deficiency UTI (urinary tract infection) Chronic Helicobacter pylori gastritis Cognitive developmental delay Asthma Personal history of colon cancer IBS (irritable colon syndrome) Diarrhea Surgical History Hx of excision of mass History of esophagogastroduodenoscopy (EGD) (07/01/15) Hx of laparoscopy (03/11/15) Hx of colonoscopy (02/10/15) History of incision and drainage (01/29/14) Family History Father No problems noted. Mother Family history of cancer of vagina Colon polyps Maternal Grandmother Family history of cancer of vagina Cancer Paternal Uncle Bone cancer Paternal Aunt Cancer Maternal Uncle Stomach cancer Brother No problems noted. Social History Household Members: Family Household Members Other:: mother Both parents involved: No Housing: House Do you presently have visiting nurse or other home services: Yes (sister is credit product analyst) Unable to assess alcohol history related to: Unable to respond Alcohol intake: current Alcohol intake frequency: does not drink Comment: HURT LEFT KNEE SUNDAY Patient Tobacco Use Status: Never used Tobacco service: No Current occupational status: disabled Review of Systems Const All systems reviewed & are unremarkable except as noted in HPI and below Physical Exam Vital Signs: Last Vital Signs Pulse 80 05/21/25 10:34 BP 104/62 05/21/25 10:34 Pulse Ox 98 05/21/25 10:34 Oxygen Delivery Method Room Air 05/21/25 10:34 BMI result Body Mass Index 29.6 Const General: no acute distress Nutritional Appearance: overweight Orientation/consciousness: Other orientation findings (Developmental delay) Limitations: behavioral limitations and physical limitations HEENT Head: Yes normal to inspection Ears: hearing grossly normal bilaterally Eyes Sclerae: sclerae normal Pupils: Equal, round and reactive pupils present Neck Neck: Yes normal visual inspection Chest Chest palpation & inspection: normal inspection of the chest Resp Effort & Inspection: normal respiratory effort Auscultation: clear to auscultation bilaterally Cardio Palpation: normal PMI Rate: regular rate Rhythm: regular rhythm Heart sounds: S1 normal heart sound present, S2 normal heart sound present and no murmurs GI Palpation (GI): Soft to palpation, nontender and No hepatosplenomegaly present Auscultation: normal bowel sounds Rectal Exam - Male: Yes deferred Skin General skin exam: no rashes or lesions noted Neuro General: gait normal and moves all extremities Cranial nerves: Yes Equal, round and reactive pupils present Psych Appearance: grossly normal Mental Status: other (Developmental delay) Assessment & Plan Assessment & Plan (1) IBS (irritable colon syndrome): Code(s): K58.9 - Irritable bowel syndrome, unspecified Category: Medical (2) Chronic Helicobacter pylori gastritis: Code(s): K29.50 - Unspecified chronic gastritis without bleeding; B96.81 - Helicobacter pylori [H. pylori] as the cause of diseases classified elsewhere Category: Medical (3) History of colon polyps: Code(s): Z86.010 - Personal history of colon polyps Category: Medical (4) GERD (gastroesophageal reflux disease): Code(s): K21.9 - Gastro-esophageal reflux disease without esophagitis Category: Medical (5) Chronic diarrhea: Code(s): K52.9 - Noninfective gastroenteritis and colitis, unspecified Category: Medical (6) Chronic pancreatitis: Code(s): K86.1 - Other chronic pancreatitis Category: Medical (7) Cirrhosis of liver without ascites: Code(s): K74.60 - Unspecified cirrhosis of liver Category: Medical Plan 44 YM non-verbal due to developmental delay with GERD and hx of colon cancer status post resection with chronic diarrhea. Stool studies were negative. 04/22/21 EGD showed gastritis due to H Pylori.? Same day colonoscopy showed normal appearing end to end anastomosis at 20 cms.? A large adenomatous polyp was removed Random biopsies were obtained from the colon to check for microscopic colitis which were normal. Repeat Colonoscopy advised in 1 year due to fair prep. Pt was hospitalized with self limited post polypectomy bleeding? His hemoglobin was monitored and remained stable.? He had no further episodes of bleeding and did not require blood transfusion. 04/2022 FU colonoscopy was performed and findings as noted above Labs and stool studies were ordered. [place] level was checked and (since elevated lithium level can be associated with diarrhea) and was not elevated. To take imodium 2 mg PO Q8H prn for diarrhea 06/15/22 Pt was started on Mesalamine 2.4 grams daily and pt's Mom reports partial improvement in diarrhea. 10/05/22 Dose of mesalamine was increased to 3.6 grams daily Mom was advised to stop giving iron for 2 weeks to see if abdominal pain and diarrhea gets better. 12/15/[address] scan showed portal hypertension - Hepatitis serologies and for chronic liver disease initiated 08/20 Colonoscopy showed recurrent cecal polyp which was ablated with hybrid APC treatmen. Follow-up colonoscopy was advised in 18 months 09/13/23 Can have a BM daily or every other day without diarrhea. Appetite is good 01/31/24 Pt has been eating. Mom notes constipation - has a small BM every 2-3 days with straining and pushing Pt's Mom was advised to: 1. Discontinue Zenpep 2. Decrease Mesalamine (Lialda) to 2 pills every day instead of 3 3. Senna 2 capsules at bedtime for constipation 03/06/24 Had an episode of diarrhea lasting all day last Sunday Senna does not seem to work. Pt's Mom was advised to start Miralax once a day (decrease to every other day if he has diarrhea) 07/17/24 Has been eating well Having normal BMs daily, Sometimes he can have 3 BMs in a day without diarrhea Can have the urge to go and pass some gas - prescribed simethicone for gas Has 3 meals a day - eats a lot of rice. Taking Lactaid milk 11/20/24 Having constipation with 2 BMs in 3 days - stool are super hard with straining Mom notes some blood on the toilet paper. Advised to schedule an EGD (FU of H Pylori) and Colon (FU of colon polyps and colon cancer) Advised to start linaclotide 145 mcg daily. To call back in a week if he continues to have constipation 05/21/25 patient advised to increase linaclotide to 290 mcg daily for constipation. He will be scheduled for an upper endoscopy and colonoscopy (FU of colon polyps) Abd for HCC surveillance FU in 6 months Orders: Orders US abdomen limited Today K74.60 - Unspecified cirrhosis of liver Complete Blood Count no Diff Today K74.60 - Unspecified cirrhosis of liver Comprehensive Met. Panel Today K74.60 - Unspecified cirrhosis of liver Prothrombin Time INR Today K74.60 - Unspecified cirrhosis of liver UA and rflx microscopic Today K74.60 - Unspecified cirrhosis of liver C Reactive Protein Today K74.60 - Unspecified cirrhosis of liver Medications: Changed From linaclotide (Linzess) 145 mcg PO QAM 30 days 30 caps 3RF K59.09 - Other constipation To linaclotide (Linzess) 290 mcg (2 x 145 mcg) PO QAM 60 caps 3RF 30 days K59.09 - Other constipation Coding Level of Care Code Est Pt Level 4 (39297) Complex EM visit Add On G2211 Diagnoses IBS (irritable colon syndrome) K58.9 Chronic Helicobacter pylori gastritis K29.50; B96.81 History of colon polyps Z86.010 GERD (gastroesophageal reflux disease) K21.9 Chronic diarrhea K52.9 Chronic pancreatitis K86.1 Cirrhosis of liver without ascites K74.60 Time Spent (min) 21
[2025-05-21 10:34] VITALS: BP 104/62; PULSE 80; O2SAT 98; BMI 29.6
--- OUTSIDE RECORDS SUMMARY | 2025-05-21 11:17 | XMS_ITS | Clinical Summary ---
Author Organization [employer] Address [address] [place] [address] [address] [place] [address] Care Team Providers Care Bone Char Kiln Operator Name Role Phone Rachelle Gaytan MD Primary Care Provider [phone] Allergies No known active allergies Medications traZODone [...] breakfast. 90 tablet 1 3 Active pancrelipase, Xzy-Hgfj-Ozdg, (Zenpep) 74575-87672 units capsule delayed-release particles capsule Take 1 [...] (Gastroenterology) Latoya MILLAN- as Nurse Practitioner (Urology) [facility], [facility]. (Psychiatry) Reviewed diet and exercise with mother. [...] Disability Screening 1979 Family Planning (PISQ) 1994 HPV Vaccines (1 - Male 3-dose series) 1994 COVID-19 Vaccine (5 - season) 2024 10/25/2022, 09/08/2021, 02/10/2021, Additional history exists Tobacco Screening 06/19/2025 06/19/2024 Influenza Vaccine (#1) 2025 , 10/11/2023, 07/07/2022, Additional history exists Alcohol/Substance Use Screening 09/05/2025 09/05/2024 Depression Screening 09/05/2025 Postpon ed from 1979 (Other System Reasons) Lipid Panel 09/10/2029 09/10/2024, 12/06/2023, 04/20/2023, Additional history exists Zoster Vaccines (1 [...] 08/10/2010, 07/13/2010 Hepatitis C Screening Completed 04/20/2023 Pneumococcal Vaccine: Pediatrics (0 to 5 Years) [...] 11:17 AM EST) Triglycerides 133 <150 mg/dL [facility] Comment:Desirable Triglyceri de: less than 150 mg/dLBorderline High Triglyceride 150-199 mg/dLHigh Triglyceride: 200-499 mg/dLVery High Triglyceride: greater than or equal to 5OO mg/dL Cholesterol 213(H) <200 mg/dL [facility] Comment:Desirable Cholestero l: less than 200 mg/dLBorderline High Cholesterol: 200-239 mg/dLHigh Cholesterol: greater than 239 mg/dL LDL Cholesterol Calculated 141(H) <100 mg/dL [facility] Comment:Desirable LDL: less than 100 mg/dLNear Optimal/Above Optimal LDL: 110- 129 mg/dLBorderline High LDL: 130-159 mg/dLHigh LDL: 160-189 mg/dLVery High LDL: greater than or equal to 190 mg/dL HDL Cholesterol 46 >40 mg/dL [facility] Comment:Desirable HDL: great er than 40 mg/dL Note: This HDL assay may give artificially low results in patients with liver disease. Blood Venous blood specimen / Unknown 09/10/2024 11:17 AM EST 09/10/2024 2:19 PM EST Rachelle Gaytan MD LAB BLOOD ORDERABLES Final Re sult Performing Organization Address [facility] Co de Phone Number [facility] [address] [place] [phone] * Hepatitis Panel, General (04/20/2023 8:57 AM EDT) Hepatitis A IgM Nonreactive Nonreactive [facility] Comment:IgM antibodies to [place] V not detected; does not exclude earlyacute or recovered HAV infection. ~Hepatitis B Surface Antibody REACTIVE Nonreactive [facility] Comment:REACTIVE: > 11.99 mI U/mL Hepatitis B Core Antibody Nonreactive Nonreactive [facility] Hepatitis C Antibody Nonreactive Nonreactive [facility] Comment:Antibodies to HCV no t detected; does not exclude early acuteHCV infection. Hepatitis B Surface Ag Negative Negative [facility] 04/20/2023 8:57 AM EDT 04/20/2023 8:57 AM EDT [facility] External Provider LAB BLO OD ORDERABLES Final Result Performing Organization Address [facility] Co de Phone Number [facility] [address] [place] [phone] from Last 3 Months or Most Recently Relevant to Health Maintenance [place] [address] [place] [address] [place] [phone] Care Teams Bone Char Kiln Operator Relationship Specialty Start Date End Date Rachelle Gaytan MD [address] [place] [phone] PCP - General Family Medicine 06/18/20 Leonor Salgado MD Gastroenterology 09/05/24 Latoya MILLAN-BC Nurse Practitioner Urology 09/05/24 [facility], [facility]. [address] [place] [address] Psychiatry 09/05/24
== END 2025-05-21 10:59 | disposition home or self-care (01) ==
LOC: HO.HGI 10:26
PROVIDERS: PCP Family Medicine; Visit Provider Internal Medicine Gastroenterology
DX: K58.9 Irritable bowel syndrome, unspecified (principal); K29.50 Unspecified chronic gastritis without bleeding; B96.81 Helicobacter pylori [H. pylori] as the cause of diseases classified elsewhere; Z86.0100 Personal history of colon polyps, unspecified; K21.9 Gastro-esophageal reflux disease without esophagitis; K52.9 Noninfective gastroenteritis and colitis, unspecified; K86.1 Other chronic pancreatitis; K74.60 Unspecified cirrhosis of liver
CPT/HCPCS: 99214; G2211

== ENCOUNTER → 2025-05-21 10:26 | Outpatient (BNVA) | payer MEDICARE, MEDICAID, SELFPAY | PROVIDERS: PCP Family Medicine; Visit Provider Internal Medicine Gastroenterology | DX: K21.9 Gastro-esophageal reflux disease without esophagitis (principal); K52.9 Noninfective gastroenteritis and colitis, unspecified; K86.1 Other chronic pancreatitis; K74.60 Unspecified cirrhosis of liver; K58.9 Irritable bowel syndrome, unspecified; K29.50 Unspecified chronic gastritis without bleeding; B96.81 Helicobacter pylori [H. pylori] as the cause of diseases classified elsewhere; Z86.0100 Personal history of colon polyps, unspecified | CPT/HCPCS: 99212 ==

== ENCOUNTER 2025-05-25 11:02 | Outpatient (REF) | payer MEDICARE, MEDICAID, SELFPAY ==
[2025-05-25 11:49] LABS: Hematocrit 38.4 % (42.0-52.0); Hemoglobin 13.0 g/dl (14.0-18.0); Mean Corpuscular HGB Conc 33.9 g/dl (31.0-36.0); Mean Corpuscular Hemoglobin 30.4 pg (27.0-33.0); Mean Corpuscular Volume 89.7 fL (80.0-98.0); NRBC Abs Auto 0.000 X10*3/uL (0.0-0.012); NRBC Pct Auto 0.0 /100WBC (0.0-0.2); Platelet Count 181 X10*3/uL (160-400); Red Blood Count 4.28 X10*6/uL (4.60-5.80); White Blood Count 5.8 X10*3/uL (4.8-10.8)
[2025-05-25 11:56] LABS: INTERNATIONAL NORM RATIO 1.0 (0.9-1.1); Prothrombin Time 11.7 SEC (10.9-12.4)
[2025-05-25 12:03] LABS: Appearance Urine Clear; Glucose Urine UA Negative (Negative); PH 6.5 (5.0-9.0); Specific Gravity - Urine 1.025 (1.005-1.025)
--- OUTSIDE RECORDS SUMMARY | 2025-05-25 12:22 | XMS_ITS | Encounter Summary ---
Author Organization [employer] Address [address] [place] [address] [address] [place] [address] Care Team Providers Care Unit Assembler Name Role Phone Rachelle Gaytan MD Primary Care Provider [phone] Encounter Details Date Type Department Care Team ([facility] st Contact Info) Description 05/25/2025 Orders Only GENERIC EXTERNAL DATA DEPARTMENT Provider, Generic External Data Social History Tobacco Use Types Packs/Day Years Used Date Smoking Tobacco: Never Passive Smoke Exposure: Never Smokeless Tobacco: Never Alcohol Use Standard Drinks/Week Comments Never 0 (1 standard drink = 0.6 oz pur e alcohol) Alcohol Answer Date Recorded Frequency of Alcohol Consumption Not on file 09/05/2024 Average Number of Drinks Not on file 024 Frequency of Binge Drinking Not on file 05/2024 Score 0 09/05/2024 Sex and Gender Information Value Date Recorded Sex Assigned at Male 08/28/2022 10:16 AM EDT Legal Sex Male 10:16 AM EDT Gender Identity Male 08/28/2022 10:16 AM EDT Sexual Orientation Choose not to disclose 2021 10:16 AM EDT documented as of this encounter Plan of Treatment Not on file documented as of this encounter Procedures Procedure Name Priority Date/Time Associated Diagnosis Comments PROTHROMBIN TIME-INR Routine 05/25/2025 11:16 AM EDT CBC Routine 05/25/2025 11:16 AM EDT URINALYSIS WITH REFLEX TO MICROSCOPIC Routine 05/25/2025 11:10 AM EDT documented in this encounter Results * Prothrombin Time-INR (05/25/2025 11:16 AM EDT) Pathologist [facility] Prothrombin Time 11.7 10.9 - 12.4 SEC [facility] INTERNATIONAL NORM RATIO 1.0 0.9 - 1.1 [facility] Comment:INTERNATIONAL NORMAL IZED RATIO (INR) REFERENCE RANGES Reference RangeFor patients not on anticoagulant therapy: 0.9 - 1.1INR ranges for oral anticoagulanttherapy:For prevention and treatment of venous thrombosis and pulmonary embolism: 2.0 - 3.0For acute myocardial infarction with aspirin therapy: 2.0 - 3.0For acute myocardial infarction without aspirin therapy: 3.0 - 4.0For patients with mechanical prosthetic heart valves: 2.5 - 3.5 05/25/2025 11:1 6 AM EDT 05/25/2025 11:16 AM EDT us Generic External Data Provider LAB BLOOD ORDERAB LES Final Result Performing Organization Address City/State/[facility] Co de Phone Number [facility] [address] [place] [phone] * (ABNORMAL) CBC (05/25/2025 11:16 AM EDT) [facility] White Blood Count 5.8 4.8 - 10.8 X10*3/uL [facility] Red Blood Count 4.28(L) 4.60 - 5.80 X10*6/uL [facility] Hemoglobin 13.0(L) 14.0 - 18.0 g/dl [facility] Hematocrit 38.4(L) 42.0 - 52.0 % [facility] Mean Corpuscular Volume 89.7 80.0 - 98.0 fL [facility] Mean Corpuscular Hemoglobin 30.4 27.0 - 33.0 pg [facility] Mean Corpuscular HGB Conc 33.9 31.0 - 36.0 g/dl [facility] Red Cell Distribution Width 13.2 11.0 - 16.0 % [facility] Platelet Count 181 160 - 400 X10*3/uL [facility] Mean Platelet Volume 10.6 9.4 - 12.4 fL [facility] NRBC Pct Auto 0.0 0.0 - 0.2 /100WBC [facility] NRBC Abs Auto 0.000 0.0 - 0.012 X10*3/uL [facility] 05/25/2025 11:1 6 AM EDT 05/25/2025 11:16 AM EDT Generic External Data Provider LAB BLOOD ORDERAB LES Final Result Performing Organization Address [facility] Co de Phone Number [facility] [address] [place] [phone] * Urinalysis with Reflex to Microscopic (05/25/2025 11:10 AM EDT) Color Urine Yellow [facility] Appearance Urine Clear [facility] PH 6.5 5.0 - 9.0 [facility] Glucose Urine UA Negative Negative mg/dL [facility] Urine Blood Negative Negative [facility] Specific [place] - Urine 1.025 1.005 - 1.025 [facility] Urine Protein Trace Neg-Trace mg/dL [facility] Urine Ketones Trace Negative mg/dL [facility] Nitrite Urine Negative Negative [facility] Leukocyte Esterase Urine Negative Negative [facility] 05/25/2025 11:1 0 AM EDT 05/25/2025 11:44 AM EDT Generic External Data Provider LAB URINE ORDERAB LES Final Result Performing Organization Address [facility] Co de Phone Number [facility] [address] [place] [phone] documented in this encounter Visit Diagnoses Not on filedocumented in this encounter Care Teams Unit Assembler Relationship Specialty Start Date End Date Rachelle Gaytan MD [address] [place] [phone] PCP - General Family Medicine 06/18/20 Leonor Salgado MD Gastroenterology 09/05/24 Latoya MILLAN- Nurse Practitioner Urology 09/05/24 [facility]. [address] [place] [address] Psychiatry 09/05/24 documented as of this encounter
[2025-05-25 12:31] LABS: Alanine Aminotransferase 17 U/L (0-40); Albumin Level 4.6 g/dL (3.5-5.0); Alkaline Phosphatase 88 U/L (39-117); Anion Gap 10 (12-20); Aspartate Amino Transferase 32 U/L (5-37); Blood Urea Nitrogen 13 mg/dL (9-16); Calcium 10.2 mg/dL (8.4-10.2); Carbon Dioxide 27 mmol/L (22-29); Chloride 108 mmol/L (96-108); Estimated Glomerular Filt Rate > 60; Potassium 4.0 mmol/L (3.3-5.1); Sodium 141 mmol/L (135-145); Total Protein 8.0 g/dL (6.5-8.0)
== END 2025-05-25 11:03 | disposition home or self-care (01) ==
LOC: HO.LAB 11:02
PROVIDERS: PCP Family Medicine; Visit Provider Internal Medicine Gastroenterology
DX: K74.60 Unspecified cirrhosis of liver (principal)
CPT/HCPCS: 36415; 80053; 81003; 85027; 85610; 86140

== ENCOUNTER 2025-06-22 09:47 | Day surgery (SDC) | payer MEDICARE, MEDICAID, SELFPAY ==
--- OUTSIDE RECORDS SUMMARY | 2025-06-02 15:27 | XMS_ITS | Clinical Summary ---
Author Organization [employer] Address [address] [place] [address] 7[address] [place] [address] Care Team Providers Care Brazer Helper Induction Name Role Phone Rachelle Gaytan MD Primary Care Provider Allergies No known active allergies Medications traZODone [...] breakfast. 90 tablet 1 3 Active pancrelipase, Cvi-Ovow-Xzod, (Zenpep) [id number] units capsule delayed-release particles capsule Take 1 [...] as PCP - General (Family Medicine) Leonor Saglado MD (Gastroenterology) Latoya MILLAN- as Nurse Practitioner (Urology) [employer], [facility]. (Psychiatry) Reviewed diet and exercise with mother. Will send labs. Unable to do PHQ-9 as patient is not verbal follows with psych. Encounters Date Type Department Care Team Description 05/25/2025 Orders Only GENERIC EXTERNAL DATA DEPARTMENT Provider, Generic External Data from Last 3 Months Immunizations Immunization Administration Dates Next Due Hep [...] - Male 3-dose series) 1994 COVID-19 Vaccine ( season) 2024 10/25/2022, [...] Procedure Name Priority Date/Time Associated Diagnosis Comments C-REACTIVE PROTEIN Routine 05/25/2025 11 :16 AM EDT COMPREHENSIVE METABOLIC PANEL Routine 05/25/2025 11:16 AM EDT PROTHROMBIN TIME-INR Routine 05/25/2025 11:16 AM EDT CBC Routine 05/25/2025 11:16 AM EDT URINALYSIS WITH REFLEX TO MICROSCOPIC Routine 05/25/2025 11:10 AM EDT LIPID PANEL, STANDARD Routine 09/10/2024 11:17 AM EST Dyslipidemia HEPATITIS PANEL, GENERAL Routine 04/20/2023 8:57 AM EDT from Last 3 Months or Most Recently Relevant to Health Maintenance Results * Prothrombin Time-INR (05/25/2025 11:16 AM EDT) Pathologist [facility] Prothrombin Time 11.7 10.9 - 12.4 SEC [facility] INTERNATIONAL NORM RATIO 1.0 0.9 - 1.1 [facility] Comment:INTERNATIONAL NORMAL IZED RATIO (INR) [...] Provider LAB BLOOD ORDERAB LES Final Result [facility] [address] [place] [phone] * (ABNORMAL) CBC (05/25/2025 11:16 AM EDT) Pathologist [facility] White Blood Count 5.8 4.8 - 10.8 X10*3/uL [facility] Red Blood Count 4.28(L) 4.60 - 5.80 X10*6/uL [facility] Hemoglobin 13.0(L) 14.0 - 18.0 g/dl [facility] Hematocrit 38.4(L) 42.0 - 52.0 % [facility] Mean Corpuscular Volume 89.7 80.0 - 98.0 fL [facility] Mean Corpuscular Hemoglobin 30.4 27.0 - 33.0 pg [facility] Mean Corpuscular HGB Conc 33.9 31.0 - 36.0 g/dl [facility] Red Cell Distribution Width 13.2 11.0 - 16.0 % [facility] Platelet Count 181 160 - 400 X10*3/uL [facility] Mean Platelet Volume 10.6 9.4 - 12.4 fL [facility] NRBC Pct Auto 0.0 0.0 - 0.2 /100WBC [facility] NRBC Abs Auto 0.000 0.0 - 0.012 X10*3/uL [facility] 05/25/2025 11:1 6 AM EDT 05/25/2025 11:16 AM EDT Generic External Data Provider LAB BLOOD ORDERAB LES Final Result Performing Organization Address [facility] Co de Phone Number [facility] [address] [place] [phone] * C-reactive Protein (05/25/2025 11:16 AM EDT) C Reactive Protein 0.23 < or = 0.50 mg/dL [facility] 05/25/2025 11:1 6 AM EDT 05/25/2025 11:16 AM EDT Generic External Data Provider LAB BLOOD ORDERAB LES Final Result Performing Organization Address [facility] Co de Phone Number [facility] [address] [place] [phone] * (ABNORMAL) Comprehensive Metabolic Panel (05/25/2025 11:16 AM EDT) Sodium 141 135 - 145 mmol/L [facility] Potassium 4.0 3.3 - 5.1 mmol/L [facility] Chloride 108 96 - 108 mmol/L [facility] Carbon Dioxide 27 22 - 29 mmol/L [facility] Anion Gap 10(L) 12 - 20 [facility] Urea Nitrogen (BUN) 13 9 - 16 mg/dL [facility] Creatinine, Serum 0.70 0.5 - 1.4 mg/dL [facility] Estimated Glomerular Filt Rate >60 [facility] Comment:Chronic Kidney Disea se: Estimated GFR < 60 mL/min/[id number] Kidney Disease: Estimated GFR < 15 mL/min/1.73m2 Glucose 82 60 - 115 mg/dL [facility] Calcium 10.2 8.4 - 10.2 mg/dL [facility] Bilirubin, Total 0.5 0.0 - 1.0 mg/dL [facility] Aspartate Amino Transferase 32 5 - 37 U/L [facility] Alanine Aminotransferase 17 0 - 40 U/L [facility] Total Protein 8.0 6.5 - 8.0 g/dL [facility] Albumin Level 4.6 3.5 - 5.0 g/dL [facility] Alkaline Phosphatase 88 39 - 117 U/L [facility] 05/25/2025 11:1 6 AM EDT 05/25/2025 11:16 AM EDT us Generic External Data Provider LAB BLOOD ORDERAB LES Final Result [facility] [address] [place] [phone] * Urinalysis with Reflex to Microscopic (05/25/2025 11:10 AM EDT) Color Urine Yellow [facility] Appearance Urine Clear [facility] PH 6.5 5.0 - 9.0 [facility] Glucose Urine UA Negative Negative mg/dL [facility] Urine Blood Negative Negative [facility] Specific [place] - Urine 1.025 1.005 - 1.025 [facility] Urine Protein Trace Neg-Trace mg/dL [facility] Urine Ketones Trace Negative mg/dL [facility] Nitrite Urine Negative Negative [facility] Leukocyte Esterase Urine Negative Negative [facility] 05/25/2025 11:1 0 AM EDT 05/25/2025 11:44 AM EDT us Generic External Data Provider LAB URINE ORDERAB LES Final Result Performing Organization Address [facility] Co de Phone Number [facility] [address] [place] [phone] * (ABNORMAL) Lipid Panel, Standard (09/10/2024 11:17 AM EST) Triglycerides 133 <150 mg/dL [facility] Comment:Desirable Triglyceri de: less than 150 mg/dLBorderline High Triglyceride 150-199 mg/dLHigh Triglyceride: 200-499 mg/dLVery High Triglyceride: greater than or equal to 5OO mg/dL Cholesterol 213(H) <200 mg/dL [facility] Comment:Desirable Cholestero l: less than 200 mg/dLBorderline High Cholesterol: 200-239 mg/dLHigh Cholesterol: greater than 239 mg/dL LDL Cholesterol Calculated 141(H) <100 mg/dL [facility] Comment:Desirable LDL: less than 100 mg/dLNear Optimal/Above Optimal LDL: 110- 129 mg/dLBorderline High LDL: 130-159 mg/dLHigh LDL: 160-189 mg/dLVery High LDL: greater than or equal to 190 mg/dL HDL Cholesterol 46 >40 mg/dL [facility] Comment:Desirable HDL: great er than 40 mg/dL Note: This HDL assay may give artificially low results in patients with liver disease. Blood Venous blood specimen / Unknown 09/10/2024 11:17 AM EST 09/10/2024 2:19 PM EST us Rachelle Gaytan MD LAB BLOOD ORDERABLES Final Re sult Performing Organization Address City/[facility]/ZIP Co de Phone Number [facility] [address] [place] [phone] * Hepatitis Panel, General (04/20/2023 8:57 AM EDT) Hepatitis A IgM Nonreactive Nonreactive [facility] Comment:IgM antibodies to [place] V not detected; does not exclude earlyacute or recovered HAV infection. ~Hepatitis B Surface Antibody REACTIVE Nonreactive [facility] Comment:REACTIVE: > 11.99 mI U/mL Hepatitis B Core Antibody Nonreactive Nonreactive [facility] Hepatitis C Antibody Nonreactive Nonreactive [facility] Comment:Antibodies to HCV no t detected; does not exclude early acuteHCV infection. Hepatitis B Surface Ag Negative Negative [facility] 04/20/2023 8:57 AM EDT 04/20/2023 8:57 AM EDT us [facility] External Provider LAB BLO OD ORDERABLES Final Result Performing Organization Address City/State/[facility] Co de Phone Number [facility] [address] [place] [phone] from Last 3 Months or Most Recently Relevant to Health Maintenance [place] [address] [place] [address] STANDARD MEDICARE Care Teams Brazer Helper Induction Relationship Specialty Start Date End Date Rachelle Gaytan MD [address] [place] [phone] PCP - General Family Medicine 06/18/20 Leonor Salgado MD Gastroenterology 09/05/24 Latoya MILLAN- Nurse Practitioner Urology 09/05/24 [facility], [facility]. [address] [place] [phone] Psychiatry 09/05/24
--- NOTE | 2025-06-19 13:09 | HO.ANESPROP2 ---
Documented by User: Padma Delgado NP 06/19/25 13:15 HPI - Anesthesia Eval Consult details Narrative: 44 yr old female for upper endoscopy, colonoscopy PMF Active Problems Active Problems: All Active Problems Chronic constipation (Acute) Cirrhosis of liver without ascites (Acute) Renal cyst (Acute) Enlarged prostate (Acute) Microhematuria (Acute) Portal hypertension (Acute) Chronic pancreatitis (Acute) Chronic diarrhea (Acute) Vitamin D deficiency (Acute) Generalized postprandial abdominal pain (Acute) Colitis (Acute) Psychogenic polydipsia (Acute) Bladder outlet obstruction (Acute) GERD (gastroesophageal reflux disease) (Acute) History of colon polyps (Acute) Anemia with low platelet count (Acute) Fecal occult blood test positive (Acute) Varicose veins of right lower extremity with inflammation (Acute) Neurogenic urinary bladder disorder (Acute) Elevated PSA (Acute) UTI (urinary tract infection) (Acute) Asthma (Acute) Chronic Helicobacter pylori gastritis (Acute) Cognitive developmental delay (Acute) Personal history of colon cancer (Acute) IBS (irritable colon syndrome) (Acute) Diarrhea (Acute) Past Medical History Medical History Post-polypectomy bleeding Anemia GERD (gastroesophageal reflux disease) Vitamin D deficiency UTI (urinary tract infection) Chronic Helicobacter pylori gastritis Cognitive developmental delay Asthma Personal history of colon cancer IBS (irritable colon syndrome) Diarrhea Family History Family History Father No problems noted. Mother Family history of cancer of vagina Colon polyps Maternal Grandmother Family history of cancer of vagina Cancer Paternal Uncle Bone cancer Paternal Aunt Cancer Maternal Uncle Stomach cancer Brother No problems noted. Family history of problems with anesthesia: No Surgical History Surgical History Hx of excision of mass History of esophagogastroduodenoscopy (EGD) (07/01/15) Hx of laparoscopy (03/11/15) Hx of colonoscopy (02/10/15) History of incision and drainage (01/29/14) History of Problems with Anesthesia: No Social History Social History Household Members: Family Household Members Other:: mother Housing: House Are you a primary intensive care unit registered nurse to a significant other at home: No Do you presently have visiting nurse or other home services: No Unable to assess alcohol history related to: Unable to respond Alcohol intake: current Alcohol intake frequency: does not drink Comment: HURT LEFT KNEE SUNDAY Patient Tobacco Use Status: Never used Tobacco Are you DNR?: No Advance Directives: No Advance Directives Information Provided: Yes Poor oral hygiene: Yes service: No Current occupational status: disabled Meds Allergies Allergy/AdvReac Type Severity Reaction Status Date / Time No Known Allergies (No Known Allergy Verified 06/22/25 10:26 Allergies*) Home Medications ?Medication ?Instructions ?Recorded ?Confirmed ?Last Taken ?Type clonidine HCl 0.3 mg tablet 0.3 mg PO BEDTIME 08/18/20 05/21/25 Unknown History quetiapine 300 mg tablet (Seroquel) 300 mg PO BEDTIME 08/18/20 05/21/25 Unknown History cholecalciferol (vitamin D3) 50 50 mcg PO DAILY 10/26/20 05/21/25 Unknown History mcg (2,000 unit) tablet clonidine HCl 0.1 mg tablet 0.1 mg PO BID@0800,1600 10/26/20 05/21/25 05/26/22 07:30 History 0.1 mg fluticasone propionate 50 2 spray intranasal Q OTHER DAY 10/26/20 05/21/25 Unknown History mcg/actuation nasal spray,suspension lithium carbonate 150 mg capsule 150 mg PO BID 10/26/20 05/21/25 Unknown History lithium carbonate 300 mg capsule 300 mg PO BID 10/26/20 05/21/25 Unknown History lorazepam 0.5 mg tablet 0.5 mg PO TID PRN Anxiety 10/26/20 06/22/25 06/22/25 History oxcarbazepine 150 mg tablet 150 mg PO BID@0800,1600 10/26/20 05/21/25 05/26/22 07:30 History 150 mg oxcarbazepine 300 mg tablet 300 mg PO BID@0800,1600 10/26/20 05/21/25 05/26/22 07:30 History 300 mg sertraline 50 mg tablet 50 mg PO DAILY 10/26/20 05/21/25 04/22/21 07:00 History trazodone 100 mg tablet 200 mg PO BEDTIME 10/26/20 05/21/25 Unknown History quetiapine 100 mg tablet 100 mg PO QAM 03/31/21 05/21/25 Unknown History cyclobenzaprine 5 mg tablet 5 mg PO TID PRN low back pain 08/17/21 05/21/25 Unknown History ferrous gluconate 324 mg (38 mg 324 mg PO Q OTHER DAY 08/17/21 05/21/25 Unknown History iron) tablet ipratropium bromide 42 mcg (0.06 1 spray intranasal DAILY 08/17/21 05/21/25 Unknown History %) nasal spray olanzapine 20 mg tablet 20 mg PO BEDTIME 08/17/21 05/21/25 Unknown History olanzapine 5 mg tablet 5 mg PO QAM 08/17/21 05/21/25 Unknown History albuterol sulfate 90 mcg/actuation 1 inh inhalation Q4H PRN Wheezing 03/14/22 05/21/25 Unknown History aerosol inhaler budesonide 0.5 mg/2 mL suspension 0.5 mg inhalation DAILY 03/14/22 05/21/25 Unknown History for nebulization difluprednate 0.05 % eye drops 1 drp ophthalmic (eye) DAILY 03/14/22 05/21/25 Unknown History haloperidol 1 mg tablet 1 mg PO BEDTIME 03/14/22 05/21/25 Unknown History haloperidol 2 mg tablet 2 mg PO BEDTIME 03/14/22 05/21/25 Unknown History lorazepam 1 mg tablet 1 mg PO BEDTIME 03/14/22 05/21/25 Unknown History moxifloxacin 0.5 % eye drops 1 drp ophthalmic (eye) DAILY 03/14/22 05/21/25 Unknown History zolpidem 5 mg tablet 5 mg PO BEDTIME 11/20/22 05/21/25 Unknown History benztropine 0.5 mg tablet 0.5 mg PO BID 02/19/23 05/21/25 Unknown History risperidone 3 mg tablet 3 mg PO BEDTIME 02/19/23 05/21/25 Unknown History Exam Pertinent Lab Results Pertinent Lab Results: Laboratory Tests Laboratory Tests 05/25/25 11:16 PT 11.7 INR 1.0 05/25/25 11:16 WBC 5.8 RBC 4.28 L Hgb 13.0 L Hct 38.4 L Plt Count 181 Sodium 141 Potassium 4.0 BUN 13 Creatinine 0.70 Assessment and Plan Final Anesthetic Review Family History of Problems with Anesthesia: No History of Problems with Anesthesia: No Documented by User: Adalberto Arboleda MD 06/22/25 11:26 PMFSH Past Medical History Medical History Post-polypectomy bleeding Anemia GERD (gastroesophageal reflux disease) Vitamin D deficiency UTI (urinary tract infection) Chronic Helicobacter pylori gastritis Cognitive developmental delay Asthma Personal history of colon cancer IBS (irritable colon syndrome) Diarrhea Family History Family History Father No problems noted. Mother Family history of cancer of vagina Colon polyps Maternal Grandmother Family history of cancer of vagina Cancer Paternal Uncle Bone cancer Paternal Aunt Cancer Maternal Uncle Stomach cancer Brother No problems noted. Surgical History Surgical History Hx of excision of mass History of esophagogastroduodenoscopy (EGD) (07/01/15) Hx of laparoscopy (03/11/15) Hx of colonoscopy (02/10/15) History of incision and drainage (01/29/14) Social History Social History Household Members: Family Household Members Other:: mother Housing: House Are you a primary intensive care unit registered nurse to a significant other at home: No Do you presently have visiting nurse or other home services: No Unable to assess alcohol history related to: Unable to respond Alcohol intake: current Alcohol intake frequency: does not drink Comment: HURT LEFT KNEE SUNDAY Patient Tobacco Use Status: Never used Tobacco Are you DNR?: No Advance Directives: No Advance Directives Information Provided: Yes Poor oral hygiene: Yes service: No Current occupational status: disabled Meds Allergies Allergy/AdvReac Type Severity Reaction Status Date / Time No Known Allergies (No Known Allergy Verified 06/22/25 10:26 Allergies*) Home Medications ?Medication ?Instructions ?Recorded ?Confirmed ?Last Taken ?Type clonidine HCl 0.3 mg tablet 0.3 mg PO BEDTIME 08/18/20 05/21/25 Unknown History quetiapine 300 mg tablet (Seroquel) 300 mg PO BEDTIME 08/18/20 05/21/25 Unknown History cholecalciferol (vitamin D3) 50 50 mcg PO DAILY 10/26/20 05/21/25 Unknown History mcg (2,000 unit) tablet clonidine HCl 0.1 mg tablet 0.1 mg PO BID@0800,1600 10/26/20 05/21/25 05/26/22 07:30 History 0.1 mg fluticasone propionate 50 2 spray intranasal Q OTHER DAY 10/26/20 05/21/25 Unknown History mcg/actuation nasal spray,suspension lithium carbonate 150 mg capsule 150 mg PO BID 10/26/20 05/21/25 Unknown History lithium carbonate 300 mg capsule 300 mg PO BID 10/26/20 05/21/25 Unknown History lorazepam 0.5 mg tablet 0.5 mg PO TID PRN Anxiety 10/26/20 06/22/25 06/22/25 History oxcarbazepine 150 mg tablet 150 mg PO BID@0800,1600 10/26/20 05/21/25 05/26/22 07:30 History 150 mg oxcarbazepine 300 mg tablet 300 mg PO BID@0800,1600 10/26/20 05/21/25 05/26/22 07:30 History 300 mg sertraline 50 mg tablet 50 mg PO DAILY 10/26/20 05/21/25 04/22/21 07:00 History trazodone 100 mg tablet 200 mg PO BEDTIME 10/26/20 05/21/25 Unknown History quetiapine 100 mg tablet 100 mg PO QAM 03/31/21 05/21/25 Unknown History cyclobenzaprine 5 mg tablet 5 mg PO TID PRN low back pain 08/17/21 05/21/25 Unknown History ferrous gluconate 324 mg (38 mg 324 mg PO Q OTHER DAY 08/17/21 05/21/25 Unknown History iron) tablet ipratropium bromide 42 mcg (0.06 1 spray intranasal DAILY 08/17/21 05/21/25 Unknown History %) nasal spray olanzapine 20 mg tablet 20 mg PO BEDTIME 08/17/21 05/21/25 Unknown History olanzapine 5 mg tablet 5 mg PO QAM 08/17/21 05/21/25 Unknown History albuterol sulfate 90 mcg/actuation 1 inh inhalation Q4H PRN Wheezing 03/14/22 05/21/25 Unknown History aerosol inhaler budesonide 0.5 mg/2 mL suspension 0.5 mg inhalation DAILY 03/14/22 05/21/25 Unknown History for nebulization difluprednate 0.05 % eye drops 1 drp ophthalmic (eye) DAILY 03/14/22 05/21/25 Unknown History haloperidol 1 mg tablet 1 mg PO BEDTIME 03/14/22 05/21/25 Unknown History haloperidol 2 mg tablet 2 mg PO BEDTIME 03/14/22 05/21/25 Unknown History lorazepam 1 mg tablet 1 mg PO BEDTIME 03/14/22 05/21/25 Unknown History moxifloxacin 0.5 % eye drops 1 drp ophthalmic (eye) DAILY 03/14/22 05/21/25 Unknown History zolpidem 5 mg tablet 5 mg PO BEDTIME 11/20/22 05/21/25 Unknown History benztropine 0.5 mg tablet 0.5 mg PO BID 02/19/23 05/21/25 Unknown History risperidone 3 mg tablet 3 mg PO BEDTIME 02/19/23 05/21/25 Unknown History Exam Airway Mallampati Class: III TM Dist: >3cm Neck ROM: Full Loose/Missing/Broken Teeth: Yes, Upper and Lower Assessment and Plan Assessment Anesthesia Assessment: Anesthesia Plan Discussed and Chart Reviewed Final Anesthetic Review NPO: Yes ASA Class: III Final Preanesthetic Review: No Changes in Pt Med Stat, Meds/Allgs Chart Reviewed, Consent Obtained/Reviewed and Anes Risks/Benef Reviewed Patient Risk: Intermediate Procedure Risk: Low Anesthetic Plan Anesthetic Plan: TIVA Disposition: Standard PACU
--- NOTE | 2025-06-22 10:26 | MHC.SHP ---
Pre-Procedural Eval Section A - 24 Hr Update-Section A only Date of Service: 06/22/25 The patient is an INPATIENT: No The patient has been examined within 24 hours of the surgical procedure. The History & Physical has been completed within 30 days and I have reviewed it.: No Section B - Complete if H&P > 30 days Chief Complaint: Surveillance for colon polyps, FU HP infection Relevant Family History (Specify if Yes): Yes Relevant Social History: None Present Medications: see Short Stay Collaborative assessment Medical History: Significant History (GERD (gastroesophageal reflux disease) Vitamin D deficiency UTI (urinary tract infection) Chronic Helicobacter pylori gastritis Cognitive developmental delay Asthma Personal history of colon cancer IBS (irritable colon syndrome) Diarrhea) History of Previous Operations: Relevant previous surgery/procedure and date(s) (Hx of excision of mass History of esophagogastroduodenoscopy (EGD) (07/01/15) Hx of laparoscopy (03/11/15) Hx of colonoscopy (02/10/15) History of incision and drainage (01/29/14)) Allergies: Allergies Allergy/AdvReac Type Severity Reaction Status Date / Time No Known Allergies (No Known Allergy Verified 11/20/24 11:26 Allergies*) Review of Systems Sugical H&P ROS: Negative: Constitution, Cardiovascular, Respiratory and Gastrointestinal Exam Surgical H&P Exam: Normal: Heart, Normal: Lungs, Normal: Extremities and Normal: Abdomen Plan Diagnosis/Plan: Unchanged I have reviewed the history and physical and performed a pertinent physical examination on my patient. No changes have occurred unless specified. Time Spent With Patient Time: Total time managing care of this patient today ____ minutes.
[2025-06-22 10:38] VITALS: BP 136/73; PULSE 85; RESP 16; TEMP 36.6; O2SAT 96; BMI 27.7
[2025-06-22] MEDS: Lactated Ringers 1,000 ML 100 ML IVCONT (10:44)
--- NOTE | 2025-06-22 11:45 | P.OPN-COLO_ITS ---
Colonoscopy Operative Note Operative Note Date of Service: 06/22/25 Narrative: FLEXIBLE TRANSORAL UPPER GASTROINTESTINAL ENDOSCOPY WITH BIOPSIES AND COLONOSCOPY TILL CECUM WITH SNARE POLYPECTOMY, SUBMUCOSAL INJECTION AND HEMOCLIP PLACEMENT Pre-op diagnosis: Colon cancer screening, GERD Post-op diagnosis: GERD, Gastritis, Colon Polyps, Diverticulosis, hemorrhoids Endoscopist:? Leonor Salgado MD Anesthesia:?MAC UPPER ENDOSCOPY Consent: Indications for the procedure and potential complications of bleeding, perforation, reaction to medications and missed diagnosis were discussed with the patient and informed consent was obtained. Instrument: Olympus GIF H 190 mid size upper endoscope Monitoring: Vital signs and clinical assessment, continuous EKG monitoring, Pulse oximetry, Carbon Dioxide monitoring and blood pressure monitoring were done throughout the procedure. Procedure: The patient was placed in the left lateral decubitis position and pre-procedure medications were administered and a bite block was placed. The endoscope was inserted into the mouth and advanced under direct vision to the third part of duodenum. A careful inspection was made as the upper endoscope was withdrawn including a retroflexed examination of the proximal stomach; Findings and interventions are described below. Findings: Larynx: Normal Esophagus: GE junction at 42 cms. Mildly tortuous esophagus. No esophagitis or Morin's. Stomach: Moderate diffuse gastric erythema - biopsies were obtained from the antrum for histology and H pylori culture and sensitivity Grade 2 flap valve on retroflexed examination of the cardia. Duodenum: Normal bulb and descending duodenum Intervention: Biopsies as noted above COLONOSCOPY PROCEDURE NOTE Instrument: Olympus CF H 190 L variable stiffness adult colonoscope Monitoring: Vital signs and clinical assessment, intermittent blood pressure monitoring, continuous EKG monitoring, Pulse oximetry and Carbon Dioxide monitoring were done throughout the procedure. Please see anesthesia flowsheet. Colon withdrawl time was 26 minutes. Procedure: The patient was placed in the left lateral decubitis position and pre-procedure medications were administered. After a digital rectal examination of the ano-rectum, the video colonoscope was inserted into the rectum and advanced through the colon to the cecum. The colonoscope was slowly withdrawn in a retrograde panoramic fashion and the colon mucosa was carefully examined including a retroflexed view of the rectum. Findings and interventions are described below. Procedure Difficulty: without difficulty Findings: Terminal Ileum: Not evaluated Cecum: A 12-15 mm sessile polyp. Polyp was raised with 5 cc of Ele[place] (submucosal injection) and removed with a stiff hot snare. Polypectomy site was closed with 2 hemoclips. Ascending Colon: Normal Transverse Colon: Normal Descending Colon: Normal Sigmoid Colon: Moderate diverticulosis Rectum: Normal Ano-rectum: Moderate internal hemorrhoids Colon preparation: Good after copious irrigation. [place] Bowel Preparation Scale Right colon; 2 Transverse colon: 2 Left colon; 2 (0 = Unprepared colon segment with mucosa not seen due to solid stool that cannot be cleared. 1 = Portion of mucosa of the colon segment seen, but other areas of the colon segment not well seen due to staining, residual stool and/or opaque liquid. 2 = Minor amount of residual staining, small fragments of stool and/or opaque liquid, but mucosa of colon segment seen well. 3 = Entire mucosa of colon segment seen well with no residual staining, small fragments of stool or opaque liquid) Impression and Post Procedure Diagnosis: Endoscopy Findings: ESOPHAGUS: Mildly tortuous esophagus without esophagitis or Morin's. STOMACH: Diffuse gastritis - biopsies were obtained from the antrum for histology and H pylori culture and sensitivity DUODENUM: Normal Colonoscopy Findings: One medium sized polyp was removed Moderate diverticulosis seen in the left colon Moderate hemorrhoids on retroflexed exam. Plan: Pt has a FU appointment on 09/10/[address] Salgado Repeat Colonoscopy in 2 years if polyps are adenomatous and due to a history of recurrent adenomatous cecal polyp (Dulcolax 10 mg daily x 5 days prior to next colonoscopy appointment) A summary of above findings and relevant handouts were given to the patient. BIOPSIES SHOWED: A. Stomach, antrum, biopsy: Antral-type mucosa with mild chronic inactive inflammation; no Helicobacter organisms seen. B. Cecum, polypectomy: Tubular adenoma; negative for high-grade dysplasia or carcinoma Letter sent to the patient with biopsy results. Patient was placed on the colonoscopy recall list for repeat colonoscopy in 2 years.
[2025-06-22 12:28] VITALS: BP 108/62; PULSE 57; RESP 16; TEMP 36.1; O2SAT 94
[2025-06-22 12:43] VITALS: BP 134/80; PULSE 80; RESP 20; TEMP 36.1; O2SAT 97
== END 2025-06-22 13:07 | disposition home or self-care (01) ==
PROVIDERS: PCP Family Medicine; Visit Provider Internal Medicine Gastroenterology
PROC: (CPT 45381; principal; 2025-06-22 12:00)
DX: Z12.11 Encounter for screening for malignant neoplasm of colon (principal); D12.0 Benign neoplasm of cecum; K57.30 Diverticulosis of large intestine without perforation or abscess without bleeding; K64.8 Other hemorrhoids; Z86.0101 Personal history of adenomatous and serrated colon polyps; K21.9 Gastro-esophageal reflux disease without esophagitis; K29.60 Other gastritis without bleeding; K22.4 Dyskinesia of esophagus; K86.1 Other chronic pancreatitis; K74.60 Unspecified cirrhosis of liver; F81.9 Developmental disorder of scholastic skills, unspecified; J45.909 Unspecified asthma, uncomplicated; K76.6 Portal hypertension; E55.9 Vitamin D deficiency, unspecified; Z79.899 Other long term (current) drug therapy
CPT/HCPCS: 45381; 45385; 43239; 87081; 87205; 88305; 88313; 88342; J2003; J2704

== ENCOUNTER → 2025-06-22 09:47 | Outpatient (BNV) | payer MEDICARE, MEDICAID, SELFPAY | PROVIDERS: PCP Family Medicine; Visit Provider Internal Medicine Gastroenterology | DX: Z12.11 Encounter for screening for malignant neoplasm of colon (principal); K63.5 Polyp of colon; K64.9 Unspecified hemorrhoids; K22.89 Other specified disease of esophagus; K21.9 Gastro-esophageal reflux disease without esophagitis; K29.70 Gastritis, unspecified, without bleeding | CPT/HCPCS: 43239; 45381; 45385 ==

== ENCOUNTER 2025-07-31 08:20 | Outpatient (REF) | payer MEDICARE, MEDICAID, SELFPAY ==
--- NOTE | ~2025-07-31 | US_ITS ---
CLINICAL HISTORY: Unspecified cirrhosis of liver, incl kidneys to r o renal calculi --- Additional Notes or Special Instructions: Cirrhosis - rule out HCC. Combined Abd renal ultrasound exams US abdomen complete Comparison: None provided Findings: The visualized pancreas is normal. The aorta and inferior vena cava are normal caliber. The appearance of the liver suggests fatty infiltration. There is no intrahepatic bile duct dilatation. The common duct is 2.8 mm in diameter. The gallbladder is normal. There is no sonographic Karimi sign. The main portal vein is antegrade. The right kidney is 12.4 cm in length. The left kidney is 12.2 cm in length. The spleen is normal. No ascites. IMPRESSION: 1. Hepatic steatosis. This document has been electronically signed by: Heriberto Hull MD on 08/01/2025 08:44:30
--- OUTSIDE RECORDS SUMMARY | 2025-07-31 08:39 | XMS_ITS | Clinical Summary ---
Author Organization [employer] Address [address] [place] [address] [address] [place] [address] Care Team Providers Care Livestock Speculator Name Role Phone Rachelle Gaytan MD Primary [...] breakfast. 90 tablet 1 3 Active pancrelipase, Fdr-Vwwd-Buvk, (Zenpep) 58585-29128 units capsule delayed-release particles capsule Take 1 [...] booster vaccination 022 Malignant tumor of colon (CMS/HCC) 03/29/2015 Dyslipidemia 08/25/2013 Allergic rhinitis 07/09/2013 Asthma 07/09/2013 Intellectual disability 1980 Assessment & Plan (09/08/2024 7:31 PM EST): Presented for annual wellness visit. Care Gaps and Care Teams reviewed. Patient Care Team: Rachelle Gaytan MD as PCP - General (Family Medicine) Leonor Salgado MD (Gastroenterology) Latoya MILLAN-AMANDA as Nurse Practitioner (Urology) [facility], [facility]. (Psychiatry) Reviewed diet and exercise with mother. Will send labs. Unable to do PHQ-9 as patient is not verbal follows with psych. Encounters Date Type Department Care Team Description 06/22/2025 Orders Only GENERIC EXTERNAL DATA DEPARTMENT Provider, Generic External Data 05/25/2025 Orders Only GENERIC EXTERNAL DATA DEPARTMENT [...] 09/05/2024 9:29 AM EST Plan of Treatment Upcoming Encounters Date Type Department Care Team (Late st Contact Info) Description 09/18/2025 8:45 AM EST Office Visit [facility] [address] [place] [address] Rachelle Gaytan MD [address] [place] [address] Health Maintenance Due Date Last Done Comments CT Colonography 1980 Colonoscopy 1980 Colorectal Cancer Screening 1979 FIT DNA/Cologuard 1979 FIT 1979 FOBT 1980 HIV Screening 1980 SDOH Screening 1980 Sigmoidoscopy 1980 Disability Screening 1980 Family Planning (PISQ) 1994 HPV Vaccines (1 - Male 3-dose series) 1994 Hepatitis A Vaccines (2 of 2 - Risk 2-dose series) 02/08/2011 08/10/2010, 07/13/2010 Tobacco Screening 06/19/2025 06/19/2024 COVID-19 Vaccine ( season) 2025 10/25/2022, 09/08/2021, 02/10/2021, Additional history exists Influenza Vaccine (#1) 2025 , 10/11/2023, 07/07/2022, [...] (1 - 1-dose 75+ series) 2054 Hepatitis B Vaccines Completed 11/17/2022, 08/10/2010, 07/13/2010 [...] Procedure Name Priority Date/Time Associated Diagnosis Comments HEMATOXYLIN AND EOSIN STAIN Routine 06/22/2025 11:52 AM EDT H. PYLORI CULTURE Routine 06/22/2025 11: 40 AM EDT C-REACTIVE PROTEIN Routine 05/25/2025 11 :16 AM [...] Recently Relevant to Health Maintenance Results * Hematoxylin and Eosin Stain (06/22/2025 11:52 AM EDT) 06/22/2025 11:5 2 AM EDT 06/22/2025 1:03 PM EDT [facility] - 06/24/2025 9:58 AM EDT ----- ------- Name: Marck Roland Age/Sex: 44/M : 1980 Unit#: [id number] Attend Dr: Leonor Salgado MD Re06/22/25 Status: [facility] Location: [facility] Disch: ----- ------- SPEC : [id number] RECD: 06/22/25 STATUS: ARMANDO IBRAHIM NUM: [id number] DAT: 06/22/25 [facility] DR: Leonor Salgado MD ENTERED: 06/22/25 SP TYPE: Surgical OTHR DR: Rachelle Gaytan MD ORDERED: HE Stain/6, Gross Micro L4/2, IHC, Special st. 2, H. pylori, AB/PAS Diagnosis A. Stomach, antrum, biopsy: Antral-type mucosa with mild chronic inactive inflammation; no Helicobacter organisms seen. B. Cecum, polypectomy: Tubular adenoma; negative for high-grade dysplasia or carcinoma. Clinical History Pre-Op Dx: Screening Post-Op Dx: Polyps, diverticulosis Microscopic Description A, B. Microscopic sections examined. No metaplastic changes are seen, supported by AB/PAS stains (A); no Helicobacter organisms are seen, supported by H. pylori immunostain (A). Material Received A. Gastric antrum biopsy B. Cecal polyp - hot snare Gross Description A. Received in formalin is 1 gant 3 mm soft tissue fragment, totally submitted in A1. B. Received in formalin are multiple gant 1-3 mm soft tissue fragments, totally submitted in B1. (RJD) Special studies ordered and performed: Immunostain for H. pylori on A; AB/PAS stains on A IHC S/NG Disclaimer NOTE: Unless otherwise stated, all tissue is formalin-fixed and paraffin-embedded. Some or all of the immunohistochemical tests reported herein may have been developed and their performance characteristics determined by [facility]. They have not been cleared or approved by the U.S. Food and Drug Administration (FDA). However, the FDA has determined that such clearance or approval is not necessary. This laboratory is certified under the Clinical Laboratory Improvement Amendments of 1988 (CLIA) as qualified to perform high complexity clinical laboratory testing. CONTINUED ON NEXT PAGE ----- ------- Name: Marck Roland Age/Sex: 44/M : 1980 Unit#: [id number] Attend Dr: Leonor Salgado MD Re06/22/25 Status: [facility] Location: [facility] Disch: ----- ------- SPEC : [id number] RECD: 06/22/25 STATUS: ARMANDO IBRAHIM NUM: [id number] DAT: 06/22/25 [facility] DR: Leonor Salgado MD ENTERED: 06/22/25 SP TYPE: Surgical OTHR DR: Rachelle Gaytan MD ORDERED: HE Stain/6, Gross Micro L4/2, IHC, Special st. 2, H. pylori, AB/PAS Copies To: Leonor Salgado MD [facility] [address] [place] [phone] Rachelle Gaytan MD [address] [place] [phone] ----- ------- Signed (signature on file) Arthur Coe MD 06/24/25 0958 ----- ------- END OF REPORT Generic External Data Provider LAB BLOOD ORDERAB LES Final Result Performing Organization Address [facility] de Phone Number [facility] [address] [place] [phone] * H. pylori culture (06/22/2025 11:40 AM EDT) 06/22/2025 11:4 0 AM EDT 06/22/2025 11:58 AM EDT Comment:Gastric Bx Narrative [facility] - 07/06/2025 11:00 AM EDT H. pylori Culture null H. pylori Culture null H. pylori Culture null H. pylori Culture null H. pylori Culture null H. pylori Culture null H. pylori Culture null H. pylori Culture null H. pylori Culture null H. pylori Culture null H. pylori Culture null H. pylori Culture null H. pylori Culture null H. pylori Culture null H. pylori Culture null H. pylori Culture null H. pylori Culture null Specimen Source: Gastric Biopsy Generic External Data Provider LAB PATHOLOGY ORD ERABLES Final Result Performing Organization Address [facility] de Phone Number [facility] [address] [place] [phone] * Prothrombin Time-INR (05/25/2025 11:16 AM EDT) Prothrombin Time 11.7 10.9 - 12.4 SEC [facility] INTERNATIONAL NORM RATIO 1.0 0.9 - 1.1 [facility] Comment:INTERNATIONAL NORMAL IZED RATIO (INR) [...] Provider LAB BLOOD ORDERAB LES Final Result [facility] [address] [place] [phone] [phone] * (ABNORMAL) CBC (05/25/2025 11:16 AM EDT) White Blood Count 5.8 4.8 - 10.8 X10*3/uL [facility] Red Blood Count 4.28(L) 4.60 - 5.80 X10*6/uL [facility] Hemoglobin 13.0(L) 14.0 - 18.0 g/dl [facility] Hematocrit 38.4(L) 42.0 - 52.0 % [facility] Mean Corpuscular Volume 89.7 80.0 - 98.0 fL [facility] Mean Corpuscular Hemoglobin 30.4 27.0 - 33.0 pg [facility] Mean Corpuscular HGB Conc 33.9 31.0 - 36.0 g/dl [facility] Red Cell Distribution Width 13.2 11.0 - 16.0 % [facility] Platelet Count 181 160 - 400 X10*3/uL [facility] Mean Platelet Volume 10.6 9.4 - 12.4 fL [facility] NRBC Pct Auto 0.0 0.0 - 0.2 /100WBC [facility] NRBC Abs Auto 0.000 0.0 - 0.012 X10*3/uL [facility] 05/25/2025 11:1 6 AM EDT 05/25/2025 11:16 AM EDT us Generic External Data Provider LAB BLOOD ORDERAB LES Final Result Performing Organization Address City/[facility] Co de Phone Number [facility] [address] [place] [phone] * C-reactive Protein (05/25/2025 11:16 AM EDT) C Reactive Protein 0.23 < or = 0.50 mg/dL [facility] 05/25/2025 11:1 6 AM EDT 05/25/2025 11:16 AM EDT Generic External Data Provider LAB BLOOD ORDERAB LES Final Result Performing Organization Address [facility] de Phone Number [facility] [address] [place] [phone] * (ABNORMAL) Comprehensive Metabolic Panel (05/25/2025 11:16 AM EDT) Pathologist [facility] Sodium 141 135 - 145 mmol/L [facility] Potassium 4.0 3.3 - 5.1 mmol/L [facility] Chloride 108 96 - 108 mmol/L [facility] Carbon Dioxide 27 22 - 29 mmol/L [facility] Anion Gap 10(L) 12 - 20 [facility] Urea Nitrogen (BUN) 13 9 - 16 mg/dL [facility] Creatinine, Serum 0.70 0.5 - 1.4 mg/dL [facility] Estimated Glomerular Filt Rate >60 [facility] Comment:Chronic Kidney Disea se: Estimated GFR < 60 mL/min/1.91h8Mktxip Kidney Disease: Estimated GFR < 15 mL/min/1.73m2 Glucose 82 60 - 115 mg/dL [facility] Calcium 10.2 8.4 - 10.2 mg/dL [facility] Bilirubin, Total 0.5 0.0 - 1.0 mg/dL [facility] Aspartate Amino Transferase 32 5 - 37 U/L [facility] Alanine Aminotransferase 17 0 - 40 U/L [facility] Total Protein 8.0 6.5 - 8.0 g/dL [facility] Albumin Level 4.6 3.5 - 5.0 g/dL [facility] Alkaline Phosphatase 88 39 - 117 U/L [facility] 05/25/2025 11:1 6 AM EDT 05/25/2025 11:16 AM EDT Generic External Data Provider LAB BLOOD ORDERAB LES Final Result Performing Organization Address [facility]/ZIP Co de Phone Number [facility] [address] [place] [phone] * Urinalysis with Reflex to Microscopic (05/25/2025 11:10 AM EDT) Color Urine Yellow [facility] Appearance Urine Clear [facility] PH 6.5 5.0 - 9.0 [facility] Glucose Urine UA Negative Negative mg/dL [facility] Urine Blood Negative Negative [facility] Specific [place] - Urine 1.025 1.005 - 1.025 [facility] Urine Protein Trace Neg-Trace mg/dL [facility] Urine Ketones Trace Negative mg/dL [facility] Nitrite Urine Negative Negative [facility] Leukocyte Esterase Urine Negative Negative [facility] 05/25/2025 11:1 0 AM EDT 05/25/2025 11:44 AM EDT Generic External Data Provider LAB URINE ORDERAB LES Final Result Performing Organization Address [facility]/ZIP Co de Phone Number [facility] [address] [place] [phone] * (ABNORMAL) Lipid Panel, Standard (09/10/2024 11:17 AM EST) Triglycerides 133 <150 mg/dL [facility] Comment:Desirable Triglyceri de: less than 150 mg/dLBorderline High Triglyceride 150-199 mg/dLHigh Triglyceride: 200-499 mg/dLVery High Triglyceride: greater than or equal to 5OO mg/dL Cholesterol 213(H) <200 mg/dL [facility] Comment:Desirable Cholestero l: less than 200 mg/dLBorderline High Cholesterol: 200-239 mg/dLHigh Cholesterol: greater than 239 mg/dL LDL Cholesterol Calculated 141(H) <100 mg/dL [facility] Comment:Desirable LDL: less than 100 mg/dLNear Optimal/Above Optimal LDL: 110- 129 mg/dLBorderline High LDL: 130-159 mg/dLHigh LDL: 160-189 mg/dLVery High LDL: greater than or equal to 190 mg/dL HDL Cholesterol 46 >40 mg/dL [facility] Comment:Desirable HDL: great er than 40 mg/dL Note: This HDL assay may give artificially low results in patients with liver disease. Blood Venous blood specimen / Unknown 09/10/2024 11:17 AM EST 09/10/2024 2:19 PM EST us Rachelle Gaytan MD LAB BLOOD ORDERABLES Final Re sult [facility] [address] [place] [phone] * Hepatitis Panel, General (04/20/2023 8:57 AM EDT) Hepatitis A IgM Nonreactive Nonreactive [facility] Comment:IgM antibodies to [place] V not detected; does not exclude earlyacute or recovered HAV infection. ~Hepatitis B Surface Antibody REACTIVE Nonreactive [facility] Comment:REACTIVE: > 11.99 mI U/mL Hepatitis B Core Antibody Nonreactive Nonreactive [facility] Hepatitis C Antibody Nonreactive Nonreactive [facility] Comment:Antibodies to HCV no t detected; does not exclude early acuteHCV infection. Hepatitis B Surface Ag Negative Negative [facility] 04/20/2023 8:57 AM EDT 04/20/2023 8:57 AM EDT us [facility] External Provider LAB BLO OD ORDERABLES Final Result [facility] [address] [place] [phone] [phone] from Last 3 Months or Most Recently Relevant to Health Maintenance [place] [address] [place] [address] STANDARD MEDICARE Care Teams Livestock Speculator Relationship Specialty Start Date End Date Rachelle Gaytan MD [address] [place] [address] [place] [address] PCP - General Family Medicine 06/18/20 Leonor Salgado MD Gastroenterology 09/05/24 Latoya Peters DIRECT CHILL CASTER- Nurse Practitioner Urology 09/05/24 [facility], [facility]. [address] [place] [phone] Psychiatry 09/05/24
== END 2025-07-31 08:21 | disposition home or self-care (01) ==
LOC: HO.US 08:20
PROVIDERS: PCP Family Medicine; Visit Provider Internal Medicine Gastroenterology
DX: K74.60 Unspecified cirrhosis of liver (principal)
CPT/HCPCS: 76700

== ENCOUNTER → 2025-07-31 08:23 | Outpatient (BNV) | payer MEDICARE, MEDICAID, SELFPAY | PROVIDERS: PCP Family Medicine; Visit Provider Specialist | DX: K76.0 Fatty (change of) liver, not elsewhere classified (principal) | CPT/HCPCS: 76700 ==

== ENCOUNTER 2025-08-28 10:38 | Outpatient (REF) | payer MEDICARE, MEDICAID, SELFPAY ==
[2025-08-28 11:56] LABS: Appearance Urine Clear; Glucose Urine UA Negative (Negative); PH 6.0 (5.0-9.0); Specific Gravity - Urine 1.020 (1.005-1.025); UMIC TRIGGER UACC YES
--- OUTSIDE RECORDS SUMMARY | 2025-08-28 12:03 | XMS_ITS | Encounter Summary ---
Author Organization [employer] Address [address] [place] [address] 7 [place] [address] Care Team Providers Care Managing Principal Name Role Phone Rachelle Gaytan MD Primary Care Provider [phone] Encounter Details Date Type Department Care Team (Late Contact Info) Description 08/28/2025 Orders Only GENERIC EXTERNAL DATA DEPARTMENT Provider, [...] as of this encounter Plan of Treatment Upcoming Encounters Date Type Department Care Team (Late st Contact Info) Description 09/18/2025 8:45 AM EST Office Visit [facility] [address] [place] [address] Rachelle Gaytan MD [address] [place] [address] documented as of this encounter Procedures Procedure Name Priority Date/Time Associated Diagnosis Comments URINALYSIS, COMPLETE, WITH REFLEX TO CULTURE Routine 08/28/2025 10:45 AM EDT documented in this encounter Results * (ABNORMAL) Urinalysis, Complete, with Reflex to Culture (08/28/2025 10:45 AM EDT) Color Urine Yellow [facility] Appearance Urine Clear [facility] PH 6.0 5.0 - 9.0 [facility] Glucose Urine UA Negative Negative mg/dL [facility] Urine Blood Small (1+)(A) Negative [facility] Specific [place] - Urine 1.020 1.005 - 1.025 [facility] Urine Protein Negative Neg-Trace mg/dL [facility] Urine Ketones Negative Negative mg/dL [facility] Nitrite Urine Negative Negative [facility] Leukocyte Esterase Urine Trace(A) Negative [facility] 08/28/2025 10:4 5 AM EDT 08/28/2025 11:39 AM EDT Narrative [facility] - 08/28/2025 11:58 AM EDT Urine, Clean Catch us Generic External Data Provider LAB URINE ORDERAB LES Final Result Performing Organization Address City/State/[facility] Co de Phone Number [facility] [address] [place] [phone] documented in this encounter Visit Diagnoses Not on filedocumented in this encounter Care Teams Managing Principal Relationship Specialty Start Date End Date Rachelle Gaytan MD [address] [place] [phone] PCP - General Family Medicine 06/18/20 Leonor Salgado MD Gastroenterology 09/05/24 Latoya MILLAN- Nurse Practitioner Urology 09/05/24 [facility] [address] [place] [phone] Psychiatry 09/05/24 documented as of this encounter
--- OUTSIDE RECORDS SUMMARY | 2025-08-28 12:03 | XMS_ITS | Clinical Summary ---
Author Organization [employer] Address [address] [place] [address] [address] [place] [address] Care Team Providers Care Annual Giving Officer Name Role Phone Rachelle Gaytan MD Primary Care Provider [phone] Allergies No known active allergies Medications traZODone [...] breakfast. 90 tablet 1 3 Active pancrelipase, Haj-Dnax-Asdn, (Zenpep) 31211-83000 units capsule delayed-release particles capsule Take 1 [...] (Gastroenterology) Latoya MILLAN-AMANDA as Nurse Practitioner (Urology) [employer], [facility]. (Psychiatry) Reviewed diet and exercise with mother. Will send labs. Unable to do PHQ-9 as patient is not verbal follows with psych. Encounters Date Type Department Care Team Description 08/28/2025 Orders Only GENERIC EXTERNAL DATA DEPARTMENT Provider, Generic External Data 07/31/2025 Orders Only [facility] External Provider, [facility] 06/22/2025 Orders Only GENERIC EXTERNAL DATA DEPARTMENT [...] 8:45 AM EST Office Visit [facility] [address] [place] [address] Rachelle Gaytan MD [address] [place] [address] Health Maintenance Due Date Last Done Comments [...] Tobacco Screening 06/19/2025 06/19/2024 COVID-19 Vaccine ( - season) 2025 10/25/2022, 09/08/2021, 02/10/2021, Additional history [...] TO CULTURE Routine 08/28/2025 10:45 AM EDT US ABDOMEN COMPLETE Routine 08/01/2025 8 :44 AM EDT HEMATOXYLIN AND EOSIN STAIN Routine 06/22/2025 11:52 AM EDT H. PYLORI CULTURE Routine 06/22/2025 11: 40 AM EDT LIPID PANEL, STANDARD Routine 09/10/2024 11:17 AM EST Dyslipidemia HEPATITIS PANEL, GENERAL Routine 04/20/2023 8:57 AM EDT from Last 3 Months or Most Recently Relevant to Health Maintenance Results * (ABNORMAL) Urinalysis, Complete, with Reflex to Culture (08/28/2025 10:45 AM EDT) Color Urine Yellow [facility] Appearance Urine Clear [facility] PH 6.0 5.0 - 9.0 [facility] Glucose Urine UA Negative Negative mg/dL [facility] Urine Blood Small (1+)(A) Negative [facility] Specific [place] - Urine 1.020 1.005 - 1.025 [facility] Urine Protein Negative Neg-Trace mg/dL [facility] Urine Ketones Negative Negative mg/dL [facility] Nitrite Urine Negative Negative [facility] Leukocyte Esterase Urine Trace(A) Negative [facility] 08/28/2025 10:4 5 AM EDT 08/28/2025 11:39 AM EDT Narrative [facility] - 08/28/2025 11:58 AM EDT Urine, Clean Catch us Generic External Data Provider LAB URINE ORDERAB LES Final Result [facility] [address] [place] [phone] * US Abdomen Complete (08/01/2025 8:44 AM EDT) Anatomical Region Laterality Modality Abdomen Ultrasound 08/01/2025 8:44 AM EDT Narrative 08/01/2025 8:46 AM EDT [address] [address] Ultrasound Report Signed Patient: Marck Roland MR#: [id number] : 1980 Acct:[id number] Age/Sex: 44 / M ADM Date: 07/31/25 Loc: HO.US Attending Dr: Leonor Salgado MD Ordering Physician: Leonor Salgado MD Date of Service: 07/31/25 Procedure(s): US abdomen complete Accession Number(s): [id number] cc: Leonor Salgado MD; Latoya Peters [facility]; Rachelle Gaytan MD Reason for Exam: Unspecified cirrhosis of liver, incl kidneys to r/o renal calculi CLINICAL HISTORY: Unspecified cirrhosis of liver, incl kidneys to r o renal calculi --- Additional Notes or Special Instructions: Cirrhosis - rule out HCC. Combined Abd renal ultrasound exams US abdomen complete Comparison: None provided Findings: The visualized pancreas is normal. The aorta and inferior vena cava are normal caliber. The appearance of the liver suggests fatty infiltration. There is no intrahepatic bile duct dilatation. The common duct is 2.8 mm in diameter. The gallbladder is normal. There is no sonographic Karimi sign. The main portal vein is antegrade. The right kidney is 12.4 cm in length. The left kidney is 12.2 cm in length. The spleen is normal. No ascites. IMPRESSION: 1. Hepatic steatosis. This document has been electronically signed by: Heriberto Hull MD on 08/01/2025 08:44:30 Dictated By: Heriberto Hull MD Signed By: <Electronically signed by Heriberto Hull MD in OV> 08/01/2545 DD/ 3 TD/TT: 08/01/25843 Rn Mobile: Procedure Note Donotuseinterpreter, Image - 08/01/[address] [address] Ultrasound Report Signed Patient: Marck RolandMR#: [id number] : 1980Acct:[id number] Age/Sex: 44 / MADM Date: 07/31/25 Loc: HO.US Attending Dr: Leonor Salgado MD Ordering Physician: Leonor Salgado MD Date of Service: 07/31/25 Procedure(s): US abdomen complete Accession Number(s): [id number] cc: Leonor Salgado MD; Latoya Peters [facility]; Rachelle Gaytan MD Reason for Exam: Unspecified cirrhosis of liver, incl kidneys to r/orenal calculi CLINICAL HISTORY: Unspecified cirrhosis of liver, incl kidneys to r orenal calculi --- Additional Notes or Special Instructions: Cirrhosis - rule out HCC. Combined Abdrenal ultrasound exams US abdomen complete Comparison: None provided Findings: The visualized pancreas is normal. The aorta and inferior vena cava are normal caliber. The appearance of the liver suggests fatty infiltration. There is no intrahepatic bile duct dilatation. The common duct is 2.8 mm in diameter. The gallbladder is normal. There is no sonographic Karimi sign. The main portal vein is antegrade. The right kidney is 12.4 cm in length. The left kidney is 12.2 cm in length. The spleen is normal. No ascites. IMPRESSION: 1. Hepatic steatosis. This document has been electronically signed by: Heriberto Hull MD on 08/01/2025 08:44:30 Dictated By: Heriberto Hull MD Signed By: <Electronically signed by Heriberto Hull MD in OV> 08/01/2545 DD/ 3 TD/TT: 08/01/25843 Rn Mobile: us [facility] External Provider IMG US PROCEDURES Edited Result - Final * Hematoxylin and Eosin Stain (06/22/2025 11:52 AM EDT) 06/22/2025 11:5 2 AM EDT 06/22/2025 1:03 PM EDT [facility] - 06/24/2025 9:58 AM EDT ----- ------- Name: Marck Roland Age/Sex: 44/M : 1980 Unit#: [id number] Attend Dr: Leonor Salgado MD Re06/22/25 Status: [facility] Location: [facility] [[email or web address]] Disch: ----- ------- SPEC : [id number] RECD: 06/22/25 STATUS: MARCIANOSegundo SIMSLuis Eduardo NUM: [id number] DAT: 06/22/25 [facility] [address]: Leonor Salgado MD ENTERED: 06/22/25 SP [...] soft tissue fragments, totally submitted in B1. (SIMONE) Special studies ordered and performed: Immunostain for H. pylori on A; AB/PAS stains on A IHC S/NG Disclaimer NOTE: Unless otherwise stated, all tissue is formalin-fixed and paraffin-embedded. Some or all of the immunohistochemical tests reported herein may have been developed and their performance characteristics determined by [facility]. They have not been cleared or approved by the U.S. Food and Drug Administration (FDA). However, the FDA has determined that such clearance or approval is not necessary. This laboratory is certified under the Clinical Laboratory Improvement Amendments of 1988 (CLIA) as qualified to perform high complexity clinical laboratory testing. CONTINUED ON NEXT PAGE ----- ------- Name: Nicholas ThomasMarck Age/Sex: 44/M : 1980 Unit#: [id number] Attend Dr: Leonor Salgado MD Re06/22/25 Status: [facility] Location: [facility] [[email or web address]] Disch: ----- ------- SPEC : [id number] RECD: 06/22/25 STATUS: ARMANDO IBRAHIM NUM: [id number] DAT: 06/22/25-1151 [facility] [address]: Leonor Salgado MD ENTERED: 06/22/25 SP TYPE: Surgical OTHR DR: Rachelle Gaytan MD ORDERED: HE Stain/6, Gross Micro L4/2, IHC, Special st. 2, H. pylori, AB/PAS Copies To: Leonor Salgado MD [facility] [address] [place] [address] Rachelle Gaytan MD [address] [place] [address] ----- ------- Signed (signature on file) Arthur Coe MD 06/24/25 0958 ----- ------- END OF REPORT us Generic External Data Provider LAB BLOOD ORDERAB LES Final Result [facility] [address] [place] [phone] * H. pylori culture (06/22/2025 11:40 AM EDT) 06/22/2025 11:4 0 AM EDT 06/22/2025 11:58 AM EDT Comment:Gastric Bx Narrative [facility] - 07/06/2025 11:00 AM EDT [...] pylori Culture null Specimen Source: Gastric Biopsy us Generic External Data Provider LAB PATHOLOGY ORD ERABLES Final Result Performing Organization Address [facility] Co de Phone Number [facility] [address] [place] [phone] * (ABNORMAL) Lipid Panel, Standard (09/10/2024 11:17 AM EST) Triglycerides 133 <150 mg/dL [facility] Comment:Desirable Triglyceri de: less than 150 mg/dLBorderline High Triglyceride 150-199 mg/dLHigh Triglyceride: 200-499 mg/dLVery High Triglyceride: greater than or equal to 5OO mg/dL Cholesterol 213(H) <200 mg/dL [facility] Comment:Desirable Cholestero l: less than 200 mg/dLBorderline High Cholesterol: 200-239 mg/dLHigh Cholesterol: greater than 239 mg/dL LDL Cholesterol Calculated 141(H) <100 mg/dL [facility] Comment:Desirable LDL: less than 100 mg/dLNear Optimal/Above Optimal LDL: 110- 129 mg/dLBorderline High LDL: 130-159 mg/dLHigh LDL: 160-189 mg/dLVery High LDL: greater than or equal to 190 mg/dL HDL Cholesterol 46 >40 mg/dL [facility] Comment:Desirable HDL: great er than 40 mg/dL Note: This HDL assay may give artificially low results in patients with liver disease. Blood Venous blood specimen / Unknown 09/10/2024 11:17 AM EST 09/10/2024 2:19 PM EST us Rachelle Gaytan MD LAB BLOOD ORDERABLES Final Re sult Performing Organization Address [facility]/ZIP Co de Phone Number [facility] [address] [place] [phone] * Hepatitis Panel, General (04/20/2023 8:57 AM EDT) Hepatitis A IgM Nonreactive Nonreactive [facility] Comment:IgM antibodies to [place] V not detected; does not exclude earlyacute or recovered HAV infection. ~Hepatitis B Surface Antibody REACTIVE Nonreactive [facility] Comment:REACTIVE: > 11.99 mI U/mL Hepatitis B Core Antibody Nonreactive Nonreactive [facility] Hepatitis C Antibody Nonreactive Nonreactive [facility] Comment:Antibodies to HCV no t detected; does not exclude early acuteHCV infection. Hepatitis B Surface Ag Negative Negative [facility] 04/20/2023 8:57 AM EDT 04/20/2023 8:57 AM EDT us [facility] External Provider LAB BLO OD ORDERABLES Final Result [facility] [address] [place] [phone] from Last 3 Months or Most Recently Relevant to Health Maintenance [place] [address] [address] STANDARD MEDICARE Care Teams Annual Giving Officer Relationship Specialty Start Date End Date Rachelle Gaytan MD [address] [place] [phone] PCP - General Family Medicine 06/18/20 Leonor Salgado MD Gastroenterology 09/05/24 Latoya Peters [facility]- Nurse Practitioner Urology 09/05/24 [facility], [facility]. [address] [place] [phone] Psychiatry 09/05/24
[2025-08-28 12:27] LABS: Prostate Specific Antigen 3.31 ng/mL (<0.05-4.0)
== END 2025-08-28 10:39 | disposition home or self-care (01) ==
LOC: HO.LAB 10:38
PROVIDERS: PCP Family Medicine; Visit Provider Nurse Practitioner Family
DX: N40.0 Benign prostatic hyperplasia without lower urinary tract symptoms (principal); R97.20 Elevated prostate specific antigen [PSA]; Z12.5 Encounter for screening for malignant neoplasm of prostate
CPT/HCPCS: 36415; 81001; 84153

== ENCOUNTER 2025-09-03 09:29 | Outpatient (AMB) | payer MEDICARE, MEDICAID, SELFPAY ==
--- NOTE | 2025-09-03 09:31 | A.OFFVIS_ITS ---
Intake Visit Reasons: 1 year follow up/ US/ PSA Intake Note: Patient is present for 1Y/PSA/US Urology Medication:FINASTERIDE,GEMATESA,TOVIAZ,FESOTEREDINE Antibiotic Allergy:NONE Blood Thinner:NONE Patent Counsel Required: No Allergies No Known Allergies (No Known Allergies*) Allergy (Verified 09/03/25 09:32) HPI Comments Details: Marck is a pleasant 44 year old male patient of Dr. Gaytan who is accompanied by his mom and sister/[employer] at todays visit. He has a past medical history of chronic H pylori gastritis, cognitive delay, asthma, and IBS. He is being followed up on today for his history of elevated PSA, neurogenic bladder, bladder outlet obstruction, renal cysts and urinary tract infections. Given patient's developmental delay much of today's history is provided by the patient's mother Deena and [employer] worker. Recent abdominal ultrasound results reviewed with the patient and his family today 08/22 bilateral kidneys with renal cysts which appears stable in size when compared to previous imaging. Patient is compliant with Gemtesa as prescribed however has not been taking finasteride as he ran out of refills. PSAs are as follows: PSA: 02/15 3.1, 08/17 2.5, 02/16 2.5, 08/18 2.8, 02/17 7.7, 11/20 2.8, 09/21 2.0, 08/22 3.3 We did discussed slight increase in PSA in relation to not being on finasteride. Family deny patient to have any bothersome urinary issues or concerns. In office urinalysis results reviewed with the patient and his family today. All questions were answered. Patient and family otherwise deny incontinence, nocturia, hematuria, dysuria, foul smelling urine, flank pain, fever, and or chills. Patient has previously been on and trialled Myrbetriq, Detrol, Toviaz, and oxybutynin for urinary symptoms with no improvement. Cystoscopy 03/19 small prostate open bladder neck and relatively empty bladder - good stream in office. [facility] Medical History Post-polypectomy bleeding Anemia GERD (gastroesophageal reflux disease) Vitamin D deficiency UTI (urinary tract infection) Chronic Helicobacter pylori gastritis Cognitive developmental delay Asthma Personal history of colon cancer IBS (irritable colon syndrome) Diarrhea Surgical History (Updated 07/27/25 @ 10:41 by Nika Linn) Hx of excision of mass History of esophagogastroduodenoscopy (EGD) (07/01/15) Hx of laparoscopy (03/11/15) Hx of colonoscopy (02/10/15) History of incision and drainage (01/29/14) Family History Father No problems noted. Mother Family history of cancer of vagina Colon polyps Maternal Grandmother Family history of cancer of vagina Cancer Paternal Uncle Bone cancer Paternal Aunt Cancer Maternal Uncle Stomach cancer Brother No problems noted. Social History Household Members: Family Household Members Other:: mother Both parents involved: No Housing: House Are you a primary client care manager to a significant other at home: No Do you presently have visiting nurse or other home services: No Alcohol intake: current Alcohol intake frequency: does not drink Comment: HURT LEFT KNEE SUNDAY Patient Tobacco Use Status: Never used Tobacco service: No Current occupational status: disabled Review of Systems Const Unobtainable due to mental condition and Unobtainable due to mental status Physical Exam Const General: cooperative, comfortable, no acute distress, well developed, alert and awake Orientation/consciousness: Other orientation findings (patient is non verbal ) Limitations: no limitations HEENT Head: Yes normal to inspection, Yes normocephalic and Yes atraumatic Neck Neck: Yes normal visual inspection and Yes trachea midline Chest Chest palpation & inspection: normal inspection of the chest Resp Effort & Inspection: normal respiratory effort and able to speak in complete sentences Cardio Rate: regular rate General: Yes no CVA tenderness Back/Spine/Pelvis Back: no CVA tenderness Psych Appearance: well kempt Speech and movement: Other speech and movement exam findings present (Psych) (non verbal ) Attitude: cooperative Insight: Limited insight present (Psych) Judgement: Limited judgement present (Psych) Results AMB Urinalysis, Automated UA Leukoctes 0 Maria M/uL Last Edit by OBDULIA Bhagat on 09/03/25 09:45 UA Nitrite Negative Last Edit by OBDULIA Bhagat on 09/03/25 09:45 UA Urobilinogen 0.2 mg/dL Last Edit by OBDULIA Bhagat on 09/03/25 09:4 5 UA Protein 15 mg/dL Last Edit by OBDULIA Bhagat on 09/03/25 09:45 UA pH 6.0 Last Edit by Domingo Alfaro [facility] on 09/03/25 09:45 UA Blood 10 [place]/uL Last Edit by Domingo Alfaro [facility] on 09/03/25 09:45 UA Specific [place] 1.025 Last Edit by Domingo Alfaro [facility] on 09/03/25 09: 45 UA Ketone Negative Last Edit by Domingo Alfaro [facility] on 09/03/25 09:45 UA Bilirubin 0 mg/dL Last Edit by Domingo Alfaro [facility] on 09/03/25 09:45 UA Glucose 0 mg/dL Last Edit by Domingo Alfaro [facility] on 09/03/25 09:45 [id number] Results Reviewed Results Reviewed: Laboratory Last Values Urine pH (Auto) 6.0 09/03/25 09:44 Specific [place] (Auto) 1.025 09/03/25 09:44 Urine Protein (Auto) 15 mg/dL 09/03/25 09:44 Glucose (UA)(Auto) 0 mg/dL 09/03/25 09:44 Urine Ketones (Auto) Negative 09/03/25 09:44 Urine Blood (Auto) 10 [place]/uL 09/03/25 09:44 Urine Nitrite (Auto) Negative 09/03/25 09:44 Urine Bilirubin (Auto) 0 mg/dL 09/03/25 09:44 Urine Urobilinogen (Auto) 0.2 mg/dL 09/03/25 09:44 Leukocyte Esterase (Auto) 0 Maria M/uL 09/03/25 09:44 Date of Service: 07/31/25 Procedure(s): US abdomen complete Findings: The visualized pancreas is normal. The aorta and inferior vena cava are normal caliber. The appearance of the liver suggests fatty infiltration. There is no intrahepatic bile duct dilatation. The common duct is 2.8 mm in diameter. The gallbladder is normal. There is no sonographic Karimi sign. The main portal vein is antegrade. The right kidney is 12.4 cm in length. The left kidney is 12.2 cm in length. The spleen is normal. No ascites. IMPRESSION: 1. Hepatic steatosis. Assessment & Plan Assessment & Plan (1) Renal cyst: Code(s): N28.1 - Cyst of kidney, acquired Category: Medical (2) Microhematuria: Code(s): R31.29 - Other microscopic hematuria Category: Medical (3) Elevated PSA: Code(s): R97.20 - Elevated prostate specific antigen [PSA] Category: Medical (4) Enlarged prostate: Code(s): N40.0 - Benign prostatic hyperplasia without lower urinary tract symptoms Category: Medical (5) Urinary frequency: Code(s): R35.0 - Frequency of micturition Category: Medical Plan In office urinalysis results reviewed with the patient and his family today; as noted above. Recent PSA results reviewed with the patient today; as noted above. Refills provided on finasteride and Gemtesa as discussed and prescribed. We did discuss increase in PSA however patient has not been on finasteride in the last 9 months. Patient and family currently deny any bothersome urinary issues or concerns. Will continue with surveillance monitoring. Most recent abdominal ultrasound results were reviewed; as noted above. Will continue with surveillance monitoring. Will obtain renal ultrasound in 1 year. Will obtain PSA in 1 year. Follow-up in 1 year with PSA, PVR, and imaging; or sooner with any issues, concerns, and or questions. Orders: Orders AMB Urinalysis Automated Today Z13.9 - Encounter for screening, unspecified US retroperitoneal comp 1 Year N28.1 - Cyst of kidney, acquired, N40.0 - Benign prostatic hyperplasia without lower urinary tract symptoms, R97.20 - Elevated prostate specific antigen [PSA] Prostate Specific Antigen 1 Year N40.0 - Benign prostatic hyperplasia without lower urinary tract symptoms, R97.20 - Elevated prostate specific antigen [PSA] Urine Cytology Today R31.29 - Other microscopic hematuria Medications: Changed From vibegron (Gemtesa) 75 mg PO DAILY 30 tabs 1RF To vibegron (Gemtesa) 75 mg PO DAILY 90 tabs 4RF 90 days Refilled finasteride 5 mg PO DAILY 90 tabs 4RF 90 days N13.8 - Other obstructive and reflux uropathy, N32.0 - Bladder-neck obstruction, N40.1 - Benign prostatic hyperplasia with lower urinary tract symptoms, R33.9 - Retention of urine, unspecified Patient Instructions: The patient had an opportunity to ask questions regarding the treatment plan. All questions were answered. Physical exam, labs, and imaging were discussed and reviewed in detail. As well as risks, benefits, and discussion of treatment choices. No major barriers to understanding were identified. The patient expressed understanding and agreement with the above treatment plan. The patient was made aware they should contact our office by phone for worsening of their current condition, the appearance of new symptoms, or with any questions or concerns. Compliance is encouraged with any medications and follow up testing that is ordered. It is a privilege to be allowed the opportunity to participate in? your urological care.? Again, if you have any questions or concerns If you have any questions or concerns please do not hesitate to contact me. The office is [phone]. This note is constructed using voice recognition software. While every effort has been made to ensure accuracy senior quality methods specialist errors may have been included. Yours sincerely, DEJUAN Dexter Coding Level of Care Code Est Pt Level 3 (43060) Complex EM visit Add On G2211 Diagnoses Renal cyst N28.1 Microhematuria R31.29 Elevated PSA R97.20 Enlarged prostate N40.0 Urinary frequency R35.0
--- OUTSIDE RECORDS SUMMARY | 2025-09-03 10:38 | XMS_ITS | Clinical Summary ---
Author Organization [facility] Address [address] [place] [address] [address] [place] [address] Care Team Providers Care Driver Education Road Instructor Name Role Phone Rachelle Gaytan MD Primary Care Provider [phone] Allergies No known active allergies Medications traZODone [...] breakfast. 90 tablet 1 3 Active pancrelipase, Kke-Cknd-Bfri, (Zenpep) 73364-65956 units capsule delayed-release particles capsule Take 1 [...] (Gastroenterology) Latoya MILLAN-AMANDA as Nurse Practitioner (Urology) [facility], [facility]. (Psychiatry) Reviewed diet and exercise with mother. Will send labs. Unable to do PHQ-9 as patient is not verbal follows with psych. Encounters Date Type Department Care Team Description 08/28/2025 Orders Only GENERIC EXTERNAL DATA DEPARTMENT Provider, Generic External Data 07/31/2025 Orders Only [facility] External Provider, [facility] 06/22/2025 Orders Only GENERIC EXTERNAL DATA [...] Description 09/18/2025 8:45 AM EST Office Visit [facility] [address] [place] [address] Rachelle Gaytan MD [address] [place] [address] Health Maintenance Due Date Last Done Comments [...] Procedure Name Priority Date/Time Associated Diagnosis Comments PSA, TOTAL Routine 08/28/2025 10:52 AM EDT URINALYSIS, COMPLETE, WITH REFLEX TO CULTURE Routine [...] Recently Relevant to Health Maintenance Results * PSA,Total (08/28/2025 10:52 AM EDT) Prostate Specific Antigen 3.31 <0.05 - 4.0 ng/mL [facility] Comment:PSA methodology: Abb cher Huang i ChemiluminescentMicroparticle Immunoassay (CMIA) 08/28/2025 10:5 2 AM EDT 08/28/2025 10:52 AM EDT us Generic External Data Provider LAB BLOOD ORDERAB LES Final Result [facility] [address] [place] [phone] * (ABNORMAL) Urinalysis, Complete, with Reflex to Culture (08/28/2025 10:45 AM EDT) Color Urine Yellow [facility] Appearance Urine Clear [facility] PH 6.0 5.0 - 9.0 [facility] Glucose Urine UA Negative Negative mg/dL [facility] Urine Blood Small (1+)(A) Negative [facility] Specific [place] - Urine 1.020 1.005 - 1.025 [facility] Urine Protein Negative Neg-Trace mg/dL [facility] Urine Ketones Negative Negative mg/dL [facility] Nitrite Urine Negative Negative [facility] Leukocyte Esterase Urine Trace(A) Negative [facility] RBC Urine 0-2 0 - 2 /HPF [facility] Urine WBC 0-5 0 - 5 /HPF [facility] Urine Squamous Epithelial Cell 0-2 0 - 2 /HPF [facility] Urine Bacteria None Seen None Seen [facility] Hyaline Casts, Urine 0-2 0 - 2 /LPF [facility] 08/28/2025 10:4 5 AM EDT 08/28/2025 11:39 AM EDT Narrative [facility] - 08/28/2025 12:09 PM EDT Urine, Clean Catch us Generic External Data Provider LAB URINE ORDERAB LES Final Result Performing Organization Address City/State/[facility] de Phone Number [facility] [address] [place] [phone] * US Abdomen Complete (08/01/2025 8:44 AM EDT) Anatomical Region Laterality Modality Abdomen Ultrasound 08/01/2025 8:44 AM EDT Narrative 08/01/2025 8:46 AM EDT [address] [address] Ultrasound Report Signed Patient: Marck Roland MR#: [id number] : 1980 Acct:[id number] Age/Sex: 44 / M ADM Date: 07/31/25 Loc: HO.US Attending Dr: Leonor Salgado MD Ordering Physician: Leonor Salgado MD Date of Service: 07/31/25 Procedure(s): US abdomen complete Accession Number(s): [id number] cc: Leonor Salgado MD; Latoya PetersP-; Rachelle Gaytan MD Reason for Exam: Unspecified [...] in OV> 08/01/2545 DD/ 3 TD/TT: 08/01/25843 Lacing Cutter: Procedure Note Donotuseinterpreter, Image - 08/01/2025 [place] [address] Ultrasound Report Signed Patient: Marck Roland#: [id number] : 1980Acct:[id number] Age/Sex: 44 / MADM Date: 07/31/25 Loc: HO.US Attending Dr: Leonor Salgado MD Ordering Physician: Leonor Salgado MD Date of Service: 07/31/25 Procedure(s): US abdomen complete Accession Number(s): [id number] cc: Leonor Salgado MD; [facility]; Rachelle Gaytan MD Reason for Exam: Unspecified [...] signed by Heriberto Hull MD in OV> 08/01/25844 DD/ 3 TD/TT: 08/01/25843 Lacing Cutter: [facility] External Provider IMG US PROCEDURES Edited Result - Final * Hematoxylin and Eosin Stain (06/22/2025 11:52 AM EDT) 06/22/2025 11:5 2 AM EDT 06/22/2025 1:03 PM EDT [facility] - 06/24/2025 9:58 AM EDT ----- ------- Name: Marck Roland Age/Sex: 44/M : 1980 Unit#: [id number] Attend Dr: Leonor Salgado MD Re06/22/25 Status: [facility] Location: [facility] Disch: ----- ------- SPEC : [id number] RECD: 06/22/25 STATUS: ARMANDO IBRAHIM NUM: [id number] DAT: 06/22/[address] [facility] [address]: Leonor Salgado MD ENTERED: 06/22/25 [...] developed and their performance characteristics determined by [facility]. They have not been cleared [...] Marck Roland Age/Sex: 44/M : 1980 Unit#: [id number] Attend Dr: Leonor Salgado MD Re06/22/25 Status: [facility] Location: [facility] Disch: ----- ------- SPEC : [id number] RECD: 06/22/25 STATUS: ARMANDO IBRAHIM NUM: [id number] DAT: 06/22/[address] [facility] [address]: Leonor Salgado MD ENTERED: 06/22/25 SP TYPE: Surgical OTHR DR: Rachelle Gaytan MD ORDERED: HE Stain/6, Gross Micro L4/2, IHC, Special st. 2, H. pylori, AB/PAS Copies To: Leonor Salgado MD [facility] [address] [place] [phone] Rachelle Gaytan MD [address] [place] [phone] ----- ------- Signed (signature on file) Arthur Coe MD 06/24/25 0958 ----- ------- END OF REPORT Generic External Data Provider LAB BLOOD ORDERAB LES Final Result Performing Organization Address [facility] Co de Phone Number [facility] [address] [place] [phone] * H. pylori culture (06/22/2025 11:40 AM EDT) 06/22/2025 11:4 0 AM EDT 06/22/2025 11:58 AM EDT Comment:Gastric Bx Narrative [facility] - 07/06/2025 11:00 AM EDT H. [...] ORD ERABLES Final Result Performing Organization Address [facility] Co de Phone Number [facility] [address] [place] [phone] * (ABNORMAL) Lipid Panel, Standard (09/10/2024 11:17 AM EST) Triglycerides 133 <150 mg/dL [facility] Comment:Desirable Triglyceri de: less than 150 mg/dLBorderline High Triglyceride 150-199 mg/dLHigh Triglyceride: 200-499 mg/dLVery High Triglyceride: greater than or equal to 5OO mg/dL Cholesterol 213(H) <200 mg/dL [facility] Comment:Desirable Cholestero l: less than 200 mg/dLBorderline High Cholesterol: 200-239 mg/dLHigh Cholesterol: greater than 239 mg/dL LDL Cholesterol Calculated 141(H) <100 mg/dL [facility] Comment:Desirable LDL: less than 100 mg/dLNear Optimal/Above Optimal LDL: 110- 129 mg/dLBorderline High LDL: 130-159 mg/dLHigh LDL: 160-189 mg/dLVery High LDL: greater than or equal to 190 mg/dL HDL Cholesterol 46 >40 mg/dL [facility] Comment:Desirable HDL: great er than 40 mg/dL Note: This HDL assay may give artificially low results in patients with liver disease. Blood Venous blood specimen / Unknown 09/10/2024 11:17 AM EST 09/10/2024 2:19 PM EST Rachelle Gaytan MD LAB BLOOD ORDERABLES Final Re sult Performing Organization Address [facility] Co de Phone Number [facility] [address] [place] [phone] * Hepatitis Panel, General (04/20/2023 8:57 AM EDT) Hepatitis A IgM Nonreactive Nonreactive [facility] Comment:IgM antibodies to [place] V not detected; does not exclude earlyacute or recovered HAV infection. ~Hepatitis B Surface Antibody REACTIVE Nonreactive [facility] Comment:REACTIVE: > 11.99 mI U/mL Hepatitis B Core Antibody Nonreactive Nonreactive [facility] Hepatitis C Antibody Nonreactive Nonreactive [facility] Comment:Antibodies to HCV no t detected; does not exclude early acuteHCV infection. Hepatitis B Surface Ag Negative Negative [facility] 04/20/2023 8:57 AM EDT 04/20/2023 8:57 AM EDT [facility] External Provider LAB BLO OD ORDERABLES Final Result Performing Organization Address [facility] Co de Phone Number [facility] [address] [place] [phone] from Last 3 Months or Most Recently Relevant to Health Maintenance [place] [address] [place] [address] STANDARD MEDICARE Care Teams Driver Education Road Instructor Relationship Specialty Start Date End Date Rachelle Gaytan MD [address] [place] [phone] PCP - General Family Medicine 06/18/20 Leonor Salgado MD Gastroenterology 09/05/24 Latoya MILLAN- Nurse Practitioner Urology 09/05/24 [facility], [facility]. [address] [place] [phone] Psychiatry 09/05/24
== END 2025-09-03 10:15 | disposition home or self-care (01) ==
LOC: HO.HUSH 09:30
PROVIDERS: PCP Family Medicine; Visit Provider Nurse Practitioner Family
DX: N28.1 Cyst of kidney, acquired (principal); R31.29 Other microscopic hematuria; R97.20 Elevated prostate specific antigen [PSA]; N40.0 Benign prostatic hyperplasia without lower urinary tract symptoms; R35.0 Frequency of micturition; Z13.9 Encounter for screening, unspecified
CPT/HCPCS: 99213; G2211

== ENCOUNTER 2025-09-03 09:29 | Outpatient (REF) | payer MEDICARE, MEDICAID, SELFPAY | END 2025-09-03 09:30 | disposition home or self-care (01) | LOC: HO.LAB 09:29 | PROVIDERS: PCP Family Medicine; Visit Provider Nurse Practitioner Family | DX: N28.1 Cyst of kidney, acquired (principal); R31.29 Other microscopic hematuria; R97.20 Elevated prostate specific antigen [PSA]; N40.1 Benign prostatic hyperplasia with lower urinary tract symptoms; R35.0 Frequency of micturition; N13.8 Other obstructive and reflux uropathy; N32.0 Bladder-neck obstruction; R33.8 Other retention of urine; Z79.899 Other long term (current) drug therapy | CPT/HCPCS: 81003; 88112; 99212 ==

== ENCOUNTER 2025-09-10 11:24 | Outpatient (AMB) | payer MEDICARE, MEDICAID, SELFPAY ==
--- NOTE | 2025-09-10 11:28 | A.OFFVIS_ITS ---
Vital Signs 09/10/25 11:29 Height 6 ft Weight 210 lb BMI 28.5 BP 94/66 Blood Pressure Location Lt brachial Position Sitting Pulse 70 Intake Visit Reasons: 4 mo f/u Intake Note: Patient follow up for Chronic Helicobacter pylori gastritis, EGD/Colonoscopy & lab/stool results. Patient cc: gassy and denies any other GI issues. Solutions Architect Consultant Required: No Accompanied by: Family/Other Allergies No Known Allergies (No Known Allergies*) Allergy (Verified 09/10/25 11:27) Medication List - Last Reconciled 09/10/25 by Leonor Salgado MD albuterol sulfate 90 mcg/actuation 1 inh inhalation Q4H PRN benztropine 0.5 mg PO BID budesonide 0.5 mg inhalation DAILY cholecalciferol (vitamin D3) 50 mcg PO DAILY clonidine HCl 0.3 mg PO BEDTIME clonidine HCl 0.1 mg PO BID@0800,1600 cyclobenzaprine 5 mg PO TID PRN difluprednate 0.05% 1 drp ophthalmic (eye) DAILY ferrous gluconate 324 mg PO Q OTHER DAY finasteride 5 mg PO DAILY 90 days fluticasone propionate 50 mcg/actuation 2 sprays intranasal Q OTHER DAY haloperidol 2 mg PO BEDTIME haloperidol 1 mg PO BEDTIME ipratropium bromide 1 spray intranasal DAILY linaclotide (Linzess) 290 mcg (2 x 145 mcg) PO QAM 30 days lithium carbonate 150 mg PO BID lithium carbonate 300 mg PO BID loperamide (Imodium A-D) 2 mg PO Q8H PRN 3 weeks lorazepam 0.5 mg PO TID PRN lorazepam 1 mg PO BEDTIME mesalamine (Lialda) 2.4 grams (2 x 1.2 gram) PO DAILY 8 weeks moxifloxacin 0.5% 1 drp ophthalmic (eye) DAILY olanzapine 20 mg PO BEDTIME olanzapine 5 mg PO QAM omeprazole 20 mg PO DAILY oxcarbazepine 300 mg PO BID@0800,1600 oxcarbazepine 150 mg PO BID@0800,1600 quetiapine 100 mg PO QAM quetiapine (Seroquel) 300 mg PO BEDTIME risperidone 3 mg PO BEDTIME sertraline 50 mg PO DAILY simethicone (Gas Relief (simethicone)) 125 mg PO BID-QID PRN 60 days trazodone 200 mg PO BEDTIME vibegron (Gemtesa) 75 mg PO DAILY 90 days zolpidem 5 mg PO BEDTIME HPI HPI 4 mo f/u: Details: GI clinic visit for this 44-year-old male with developmental delay seen for FU. Pt had a colonoscopy in 05/2021 which was complicated by self limited post- polypectomy bleeding. TODAY'S VISIT: Patient's Mom reports pt is gassy Pt is accompanied by his Mom, and sister and his sister interpreted for the patient. Mom reports pt is gassy Constipation is better - has a BM every other day. Intermittent abd distension for the past few weeks usually after taking rice and beans. PAST VISITS: Pt is given Lactaid milk and avoiding greasy food. Complains of constipation and has a BM every 2 days with intermittent hard stools associated with straining Appetite is good and has gained weight Having constipation with 2 BMs in 3 days - stool are super hard with straining Mom notes some blood on the toilet paper. Has been eating well Having normal BMs daily, Sometimes he can have 3 BMs in a day without diarrhea Can have the urge to go and pass some gas. Has 3 meals a day - eats a lot of rice. Taking Lactaid milk PAST VISITS: Abd US results were reviewed Had an episode of diarrhea lasting all day last Sunday Senna does not seem to work. Patient cc: gassy, constipation on and off, denies any other GI issues. Pt has been eating. Mom notes constipation - has a small BM every 2-3 days with straining and pushing Loperamide has been held Colonoscopy results reviewed Can have a BM daily or every other day without diarrhea. Appetite is good Abd US results reviewed. Pt is acompanied by his Mom and brother in law (who interpreted for the patient) Diarrhea has improved - BMs vary between 1-2 times a day with solid stools CT scan results reviewed. Pt is accompanied by his Mom and sister (sister interpreted for his Mom) Diarrhea is better - having 3-4 BMs a day. When he finishes eating - 1st BM is solid. 2nd and 3rd BMs can be loose.Has diarrhea 3 days a week - every 1-2 days.Mom is giving the imodium every day.Gives more imodium on the days that he has diarrhea. Last week he had 2 episodes of diarrhea that lasted all day. Has diarrhea one day and gets imodium and then no BM the following day. Does not want to eat when he has diarrhea. Diet is limited - no baked or greasy food. Using Lactaid milk. Diarrhea is a little better Expresses abdominal pain after he has breakfast. Has to run to the bathroom after eating No nausea or vomiting. IMAGING STUDIES:?01/04/23 ABD US WITH ELASTOGRAPHY SHOWED: 1. There is hepatomegaly.? 2. Liver elastography:? Measurements are suggestive of compensated advanced chronic liver disease but need further test for confirmation.?3. A 1.7 cm benign, simple right renal cyst is seen, for which no imaging follow-up is recommended. 11/01/[address] SCAN SHOWED: 1.? No acute intra-abdominal process seen. 2.? Bilateral renal cysts. No radiopaque renal calculi orhydronephrosis. 3.? Mild hepatic steatosis without focal lesion. 4.? Prominent perisplenic and peripancreatic collateral vesselssuggestive of portal hypertension. 04/24/[address] SCAN SHOWED:The bowel pattern is within normal limits. There is no free fluid.? There is no free air.Mild periportal edema in the liver of uncertain etiology.Prominent prostate. Mild patchy left basilar opacities new from previous ENDOSCOPIC STUDIES: 08/27/23 COLONOSCOPY SHOWED: Recurrent cecal polyp ablated with hybrid APC treatment Moderate diverticulosis seen in the left colon Moderate hemorrhoids on retroflexed exam. Plan: Repeat Colonoscopy interval based on path results - in 12 months if polyps are adenomatous. BIOPSIES SHOWED: Cecum, polypectomy: Colonic mucosa with mild surface hyperplastic changes and small lymphoid aggregate; multiple additional levels examined 05/26/22 COLONOSCOPY SHOWED:One medium sized polyp removed.Random biopsies were obtained from the right and left colon to check for microscopic colitis Moderate diverticulosis seen in the left colon Moderate hemorrhoids on retroflexed exam. Plan:? Repeat Colonoscopy interval based on path results - in 3 years if polyps are adenomatous and 5 years if polyps are hyperplastic. BIOPSIES SHOWED: A.? Cecum, previous polypectomy site, polypectomy:? Colonic mucosa with focal low-grade adenomatous dysplasia; no high-grade dysplasia or carcinoma identified. B.? Colon, random right, biopsy:? Focally active colitis; negative for microscopic colitis. C.? Colon, random left, biopsy:? Colonic mucosa within normal limits; negative for microscopic colitis. 04/22/21 ? PATIENT HAD AN UPPER ENDOSCOPY AND COLONOSCOPY:Endoscopy Findings:STOMACH: Moderate diffuse gastric erythema with submucosal hemorrhages in the gastric body. Biopsies were obtained from the antrum body of the stomach. Antral biopsies were sent to an outside lab for culture and sensitivities for Helicobacter pylori. DUODENUM:? Normal - biopsied to check for celiac sprue due to symptoms of postprandial diarrhea. Colonoscopy Findings:? One large sized polyp removed Random biopsies were obtained from the colon to check for microscopic colitis. Normal appearing end-to-end anastomosis at 20 cm Moderate hemorrhoids on retroflexed exam. Plan: Repeat Colonoscopy interval based on path results - in 1 year if polyps are adenomatous and due to fair prep. Above findings were reviewed with the patient and colon polyps and Helicobacter pylori handouts were given in the discharge area BIOPSY SHOWED: A.? Stomach, antrum, biopsy: - Antral-type mucosa with severe chronic, focally active, inflammation. - Positive for H pylori.B.? Duodenum, biopsy:? Small intestinal mucosa within normal limits.C.? Stomach, body, biopsy: - Oxyntic mucosa with moderate chronic, focally active, inflammation.? - Positive for H pylori.D.? Cecum, polypectomy:? Tubular adenoma; no high grade dysplasia or carcinoma seen.E.? Colon, random, biopsy:? Colonic mucosa within normal limits. COMMENT: Diagnostic features of celiac disease or microscopic colitis are not seen [facility] Medical History Post-polypectomy bleeding Anemia GERD (gastroesophageal reflux disease) Vitamin D deficiency UTI (urinary tract infection) Chronic Helicobacter pylori gastritis Cognitive developmental delay Asthma Personal history of colon cancer IBS (irritable colon syndrome) Diarrhea Surgical History Hx of excision of mass History of esophagogastroduodenoscopy (EGD) (07/01/15) Hx of laparoscopy (03/11/15) Hx of colonoscopy (02/10/15) History of incision and drainage (01/29/14) Family History Father No problems noted. Mother Family history of cancer of vagina Colon polyps Maternal Grandmother Family history of cancer of vagina Cancer Paternal Uncle Bone cancer Paternal Aunt Cancer Maternal Uncle Stomach cancer Brother No problems noted. Social History Household Members: Family Household Members Other:: mother Both parents involved: No Housing: House Are you a primary medicare insurance specialist to a significant other at home: No Do you presently have visiting nurse or other home services: No Alcohol intake: current Alcohol intake frequency: does not drink Comment: HURT LEFT KNEE SUNDAY Patient Tobacco Use Status: Never used Tobacco service: No Current occupational status: disabled Review of Systems Const All systems reviewed & are unremarkable except as noted in HPI and below Physical Exam Vital Signs: Last Vital Signs Pulse 70 09/10/25 11:29 BP 94/66 09/10/25 11:29 BMI result Body Mass Index 28.5 Const General: healthy appearing and no acute distress Nutritional Appearance: overweight Orientation/consciousness: Other orientation findings (developmental delay) HEENT Head: Yes normal to inspection Ears: hearing grossly normal bilaterally Eyes Sclerae: sclerae normal Pupils: Equal, round and reactive pupils present Neck Neck: Yes normal visual inspection Chest Chest palpation & inspection: normal inspection of the chest Resp Effort & Inspection: normal respiratory effort Auscultation: clear to auscultation bilaterally Cardio Palpation: normal PMI Rate: regular rate Rhythm: regular rhythm Heart sounds: S1 normal heart sound present, S2 normal heart sound present and no murmurs GI Palpation (GI): Soft to palpation, nontender and No hepatosplenomegaly present Auscultation: normal bowel sounds Rectal Exam - Male: Yes deferred Skin General skin exam: no rashes or lesions noted Neuro General: gait normal and moves all extremities Cranial nerves: Yes Equal, round and reactive pupils present Psych Appearance: grossly normal Mental Status: mental status grossly normal Assessment & Plan Assessment & Plan (1) GERD (gastroesophageal reflux disease): Code(s): K21.9 - Gastro-esophageal reflux disease without esophagitis Category: Medical (2) Cirrhosis of liver without ascites: Code(s): K74.60 - Unspecified cirrhosis of liver Category: Medical (3) Chronic pancreatitis: Code(s): K86.1 - Other chronic pancreatitis Category: Medical (4) History of colon polyps: Code(s): Z86.010 - Personal history of colon polyps Category: Medical (5) Chronic constipation: Code(s): K59.09 - Other constipation Category: Medical (6) IBS (irritable colon syndrome): Code(s): K58.9 - Irritable bowel syndrome, unspecified Category: Medical Plan 44 YM non-verbal due to developmental delay with GERD and hx of colon cancer status post resection with chronic diarrhea. Stool studies were negative. 04/22/21 EGD showed gastritis due to H Pylori.? Same day colonoscopy showed normal appearing end to end anastomosis at 20 cms.? A large adenomatous polyp was removed Random biopsies were obtained from the colon to check for microscopic colitis which were normal. Repeat Colonoscopy advised in 1 year due to fair prep. Pt was hospitalized with self limited post polypectomy bleeding? His hemoglobin was monitored and remained stable.? He had no further episodes of bleeding and did not require blood transfusion. 04/2022 FU colonoscopy was performed and findings as noted above Labs and stool studies were ordered. [place] level was checked and (since elevated lithium level can be associated with diarrhea) and was not elevated. To take imodium 2 mg PO Q8H prn for diarrhea 06/15/22 Pt was started on Mesalamine 2.4 grams daily and pt's Mom reports partial improvement in diarrhea. 10/05/22 Dose of mesalamine was increased to 3.6 grams daily Mom was advised to stop giving iron for 2 weeks to see if abdominal pain and di arrhea gets better. 12/15/[address] scan showed portal hypertension - Hepatitis serologies and for chronic liver disease initiated 08/20 Colonoscopy showed recurrent cecal polyp which was ablated with hybrid APC treatmen. Follow-up colonoscopy was advised in 18 months 09/13/23 Can have a BM daily or every other day without diarrhea. Appetite is good 01/31/24 Pt has been eating. Mom notes constipation - has a small BM every 2-3 days with straining and pushing Pt's Mom was advised to: 1. Discontinue Zenpep 2. Decrease Mesalamine (Lialda) to 2 pills every day instead of 3 3. Senna 2 capsules at bedtime for constipation 03/06/24 Had an episode of diarrhea lasting all day last Sunday Senna does not seem to work. Pt's Mom was advised to start Miralax once a day (decrease to every other day if he has diarrhea) 07/17/24 Has been eating well Having normal BMs daily, Sometimes he can have 3 BMs in a day without diarrhea Can have the urge to go and pass some gas - prescribed simethicone for gas Has 3 meals a day - eats a lot of rice. Taking Lactaid milk 11/20/24 Having constipation with 2 BMs in 3 days - stool are super hard with straining Mom notes some blood on the toilet paper. Advised to schedule an EGD (FU of H Pylori) and Colon (FU of colon polyps and colon cancer) Advised to start linaclotide 145 mcg daily. To call back in a week if he continues to have constipation 05/21/25 patient advised to increase linaclotide to 290 mcg daily for constipation. He will be scheduled for an upper endoscopy and colonoscopy (FU of colon polyps) Abd US for HCC surveillance 06/22/25 EGD and colonoscopy were performed and results as noted. 09/10/25 Intermittent abd distension for the past few weeks usually after taking rice and beans. Contipation has improved Advised simethicone for gas and bloating Dietary modification - avoid gas forming foods FU in 6 month Medications: Refilled simethicone (Gas Relief (simethicone)) 125 mg PO BID-QID PRN 120 tabs 2RF abdominal distention 60 days Coding Level of Care Code Est Pt Level 3 (08923) Diagnoses GERD (gastroesophageal reflux disease) K21.9 Cirrhosis of liver without ascites K74.60 Chronic pancreatitis K86.1 History of colon polyps Z86.010 Chronic constipation K59.09 IBS (irritable colon syndrome) K58.9 Time Spent (min) 21
[2025-09-10 11:29] VITALS: BP 94/66; PULSE 70; BMI 28.5
--- OUTSIDE RECORDS SUMMARY | 2025-09-10 14:39 | XMS_ITS | Encounter Summary ---
Author Organization [employer] Address [address] [place] [address] Care Team Providers Care Indigo Mixer Name Role Phone Rachelle Gaytan MD Primary Care Provider Reason for Visit * Reason Comments Pre-visit Planning Pre visit planning L VM Encounter Details Date Type Department Care Team ([facility] st Contact Info) Description 09/10/2025 Patient Outreach [facility] [address] [place] [address] Rachelle Gaytan MD [address] [place] [address] Pre-visit Planning (Pre visit planning LVM ) Social History Tobacco Use Types Packs/Day Years [...] AM EDT documented as of this encounter Progress Notes * Barry Miller - 09/10/2025 12:22 PM EST CC Barry Nunez placed outbound call to patient to complete pre-visit planning. No answer at this time.Patient name and were not confirmed. CC left voicemail requesting return call. Direct contact information provided. * Khushboo Shannon - 09/10/2025 12:22 PM EST Tc from pt mom requesting a call back Contact at [phone] documented in this encounter Plan of Treatment Upcoming Encounters Date Type Department Care Team (Late st Contact Info) Description 09/18/2025 8:45 AM EST Office Visit [facility] [address] [place] [address] Rachelle Gaytan MD [address] [place] [address] documented as of this encounter Visit Diagnoses Not on filedocumented in this encounter Care Teams Indigo Mixer Relationship Specialty Start Date End Date Rachelle Gaytan MD [address] [place] [id number] PCP - General Family Medicine 06/18/20 Leonor Salgado MD Gastroenterology 09/05/24 Latoya MILLAN- Nurse Practitioner Urology 09/05/24 [facility], [facility]. [address] [place] [address] Psychiatry 09/05/24 documented as of this encounter
--- OUTSIDE RECORDS SUMMARY | 2025-09-10 14:39 | XMS_ITS | Encounter Summary ---
Author Organization [employer] Address [address] [place] [address] [address] [place] [address] Care Team Providers Care Lead Mason Tender Name Role Phone Rachelle Gaytan MD Primary Care Provider [phone] Encounter Details Date Type Department Care Team (Late Contact Info) Description 09/03/2025 Orders Only GENERIC EXTERNAL DATA DEPARTMENT Provider, [...] Description 09/18/2025 8:45 AM EST Office Visit [facility] [address] [place] [address] Rachelle Gaytan MD [address] [place] [address] documented as of this encounter Procedures Procedure Name Priority Date/Time Associated Diagnosis Comments CYTOPATH-CELL ENHANCED Routine 09/03/2025 9:30 AM EST documented in this encounter Results * Cytopath-cell enhanced (09/03/2025 9:30 AM EST) 09/03/2025 9:30 AM EST 09/04/2025 11:27 AM EST [facility] - 09/07/2025 2:31 PM EST ----- ------- Name: Marck Roland Age/Sex: 44/M : 1980 Unit#: [id number] Attend Dr: Latoya Peters [facility] Re09/03/25 Status: DEP [facility] Disch: ----- ------- SPEC : [id number] RECD: 09/04/25 STATUS: ARMANDO IBRAHIM NUM: [id number] DAT: 09/03/[address] [facility] [address]: Latoya Peters [facility]- ENTERED: 09/04/25-121 SP TYPE: Cytology OT DR: Rachelle Gaytan MD ORDERED: Cyto-enhanced Diagnosis Urine, cytology: Negative for high-grade urothelial carcinoma. COMMENT: Review of the cytology preparation demonstrates a mildly cellular specimen composed of a few squames and urothelial cells. Red blood cells and crystals are noted. There is no significant atypia seen. Clinical History Microscopic hematuria Material Received Urine Gross Description Received is 23 cc of cloudy yellow-gant fluid from which a ThinPrep slide is prepared. IHC S/NG Disclaimer NOTE: Unless otherwise stated, all tissue is formalin-fixed and paraffin-embedded. Some or all of the immunohistochemical tests reported herein may have been developed and their performance characteristics determined by [facility]. They have not been cleared or approved by the U.S. Food and Drug Administration (FDA). However, the FDA has determined that such clearance or approval is not necessary. This laboratory is certified under the Clinical Laboratory Improvement Amendments of 1988 (CLIA) as qualified to perform high complexity clinical laboratory testing. Copies To: Latoya Peters PENDING SALE TO [facility] [address] [place] [address] [address] [place] [address] [email or web address] Rachelle Gaytan MD [address] [address] CONTINUED ON NEXT PAGE ----- ------- Name: Marck Roland Age/Sex: 44/M : 1980 Unit#: [id number] Attend Dr: Latoya Peters [facility] Re09/03/25 Status: DEP [facility]F [facility] Disch: ----- ------- SPEC : [id number] RECD: 09/04/25 STATUS: ARMANDO IBRAHIM NUM: [id number] DAT: 09/03/[address]: Latoya Peters [facility] ENTERED: 09/04/25-1219 SP TYPE: Cytology OTHR DR: Rachelle Gaytan MD ORDERED: Cyto-enhanced ----- ------- Signed (signature on file) Isela Nieves MD 09/07/25 1431 ----- ------- END OF REPORT us Generic External Data Provider LAB CYTOLOGY PATE RABLEYDA Final Result [facility] [address] [place] [phone] documented in this encounter Visit Diagnoses Not on filedocumented in this encounter Care Teams Lead Mason Tender Relationship Specialty Start Date End Date Rachelle Gaytan MD [address] [place] [phone] PCP - General Family Medicine 06/18/20 Leonor Salgado MD Gastroenterology 09/05/24 Latoya Peters [facility] Nurse Practitioner Urology 09/05/24 [facility] [employer] [facility] [address] [place] [phone] Psychiatry 09/05/24 documented as of this encounter
--- OUTSIDE RECORDS SUMMARY | 2025-09-10 14:39 | XMS_ITS | Clinical Summary ---
Author Organization [employer] Address [address] [place] [address] 7t [place] [address] Care Team Providers Care Contract Clerk Automobile Name Role Phone Rachelle Gaytan MD Primary Care Provider [phone] Allergies No known active allergies Medications traZODone [...] breakfast. 90 tablet 1 3 Active pancrelipase, Bzb-Dtxt-Ythu, (Zenpep) 79057-41769 units capsule delayed-release particles capsule Take 1 [...] as PCP - General (Family Medicine) Leonor aSlgado MD (Gastroenterology) Latoya MILLAN-AMANDA as Nurse Practitioner (Urology) NPR, [facility]. (Psychiatry) Reviewed diet and exercise with mother. Will send labs. Unable to do PHQ-9 as patient is not verbal follows with psych. Encounters Date Type Department Care Team Description 09/10/2025 Patient Outreach [facility] [address] [place] [address] Rachelle Gaytan MD Pre-visit Planning (Pre visit planning LVM ) 09/03/2025 Orders Only GENERIC EXTERNAL DATA DEPARTMENT Provider, Generic External Data 08/28/2025 Orders Only GENERIC EXTERNAL DATA DEPARTMENT Provider, Generic External Data 07/31/2025 Orders Only [facility] External Provider, [facility] 06/22/2025 Orders Only GENERIC EXTERNAL DATA [...] Description 09/18/2025 8:45 AM EST Office Visit [facility] MED & PEDS [address] [place] [address] Rachelle Gaytan MD [address] [place] [address] Health Maintenance Due Date Last Done Comments CT Colonography 1979 Colonoscopy 1979 Colorectal Cancer Screening 1979 Depression Screening 1979 FIT DNA/Cologuard 1979 FIT 1979 FOBT 1979 HIV Screening 1979 SDOH Screening 1979 Sigmoidoscopy 1979 Disability Screening 1979 Alcohol/Substance Use Screening 1991 Family Planning (PISQ) 1994 HPV Vaccines (1 - Male 3-dose series) 1994 Hepatitis A Vaccines (2 of 2 - Risk 2-dose series) 02/08/2011 08/10/2010, 07/13/2010 Tobacco Screening 06/19/2025 06/19/2024 COVID-19 Vaccine ( season) 2025 10/25/2022, 09/08/2021, 02/10/2021, Additional history exists Influenza Vaccine (#1) 2025 , 10/11/2023, 07/07/2022, Additional history exists Lipid Panel 09/10/2029 09/10/2024, 1206/2023, 04/20/2023, Additional history exists Zoster Vaccines (1 [...] CYTOPATH-CELL ENHANCED Routine 09/03/2025 9:30 AM EST PSA, TOTAL Routine 08/28/2025 10:52 AM EDT [...] Recently Relevant to Health Maintenance Results * Cytopath-cell enhanced (09/03/2025 9:30 AM EST) 09/03/2025 9:30 AM EST 09/04/2025 11:27 AM EST [facility] - 09/07/2025 2:31 PM EST ----- ------- Name: Petersonana luisa ThomasMarck Age/Sex: 44/M : 1980 Unit#: [id number] Attend Dr: Latoya Peters [facility] Re09/03/25 Status: DEP REF Location: [facility] Disch: ----- ------- SPEC : [id number] RECD: 09/04/25 STATUS: ARMANDO IBRAHIM NUM: [id number] DAT: 09/03/[address] [facility] [address]: Latoya Peters [facility] ENTERED: 09/04/25 SP TYPE: Cytology OTHR DR: Rachelle Gaytan MD ORDERED: Cyto-enhanced Diagnosis [...] developed and their performance characteristics determined by [facility]. They have not been cleared or approved by the U.S. Food and Drug Administration (FDA). However, the FDA has determined that such clearance or approval is not necessary. This laboratory is certified under the Clinical Laboratory Improvement Amendments of 1988 (CLIA) as qualified to perform high complexity clinical laboratory testing. Copies To: Latoya Peters [facility] [address] [place] [address] [address]. [address] [place] [address] [email or web address] Rachelle Gaytan MD [address] [address] CONTINUED ON NEXT PAGE ----- ------- Name: Marck Roland Age/Sex: 44/M : 1980 Unit#: [id number] Attend Dr: Latoya Peters [facility] Re09/03/25 Status: DEP REF Location: [facility] Disch: ----- ------- SPEC : [id number] RECD: 09/04/25 STATUS: ARMANDO IBRAHIM NUM: [id number] DAT: 09/03/[address] [facility] [address]: Latoya Peters [facility] ENTERED: 09/04/25-121 SP TYPE: Cytology OTHR DR: Rachelle Gaytan MD ORDERED: Cyto-enhanced ----- ------- Signed (signature on file) Isela Nieves MD 09/07/25 143 ----- ------- END OF REPORT Generic External Data Provider LAB CYTOLOGY ORDE RABLEYDA Final Result Performing Organization Address [facility] Co de Phone Number [facility] [address] [place] [address] [phone] * PSA,Total (08/28/2025 10:52 AM EDT) Prostate Specific Antigen 3.31 <0.05 - 4.0 ng/mL [facility] Comment:PSA methodology: Rowdy Huang i ChemiluminescentMicroparticle Immunoassay (CMIA) 08/28/2025 10:5 2 AM EDT 08/28/2025 10:52 AM EDT Generic External Data Provider LAB BLOOD ORDERAB LES Final Result Performing Organization Address [facility] de Phone Number [facility] [address] [place] [phone] * (ABNORMAL) Urinalysis, Complete, with Reflex to Culture (08/28/2025 10:45 AM EDT) Color Urine Yellow [facility] Appearance Urine Clear [facility] PH 6.0 5.0 - 9.0 [facility] Glucose Urine UA Negative Negative mg/dL [facility] Urine Blood Small (1+)(A) Negative [facility] Specific [place] - Urine 1.020 1.005 - 1.025 [facility] Urine Protein Negative Neg-Trace mg/dL [facility] Urine Ketones Negative Negative mg/dL [facility] Nitrite Urine Negative Negative [facility] Leukocyte Esterase Urine Trace(A) Negative [facility] RBC Urine 0-2 0 - 2 /HPF [facility] Urine WBC 0-5 0 - 5 /HPF [facility] Urine Squamous Epithelial Cell 0-2 0 - 2 /HPF [facility] Urine Bacteria None Seen None Seen [facility] Hyaline Casts, Urine 0-2 0 - 2 /LPF [facility] 08/28/2025 10:4 5 AM EDT 08/28/2025 11:39 AM EDT Narrative [facility] - 08/28/2025 12:09 PM EDT Urine, Clean Catch us Generic External Data Provider LAB URINE ORDERAB LES Final Result Performing Organization Address City/State/[facility] Co de Phone Number [facility] [address] [place] [phone] * US Abdomen Complete (08/01/2025 8:44 AM EDT) Anatomical Region Laterality Modality Abdomen Ultrasound 08/01/2025 8:44 AM EDT Narrative 08/01/2025 8:46 AM EDT [address] [address] Ultrasound Report Signed Patient: Marck Roland MR#: [id number] : 1980 Acct:[id number] Age/Sex: 44 / M ADM Date: 07/31/25 Loc: HO.US Attending Dr: Leonor Salgado MD Ordering Physician: Leonor Salgado MD Date of Service: 07/31/25 Procedure(s): US abdomen complete Accession Number(s): [id number] cc: Leonor Salgado MD; Latoya Peters [facility]; Rachelle Gaytan MD Reason for Exam: Unspecified [...] in OV> 08/01/25844 DD/ 3 TD/TT: 08/01/25843 Dry Wall Sprayer: Procedure Note Donotuseinterpreter, Image - 08/01/2025 [place] [address] Ultrasound Report Signed Patient: Yemi Roland#: [id number] : 1980Acct:[id number] Age/Sex: 44 / MADM Date: 07/31/25 Loc: HO.US Attending Dr: Leonor Salgado MD Ordering Physician: Leonor Salgado MD Date of Service: 07/31/25 Procedure(s): US abdomen complete Accession Number(s): [id number] cc: Leonor Salgado MD; Latoya Peters [facility]; Rachelle Gaytan MD Reason for Exam: Unspecified [...] in OV> 08/01/25844 DD/ 3 TD/TT: 08/01/25843 Dry Wall Sprayer: us [facility] External Provider IMG US PROCEDURES Edited Result - Final * Hematoxylin and Eosin Stain (06/22/2025 11:52 AM EDT) 06/22/2025 11:5 2 AM EDT 06/22/2025 1:03 PM EDT Narrative [facility] - 06/24/2025 9:58 AM EDT ----- ------- Name: Marck Roland Age/Sex: 44/M : 1980 Unit#: [id number] Attend Dr: Leonor Salgado MD Re06/22/25 Status: [facility] Location: [facility] Disch: ----- ------- SPEC : [id number] RECD: 06/22/25 STATUS: ARMANDO IBRAHIM NUM: [id number] DAT: 06/22/[address] [facility] [address]: Leonor Salgado MD ENTERED: 06/22/25 [...] developed and their performance characteristics determined by [facility]. They have not been cleared [...] Nicholas ThomasMarck Age/Sex: 44/M : 1980 Unit#: [id number] Attend Dr: Leonor Salgado MD Re06/22/25 Status: [facility] Location: [facility] Disch: ----- ------- SPEC : [id number] RECD: 06/22/25 STATUS: ARMANDO IBRAHIM NUM: [id number] DAT: 06/22/[address] [facility] [address]: Leonor Salgado MD ENTERED: 06/22/25 SP TYPE: Surgical OTHR DR: Rachelle Gaytan MD ORDERED: HE Stain/6, Gross Micro L4/2, IHC, Special st. 2, H. pylori, AB/PAS Copies To: Leonor Salgado MD [facility] Gastroenterology Services [address] [place] [phone] Rachelle Gaytan MD [address] [place] [address] ----- ------- Signed (signature on file) Arthur Coe MD 06/24/25 0958 ----- ------- END OF REPORT us Generic External Data Provider LAB BLOOD ORDERAB LES Final Result [facility] [address] [place] [address] [phone] * H. pylori culture (06/22/2025 11:40 AM EDT) 06/22/2025 11:4 0 AM EDT 06/22/2025 11:58 AM EDT Comment:Gastric Bx Narrative [facility] - 07/06/2025 11:00 AM EDT [...] Provider LAB PATHOLOGY ORD ERABLES Final Result [facility] [address] [place] [address] [phone] * (ABNORMAL) Lipid Panel, Standard (09/10/2024 11:17 AM EST) Triglycerides 133 <150 mg/dL [facility] Comment:Desirable Triglyceri de: less than 150 mg/dLBorderline High Triglyceride 150-199 mg/dLHigh Triglyceride: 200-499 mg/dLVery High Triglyceride: greater than or equal to 5OO mg/dL Cholesterol 213(H) <200 mg/dL [facility] Comment:Desirable Cholestero l: less than 200 mg/dLBorderline High Cholesterol: 200-239 mg/dLHigh Cholesterol: greater than 239 mg/dL LDL Cholesterol Calculated 141(H) <100 mg/dL [facility] Comment:Desirable LDL: less than 100 mg/dLNear Optimal/Above Optimal LDL: 110- 129 mg/dLBorderline High LDL: 130-159 mg/dLHigh LDL: 160-189 mg/dLVery High LDL: greater than or equal to 190 mg/dL HDL Cholesterol 46 >40 mg/dL [facility] Comment:Desirable HDL: great er than 40 mg/dL Note: This HDL assay may give artificially low results in patients with liver disease. Blood Venous blood specimen / Unknown 09/10/2024 11:17 AM EST 09/10/2024 2:19 PM EST Result [facility] Rachelle Gaytan MD LAB BLOOD ORDERABLES Final Re sult Performing Organization Address [facility] Co de Phone Number [facility] [address] [place] [phone] [phone] * Hepatitis Panel, General (04/20/2023 8:57 AM EDT) Hepatitis A IgM Nonreactive Nonreactive [facility] Comment:IgM antibodies to [place] V not detected; does not exclude earlyacute or recovered HAV infection. ~Hepatitis B Surface Antibody REACTIVE Nonreactive [facility] Comment:REACTIVE: > 11.99 mI U/mL Hepatitis B Core Antibody Nonreactive Nonreactive [facility] Hepatitis C Antibody Nonreactive Nonreactive [facility] Comment:Antibodies to HCV no t detected; does not exclude early acuteHCV infection. Hepatitis B Surface Ag Negative Negative [facility] 04/20/2023 8:57 AM EDT 04/20/2023 8:57 AM EDT Result [facility] External Provider LAB BLO OD ORDERABLES Final Result Performing Organization Address [facility] Co de Phone Number [facility] [address] [place] [address] [phone] from Last 3 Months or Most Recently Relevant to Health Maintenance [place] [address] [place] [address] STANDARD MEDICARE Care Teams Contract Clerk Automobile Relationship Specialty Start Date End Date Rachelle Gaytan MD [address] [place] [phone] PCP - General Family Medicine 06/18/20 Leonor Salgado MD Gastroenterology 09/05/24 Latoya MILLAN- Nurse Practitioner Urology 09/05/24 NPR, [facility]. [address] [place] [phone] Psychiatry 09/05/24
== END 2025-09-10 12:36 | disposition home or self-care (01) ==
LOC: HO.HGI 11:24
PROVIDERS: PCP Family Medicine; Visit Provider Internal Medicine Gastroenterology
DX: K21.9 Gastro-esophageal reflux disease without esophagitis (principal); K74.60 Unspecified cirrhosis of liver; K86.1 Other chronic pancreatitis; Z86.0100 Personal history of colon polyps, unspecified; K59.09 Other constipation; K58.9 Irritable bowel syndrome, unspecified
CPT/HCPCS: 99213

== ENCOUNTER → 2025-09-10 11:24 | Outpatient (BNVA) | payer MEDICARE, MEDICAID, SELFPAY | PROVIDERS: PCP Family Medicine; Visit Provider Internal Medicine Gastroenterology | DX: K21.9 Gastro-esophageal reflux disease without esophagitis (principal); K58.9 Irritable bowel syndrome, unspecified; K59.09 Other constipation; A04.8 Other specified bacterial intestinal infections; Z85.038 Personal history of other malignant neoplasm of large intestine; K74.60 Unspecified cirrhosis of liver; K86.1 Other chronic pancreatitis | CPT/HCPCS: 99212 ==

== ENCOUNTER 2025-09-18 09:23 | Outpatient (REF) | payer MEDICARE, MEDICAID, SELFPAY ==
--- OUTSIDE RECORDS SUMMARY | 2025-09-18 08:45 | XMS_ITS | Encounter Summary ---
Author Organization [employer] Address [address] [place] [address] [address] [place] [address] Care Team Providers Care Mine Safety Director Name Role Phone Rachelle Gaytan MD Primary Care Provider [phone] Reason for Referral * Medications - Closed Specialty Diagnoses / Procedures Referred By Contac t Referred To Contact Diagnoses Asthma, unspecified asthma severity, unspecified whether complicated, unspecified whether persistent Rachelle Gaytan MD [address] [place] [address] Phone: tel: fax: Referral ID Status Reason Start Date Expiration Date Visits Re quested Visits Authorized [id number] Closed 1 1 Reason for Visit * Reason Comments Followup Extended Encounter Details Date Type Department Care Team ([facility] st Contact Info) Description 09/18/2025 8:45 AM EST Office Visit [facility] MED [facility] PEDS [address] [place] [address] Rachelle Gaytan MD [address] [place] [address] Asthma, unspecified asthma severity, unspecified whether complicated, unspecified whether persistent (Primary Dx); Encounter for immunization; Vitamin D deficiency; Overweight; Anemia with low platelet count (CMS/HCC); Other irritable bowel syndrome; Dietary counseling; Exercise counseling Social History Tobacco Use Types Packs/Day Years [...] AM EDT documented as of this encounter Last Filed Vital Signs Vital Sign Reading Time Taken Comments Blood Pressure 128/70 09/18/2025 8:39 AM EST Pulse 74 09/18/2025 8:39 AM EST Temperature 36.9 C (98.4 F) 09/18/2025 8:39 AM EST Respiratory Rate 20 09/18/2025 8:39 AM EST Oxygen Saturation 98% 09/18/2025 8:39 AM EST Inhaled Oxygen Concentration - - Weight 94.3 kg (208 lb) 09/18/2025 8:39 AM EST Height 180.3 cm (5' 11 ) 09/18/2025 8:39 AM EST Body Mass Index 29.01 09/18/2025 8:39 AM EST documented in this encounter Progress Notes * Rachelle Gaytan MD - 09/18/2025 8:45 AM EST Subjective Patient ID: Marck Peterson is a 44 y.o. male who presents for Followup Extended. Marck Peterson presents for routine follow-up care with a history of chronic gastritis, cerebral palsy, and irritable bowel syndrome (IBS). The patient is accompanied by his sister Oumou, who servesas his caregiver and provides most of the historical information. The patient continues to be followed by gastroenterology for chronic gastritis and stomach problems. He recently underwent a colonoscopy with anesthesia, during which a polyp was removed. The emblem maker has recommended repeat colonoscopy in one year. The patient was prescribed simethicone for his gastric symptoms. Regarding his IBS symptoms, the patient experiences alternating constipation and diarrhea. His sister reports ongoing concerns about his eating habits, noting that when Marck eats rice, it appears to expand significantly, which worries their mother. The family continues to manage his IBS symptoms with medications as needed, including Imodium for diarrhea episodes. The patient's mother was hospitalized on Sunday for a medical appointment but is reportedly doing well. The family has not had any emergency department visits in the past year, which his sister noteswith gratitude. Marck continues on multiple medications managed by various specialists including psychiatry and urology. His sister confirms medication adherence and reviews his current regimen, which includes medications for his psychiatric conditions, urological issues, and gastrointestinal symptoms. The patient takes multivitamins and vitamin D supplementation. The patient has not received a COVID booster since 2021. His sister inquires about annual flu vaccination. She reports that Marck sometimes has difficulty with leg strength but continues with his usual activities and self-care routines. Social History - Living Situation: Lives with mother who provides care and supervision - Caregiving Resources: Mother serves as primary caregiver and accompanies patient to medical appointments - Social Support: Sister Oumou also involved in patient's care Immunizations - Influenza: Receives annual flu vaccination - COVID-19: Has not received a booster since 2021 Review of Systems Gastrointestinal: Positive for constipation and diarrhea (alternating pattern consistent with IBS). Review of Systems Objective BP 128/70 Pulse 74 Temp 98.4 ??F (36.9 ??C) (Oral) Resp 20 Ht 5' 11 (1.803 m) Wt 208 lb (94.3 kg) SpO2 98% BMI 29.01 kg/m?? Physical Exam HENT: Ears: Comments: Left cerumen impactaion Constitutional: General: He is not in acute distress. Appearance: He is not ill-appearing. HENT: Head: Normocephalic and atraumatic. Nose: No congestion. Eyes: Comments: Opaque lens Cardiovascular: Rate and Rhythm: Regular rhythm. Pulmonary: Effort: Pulmonary effort is normal. No respiratory distress. Breath sounds: Normal breath sounds. Neurological: Mental Status: He is alert. Calmed Syndromic facial features Left eye with deviation and redness Inspection - Right: Normal, Left: Normal. Oropharynx - Drooling. Able to move upper extremities w/o difficulties. Right 5th digit with contracture. Stiff hips, widen gait Assessment/Plan Problem List Items Addressed This Visit Asthma - Primary Relevant Medications albuterol 108 (90 Base) MCG/ACT inhaler budesonide (Pulmicort) 0.5 MG/2ML nebulizer solution cetirizine (ZyrTEC) 10 MG chewable tablet Anemia with low platelet count (CMS/HCC) Relevant Medications ibuprofen 600 MG tablet Other Relevant Orders CBC auto differential Ferritin Iron And Total Iron Binding Capacity Vitamin D deficiency Relevant Orders Vitamin D, 25-Hydroxy, Total, Immunoassay Other Visit Diagnoses Encounter for immunization Relevant Medications ibuprofen 600 MG tablet Other Relevant Orders FLU VACCINE TRIVALENT 2490-9031 (Fluarix) 19 yrs + Overweight Relevant Orders Comprehensive Metabolic Panel Lipid Panel, Standard TSH W/Reflex to FT4 Other irritable bowel syndrome Relevant Medications cholecalciferol (Vitamin D-3) 50 MCG (1999 UT) tablet loperamide (Imodium) 2 MG capsule pancrelipase, Qlk-Cxev-Cotx, (Zenpep) 11788-04718 units capsule delayed-release particles capsule Other Relevant Orders TSH W/Reflex to FT4 Dietary counseling Exercise counseling Marck Peterson presents for routine follow-up with multiple chronic conditions including chronic gastritis, IBS, cerebral palsy, and anemia, with recent gastroenterology care including colonoscopy with polyp removal. Chronic gastritis Assessment: Patient has established chronic gastritis being followed by gastroenterology. Recent colonoscopy was performed with anesthesia and polyp removal. Family member reports concern about patient's rice intake appearing to increase in size when eating, though emblem maker provided reassurance. Patient has history of multiple gastrointestinal problems and requires annual repeat colonoscopy. Plan: - Continue gastroenterology follow-up for chronic gastritis management - Annual repeat colonoscopy as recommended by gastroenterology Irritable bowel syndrome Assessment: Patient has established IBS with symptoms including constipation and diarrhea. Family history of IBS noted. Symptoms are being managed symptomatically as there is no curative treatment available. Plan: - Continue Imodium as needed for diarrhea symptoms - Symptomatic management of IBS symptoms Cerebral palsy Assessment: Patient has established cerebral palsy with associated functional limitations. Physicalexamination demonstrates some strength in extremities with ability to follow commands for movement testing. Plan: - Continue current management approach Anemia Assessment: Patient has history of anemia requiring iron supplementation monitoring. Anemia may be related to gastrointestinal issues. Laboratory monitoring is needed to assess current status and iron levels. Plan: - Order laboratory studies to evaluate anemia and iron levels - Call patient with lab results once available Medication management Assessment: Patient is on multiple medications requiring coordination between different specialistsincluding psychiatrist and urologist. Plan: - Continue current medication regimen - Verify Vitamin D continuation need - Coordinate medication management between specialists - Review medication list for accuracy and appropriate dosing Preventive care Assessment: Patient requires routine preventive care including vaccinations. He has not received COVID booster since 2021. Annual flu vaccination status needs to be addressed. Plan: - Offer annual flu vaccination - Discuss COVID booster vaccination - Schedule follow-up in one year for routine care documented in this encounter Miscellaneous Notes * Addendum Note - Rachelle Gaytan MD - 09/18/2025 8:45 AM ESTAddended by: RACHELLE GAYTAN on: 09/18/2025 09:23 AM Modules accepted: Orders documented in this encounter Plan of Treatment Scheduled Orders Name Type Priority Associated Diagnoses Orde r Schedule CBC auto differential Lab Routine Anemia with low platelet count (CMS/HCC) Expected: 09/18/2025 (Approximate), Expires: 09/18/2026 Ferritin Lab Routine Anemia with low platelet count (CMS/HCC) Expected: 09/18/2025 (Approximate), Expires: 09/18/2026 Iron And Total Iron Binding Capacity Lab Routine Anemia with low platelet count (CMS/HCC) Expected: 09/18/2025, Expires: 09/18/2026 Comprehensive Metabolic Panel Lab Routine Overweight Expected: 09/18/2025 (Approximate), Expires: 09/18/2026 Lipid Panel, Standard Lab Routine Overweight Expected: 09/18/2025 (Approximate), Expires: 09/18/2026 Vitamin D, 25-Hydroxy, Total, Immunoassay Lab Routine Vitamin D deficiency Expected: 09/18/2025 (Approximate), Expires: 09/18/2026 TSH W/Reflex to FT4 Lab Routine Overweight Other irritable bowel syndrome Expected: 09/18/2025 (Approximate), Expires: 09/18/2026 documented as of this encounter Visit Diagnoses Diagnosis Asthma, unspecified asthma severity, unspecified whether complicated, unspecified whether persistent- Primary Encounter for immunization Vitamin D deficiency Overweight Anemia with low platelet count (CMS/HCC) Other irritable bowel syndrome Dietary counseling Dietary surveillance and counseling Exercise counseling documented in this encounter Care Teams Mine Safety Director Relationship Specialty Start Date End Date Rachelle Gaytan MD [address] [place] [phone] PCP - General Family Medicine 06/18/20 Leonor Salgado MD Gastroenterology 09/05/24 Latoya Peters SEAM PRESS OPERATOR- Nurse Practitioner Urology 09/05/24 Renita Larson NP [address] [place] [phone] Nurse Practitioner Psychiatry 09/05/24 Stravos 09/18/25 documented as of this encounter
--- OUTSIDE RECORDS SUMMARY | 2025-09-18 09:52 | XMS_ITS | Encounter Summary ---
Author Organization [employer] Address [address] [place] [address] 7 [place] [address] Care Team Providers Care General Medical Practitioner Name Role Phone Rachelle Gaytan MD Primary Care Provider [phone] Encounter Details Date Type Department Care Team (Latest Contact Info) Description 09/18/2025 Travel Social History Tobacco Use Types Packs/Day Years [...] on file documented as of this encounter Visit Diagnoses Not on filedocumented in this encounter Care Teams General Medical Practitioner Relationship Specialty Start Date End Date Rachelle Gaytan MD [address] [place] [address] PCP - General Family Medicine 06/18/20 Leonor Salgado MD Gastroenterology 09/05/24 Latoya MILLAN- Nurse Practitioner Urology 09/05/24 Renita Larson, COSMETICS COUNTER MANAGER [address] [place] [address] Nurse Practitioner Psychiatry 09/05/24 Randys 09/18/25 documented as of this encounter
--- OUTSIDE RECORDS SUMMARY | 2025-09-18 09:52 | XMS_ITS | Clinical Summary ---
Author Organization [employer] Address [address] [place] [address] Care Team Providers Care Alignment Technician Name Role Phone Rachelle Gaytan MD Primary Care Provider [phone] Allergies No known active allergies Medications traZODone (Desyrel) 100 MG tablet take 1 tablet by oral route every bedtime Active finasteride (Proscar) 5 MG tablet Take 5 mg by mouth in the morning. 10/02/20 22 Active OLANZapine (ZyPREXA) 20 MG tablet Take 1 tablet by mouth at bedtime. 08/14/20 22 Active OXcarbazepine (Trileptal) 300 MG tablet Take 300 mg by mouth 2 times daily. Active fesoterodine ER (Toviaz) 8 MG 24 hr tablet Take 8 mg by mouth in the morning. 10/18/20 23 Active albuterol (2.5 MG/3ML) 0.083% nebulizer solutionIndica tions:Upper respiratory tract infection, unspecified type Take 3 mL by nebulization every 6 (six) hours if needed for wheezing. 75 mL 11 06/19/20 24 Active cloNIDine (Catapres) 0.1 MG tablet TAKE 1 TABLET BY MOUTH DAILY AT 4 PM 08/08/20 24 Active cloNIDine (Catapres) 0.2 MG tablet TAKE 1 TABLET BY MOUTH DAILY AT NOON 08/08/20 24 Active LORazepam (Ativan) 1 MG tablet TAKE 1 TABLET BY MOUTH TWICE DAILY IN THE AFTERNOON AND AT BEDTIME 07/19/20 24 Active OLANZapine (ZyPREXA) 10 MG tablet TAKE 1 TABLET BY MOUTH EVERY DAY AT 4PM 08/08/20 24 Active zolpidem (Ambien) 10 MG tablet Take 10 mg by mouth at bedtime. 08/12/20 24 Active sertraline (Zoloft) 50 MG tablet Take 50 mg by mouth in the morning. 08/08/20 Active hydrOXYzine HCl (Atarax) 50 MG tablet 09/04/20 Active benztropine (Cogentin) 1 MG tablet 08/12/20 Active Gemtesa 75 MG tablet Take 1 tablet by mouth Once per day. Active cloNIDine (Catapres) 0.3 MG tablet Take 0.3 mg by mouth at bedtime. 08/11/20 Active LORazepam (Ativan) 0.5 MG tablet TAKE 1 TABLET BY MOUTH DAILY AT 4 PM 06/03/20 Active risperiDONE (RisperDAL) 4 MG tablet 09/15/20 Active albuterol 108 (90 Base) MCG/ACT inhaler Inhale 2 puffs every 4 (four) hours if needed for wheezing. 18 g 09/18/20 25 Active budesonide (Pulmicort) 0.5 MG/2ML nebulizer solutionIndica tions:Asthma, unspecified asthma severity, unspecified whether complicated, unspecified whether persistent Take 2 mL (0.5 mg) by nebulization in the morning and at bedtime. 60 mL 09/18/20 25 Active cetirizine (ZyrTEC) 10 MG chewable tablet Chew 1 tablet (10 mg) Once per day. 90 tablet 1 09/18/20 25 Active cholecalcifero l (Vitamin D-3) 50 MCG (2000 UT) tablet Take 2,000 Units by mouth Once per day. 90 tablet 1 09/18/20 25 Active ibuprofen 600 MG tablet Take 1 tablet (600 mg) by mouth 3 times daily. 90 tablet 09/18/20 25 Active loperamide (Imodium) 2 MG capsule Take 1 capsule (2 mg) by mouth if needed in the morning, at noon, in the evening, and at bedtime for diarrhea. 90 capsule 09/18/20 25 Active Multiple Vitamins-[place] als (Centrum Adults) tablet Take 1 tablet by mouth Once per day. 90 tablet 1 09/18/20 25 Active pancrelipase, His-Vacv-Xcvh, (Zenpep) 23877-34731 units capsule delayed-releas e particles capsule Take 1 capsule by mouth every 8 (eight) hours. 270 capsule 1 09/18/20 25 Active pantoprazole (ProtoNix) 40 MG EC tablet Take 1 tablet (40 mg) by mouth before breakfast. 90 tablet 1 09/18/20 Active carbamide peroxide (Debrox) 6.5 % otic solution Administer 5-10 drops into affected ear(s) 2 times daily for 4 days. 30 mL 09/18/202024 Active pantoprazole (ProtoNix) 40 MG EC tablet Take 1 tablet (40 mg) by mouth before breakfast. 90 tablet 1 10/11/202024 Discontinued(R eorder (will not trigger notification to Pharmacy)) pancrelipase, Xng-Dhqv-Reom, (Zenpep) 24762-44893 units capsule delayed-releas e particles capsule Take 1 capsule by mouth every 8 (eight) hours. 270 capsule 1 10/11/202024 Discontinued(R eorder (will not trigger notification to Pharmacy)) Multiple Vitamins-[place] als (Centrum Adults) tablet Take 1 tablet by mouth in the morning. 90 tablet 1 10/11/202024 Discontinued(R eorder (will not trigger notification to Pharmacy)) loperamide (Imodium) 2 MG capsule Take 1 capsule (2 mg) by mouth if needed in the morning, at noon, in the evening, and at bedtime for diarrhea. 90 capsule 10/11/202024 Discontinued(R eorder (will not trigger notification to Pharmacy)) cholecalcifero l (Vitamin D-3) 50 MCG (2000 UT) tablet Take 2,000 Units by mouth in the morning. 90 tablet 1 10/11/202024 Discontinued(R eorder (will not trigger notification to Pharmacy)) cetirizine (ZyrTEC) 10 MG chewable tablet Chew 1 tablet (10 mg) in the morning. 90 tablet 1 10/11/202024 Discontinued(R eorder (will not trigger notification to Pharmacy)) budesonide (Pulmicort) 0.5 MG/2ML nebulizer solution Take 2 mL (0.5 mg) by nebulization in the morning and at bedtime. 60 mL 10/11/202024 Discontinued(R eorder (will not trigger notification to Pharmacy)) difluprednate (Durezol) 0.05 % ophthalmic solution SHAKE WELL AND INSTILL 1 DROP INTO LEFT EYE TWICE DAILY DIRECTED 09/07/202024 Discontinued(T herapy completed) risperiDONE (RisperDAL) 3 MG tablet TAKE 1 TABLET BY MOUTH TWICE DAILY AT NOON AND AT NIGHT 10/04/202024 Discontinued(T herapy completed) albuterol 108 (90 Base) MCG/ACT inhaler Inhale 2 puffs every 4 (four) hours if needed for wheezing. 18 g 11 06/19/20 24 2024 Discontinued(R eorder (will not trigger notification to Pharmacy)) ibuprofen 600 MG tablet Take 1 tablet (600 mg) by mouth 3 times daily. 90 tablet 06/19/202024 Discontinued(R eorder (will not trigger notification to Pharmacy)) Active Problems Problem Noted Date Diagnosed Date Chronic constipation 09/18/2025 Cirrhosis of liver without ascites 09/18/2025 Cognitive developmental delay 09/18/2025 Overview (09/18/2025): mother Tommie Thomas is legal guardian GERD (gastroesophageal reflux disease) Autism spectrum disorder 09/05/2024 Upper respiratory tract [...] Patient may proceed with intended procedure. Anemia with low platelet count 10/11/2023 Assessment & Plan (10/11/2023 3:15 PM [...] (Family Medicine) Leonor Salgado MD (Gastroenterology) [facility]ition[facility] (Urology) [facility] (Psychiatry) Reviewed diet and exercise with mother. Will send labs. Unable to do PHQ-9 as patient is not verbal follows with psych. Encounters Date Type Department Care Team Description 09/18/2025 8:45 AM EST Office Visit [facility] [address] [place] [address] Rachelle Gaytan MD Asthma, unspecified asthma severity, unspecified whether complicated, unspecified whether persistent (Primary Dx); Encounter for immunization; Vitamin D deficiency; Overweight; Anemia with low platelet count (CMS/HCC); Other irritable bowel syndrome; Dietary counseling; Exercise counseling 09/18/2025 Travel 09/10/2025 Patient Outreach [facility] [address] [place] [address] Rachelle Gaytan MD Pre-visit Planning (Pre visit planning LVM ) 09/03/2025 Orders Only GENERIC EXTERNAL DATA DEPARTMENT Provider, Generic External Data 08/28/2025 Orders Only GENERIC EXTERNAL DATA DEPARTMENT Provider, Generic External Data 07/31/2025 Orders Only [facility] External Provider, [facility] 06/22/2025 Orders Only GENERIC EXTERNAL DATA DEPARTMENT Provider, Generic External Data from Last 3 Months Immunizations Immunization Administration Dates Next Due Hep A, Adult 08/10/2010,07/13/2010 Hep B, adult 11/17/2022,08/10/2010,07/13/2010 Influenza injectable quadriv alent IIV4 with preservative 07/14/2019,07/18/2018,09/10/2017,12/20 Influenza injectable quadriv alent preservative free 10/11/2023,07/07/2022,08/11/2021,08/11 Influenza, IIV3, injectable 07/13/2011 Influenza, Split (incl. nick fied surface antigen) 07/09/2013,07/29/2012 Influenza, seasonal, injecta ble, preservative free 09/18/2025,09/05/2024 Moderna Covid-19 Vaccine 12+ 09/08/2021,02/11/20 21,01/13/2021 Pneumococcal [...] Mass Index 29.01 09/18/2025 8:39 AM EST Plan of Treatment Health Maintenance Due Date Last Done Comments CT Colonography 1980 Colonoscopy 1979 Colorectal Cancer Screening 1980 Depression Screening 1979 FIT DNA/Cologuard 1979 FIT 1979 FOBT 1980 HIV Screening 1980 SDOH Screening 1979 Sigmoidoscopy 1980 Disability Screening 1979 Alcohol/Substance Use Screening 1991 Family Planning (PISQ) 1994 HPV Vaccines (1 - Male 3-dose series) 1994 COVID-19 Vaccine ( season) 2026 10/25/2022, 09/08/2021, 02/10/2021, Additional history exists Postponed from 06/29/2025 (Patient Refused) Hepatitis A Vaccines (2 of 2 - Risk 2-dose series) 09/18/2026 08/10/2010, 07/13/2010 Postponed fro m 02/08/2011 (Patient Refused) Tobacco Screening 09/18/2026 09/18/2025 Lipid Panel 09/10/2029 09/10/2024, 12/06/2023, 04/20/2023, Additional [...] (6 to 49) Years Completed 09/05/2024, 07/13/2010 Influenza Vaccine Completed 09/18/2025, , 10/11/2023, Additional history exists HIB Vaccines Aged Out No longer eligi [...] 9:30 AM EST 09/04/2025 11:27 AM EST [facility] - 09/07/2025 2:31 PM EST ----- ------- Name: Petersonana luisa ThomasMarck Age/Sex: 44/M : 1980 Unit#: [id number] Attend Dr: Latoya Peters [facility] Re09/03/25 Status: DEP [facility] Disch: ----- ------- SPEC : [id number] RECD: 09/04/25 STATUS: ARMANDO IBRAHIM NUM: [id number] DAT: 09/03/25 [facility] DR: Latoya Peters [facility] ENTERED: 09/04/25121 SP TYPE: Cytology OTHR DR: Rachelle Gaytan [...] developed and their performance characteristics determined by [facility]. They have not been cleared or approved by the U.S. Food and Drug Administration (FDA). However, the FDA has determined that such clearance or approval is not necessary. This laboratory is certified under the Clinical Laboratory Improvement Amendments of 1988 (CLIA) as qualified to perform high complexity clinical laboratory testing. Copies To: Latoya Peters [facility] [address] [place] [address] [facility] [address] [place] [address] [email or web address] Rachelle Gaytan MD [address] [address] CONTINUED ON NEXT PAGE ----- ------- Name: Marck Roland Age/Sex: 44/M : 1980 Unit#: [id number] Attend Dr: Latoya Peters [facility] Re09/03/25 Status: DEP [facility] Disch: ----- ------- SPEC : [id number] RECD: 09/04/25 STATUS: ARMANDO IBRAHIM NUM: [id number] DAT: 09/03/25 [facility] DR: Latoya Peters WORKERS' COMPENSATION MEDIATOR- ENTERED: 09/04/25 SP TYPE: Cytology OTHR DR: Rachelle Gaytan MD ORDERED: Cyto-enhanced ----- ------- Signed (signature on file) Isela Nieves MD 09/07/25 1431 ----- ------- END OF REPORT us Generic External Data Provider LAB CYTOLOGY SANTOS PRITCHETT Final Result [facility] [address] [place] [address] [phone] * PSA,Total (08/28/2025 10:52 AM EDT) Prostate Specific Antigen 3.31 <0.05 - 4.0 ng/mL [facility] Comment:PSA methodology: Abb cher Huang i ChemiluminescentMicroparticle Immunoassay (CMIA) 08/28/2025 10:5 2 AM EDT 08/28/2025 10:52 AM EDT us Generic External Data Provider LAB BLOOD ORDERAB LES Final Result Performing Organization Address [facility] Co de Phone Number [facility] [address] [place] [address] [phone] * (ABNORMAL) Urinalysis, Complete, with Reflex to Culture (08/28/2025 10:45 AM EDT) Color Urine Yellow [facility] Appearance Urine Clear [facility] PH 6.0 5.0 - 9.0 [facility] Glucose Urine UA Negative Negative mg/dL [facility] Urine Blood Small (1+)(A) Negative [facility] Specific [place] - Urine 1.020 1.005 - 1.025 [facility] Urine Protein Negative Neg-Trace mg/dL [facility] Urine Ketones Negative Negative mg/dL [facility] Nitrite Urine Negative Negative [facility] Leukocyte Esterase Urine Trace(A) Negative [facility] RBC Urine 0-2 0 - 2 /HPF [facility] Urine WBC 0-5 0 - 5 /HPF [facility] Urine Squamous Epithelial Cell 0-2 0 - 2 /HPF [facility] Urine Bacteria None Seen None Seen [facility] Hyaline Casts, Urine 0-2 0 - 2 /LPF [facility] 08/28/2025 10:4 5 AM EDT 08/28/2025 11:39 AM EDT Narrative [facility] - 08/28/2025 12:09 PM EDT Urine, Clean Catch us Generic External Data Provider LAB URINE ORDERAB LES Final Result Performing Organization Address [facility] Co de Phone Number [facility] [address] [place] [address] [phone] * US Abdomen Complete (08/01/2025 8:44 AM EDT) Anatomical Region Laterality Modality Abdomen Ultrasound 08/01/2025 8:44 AM EDT Narrative 08/01/2025 8:46 AM EDT [address] [address] Ultrasound Report Signed Patient: Marck Roland MR#: [id number] : 1980 Acct:[id number] Age/Sex: 44 / M ADM Date: 07/31/25 Loc: HO.US Attending Dr: Leonor Salgado MD Ordering Physician: Leonor Salgado MD Date of Service: 07/31/25 Procedure(s): US abdomen complete Accession Number(s): [id number] cc: Leonor Salgado MD; Latoya Peters [facility]; Rachelle Gaytan MD Reason for Exam: Unspecified [...] in OV> 08/01/2545 DD/ 3 TD/TT: 08/01/25843 Meat And Seafood Manager: Procedure Note Donamandainterpreter, Image - 08/01/[address] [address] Ultrasound Report Signed Patient: Marck RolandMR#: [id number] : 1980Acct:[id number] Age/Sex: 44 / MADM Date: 07/31/25 Loc: HO.US Attending Dr: Leonor Salgado MD Ordering Physician: Leonor Salgado MD Date of Service: 07/31/25 Procedure(s): US abdomen complete Accession Number(s): [id number] cc: Leonor Salgado MD; Latoya Peters [facility]; Rachelle Gaytan MD Reason for Exam: Unspecified [...] in OV> 08/01/2545 DD/ 3 TD/TT: 08/01/25843 Meat And Seafood Manager: us [facility] External Provider IMG US PROCEDURES Edited Result - Final * Hematoxylin and Eosin Stain (06/22/2025 11:52 AM EDT) 06/22/2025 11:5 2 AM EDT 06/22/2025 1:03 PM EDT Narrative [facility] - 06/24/2025 9:58 AM EDT ----- ------- Name: Marck Roland Age/Sex: 44/M [facility] 1980 [id number] Unit#: [id number] Attend Dr: Leonor Salgado MD Re06/22/[address] [facility] Location: [facility] Disch: ----- ------- SPEC : [id number] RECD: 06/22/25 STATUS: ARMANDO IBRAHIM NUM: [id number] DAT: 06/22/25-1151 [facility] DR: Leonor Salgado MD ENTERED: 06/22/25 [...] developed and their performance characteristics determined by [facility]. They have not been cleared [...] Nicholas ThomasMarck Age/Sex: 44/M : 1980 Unit#: [id number] Attend Dr: Leonor Salgado MD Re06/22/[address] [facility] Location: [facility] Disch: ----- ------- SPEC : [id number] RECD: 06/22/25 STATUS: ARMANDO IBRAHIM NUM: [id number] DAT: 06/22/25 [facility] DR: Leonor Salgado MD ENTERED: 06/22/25 SP TYPE: Surgical OTHR DR: Rachelle Gaytan MD ORDERED: HE Stain/6, Gross Micro L4/2, IHC, Special st. 2, H. pylori, AB/PAS Copies To: Leonor Salgado MD [facility] [address] [place] [phone] Rachelle Gaytan MD [address] [place] [address] ----- ------- Signed (signature on file) Arthur Coe MD 06/24/25 0958 ----- ------- END OF REPORT us Generic External Data Provider LAB BLOOD ORDERAB LES Final Result [facility] [address] [place] [phone] * H. pylori culture (06/22/2025 11:40 AM EDT) 06/22/2025 11:4 0 AM EDT 06/22/2025 11:58 AM EDT Comment:Gastric Bx Narrative [facility] - 07/06/2025 11:00 AM EDT [...] ORD ERABLES Final Result Performing Organization Address [facility]/ZIP Co de Phone Number [facility] [address] [place] [address] [phone] * (ABNORMAL) Lipid Panel, Standard (09/10/2024 11:17 AM EST) Triglycerides 133 <150 mg/dL [facility] Comment:Desirable Triglyceri de: less than 150 mg/dLBorderline High Triglyceride 150-199 mg/dLHigh Triglyceride: 200-499 mg/dLVery High Triglyceride: greater than or equal to 5OO mg/dL Cholesterol 213(H) <200 mg/dL [facility] Comment:Desirable Cholestero l: less than 200 mg/dLBorderline High Cholesterol: 200-239 mg/dLHigh Cholesterol: greater than 239 mg/dL LDL Cholesterol Calculated 141(H) <100 mg/dL [facility] Comment:Desirable LDL: less than 100 [...] ORDERABLES Final Re sult Performing Organization Address City/[facility]/ZIP Co de Phone Number [facility] [address] [place] [address] [phone] * Hepatitis Panel, General (04/20/2023 8:57 AM EDT) Hepatitis A IgM Nonreactive Nonreactive [facility] Comment:IgM antibodies to [place] V not detected; does not exclude earlyacute or recovered HAV infection. ~Hepatitis B Surface Antibody REACTIVE Nonreactive [facility] Comment:REACTIVE: > 11.99 mI U/mL Hepatitis B Core Antibody Nonreactive Nonreactive [facility] Hepatitis C Antibody Nonreactive Nonreactive [facility] Comment:Antibodies to HCV no t detected; does not exclude early acuteHCV infection. Hepatitis B Surface Ag Negative Negative [facility] 04/20/2023 8:57 AM EDT 04/20/2023 8:57 AM EDT us [facility] External Provider LAB BLO OD ORDERABLES Final Result [facility] [address] [place] [address] [phone] from Last 3 Months or Most Recently Relevant to Health Maintenance [place] [address] [place] [address] [employer] Care Teams Alignment Technician Relationship Specialty Start Date End Date Rachelle Gaytan MD [address] [place] [phone] PCP - General Family Medicine 06/18/20 Leonor Salgado MD Gastroenterology 09/05/24 Latoya Peters [facility] Nurse Practitioner Urology 09/05/24 Renita Larson NP [address] [place] [phone] Nurse Practitioner Psychiatry 09/05/24 Stravos 09/18/25
[2025-09-18 14:23] LABS: MANUAL DIFF FLAG NO
[2025-09-18 14:48] LABS: Hematocrit 40.1 % (42.0-52.0); Hemoglobin 13.4 g/dl (14.0-18.0); Imm Gran Abs Auto 0.02 X10*3/uL (0.00-0.03); Imm Gran Pct Auto 0.4 % (0.0-0.4); Lymphocytes Absolute Auto 0.9 X10*3/uL (1.2-4.9); Mean Corpuscular HGB Conc 33.4 g/dl (31.0-36.0); Mean Corpuscular Hemoglobin 30.3 pg (27.0-33.0); Mean Corpuscular Volume 90.7 fL (80.0-98.0); NRBC Abs Auto 0.000 X10*3/uL (0.0-0.012); NRBC Pct Auto 0.0 /100WBC (0.0-0.2); Platelet Count 178 X10*3/uL (160-400); Red Blood Count 4.42 X10*6/uL (4.60-5.80); White Blood Count 5.3 X10*3/uL (4.8-10.8)
[2025-09-18 15:11] LABS: Alanine Aminotransferase 15 U/L (0-40); Albumin Level 4.6 g/dL (3.5-5.0); Alkaline Phosphatase 83 U/L (39-117); Anion Gap 9 (12-20); Aspartate Amino Transferase 31 U/L (5-37); Blood Urea Nitrogen 12 mg/dL (9-16); Calcium 9.9 mg/dL (8.4-10.2); Carbon Dioxide 30 mmol/L (22-29); Chloride 105 mmol/L (96-108); Cholesterol 238 mg/dL (<200); Estimated Glomerular Filt Rate > 60; HDL Cholesterol 47 mg/dL (>40); Iron 86 mcg/dL (45-160); Percent Iron Saturation 34 % (15-50); Potassium 3.9 mmol/L (3.3-5.1); Sodium 140 mmol/L (135-145); Total Iron Binding Capacity 254 mcg/dL (228-428); Total Protein 7.7 g/dL (6.5-8.0); Triglycerides 141 mg/dL (<150); Unsaturated Iron Binding 168 ug/dL
[2025-09-18 15:15] LABS: Ferritin 72 ng/mL (20-250)
== END 2025-09-18 09:24 | disposition home or self-care (01) ==
LOC: HO.CHCLDS 09:23
PROVIDERS: Visit Provider Family Medicine
DX: E66.3 Overweight (principal); K58.8 Other irritable bowel syndrome; E55.9 Vitamin D deficiency, unspecified; D69.6 Thrombocytopenia, unspecified
CPT/HCPCS: 36415; 80053; 80061; 82306; 82728; 83540; 84443; 85025